=== PATIENT | female | born 1955 | race Caucasian/White ===

== ENCOUNTER 2021-03-14 17:56 | Inpatient (IN) ==
[2021-03-14] MEDS ORDERED: DUONEB 0.5 MG/3 MG (3 mL) NEB ONE ×2 (18:07→18:34)
[2021-03-14] MEDS ORDERED: SOLU-Medrol 125 MG VIAL IVP ONE (18:07)
--- NOTE | 2021-03-14 18:10 | DR.SOBA ---
HPI Time Seen Time Seen by Provider: 03/14/21 18:06 Complaints Chief Complaint:: PT. BROUGHT BACK TO THE ER VIA W/C. PT. HAS AMS AND NOTED TO BE CYANOTIC. PT. IS SLUMPED OVER IN WHEELCHAIR. O2 SAT 29% ON ROOM AIR. ONCE A NON RE-BREATHER WAS APPLIED TO PT, O2 SAT INCREASED TO 100%. PT. STATES SHE HAS BEEN SICK FOR 2 DAYS. SWELLING NOTED TO BLE. PT. IS LETHARGIC. UNKNOWN ANY FURTHER DETAILS AT THIS TIME REGARDING PT'S SICKNESS OR MEDICAL HISTORY. COVID-19 Coronavirus risk:travel/contact w/high risk person: No Has patient experienced Coronavirus symptoms: Yes Coronavirus symptoms experienced: Shortness of Breath Source History Provided: Patient Mode of Arrival Mode of Arrival: Wheelchair Timing Onset of Chief Complaint: 03/12/21 PMH PMH Past Medical History: Yes Past Medical History Comment: BRONCHITIS Past Surgical History: Yes Surgical History: Unknown Family History History of Family Medical Conditions: No (UNKNOWN) Social History Lives With: Family Lives Where: Home Travel Risk Coronavirus risk:travel/contact w/high risk person: No Has patient experienced Coronavirus symptoms: Yes Coronavirus symptoms experienced: Shortness of Breath Infectious screening In the last 2 months have you had wt loss of >10#?: NO Have you had fever, night sweats or hemotysis?: No Have you traveled outside the country in the last 6 months?: No Isolation: Droplet PE Vital Signs Vitals: Temperature 97.9 F Pulse Rate [Apical] 81 Pulse Rate 141 Respiratory Rate 29 Blood Pressure [Left Arm] 148/82 Blood Pressure 188/94 O2 Sat by Pulse Oximetry 96 ROR Labs Reviewed Result Diagrams: 03/14/21 18:00 03/14/21 18:00 Laboratory: WBC 10.3 X10^3/uL (3.6-10.0) H 03/14/21 18:00 RBC 5.45 X10^6/uL (3.5-5.4) H 03/14/21 18:00 Hgb 15.3 g/dL (12.0-16.0) 03/14/21 18:00 Hct 48.9 % (36.0-47.0) H 03/14/21 18:00 MCV 89.8 fL (80.0-100.0) 03/14/21 18:00 MCH 28.1 pg (27.0-34.0) 03/14/21 18:00 MCHC 31.3 g/dL (33.0-35.0) L 03/14/21 18:00 RDW 18.0 % (11.6-16.5) H 03/14/21 18:00 Plt Count 303 X10^3/uL (150.0-450.0) 03/14/21 18:00 MPV 8.4 fL (7.4-11.0) 03/14/21 18:00 Neut % (Auto) 83.8 % (42.0-75.0) H 03/14/21 18:00 Lymph % (Auto) 11.3 % (21.0-51.0) L 03/14/21 18:00 [place] % (Auto) 4.3 % (0.0-13.0) 03/14/21 18:00 Eos % (Auto) 0.3 % (0.9-2.9) L 03/14/21 18:00 Baso % (Auto) 0.3 % (0.2-1.0) 03/14/21 18:00 Neut # (Auto) 8.7 x10^3/uL (2.2-4.8) H 03/14/21 18:00 Lymph # (Auto) 1.2 X10^3/uL (1.3-2.9) L 03/14/21 18:00 [place] # (Auto) 0.4 x10^3/uL (0.3-0.8) 03/14/21 18:00 Eos # (Auto) 0.0 x10^3/uL (0.0-0.2) 03/14/21 18:00 Baso # (Auto) 0.0 X10^3/uL (0.0-0.1) 03/14/21 18:00 Absolute Nucleated RBC 0.4 /100WBC 03/14/21 18:00 D-Dimer 0.60 ug/ml (0.0-0.57) H* 03/14/21 18:00 Sample Site Rrad 03/14/21 21:09 ABG pH 7.290 (7.35-7.45) L 03/14/21 21:09 ABG pCO2 77.0 mmHg (35.0-45.0) H* 03/14/21 21:09 ABG pO2 84.0 mmHg (80.0-100.0) 03/14/21 21:09 ABG HCO3 37.0 mmol/L (22-26) H* 03/14/21 21:09 ABG O2 Saturation 95.0 % (90-100) 03/14/21 21:09 ABG Base Excess 7.8 mmol/L (-2.0-2.0) H 03/14/21 21:09 Varun Test Pos 03/14/21 21:09 A-a Gradient 248.0 mmHg 03/14/21 21:09 FiO2 60.0 03/14/21 21:09 Blood Gas Comments Maicol abg well-mtf 03/14/21 21:09 Sodium 140 mmol/L (136-145) 03/14/21 18:00 Corrected Sodium 145 mmol/L (136-145) 03/14/21 18:00 Potassium 4.9 mmol/L (3.5-5.1) 03/14/21 18:00 Chloride 102 mmol/L (98-107) 03/14/21 18:00 Carbon Dioxide 36.3 mmol/L (21-32) H 03/14/21 18:00 BUN 20 mg/dL (7-18) H 03/14/21 18:00 Creatinine 1.40 mg/dL (0.55-1.02) H 03/14/21 18:00 Est GFR (MDRD) Af Amer 49 (>60) L 03/14/21 18:00 Est GFR (MDRD) Non-Af 40 (>60) L 03/14/21 18:00 Glucose 309 mg/dL (65-99) H 03/14/21 18:00 Hemoglobin A1c 7.4 % 03/14/21 18:00 Calcium 8.2 mg/dL (8.5-10.1) L 03/14/21 18:00 Corrected Calcium 8.8 mg/dL (8.5-10.1) 03/14/21 18:00 Total Bilirubin 0.30 mg/dL (0.2-1.0) 03/14/21 18:00 AST 55 Units/L (15-37) H 03/14/21 18:00 ALT 42 Units/L (12-78) 03/14/21 18:00 Alkaline Phosphatase 115 Units/L (46-116) 03/14/21 18:00 Creatine Kinase 138 Units/L (26-192) 03/14/21 18:00 CK-MB (CK-2) 3.5 ng/mL (0-4.0) 03/14/21 18:00 CK/CKMB % Calc 2.5 % (<4) 03/14/21 18:00 Troponin I < 0.02 ng/mL (0-1.5) 03/14/21 18:00 B-Natriuretic Peptide 112 pg/mL (0-79) H 03/14/21 18:00 Total Protein 8.3 g/dL (6.4-8.2) H 03/14/21 18:00 Albumin 3.2 g/dL (3.4-5.0) L 03/14/21 18:00 Globulin 5.1 g/dL (2.5-4.5) H 03/14/21 18:00 Albumin/Globulin Ratio 0.6 Ratio (1.1-2.1) L 03/14/21 18:00 Specimen Type Catherized urine 03/15/21 01:50 Urine Color Yellow (YELLOW) 03/15/21 01:50 Urine Appearance Clear (CLEAR) 03/15/21 01:50 Urine pH 5.0 (5.0 - 8.0) 03/15/21 01:50 Ur Specific [place] 1.025 (1.000-1.030) 03/15/21 01:50 Urine Protein 3+ (NEGATIVE) 03/15/21 01:50 Urine Glucose (UA) Negative (NEGATIVE) 03/15/21 01:50 Urine Ketones Negative (NEGATIVE) 03/15/21 01:50 Urine Occult Blood 1+ (NEGATIVE) 03/15/21 01:50 Urine Nitrite Negative (NEGATIVE) 03/15/21 01:50 Urine Bilirubin Negative (NEGATIVE) 03/15/21 01:50 Urine Urobilinogen Normal (NORMAL) 03/15/21 01:50 Ur Leukocyte Esterase Negative (NEGATIVE) 03/15/21 01:50 Urine RBC 0-2 /HPF (0-3) 03/15/21 01:50 Urine WBC 0-2 /HPF (0-5) 03/15/21 01:50 Ur Squamous Epith Cells Rare /HPF (NEGATIVE) 03/15/21 01:50 Urine Bacteria Negative /HPF (NEGATIVE) 03/15/21 01:50 Urine Mucus Few /HPF (NEGATIVE) 03/15/21 01:50 Ur Culture Indicated? No/not indicated 03/15/21 01:50 Urine Opiates Screen Positive (NEG=<300) A 03/15/21 01:50 Urine Methadone Screen Negative (NEG=<300) 03/15/21 01:50 Ur Barbiturates Screen Negative (NEG=<200) 03/15/21 01:50 Ur Phencyclidine Scrn Negative (NEG=<25) 03/15/21 01:50 Ur Amphetamines Screen Positive (NEG=<1000) A 03/15/21 01:50 U Benzodiazepines Scrn Negative (NEG=<200) 03/15/21 01:50 Urine Cocaine Screen Negative (NEG=<300) 03/15/21 01:50 U Marijuana (THC) Screen Negative (NEG=<50) 03/15/21 01:50 Acetone, Semi-Quant Negative (NEGATIVE) 03/14/21 18:00 SARS-CoV-2 (PCR) Negative (NEGATIVE) 03/14/21 22:28 Influenza Type A (PCR) Negative (NEGATIVE) 03/14/21 22:28 Influenza Type B (PCR) Negative (NEGATIVE) 03/14/21 22:28 RSV (PCR) Positive (NEGATIVE) A 03/14/21 22:28 SARS CoV-2 RNA Rapid WILLIAN Negative (NEGATIVE) 03/14/21 18:00 Opioid Opioid Risk Tool Age (Yuval box if 16-45): No History of Preadolescent Sexual Abuse: No Total: 0 Total Score Risk Category: Low Risk Copyright: Jovanni HAYES predicting aberrant behaviors Instructions Forms: Precautions for COVID19 Patient Portal Social Distancing
[2021-03-14 18:17] LABS: ABG BASE EXCESS 4.5 mmol/L (-2.0-2.0)
[2021-03-14 18:19] LABS: ABG ALLEN TEST POS; ABG HCO3 35.8 mmol/L (22-26)
[2021-03-14 18:28] LABS: BASOPHILS % (AUTO) 0.3 % (0.2-1.0); EOSINOPHILS % (AUTO) 0.3 % (0.9-2.9); HEMATOCRIT 48.9 % (36.0-47.0); HEMOGLOBIN 15.3 g/dL (12.0-16.0); LYMPHOCYTES # (AUTO) 1.2 X10^3/uL (1.3-2.9); LYMPHOCYTES % (AUTO) 11.3 % (21.0-51.0); MEAN CORPUSCULAR HEMOGLOBIN 28.1 pg (27.0-34.0); MEAN CORPUSCULAR HGB CONC 31.3 g/dL (33.0-35.0); MEAN CORPUSCULAR VOLUME 89.8 fL (80.0-100.0); MEAN PLATELET VOLUME 8.4 fL (7.4-11.0); MONOCYTES # (AUTO) 0.4 x10^3/uL (0.3-0.8); MONOCYTES % (AUTO) 4.3 % (0.0-13.0); NEUTROPHILS # (AUTO) 8.7 x10^3/uL (2.2-4.8); NEUTROPHILS % (AUTO) 83.8 % (42.0-75.0); PLATELET COUNT 303 X10^3/uL (150.0-450.0); RED BLOOD COUNT 5.45 X10^6/uL (3.5-5.4); WHITE BLOOD COUNT 10.3 X10^3/uL (3.6-10.0)
[2021-03-14] MEDS ORDERED: SOLU-Medrol 125 MG VIAL ONE (18:54)
[2021-03-14 19:05] LABS: ALANINE AMINOTRANSFERASE 42 Units/L (12-78); ALBUMIN 3.2 g/dL (3.4-5.0); ALKALINE PHOSPHATASE 115 Units/L (46-116); ASPARTATE AMINO TRANSFERASE 55 Units/L (15-37); BLOOD UREA NITROGEN 20 mg/dL (7-18); CALCIUM 8.2 mg/dL (8.5-10.1); CARBON DIOXIDE 36.3 mmol/L (21-32); CHLORIDE 102 mmol/L (98-107); CKMB % 2.5 % (<4); COR CA(FOR HYPOALB) 8.8 mg/dL (8.5-10.1); COR NA(FOR HYPERGLY) 145 mmol/L (136-145); CREATINE KINASE 138 Units/L (26-192); CREATINE KINASE MB 3.5 ng/mL (0-4.0); SODIUM 140 mmol/L (136-145); TOTAL PROTEIN 8.3 g/dL (6.4-8.2); TROPONIN I < 0.02 ng/mL (0-1.5); eGFR NON BLACK RACES 40 (>60)
[2021-03-14 20:19] LABS: SERUM ACETONE NEGATIVE (NEGATIVE)
[2021-03-14 20:27] LABS: HEMOGLOBIN A1C 7.4 %
[2021-03-14 21:12] LABS: ABG BASE EXCESS 7.8 mmol/L (-2.0-2.0)
[2021-03-14 21:13] LABS: ABG ALLEN TEST POS
--- NOTE | 2021-03-15 00:02 | RAD ---
PROCEDURE: Chest X-ray 1 View .HISTORY: Hypoxia, lethargy, and lower extremity swelling.TECHNIQUE: AP view .COMPARISON: None .TECHNICAL QUALITY: Satisfactory .FINDINGS:Heart size upper limits of normal.Mediastinum and hilar regions show no masses or lymphadenopathy .Normal central vascularity .No pulmonary consolidation, masses, pleural fluid, or pneumothorax .No acute bony abnormality .IMPRESSION:1. Heart size upper limits of normal.2. No other evidence of active disease.Electronically signed by: Mango Cancino (Mar 15, 2021 00:00:52)
[2021-03-15] MEDS ORDERED: ZOSYN VIAL 3.375 GRAMS 3.375 G in NS 100 ML IV + SPIKE MINIBAG* 100 ML IV ONE (00:42)
[2021-03-15] MEDS ORDERED: LOVENOX INJ 120 MG SYR SC ONE ×2 (02:00→07:59)
[2021-03-15] MEDS ORDERED: ZOSYN VIAL 3.375 GRAMS IV ONE ×2 (02:00→08:01)
[2021-03-15] MEDS ORDERED: NS 100 ML IV + SPIKE MINIBAG* 100 ML IV ONE (02:01)
[2021-03-15 02:59] LABS: BILIRUBIN,URINE NEGATIVE (NEGATIVE); BLOOD/HEMOGLOBIN,URINE 1+ (NEGATIVE); GLUCOSE, URINE NEGATIVE (NEGATIVE); KETONES,URINE NEGATIVE (NEGATIVE); LEUKOCYTE ESTERASE ,URINE NEGATIVE (NEGATIVE); NITRITES,URINE NEGATIVE (NEGATIVE); PROTEIN,URINE 3+ (NEGATIVE); UROBILINOGEN,URINE NORMAL (NORMAL)
[2021-03-15 03:09] LABS: APPEARANCE,URINE CLEAR (CLEAR); COLOR,URINE YELLOW (YELLOW)
[2021-03-15 03:10] LABS: BACTERIA,URINE NEGATIVE /HPF (NEGATIVE); MUCUS,URINE FEW /HPF (NEGATIVE); RBC,URINE 0-2 /HPF (0-3); SQUAMOUS EPITHELIAL CELL,UR RARE /HPF (NEGATIVE)
[2021-03-15] MEDS ORDERED: PEPCID TAB 20 MG ONE (07:59)
[2021-03-15] MEDS ORDERED: SOLU-Medrol 125 MG VIAL ONE (07:59)
[2021-03-15] MEDS ORDERED: TRICOR TAB 160 MG ONE (08:00)
[2021-03-15] MEDS ORDERED: ZINC SULFATE ONE (08:00)
[2021-03-15] MEDS ORDERED: VITAMIN D3 125 mcg (5,000 UNITS) ONE (08:00)
[2021-03-15] MEDS ORDERED: NS 100 ML IV 100 ML ONE ×2 (08:01→08:02)
[2021-03-15] MEDS: SOLU-Medrol 125 MG VIAL IVP SCH ×3 (08:16→21:18)
[2021-03-15] MEDS: ZOSYN VIAL 3.375 GRAMS 3.375 G in NS 100 ML IV + SPIKE MINIBAG* 100 ML IV SCH ×3 (08:17→21:18)
[2021-03-15] MEDS: PEPCID TAB 20 MG PO SCH (08:19)
[2021-03-15 08:33] LABS: CKMB % 3.9 % (<4); CREATINE KINASE MB 2.7 ng/mL (0-4.0); TROPONIN I 0.05 ng/mL (0-1.5)
[2021-03-15 08:44] LABS: BASOPHILS % (AUTO) 0.5 % (0.2-1.0); HEMATOCRIT 46.1 % (36.0-47.0); HEMOGLOBIN 14.7 g/dL (12.0-16.0); LYMPHOCYTES # (AUTO) 0.9 X10^3/uL (1.3-2.9); LYMPHOCYTES % (AUTO) 8.5 % (21.0-51.0); MEAN CORPUSCULAR HEMOGLOBIN 27.7 pg (27.0-34.0); MEAN CORPUSCULAR HGB CONC 31.9 g/dL (33.0-35.0); MEAN CORPUSCULAR VOLUME 86.6 fL (80.0-100.0); MEAN PLATELET VOLUME 8.5 fL (7.4-11.0); MONOCYTES # (AUTO) 0.2 x10^3/uL (0.3-0.8); MONOCYTES % (AUTO) 1.9 % (0.0-13.0); NEUTROPHILS # (AUTO) 9.7 x10^3/uL (2.2-4.8); NEUTROPHILS % (AUTO) 89.1 % (42.0-75.0); PLATELET COUNT 264 X10^3/uL (150.0-450.0); RED BLOOD COUNT 5.32 X10^6/uL (3.5-5.4); RED CELL DISTRIBUTION WIDTH 17.5 % (11.6-16.5); WHITE BLOOD COUNT 10.9 X10^3/uL (3.6-10.0)
[2021-03-15 08:55] LABS: ALANINE AMINOTRANSFERASE 41 Units/L (12-78); ALBUMIN 2.8 g/dL (3.4-5.0); ALKALINE PHOSPHATASE 94 Units/L (46-116); ASPARTATE AMINO TRANSFERASE 39 Units/L (15-37); BLOOD UREA NITROGEN 16 mg/dL (7-18); CARBON DIOXIDE 36.5 mmol/L (21-32); CHLORIDE 103 mmol/L (98-107); COR NA(FOR HYPERGLY) 146 mmol/L (136-145); CREATININE 0.96 mg/dL (0.55-1.02); SODIUM 144 mmol/L (136-145); TOTAL PROTEIN 7.6 g/dL (6.4-8.2); eGFR NON BLACK RACES > 60 (>60)
[2021-03-15] MEDS ORDERED: ZINC SULFATE PO SCH (09:00)
[2021-03-15] MEDS ORDERED: LOVENOX INJ 120 MG SYR SC SCH ×2 (09:00→21:00)
[2021-03-15] MEDS ORDERED: ASCORBIC ACID INJ MULTI-DOSE VIAL 1,500 MG in NS 100 ML IV 100 ML IV SCH (09:00)
[2021-03-15] MEDS: PULMICORT NEB TX 0.5 MG NEB SCH ×2 (09:00→21:05)
[2021-03-15] MEDS ORDERED: VITAMIN A PO SCH (09:00)
[2021-03-15] MEDS ORDERED: TRICOR TAB 160 MG PO SCH (09:00)
[2021-03-15] MEDS ORDERED: LOVENOX INJ 100 MG SYR SC SCH (09:00)
[2021-03-15] MEDS ORDERED: VITAMIN D (1.25MG) PO SCH (09:00)
[2021-03-15 09:12] LABS: ABG BASE EXCESS 10.4 mmol/L (-2.0-2.0)
[2021-03-15 09:13] LABS: ABG ALLEN TEST POS; ABG HCO3 40.4 mmol/L (22-26)
[2021-03-15] MEDS ORDERED: ZITHROMAX INJ 500 MG VIAL IV ONE (11:02)
[2021-03-15] MEDS ORDERED: NS 250 ML IV 250 ML IV ONE (11:03)
[2021-03-15] MEDS ORDERED: NS 500 ML IV 500 ML IV ONE (11:03)
--- NOTE | 2021-03-15 11:03 | CT ---
HISTORYsob, elevated d dimerSTUDYCTA CHESTCOMPARISONNone availableTECHNIQUEPulmonary angiogram protocol was performed after the administration of contrast. 3D MIPS images were performed. CT scan was performed following ALARA (As low as Reasonably Achievable).Coronal and Sagittal reformatted images were performed.FINDINGSThe thyroid gland is unremarkable. There is no significant axillary adenopathy. No sub carinal or mediastinal adenopathy. The ascending aorta measures 2.9 centimeters, there is no pleural or pericardial effusions. There is no adrenal masses. There is diffuse fatty liver. The spleen is no enlarge with calcified granulomas. The stomach is no distended. There is a small aortic pulmonary window lymph node measuring in short axis 0.6 centimeters.There is no evidence of pulmonary embolism.There are bilateral enhancing infiltrates in the bases likely atelectasis. There is fat along the pleural region in the inferior left upper lobe, it could represent a lipoma measuring 3.9 by 1.1 centimeter. No suspicious for pneumonia. No dominant lung nodules or masses.Bone windows no evidence of aggressive bone lesions, no acute fracturesIMPRESSIONNo radiographic evidence of pulmonary embolismBibasal infiltrates with enhancement likely atelectasis.Small lateral left subpleural lipomaElectronically signed by: Barb Reich (Mar 15, 2021 11:00:51)
[2021-03-15] MEDS: ZITHROMAX INJ 500 MG VIAL 500 MG in NS 250 ML IV 250 ML IV SCH (11:10)
[2021-03-15] MEDS ORDERED: HumuLIN R ONE (12:11)
[2021-03-15] MEDS: HumuLIN R SC PRN (12:16)
[2021-03-15 14:30] LABS: CKMB % 3.9 % (<4); CREATINE KINASE MB 2.5 ng/mL (0-4.0); TROPONIN I 0.03 ng/mL (0-1.5)
--- NOTE | 2021-03-15 14:46 | DR.H&P ---
H&P History & Physical for Day of: H&P Date: 03/15/21 Chief Complaint Chief Complaint: SOB, lethargy Allergies Allergies Allergy/AdvReac Type Severity Reaction Status Date / Time No Known Drug Allergies Allergy Verified 03/14/21 18:03 History of Present Illness History of Present Illness: Ms Leonard is a 65y/o female who presented yesterday with lethargy and worsening dyspnea. Patient's O2 sats were noted to be 29% on RA. She was placed on non-rebreather and then BiPAP. She is a poor historian and not able to provide details about her medical hx. She denies taking any medications. Denies hx of CAD or DM. She is a smoker. Denies use of inhalers or nebs. ER work-up Labs: WBC 10.3 Hgb 15.3 BUN/Cr: 20/1.4 Glucose 309 A1C 7.4 D-dimer: 0.60 Trop x1 (-) AB.18/96/84/35 on FiO2 100%, repeat: 7.29/77/84/37 on BiPAP FiO2 60% UA (-) CXR (-) COVID-19 (-) RSV + UDS: + opiates + amphetamine Patient was started on IV Zosyn, solumedrol and nebs. Patient was started on FD lovenox for PE treatment. Plan: follow up labs. If renal function stable, then consider CTA to rule out PE. Repeat ABG this morning. Wean off BiPAP as tolerated. Continue Zosyn, add azithromycin. Continue solumedrol, nebs and pulmicort. Add insulin. Monitor mental status. Monitor AM labs/imaging. Time spent for clinical assessment, reviewing labs/imaging, physical exam, clinical assessment and decision making greater than 75 mins. Past Medical History Past Medical History: COPD Past Surgical History Surgical History: Unknown Family History Family Medical History: Diabetes Mellitus and Cancer Social History Does patient currently use any type of tobacco product: Yes Have you used tobacco products in the last 12 months: Yes Type of Tobacco Use: Cigarettes Alcohol Use: None Prescription drug monitoring program results: PDMP reviewed and no concerns identified Medications Home Medications: No Known Drug Allergies Allergy (Verified 03/14/21 18:03) Labs Result Diagrams: 03/15/21 07:35 03/15/21 07:35 Labs: Laboratory WBC 10.9 X10^3/uL (3.6-10.0) H 03/15/21 07:35 RBC 5.32 X10^6/uL (3.5-5.4) 03/15/21 07:35 Hgb 14.7 g/dL (12.0-16.0) 03/15/21 07:35 Hct 46.1 % (36.0-47.0) 03/15/21 07:35 MCV 86.6 fL (80.0-100.0) 03/15/21 07:35 MCH 27.7 pg (27.0-34.0) 03/15/21 07:35 MCHC 31.9 g/dL (33.0-35.0) L 03/15/21 07:35 RDW 17.5 % (11.6-16.5) H 03/15/21 07:35 Plt Count 264 X10^3/uL (150.0-450.0) 03/15/21 07:35 MPV 8.5 fL (7.4-11.0) 03/15/21 07:35 Neut % (Auto) 89.1 % (42.0-75.0) H 03/15/21 07:35 Lymph % (Auto) 8.5 % (21.0-51.0) L 03/15/21 07:35 [place] % (Auto) 1.9 % (0.0-13.0) 03/15/21 07:35 Eos % (Auto) 0.0 % (0.9-2.9) L 03/15/21 07:35 Baso % (Auto) 0.5 % (0.2-1.0) 03/15/21 07:35 Neut # (Auto) 9.7 x10^3/uL (2.2-4.8) H 03/15/21 07:35 Lymph # (Auto) 0.9 X10^3/uL (1.3-2.9) L 03/15/21 07:35 [place] # (Auto) 0.2 x10^3/uL (0.3-0.8) L 03/15/21 07:35 Eos # (Auto) 0.0 x10^3/uL (0.0-0.2) 03/15/21 07:35 Baso # (Auto) 0.0 X10^3/uL (0.0-0.1) 03/15/21 07:35 Absolute Nucleated RBC 0.6 /100WBC 03/15/21 07:35 D-Dimer 0.60 ug/ml (0.0-0.57) H* 03/14/21 18:00 Sample Site Rra 03/15/21 09:04 ABG pH 7.280 (7.35-7.45) L 03/15/21 09:04 ABG pCO2 86.0 mmHg (35.0-45.0) H* 03/15/21 09:04 ABG pO2 79.0 mmHg (80.0-100.0) L 03/15/21 09:04 ABG HCO3 40.4 mmol/L (22-26) H* 03/15/21 09:04 ABG O2 Saturation 94.0 % (90-100) 03/15/21 09:04 ABG Base Excess 10.4 mmol/L (-2.0-2.0) H 03/15/21 09:04 Varun Test Pos 03/15/21 09:04 A-a Gradient 206.0 mmHg 03/15/21 09:04 FiO2 55.0 03/15/21 09:04 Blood Gas Comments Pt jose well eb 03/15/21 09:04 Sodium 144 mmol/L (136-145) 03/15/21 07:35 Corrected Sodium 146 mmol/L (136-145) H 03/15/21 07:35 Potassium 5.1 mmol/L (3.5-5.1) 03/15/21 07:35 Chloride 103 mmol/L (98-107) 03/15/21 07:35 Carbon Dioxide 36.5 mmol/L (21-32) H 03/15/21 07:35 BUN 16 mg/dL (7-18) 03/15/21 07:35 Creatinine 0.96 mg/dL (0.55-1.02) 03/15/21 07:35 Est GFR (MDRD) Af Amer > 60 (>60) 03/15/21 07:35 Est GFR (MDRD) Non-Af > 60 (>60) 03/15/21 07:35 Glucose 189 mg/dL (65-99) H 03/15/21 07:35 POC Glucose (mg/dL) 213 mg/dL (65-99) H 03/15/21 12:05 Hemoglobin A1c 7.4 % 03/14/21 18:00 Calcium 8.0 mg/dL (8.5-10.1) L 03/15/21 07:35 Corrected Calcium 9.0 mg/dL (8.5-10.1) 03/15/21 07:35 Total Bilirubin 0.30 mg/dL (0.2-1.0) 03/15/21 07:35 AST 39 Units/L (15-37) H 03/15/21 07:35 ALT 41 Units/L (12-78) 03/15/21 07:35 Alkaline Phosphatase 94 Units/L (46-116) 03/15/21 07:35 Creatine Kinase 64 Units/L (26-192) 03/15/21 13:49 CK-MB (CK-2) 2.5 ng/mL (0-4.0) 03/15/21 13:49 CK/CKMB % Calc 3.9 % (<4) 03/15/21 13:49 Troponin I 0.03 ng/mL (0-1.5) 03/15/21 13:49 B-Natriuretic Peptide 112 pg/mL (0-79) H 03/14/21 18:00 Total Protein 7.6 g/dL (6.4-8.2) 03/15/21 07:35 Albumin 2.8 g/dL (3.4-5.0) L 03/15/21 07:35 Globulin 4.8 g/dL (2.5-4.5) H 03/15/21 07:35 Albumin/Globulin Ratio 0.6 Ratio (1.1-2.1) L 03/15/21 07:35 Specimen Type Catherized urine 03/15/21 01:50 Urine Color Yellow (YELLOW) 03/15/21 01:50 Urine Appearance Clear (CLEAR) 03/15/21 01:50 Urine pH 5.0 (5.0 - 8.0) 03/15/21 01:50 Ur Specific [place] 1.025 (1.000-1.030) 03/15/21 01:50 Urine Protein 3+ (NEGATIVE) 03/15/21 01:50 Urine Glucose (UA) Negative (NEGATIVE) 03/15/21 01:50 Urine Ketones Negative (NEGATIVE) 03/15/21 01:50 Urine Occult Blood 1+ (NEGATIVE) 03/15/21 01:50 Urine Nitrite Negative (NEGATIVE) 03/15/21 01:50 Urine Bilirubin Negative (NEGATIVE) 03/15/21 01:50 Urine Urobilinogen Normal (NORMAL) 03/15/21 01:50 Ur Leukocyte Esterase Negative (NEGATIVE) 03/15/21 01:50 Urine RBC 0-2 /HPF (0-3) 03/15/21 01:50 Urine WBC 0-2 /HPF (0-5) 03/15/21 01:50 Ur Squamous Epith Cells Rare /HPF (NEGATIVE) 03/15/21 01:50 Urine Bacteria Negative /HPF (NEGATIVE) 03/15/21 01:50 Urine Mucus Few /HPF (NEGATIVE) 03/15/21 01:50 Ur Culture Indicated? No/not indicated 03/15/21 01:50 Urine Opiates Screen Positive (NEG=<300) A 03/15/21 01:50 Urine Methadone Screen Negative (NEG=<300) 03/15/21 01:50 Ur Barbiturates Screen Negative (NEG=<200) 03/15/21 01:50 Ur Phencyclidine Scrn Negative (NEG=<25) 03/15/21 01:50 Ur Amphetamines Screen Positive (NEG=<1000) A 03/15/21 01:50 U Benzodiazepines Scrn Negative (NEG=<200) 03/15/21 01:50 Urine Cocaine Screen Negative (NEG=<300) 03/15/21 01:50 U Marijuana (THC) Screen Negative (NEG=<50) 03/15/21 01:50 Acetone, Semi-Quant Negative (NEGATIVE) 03/14/21 18:00 SARS-CoV-2 (PCR) Negative (NEGATIVE) 03/14/21 22:28 Influenza Type A (PCR) Negative (NEGATIVE) 03/14/21 22:28 Influenza Type B (PCR) Negative (NEGATIVE) 03/14/21 22:28 RSV (PCR) Positive (NEGATIVE) A 03/14/21 22:28 SARS CoV-2 RNA Rapid WILLIAN Negative (NEGATIVE) 03/14/21 18:00 Review of Systems Constitutional: Weakness and Malaise Eyes: No Symptoms Reported ENT: No Symptoms Reported Respiratory: Cough, Shortness of Breath and SOB with Excertion Cardiovascular: No Symptoms Reported Gastrointestinal: No Symptoms Reported Genitourinary: No Symptoms Reported Musculoskeletal: No Symptoms Reported Skin: No Symptoms Reported Neurological: Confusion Physical Exam Vital Signs: Temperature 98.0 F Pulse Rate [Apical] 82 Pulse Rate 83 Respiratory Rate 37 Blood Pressure [Left Arm] 170/79 Blood Pressure 141/76 O2 Sat by Pulse Oximetry 95 Oriented: Unable to test Eyes: Normal Ear: Normal Nose: Normal Respiratory: Diminished Throughout Cardiovascular: Normal Auscultation: Bowel Sounds: Normal Palpation: Normal Tenderness: Normal Musculoskeletal: Normal Psychiatric: Anxiety and Agitation Mood Description: Anxious Affect: Anxious Speech Pattern: Appropriate, Delayed and Artificially Ventilated (on Bipap ) Assessment/Plan (1) Acute respiratory failure with hypoxia and hypercapnia: Status: Acute (2) RSV bronchitis: Status: Acute (3) Dehydration: Status: Acute (4) Generalized weakness: Status: Acute (5) Drug abuse: Status: Acute (6) Lethargy: Status: Acute (7) Type 2 diabetes mellitus: Qualifiers: Diabetes mellitus nursing home insulin use: unspecified 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
[2021-03-15] MEDS: DUONEB 0.5 MG/3 MG (3 mL) NEB SCH ×3 (16:30→21:05)
[2021-03-15 16:42] LABS: ABG BASE EXCESS 12.3 mmol/L (-2.0-2.0)
[2021-03-15 16:44] LABS: ABG ALLEN TEST POS; ABG HCO3 41.7 mmol/L (22-26)
[2021-03-16] MEDS: ZOSYN VIAL 3.375 GRAMS 3.375 G in NS 100 ML IV + SPIKE MINIBAG* 100 ML IV SCH ×3 (05:45→21:45)
[2021-03-16] MEDS: SOLU-Medrol 125 MG VIAL IVP SCH ×3 (05:45→21:45)
[2021-03-16 06:41] LABS: ALANINE AMINOTRANSFERASE 36 Units/L (12-78); ALBUMIN 2.7 g/dL (3.4-5.0); ALKALINE PHOSPHATASE 100 Units/L (46-116); ASPARTATE AMINO TRANSFERASE 25 Units/L (15-37); BLOOD UREA NITROGEN 21 mg/dL (7-18); CALCIUM 8.3 mg/dL (8.5-10.1); CARBON DIOXIDE 38.9 mmol/L (21-32); CHLORIDE 105 mmol/L (98-107); COR CA(FOR HYPOALB) 9.3 mg/dL (8.5-10.1); COR NA(FOR HYPERGLY) 147 mmol/L (136-145); MAGNESIUM 2.4 mg/dL (1.7-2.9); SODIUM 145 mmol/L (136-145); TOTAL PROTEIN 7.3 g/dL (6.4-8.2); eGFR NON BLACK RACES > 60 (>60)
[2021-03-16 06:56] LABS: BASOPHILS % (AUTO) 0.2 % (0.2-1.0); HEMOGLOBIN 14.2 g/dL (12.0-16.0); LYMPHOCYTES # (AUTO) 0.7 X10^3/uL (1.3-2.9); LYMPHOCYTES % (AUTO) 6.6 % (21.0-51.0); MEAN CORPUSCULAR HEMOGLOBIN 27.6 pg (27.0-34.0); MEAN CORPUSCULAR HGB CONC 31.6 g/dL (33.0-35.0); MEAN CORPUSCULAR VOLUME 87.2 fL (80.0-100.0); MEAN PLATELET VOLUME 8.7 fL (7.4-11.0); MONOCYTES # (AUTO) 0.6 x10^3/uL (0.3-0.8); MONOCYTES % (AUTO) 5.7 % (0.0-13.0); NEUTROPHILS # (AUTO) 9.7 x10^3/uL (2.2-4.8); NEUTROPHILS % (AUTO) 87.5 % (42.0-75.0); PLATELET COUNT 264 X10^3/uL (150.0-450.0); RED BLOOD COUNT 5.16 X10^6/uL (3.5-5.4); RED CELL DISTRIBUTION WIDTH 17.4 % (11.6-16.5); WHITE BLOOD COUNT 11.1 X10^3/uL (3.6-10.0)
[2021-03-16] MEDS: LOVENOX INJ 40 MG SYR SC SCH (08:46)
[2021-03-16] MEDS: PEPCID TAB 20 MG PO SCH (08:47)
[2021-03-16] MEDS: ZITHROMAX INJ 500 MG VIAL 500 MG in NS 250 ML IV 250 ML IV SCH (08:47)
[2021-03-16] MEDS: DUONEB 0.5 MG/3 MG (3 mL) NEB SCH ×4 (08:48→20:50)
[2021-03-16] MEDS: PULMICORT NEB TX 0.5 MG NEB SCH ×2 (08:48→20:50)
[2021-03-16] MEDS ORDERED: LOVENOX INJ 120 MG SYR SC SCH (09:00)
[2021-03-16] MEDS: NORVASC TAB 10 MG PO SCH (09:24)
[2021-03-16 10:58] LABS: ABG BASE EXCESS 16.3 mmol/L (-2.0-2.0)
[2021-03-16 11:00] LABS: ABG ALLEN TEST POS
[2021-03-16] MEDS: HumuLIN R SC PRN ×2 (11:36→22:08)
[2021-03-16] MEDS ORDERED: NS 100 ML IV + SPIKE MINIBAG* 100 ML IV ONE (13:21)
[2021-03-16] MEDS ORDERED: ZOSYN VIAL 3.375 GRAMS IV ONE (13:21)
--- NOTE | 2021-03-16 13:49 | PCM.PROG ---
Progress Note Progress Note for Day of Date of Exam: 03/16/21 Subjective Subjective: Patient seen at bedside, no events overnight. She is currently on BiPAP. She is not able to talk much due to the mask. She is able to answer some direct questions. She reports some cough. She did not eat much yesterday due to being on the BiPAP. Labs: Hgb 14.2 WBC: 11.1 BUN/Cr: 21/0.90 CO2: 38 CTA: (-) for PE, b/l atelectasis COVID PCR (-) Plan: Wean BiPAP as tolerated, switch to HHFNC to keep sats > 92%. Repeat ABG. Will order echo to assess LV function. Continue current treatment with Solumedrol, nebs and pulmicort. Continue Zosyn and Azithromycin. Continue insulin. Will add norvasc for HTN. Repeat ABG. Monitor mental status. Patient has not seen a doctor in years, unclear about her medical hx. Time spent for clinical assessment, reviewing labs/imaging, physical exam, decision making and documentation greater than 75 mins. Past Medical Family Social History Past Med/Fam/Surg Hx: No changes since H&P Allergies: Allergies No Known Drug Allergies Allergy (Verified 03/15/21 17:58) Review of Systems ROS: No change since H&P Vital Signs and I&O's Vital Signs: Temperature 97.5 F Pulse Rate [Apical] 82 Pulse Rate 90 Respiratory Rate 22 Blood Pressure [Left Arm] 170/79 Blood Pressure 154/69 O2 Sat by Pulse Oximetry 90 Intake and Output: Intake & Output 03/13/21 03/14/21 03/15/21 03/16/21 23:59 23:59 23:59 23:59 Intake Total 445 / 445 79 / 79 Output Total 1400 / 1400 475 / 475 Balance -955 / -955 -396 / -396 Physical Exam Oriented: Normal Eyes: Normal Ear: Normal Nose: Normal Respiratory: Generalized and Diminished Cardiovascular: Normal Auscultation: Bowel Sounds: Normal Tenderness: Normal Skin: Normal Musculoskeletal: Normal Psychiatric: Normal Mood Description: Calm Affect: Normal Speech Pattern: Clear Laboratory and Diagnostics Result Diagrams: 03/16/21 05:49 03/16/21 05:49 Labs: Laboratory WBC 11.1 X10^3/uL (3.6-10.0) H 03/16/21 05:49 RBC 5.16 X10^6/uL (3.5-5.4) 03/16/21 05:49 Hgb 14.2 g/dL (12.0-16.0) 03/16/21 05:49 Hct 45.0 % (36.0-47.0) 03/16/21 05:49 MCV 87.2 fL (80.0-100.0) 03/16/21 05:49 MCH 27.6 pg (27.0-34.0) 03/16/21 05:49 MCHC 31.6 g/dL (33.0-35.0) L 03/16/21 05:49 RDW 17.4 % (11.6-16.5) H 03/16/21 05:49 Plt Count 264 X10^3/uL (150.0-450.0) 03/16/21 05:49 MPV 8.7 fL (7.4-11.0) 03/16/21 05:49 Neut % (Auto) 87.5 % (42.0-75.0) H 03/16/21 05:49 Lymph % (Auto) 6.6 % (21.0-51.0) L 03/16/21 05:49 [place] % (Auto) 5.7 % (0.0-13.0) 03/16/21 05:49 Eos % (Auto) 0.0 % (0.9-2.9) L 03/16/21 05:49 Baso % (Auto) 0.2 % (0.2-1.0) 03/16/21 05:49 Neut # (Auto) 9.7 x10^3/uL (2.2-4.8) H 03/16/21 05:49 Lymph # (Auto) 0.7 X10^3/uL (1.3-2.9) L 03/16/21 05:49 [place] # (Auto) 0.6 x10^3/uL (0.3-0.8) 03/16/21 05:49 Eos # (Auto) 0.0 x10^3/uL (0.0-0.2) 03/16/21 05:49 Baso # (Auto) 0.0 X10^3/uL (0.0-0.1) 03/16/21 05:49 Absolute Nucleated RBC 0.2 /100WBC 03/16/21 05:49 D-Dimer 0.60 ug/ml (0.0-0.57) H* 03/14/21 18:00 Sample Site Lra 03/16/21 10:53 ABG pH 7.380 (7.35-7.45) 03/16/21 10:53 ABG pCO2 76.0 mmHg (35.0-45.0) H* 03/16/21 10:53 ABG pO2 63.0 mmHg (80.0-100.0) L 03/16/21 10:53 ABG HCO3 45.0 mmol/L (22-26) H* 03/16/21 10:53 ABG O2 Saturation 91.0 % (90-100) 03/16/21 10:53 ABG Base Excess 16.3 mmol/L (-2.0-2.0) H 03/16/21 10:53 Varun Test Pos 03/16/21 10:53 A-a Gradient 412.0 mmHg 03/16/21 10:53 FiO2 80.0 03/16/21 10:53 Blood Gas Comments Pt jose well eb 03/16/21 10:53 Sodium 145 mmol/L (136-145) 03/16/21 05:49 Corrected Sodium 147 mmol/L (136-145) H 03/16/21 05:49 Potassium 4.8 mmol/L (3.5-5.1) 03/16/21 05:49 Chloride 105 mmol/L (98-107) 03/16/21 05:49 Carbon Dioxide 38.9 mmol/L (21-32) H 03/16/21 05:49 BUN 21 mg/dL (7-18) H 03/16/21 05:49 Creatinine 0.90 mg/dL (0.55-1.02) 03/16/21 05:49 Est GFR (MDRD) Af Amer > 60 (>60) 03/16/21 05:49 Est GFR (MDRD) Non-Af > 60 (>60) 03/16/21 05:49 Glucose 189 mg/dL (65-99) H 03/16/21 05:49 POC Glucose (mg/dL) 248 mg/dL (65-99) H 03/16/21 11:19 Hemoglobin A1c 7.4 % 03/14/21 18:00 Calcium 8.3 mg/dL (8.5-10.1) L 03/16/21 05:49 Corrected Calcium 9.3 mg/dL (8.5-10.1) 03/16/21 05:49 Magnesium 2.4 mg/dL (1.7-2.9) 03/16/21 05:49 Total Bilirubin 0.20 mg/dL (0.2-1.0) 03/16/21 05:49 AST 25 Units/L (15-37) 03/16/21 05:49 ALT 36 Units/L (12-78) 03/16/21 05:49 Alkaline Phosphatase 100 Units/L (46-116) 03/16/21 05:49 Creatine Kinase 64 Units/L (26-192) 03/15/21 13:49 CK-MB (CK-2) 2.5 ng/mL (0-4.0) 03/15/21 13:49 CK/CKMB % Calc 3.9 % (<4) 03/15/21 13:49 Troponin I 0.03 ng/mL (0-1.5) 03/15/21 13:49 B-Natriuretic Peptide 112 pg/mL (0-79) H 03/14/21 18:00 Total Protein 7.3 g/dL (6.4-8.2) 03/16/21 05:49 Albumin 2.7 g/dL (3.4-5.0) L 03/16/21 05:49 Globulin 4.6 g/dL (2.5-4.5) H 03/16/21 05:49 Albumin/Globulin Ratio 0.6 Ratio (1.1-2.1) L 03/16/21 05:49 Specimen Type Catherized urine 03/15/21 01:50 Urine Color Yellow (YELLOW) 03/15/21 01:50 Urine Appearance Clear (CLEAR) 03/15/21 01:50 Urine pH 5.0 (5.0 - 8.0) 03/15/21 01:50 Ur Specific [place] 1.025 (1.000-1.030) 03/15/21 01:50 Urine Protein 3+ (NEGATIVE) 03/15/21 01:50 Urine Glucose (UA) Negative (NEGATIVE) 03/15/21 01:50 Urine Ketones Negative (NEGATIVE) 03/15/21 01:50 Urine Occult Blood 1+ (NEGATIVE) 03/15/21 01:50 Urine Nitrite Negative (NEGATIVE) 03/15/21 01:50 Urine Bilirubin Negative (NEGATIVE) 03/15/21 01:50 Urine Urobilinogen Normal (NORMAL) 03/15/21 01:50 Ur Leukocyte Esterase Negative (NEGATIVE) 03/15/21 01:50 Urine RBC 0-2 /HPF (0-3) 03/15/21 01:50 Urine WBC 0-2 /HPF (0-5) 03/15/21 01:50 Ur Squamous Epith Cells Rare /HPF (NEGATIVE) 03/15/21 01:50 Urine Bacteria Negative /HPF (NEGATIVE) 03/15/21 01:50 Urine Mucus Few /HPF (NEGATIVE) 03/15/21 01:50 Ur Culture Indicated? No/not indicated 03/15/21 01:50 Urine Opiates Screen Positive (NEG=<300) A 03/15/21 01:50 Urine Methadone Screen Negative (NEG=<300) 03/15/21 01:50 Ur Barbiturates Screen Negative (NEG=<200) 03/15/21 01:50 Ur Phencyclidine Scrn Negative (NEG=<25) 03/15/21 01:50 Ur Amphetamines Screen Positive (NEG=<1000) A 03/15/21 01:50 U Benzodiazepines Scrn Negative (NEG=<200) 03/15/21 01:50 Urine Cocaine Screen Negative (NEG=<300) 03/15/21 01:50 U Marijuana (THC) Screen Negative (NEG=<50) 03/15/21 01:50 Acetone, Semi-Quant Negative (NEGATIVE) 03/14/21 18:00 SARS-CoV-2 (PCR) Negative (NEGATIVE) 03/14/21 22:28 Influenza Type A (PCR) Negative (NEGATIVE) 03/14/21 22:28 Influenza Type B (PCR) Negative (NEGATIVE) 03/14/21 22:28 RSV (PCR) Positive (NEGATIVE) A 03/14/21 22:28 SARS CoV-2 RNA Rapid WILLIAN Negative (NEGATIVE) 03/14/21 18:00 Plan (1) Acute respiratory failure with hypoxia and hypercapnia: Status: Acute (2) COPD exacerbation: Status: Acute (3) RSV bronchitis: Status: Acute (4) Dehydration: Status: Acute (5) Generalized weakness: Status: Acute (6) Drug abuse: Status: Acute (7) Lethargy: Status: Acute (8) Type 2 diabetes mellitus: Status: Acute Qualifiers: Diabetes mellitus complication status: with other specified complication Diabetes mellitus center 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
[2021-03-17] MEDS: ZOSYN VIAL 3.375 GRAMS 3.375 G in NS 100 ML IV + SPIKE MINIBAG* 100 ML IV SCH ×3 (05:43→22:24)
[2021-03-17] MEDS: SOLU-Medrol 125 MG VIAL IVP SCH ×3 (05:43→22:24)
[2021-03-17] MEDS: HumuLIN R SC PRN ×4 (05:44→23:45)
[2021-03-17 06:34] LABS: BASOPHILS % (AUTO) 0.1 % (0.2-1.0); HEMATOCRIT 43.6 % (36.0-47.0); HEMOGLOBIN 13.9 g/dL (12.0-16.0); LYMPHOCYTES # (AUTO) 0.6 X10^3/uL (1.3-2.9); LYMPHOCYTES % (AUTO) 5.8 % (21.0-51.0); MEAN CORPUSCULAR HEMOGLOBIN 27.8 pg (27.0-34.0); MEAN CORPUSCULAR HGB CONC 31.9 g/dL (33.0-35.0); MEAN CORPUSCULAR VOLUME 87.2 fL (80.0-100.0); MEAN PLATELET VOLUME 8.4 fL (7.4-11.0); MONOCYTES # (AUTO) 0.4 x10^3/uL (0.3-0.8); MONOCYTES % (AUTO) 3.8 % (0.0-13.0); NEUTROPHILS # (AUTO) 9.9 x10^3/uL (2.2-4.8); NEUTROPHILS % (AUTO) 90.3 % (42.0-75.0); PLATELET COUNT 257 X10^3/uL (150.0-450.0); RED CELL DISTRIBUTION WIDTH 17.1 % (11.6-16.5)
[2021-03-17 07:33] LABS: BLOOD UREA NITROGEN 24 mg/dL (7-18); CALCIUM 8.3 mg/dL (8.5-10.1); CARBON DIOXIDE 39.8 mmol/L (21-32); CHLORIDE 103 mmol/L (98-107); COR NA(FOR HYPERGLY) 146 mmol/L (136-145); CREATININE 0.92 mg/dL (0.55-1.02); SODIUM 144 mmol/L (136-145); eGFR NON BLACK RACES > 60 (>60)
[2021-03-17] MEDS ORDERED: VITAMIN A PO SCH (09:00)
[2021-03-17] MEDS ORDERED: VITAMIN D3 125 mcg (5,000 UNITS) PO SCH (09:00)
[2021-03-17] MEDS: PULMICORT NEB TX 0.5 MG NEB SCH ×2 (09:21→20:36)
[2021-03-17] MEDS: DUONEB 0.5 MG/3 MG (3 mL) NEB SCH ×4 (09:21→20:36)
[2021-03-17 09:33] LABS: PLATELET MORPHOLOGY COMMENT NORMAL (NORMAL); POLYCHROMASIA SLIGHT
[2021-03-17] MEDS: PEPCID TAB 20 MG PO SCH (09:45)
[2021-03-17] MEDS: NORVASC TAB 10 MG PO SCH (09:45)
[2021-03-17] MEDS: ZITHROMAX INJ 500 MG VIAL 500 MG in NS 250 ML IV 250 ML IV SCH (09:45)
[2021-03-17] MEDS: LOVENOX INJ 40 MG SYR SC SCH (09:45)
[2021-03-17] MEDS ORDERED: ZOFRAN INJ 4 MG VIAL ONE (11:03)
[2021-03-17] MEDS: ATIVAN TAB 0.5 MG PO SCH (22:22)
[2021-03-18] MEDS: MORPHINE SULFATE INJ 2 MG INJ IVP PRN ×2 (00:31→22:06)
[2021-03-18] MEDS: SOLU-Medrol 125 MG VIAL IVP SCH ×3 (05:47→22:02)
[2021-03-18] MEDS: HumuLIN R SC PRN ×2 (05:48→21:30)
[2021-03-18 07:00] LABS: BASOPHILS % (AUTO) 0.2 % (0.2-1.0); HEMATOCRIT 44.3 % (36.0-47.0); LYMPHOCYTES # (AUTO) 0.5 X10^3/uL (1.3-2.9); LYMPHOCYTES % (AUTO) 6.9 % (21.0-51.0); MEAN CORPUSCULAR HEMOGLOBIN 27.3 pg (27.0-34.0); MEAN CORPUSCULAR HGB CONC 31.7 g/dL (33.0-35.0); MEAN CORPUSCULAR VOLUME 86.3 fL (80.0-100.0); MEAN PLATELET VOLUME 8.6 fL (7.4-11.0); MONOCYTES # (AUTO) 0.5 x10^3/uL (0.3-0.8); MONOCYTES % (AUTO) 6.5 % (0.0-13.0); NEUTROPHILS # (AUTO) 6.8 x10^3/uL (2.2-4.8); NEUTROPHILS % (AUTO) 86.4 % (42.0-75.0); PLATELET COUNT 224 X10^3/uL (150.0-450.0); RED BLOOD COUNT 5.13 X10^6/uL (3.5-5.4); WHITE BLOOD COUNT 7.8 X10^3/uL (3.6-10.0)
[2021-03-18 07:07] LABS: BLOOD UREA NITROGEN 23 mg/dL (7-18); CALCIUM 8.3 mg/dL (8.5-10.1); CHLORIDE 103 mmol/L (98-107); COR NA(FOR HYPERGLY) 147 mmol/L (136-145); CREATININE 0.83 mg/dL (0.55-1.02); SODIUM 145 mmol/L (136-145); eGFR NON BLACK RACES > 60 (>60)
[2021-03-18] MEDS: ZOSYN VIAL 3.375 GRAMS 3.375 G in NS 100 ML IV + SPIKE MINIBAG* 100 ML IV SCH ×3 (07:33→22:02)
[2021-03-18] MEDS: ATIVAN TAB 0.5 MG PO SCH (08:15)
[2021-03-18] MEDS: PULMICORT NEB TX 0.5 MG NEB SCH ×2 (09:25→20:55)
[2021-03-18] MEDS: DUONEB 0.5 MG/3 MG (3 mL) NEB SCH ×4 (09:25→20:55)
[2021-03-18] MEDS: PEPCID TAB 20 MG PO SCH (09:30)
[2021-03-18] MEDS: LOVENOX INJ 40 MG SYR SC SCH (09:30)
[2021-03-18] MEDS: ZITHROMAX INJ 500 MG VIAL 500 MG in NS 250 ML IV 250 ML IV SCH (09:30)
[2021-03-18] MEDS: NORVASC TAB 10 MG PO SCH (09:30)
[2021-03-18 10:21] VITALS: BMI 46.5
[2021-03-18 11:18] LABS: ABG HCO3 47.4 mmol/L (22-26)
[2021-03-18 11:19] LABS: ABG ALLEN TEST POS
[2021-03-18] MEDS ORDERED: APRESOLINE INJ 20 MG VIAL IVP PRN (14:05)
--- NOTE | 2021-03-18 14:09 | PCM.PROG ---
Progress Note Progress Note for Day of Date of Exam: 03/18/21 Subjective Subjective: Patient seen at bedside, yesterday patient was agitated and restless. She was given ativan and also received morphine last night. She is currently resting on BiPAP with FiO2 70%. She is not able to talk much due to the mask. She has not been able to eat much or take PO medicines due to being on BIPAP. She is able to follow commands. Labs: Hgb 14.2 WBC: 7.8 BUN/Cr: 23/0.83 CO2: 44 AB.37/82/80/47 on BiPAP at FiO2 70% ECHOL EF 45%, RVSP 24mm Hg CTA: (-) for PE, b/l atelectasis COVID PCR (-) Plan: Wean BiPAP as tolerated, switch to HHFNC to keep sats > 92%. Repeat CXR. Will put PO meds on hold, switch to IV for now. Continue current treatment with Solumedrol, nebs and pulmicort. Continue Zosyn and Azithromycin. Continue insulin. Will give one dose of lasix. Repeat ABG. Monitor mental status. Discussed with patient that if is not able to tolerate BiPAP, next option is ventilator. Patient nodded yes if that's the only option. Patient has not seen a doctor in years, unclear about her medical hx. Patient remains in a critical condition. Time spent for clinical assessment, reviewing labs/imaging, physical exam, decision making and documentation greater than 75 mins. Past Medical Family Social History Past Med/Fam/Surg Hx: No changes since H&P Allergies: Allergies No Known Drug Allergies Allergy (Verified 03/15/21 17:58) Review of Systems ROS: No change since H&P Vital Signs and I&O's Vital Signs: Temperature 97.5 F Pulse Rate [Apical] 82 Pulse Rate 66 Respiratory Rate 18 Blood Pressure [Left Arm] 170/79 Blood Pressure 171/83 O2 Sat by Pulse Oximetry 100 Intake and Output: Intake & Output 03/15/21 03/16/21 03/17/21 03/18/21 23:59 23:59 23:59 23:59 Intake Total 445 / 445 1507 / 1507 660 / 660 1500 / 1500 Output Total 1400 / 1400 1974 / 1974 1700 / 1700 Balance -955 / -955 -468 / -468 -1040 / -1040 1500 / 1500 Physical Exam Oriented: Unable to test Eyes: Normal Ear: Normal Nose: Normal Respiratory: Generalized, Diminished and Rales Cardiovascular: Normal and Edema (trace LE edema ) Auscultation: Bowel Sounds: Normal Tenderness: Normal Skin: Normal Musculoskeletal: Normal Psychiatric: Normal Mood Description: Calm Affect: Normal Speech Pattern: Artificially Ventilated (on BiPAP ) Laboratory and Diagnostics Result Diagrams: 03/18/21 06:13 03/18/21 06:13 Labs: Laboratory WBC 7.8 X10^3/uL (3.6-10.0) 03/18/21 06:13 RBC 5.13 X10^6/uL (3.5-5.4) 03/18/21 06:13 Hgb 14.0 g/dL (12.0-16.0) 03/18/21 06:13 Hct 44.3 % (36.0-47.0) 03/18/21 06:13 MCV 86.3 fL (80.0-100.0) 03/18/21 06:13 MCH 27.3 pg (27.0-34.0) 03/18/21 06:13 MCHC 31.7 g/dL (33.0-35.0) L 03/18/21 06:13 RDW 17.0 % (11.6-16.5) H 03/18/21 06:13 Plt Count 224 X10^3/uL (150.0-450.0) 03/18/21 06:13 Plt Count Comment Adequate (ADEQUATE) 03/17/21 05:55 MPV 8.6 fL (7.4-11.0) 03/18/21 06:13 Neut % (Auto) 86.4 % (42.0-75.0) H 03/18/21 06:13 Lymph % (Auto) 6.9 % (21.0-51.0) L 03/18/21 06:13 [place] % (Auto) 6.5 % (0.0-13.0) 03/18/21 06:13 Eos % (Auto) 0.0 % (0.9-2.9) L 03/18/21 06:13 Baso % (Auto) 0.2 % (0.2-1.0) 03/18/21 06:13 Neut # (Auto) 6.8 x10^3/uL (2.2-4.8) H 03/18/21 06:13 Lymph # (Auto) 0.5 X10^3/uL (1.3-2.9) L 03/18/21 06:13 [place] # (Auto) 0.5 x10^3/uL (0.3-0.8) 03/18/21 06:13 Eos # (Auto) 0.0 x10^3/uL (0.0-0.2) 03/18/21 06:13 Baso # (Auto) 0.0 X10^3/uL (0.0-0.1) 03/18/21 06:13 Absolute Nucleated RBC 0.0 /100WBC 03/18/21 06:13 Total Counted 100 03/17/21 05:55 Neutrophils % (Manual) 90 % (39-76) H 03/17/21 05:55 Lymphocytes % (Manual) 3 % (13-43) L 03/17/21 05:55 Monocytes % (Manual) 7 % (4-9) 03/17/21 05:55 Plt Morphology Comment Normal (NORMAL) 03/17/21 05:55 RBC Morphology Abnormal (NORMAL) A 03/17/21 05:55 Polychromasia Slight 03/17/21 05:55 D-Dimer 0.60 ug/ml (0.0-0.57) H* 03/14/21 18:00 Sample Site Rra 03/18/21 11:14 ABG pH 7.370 (7.35-7.45) 03/18/21 11:14 ABG pCO2 82.0 mmHg (35.0-45.0) H* 03/18/21 11:14 ABG pO2 80.0 mmHg (80.0-100.0) 03/18/21 11:14 ABG HCO3 47.4 mmol/L (22-26) H* 03/18/21 11:14 ABG O2 Saturation 95.0 % (90-100) 03/18/21 11:14 ABG Base Excess 18.0 mmol/L (-2.0-2.0) H 03/18/21 11:14 Varun Test Pos 03/18/21 11:14 A-a Gradient 317.0 mmHg 03/18/21 11:14 FiO2 70.0 03/18/21 11:14 Blood Gas Comments Pt jose well eb 03/18/21 11:14 Sodium 145 mmol/L (136-145) 03/18/21 06:13 Corrected Sodium 147 mmol/L (136-145) H 03/18/21 06:13 Potassium 5.0 mmol/L (3.5-5.1) 03/18/21 06:13 Chloride 103 mmol/L (98-107) 03/18/21 06:13 Carbon Dioxide 44.0 mmol/L (21-32) H* 03/18/21 06:13 BUN 23 mg/dL (7-18) H 03/18/21 06:13 Creatinine 0.83 mg/dL (0.55-1.02) 03/18/21 06:13 Est GFR (MDRD) Af Amer > 60 (>60) 03/18/21 06:13 Est GFR (MDRD) Non-Af > 60 (>60) 03/18/21 06:13 Glucose 181 mg/dL (65-99) H 03/18/21 06:13 POC Glucose (mg/dL) 164 mg/dL (65-99) H 03/18/21 12:07 Hemoglobin A1c 7.4 % 03/14/21 18:00 Calcium 8.3 mg/dL (8.5-10.1) L 03/18/21 06:13 Corrected Calcium 9.3 mg/dL (8.5-10.1) 03/16/21 05:49 Magnesium 2.4 mg/dL (1.7-2.9) 03/16/21 05:49 Total Bilirubin 0.20 mg/dL (0.2-1.0) 03/16/21 05:49 AST 25 Units/L (15-37) 03/16/21 05:49 ALT 36 Units/L (12-78) 03/16/21 05:49 Alkaline Phosphatase 100 Units/L (46-116) 03/16/21 05:49 Creatine Kinase 64 Units/L (26-192) 03/15/21 13:49 CK-MB (CK-2) 2.5 ng/mL (0-4.0) 03/15/21 13:49 CK/CKMB % Calc 3.9 % (<4) 03/15/21 13:49 Troponin I 0.03 ng/mL (0-1.5) 03/15/21 13:49 B-Natriuretic Peptide 112 pg/mL (0-79) H 03/14/21 18:00 Total Protein 7.3 g/dL (6.4-8.2) 03/16/21 05:49 Albumin 2.7 g/dL (3.4-5.0) L 03/16/21 05:49 Globulin 4.6 g/dL (2.5-4.5) H 03/16/21 05:49 Albumin/Globulin Ratio 0.6 Ratio (1.1-2.1) L 03/16/21 05:49 Specimen Type Catherized urine 03/15/21 01:50 Urine Color Yellow (YELLOW) 03/15/21 01:50 Urine Appearance Clear (CLEAR) 03/15/21 01:50 Urine pH 5.0 (5.0 - 8.0) 03/15/21 01:50 Ur Specific [place] 1.025 (1.000-1.030) 03/15/21 01:50 Urine Protein 3+ (NEGATIVE) 03/15/21 01:50 Urine Glucose (UA) Negative (NEGATIVE) 03/15/21 01:50 Urine Ketones Negative (NEGATIVE) 03/15/21 01:50 Urine Occult Blood 1+ (NEGATIVE) 03/15/21 01:50 Urine Nitrite Negative (NEGATIVE) 03/15/21 01:50 Urine Bilirubin Negative (NEGATIVE) 03/15/21 01:50 Urine Urobilinogen Normal (NORMAL) 03/15/21 01:50 Ur Leukocyte Esterase Negative (NEGATIVE) 03/15/21 01:50 Urine RBC 0-2 /HPF (0-3) 03/15/21 01:50 Urine WBC 0-2 /HPF (0-5) 03/15/21 01:50 Ur Squamous Epith Cells Rare /HPF (NEGATIVE) 03/15/21 01:50 Urine Bacteria Negative /HPF (NEGATIVE) 03/15/21 01:50 Urine Mucus Few /HPF (NEGATIVE) 03/15/21 01:50 Ur Culture Indicated? No/not indicated 03/15/21 01:50 Urine Opiates Screen Positive (NEG=<300) A 03/15/21 01:50 Urine Methadone Screen Negative (NEG=<300) 03/15/21 01:50 Ur Barbiturates Screen Negative (NEG=<200) 03/15/21 01:50 Ur Phencyclidine Scrn Negative (NEG=<25) 03/15/21 01:50 Ur Amphetamines Screen Positive (NEG=<1000) A 03/15/21 01:50 U Benzodiazepines Scrn Negative (NEG=<200) 03/15/21 01:50 Urine Cocaine Screen Negative (NEG=<300) 03/15/21 01:50 U Marijuana (THC) Screen Negative (NEG=<50) 03/15/21 01:50 Acetone, Semi-Quant Negative (NEGATIVE) 03/14/21 18:00 SARS-CoV-2 (PCR) Negative (NEGATIVE) 03/14/21 22:28 Influenza Type A (PCR) Negative (NEGATIVE) 03/14/21 22:28 Influenza Type B (PCR) Negative (NEGATIVE) 03/14/21 22:28 RSV (PCR) Positive (NEGATIVE) A 03/14/21 22:28 SARS CoV-2 RNA Rapid WILLIAN Negative (NEGATIVE) 03/14/21 18:00 Plan (1) Acute respiratory failure with hypoxia and hypercapnia: Status: Acute (2) COPD exacerbation: Status: Acute (3) RSV bronchitis: Status: Acute (4) Dehydration: Status: Acute (5) Generalized weakness: Status: Acute (6) Drug abuse: Status: Acute (7) Lethargy: Status: Acute (8) Type 2 diabetes mellitus: Status: Acute Qualifiers: Diabetes mellitus complication status: with other specified complication 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
[2021-03-18] MEDS ORDERED: LASIX IVP ONE (14:19)
--- NOTE | 2021-03-18 14:37 | RAD ---
CHEST, 1 VIEWHISTORY:HYPOXIA, RSVStudy: Single view of the chest.Comparison:NoneFindings:Cardiomegaly and pulmonary vascular congestion. No focal consolidations, pleural effusions or pneumothorax. Osseous structures demonstrate no acute abnormality.IMPRESSION:1. Cardiomegaly and pulmonary vascular congestion.Electronically signed by: MEHUL MANCERA (Mar 18, 2021 14:35:33)
[2021-03-18] MEDS ORDERED: ATIVAN INJ 2 MG VIAL ONE (15:50)
[2021-03-18] MEDS: ATIVAN INJ 2 MG VIAL IVP PRN (16:00)
[2021-03-19] MEDS ORDERED: ATIVAN INJ 2 MG VIAL ONE ×2 (03:41→22:52)
[2021-03-19] MEDS: ATIVAN INJ 2 MG VIAL IVP PRN ×2 (03:48→22:55)
[2021-03-19] MEDS: ZOSYN VIAL 3.375 GRAMS 3.375 G in NS 100 ML IV + SPIKE MINIBAG* 100 ML IV SCH ×3 (05:18→21:01)
[2021-03-19] MEDS: SOLU-Medrol 125 MG VIAL IVP SCH ×3 (05:18→21:01)
[2021-03-19 06:05] LABS: BASOPHILS % (AUTO) 0.2 % (0.2-1.0); HEMATOCRIT 44.5 % (36.0-47.0); HEMOGLOBIN 14.2 g/dL (12.0-16.0); LYMPHOCYTES # (AUTO) 0.6 X10^3/uL (1.3-2.9); LYMPHOCYTES % (AUTO) 7.7 % (21.0-51.0); MEAN CORPUSCULAR HEMOGLOBIN 27.2 pg (27.0-34.0); MEAN CORPUSCULAR VOLUME 85.1 fL (80.0-100.0); MEAN PLATELET VOLUME 8.6 fL (7.4-11.0); MONOCYTES # (AUTO) 0.5 x10^3/uL (0.3-0.8); NEUTROPHILS # (AUTO) 6.2 x10^3/uL (2.2-4.8); NEUTROPHILS % (AUTO) 85.1 % (42.0-75.0); PLATELET COUNT 220 X10^3/uL (150.0-450.0); RED BLOOD COUNT 5.23 X10^6/uL (3.5-5.4); RED CELL DISTRIBUTION WIDTH 17.1 % (11.6-16.5); WHITE BLOOD COUNT 7.3 X10^3/uL (3.6-10.0)
[2021-03-19 06:19] LABS: BLOOD UREA NITROGEN 29 mg/dL (7-18); CALCIUM 8.7 mg/dL (8.5-10.1); CHLORIDE 102 mmol/L (98-107); COR NA(FOR HYPERGLY) 146 mmol/L (136-145); SODIUM 144 mmol/L (136-145); eGFR NON BLACK RACES > 60 (>60)
[2021-03-19 06:42] LABS: CARBON DIOXIDE 44.3 mmol/L (21-32)
[2021-03-19] MEDS: LASIX IVP SCH (08:53)
[2021-03-19] MEDS: PEPCID 20 MG IV PREMIX* 20 MG/50 ML BAG IV SCH (08:54)
[2021-03-19] MEDS: ZITHROMAX INJ 500 MG VIAL 500 MG in NS 250 ML IV 250 ML IV SCH (08:54)
[2021-03-19] MEDS: DUONEB 0.5 MG/3 MG (3 mL) NEB SCH ×4 (08:55→21:10)
[2021-03-19] MEDS: PULMICORT NEB TX 0.5 MG NEB SCH ×2 (08:55→21:10)
[2021-03-19] MEDS: NS 500 ML IV 500 ML IV SCH (09:29)
[2021-03-19] MEDS: LOVENOX INJ 40 MG SYR SC SCH (09:55)
[2021-03-19 11:26] LABS: ABG BASE EXCESS 24.3 mmol/L (-2.0-2.0)
[2021-03-19 11:27] LABS: ABG HCO3 52.4 mmol/L (22-26)
[2021-03-19] MEDS: MORPHINE SULFATE INJ 2 MG INJ IVP PRN (12:06)
[2021-03-19] MEDS: HumuLIN R SC PRN ×3 (12:30→21:27)
--- NOTE | 2021-03-19 16:14 | PCM.PROG ---
Progress Note Progress Note for Day of Date of Exam: 03/19/21 Subjective Subjective: Patient seen at bedside, no acute events overnight. Patient remains on BiPAP, not able to be transitioned to HHFNC. She is currently on FiO2 70%. She is able to follow simple commands. Patient has been sleeping most of the time. Labs: Hgb 14.2 WBC: 7.3 BUN/Cr: 29/0.90 CO2: 44 ECHOL EF 45%, RVSP 24mm Hg CTA: (-) for PE, b/l atelectasis COVID PCR (-) CXR: cardiomegaly with pulmonary vascular congestion Plan: Wean BiPAP as tolerated, switch to HHFNC to keep sats > 92%. Repeat ABG. Continue current treatment with Solumedrol, nebs and pulmicort. Continue daily lasix. Continue Zosyn, will DC Azithromycin. Continue insulin. Monitor mental status. Discussed with patient that if is not able to tolerate BiPAP, next option is ventilator. Patient nodded yes if that's the only option. Patient has not seen a doctor in years, unclear about her medical hx. Patient remains in a critical condition. Time spent for clinical assessment, reviewing labs/imaging, physical exam, dec ision making and documentation greater than 75 mins. Past Medical Family Social History Past Med/Fam/Surg Hx: No changes since H&P Allergies: Allergies No Known Drug Allergies Allergy (Verified 03/15/21 17:58) Review of Systems ROS: No change since H&P Vital Signs and I&O's Vital Signs: Temperature 98.7 F Pulse Rate [Apical] 82 Pulse Rate 58 Respiratory Rate 19 Blood Pressure [Left Arm] 170/79 Blood Pressure 139/80 O2 Sat by Pulse Oximetry 99 Intake and Output: Intake & Output 03/16/21 03/17/21 03/18/21 03/19/21 23:59 23:59 23:59 23:59 Intake Total 1507 / 1507 660 / 660 3108 / 3108 942 / 942 Output Total 1974 1700 / 1700 3100 / 3100 4000 / 4000 Balance -468 / -468 -1040 / -1040 8 / 8 -3058 / -3058 Physical Exam Oriented: Unable to test Eyes: Normal Ear: Normal Nose: Normal Respiratory: Generalized, Diminished and Rales Cardiovascular: Normal and Edema (trace LE edema ) Auscultation: Bowel Sounds: Normal Tenderness: Normal Skin: Normal Musculoskeletal: Normal Psychiatric: Normal Mood Description: Calm Affect: Normal Speech Pattern: Appropriate, Delayed and Artificially Ventilated (on Bipap) Laboratory and Diagnostics Result Diagrams: 03/19/21 05:38 03/19/21 05:38 Labs: Laboratory WBC 7.3 X10^3/uL (3.6-10.0) 03/19/21 05:38 RBC 5.23 X10^6/uL (3.5-5.4) 03/19/21 05:38 Hgb 14.2 g/dL (12.0-16.0) 03/19/21 05:38 Hct 44.5 % (36.0-47.0) 03/19/21 05:38 MCV 85.1 fL (80.0-100.0) 03/19/21 05:38 MCH 27.2 pg (27.0-34.0) 03/19/21 05:38 MCHC 32.0 g/dL (33.0-35.0) L 03/19/21 05:38 RDW 17.1 % (11.6-16.5) H 03/19/21 05:38 Plt Count 220 X10^3/uL (150.0-450.0) 03/19/21 05:38 Plt Count Comment Adequate (ADEQUATE) 03/17/21 05:55 MPV 8.6 fL (7.4-11.0) 03/19/21 05:38 Neut % (Auto) 85.1 % (42.0-75.0) H 03/19/21 05:38 Lymph % (Auto) 7.7 % (21.0-51.0) L 03/19/21 05:38 [place] % (Auto) 7.0 % (0.0-13.0) 03/19/21 05:38 Eos % (Auto) 0.0 % (0.9-2.9) L 03/19/21 05:38 Baso % (Auto) 0.2 % (0.2-1.0) 03/19/21 05:38 Neut # (Auto) 6.2 x10^3/uL (2.2-4.8) H 03/19/21 05:38 Lymph # (Auto) 0.6 X10^3/uL (1.3-2.9) L 03/19/21 05:38 [place] # (Auto) 0.5 x10^3/uL (0.3-0.8) 03/19/21 05:38 Eos # (Auto) 0.0 x10^3/uL (0.0-0.2) 03/19/21 05:38 Baso # (Auto) 0.0 X10^3/uL (0.0-0.1) 03/19/21 05:38 Absolute Nucleated RBC 0.1 /100WBC 03/19/21 05:38 Total Counted 100 03/17/21 05:55 Neutrophils % (Manual) 90 % (39-76) H 03/17/21 05:55 Lymphocytes % (Manual) 3 % (13-43) L 03/17/21 05:55 Monocytes % (Manual) 7 % (4-9) 03/17/21 05:55 Plt Morphology Comment Normal (NORMAL) 03/17/21 05:55 RBC Morphology Abnormal (NORMAL) A 03/17/21 05:55 Polychromasia Slight 03/17/21 05:55 D-Dimer 0.60 ug/ml (0.0-0.57) H* 03/14/21 18:00 Sample Site Rbra 03/19/21 11:22 ABG pH 7.470 (7.35-7.45) H 03/19/21 11:22 ABG pCO2 72.0 mmHg (35.0-45.0) H* 03/19/21 11:22 ABG pO2 81.0 mmHg (80.0-100.0) 03/19/21 11:22 ABG HCO3 52.4 mmol/L (22-26) H* 03/19/21 11:22 ABG O2 Saturation 97.0 % (90-100) 03/19/21 11:22 ABG Base Excess 24.3 mmol/L (-2.0-2.0) H 03/19/21 11:22 Varun Test N/a 03/19/21 11:22 A-a Gradient 257.0 mmHg 03/19/21 11:22 FiO2 60.0 03/19/21 11:22 Blood Gas Comments Pt jose well eb 03/19/21 11:22 Sodium 144 mmol/L (136-145) 03/19/21 05:38 Corrected Sodium 146 mmol/L (136-145) H 03/19/21 05:38 Potassium 4.7 mmol/L (3.5-5.1) 03/19/21 05:38 Chloride 102 mmol/L (98-107) 03/19/21 05:38 Carbon Dioxide 44.3 mmol/L (21-32) H* 03/19/21 05:38 BUN 29 mg/dL (7-18) H 03/19/21 05:38 Creatinine 0.90 mg/dL (0.55-1.02) 03/19/21 05:38 Est GFR (MDRD) Af Amer > 60 (>60) 03/19/21 05:38 Est GFR (MDRD) Non-Af > 60 (>60) 03/19/21 05:38 Glucose 197 mg/dL (65-99) H 03/19/21 05:38 POC Glucose (mg/dL) 194 mg/dL (65-99) H 03/19/21 15:44 Hemoglobin A1c 7.4 % 03/14/21 18:00 Calcium 8.7 mg/dL (8.5-10.1) 03/19/21 05:38 Corrected Calcium 9.3 mg/dL (8.5-10.1) 03/16/21 05:49 Magnesium 2.4 mg/dL (1.7-2.9) 03/16/21 05:49 Total Bilirubin 0.20 mg/dL (0.2-1.0) 03/16/21 05:49 AST 25 Units/L (15-37) 03/16/21 05:49 ALT 36 Units/L (12-78) 03/16/21 05:49 Alkaline Phosphatase 100 Units/L (46-116) 03/16/21 05:49 Creatine Kinase 64 Units/L (26-192) 03/15/21 13:49 CK-MB (CK-2) 2.5 ng/mL (0-4.0) 03/15/21 13:49 CK/CKMB % Calc 3.9 % (<4) 03/15/21 13:49 Troponin I 0.03 ng/mL (0-1.5) 03/15/21 13:49 B-Natriuretic Peptide 112 pg/mL (0-79) H 03/14/21 18:00 Total Protein 7.3 g/dL (6.4-8.2) 03/16/21 05:49 Albumin 2.7 g/dL (3.4-5.0) L 03/16/21 05:49 Globulin 4.6 g/dL (2.5-4.5) H 03/16/21 05:49 Albumin/Globulin Ratio 0.6 Ratio (1.1-2.1) L 03/16/21 05:49 Specimen Type Catherized urine 03/15/21 01:50 Urine Color Yellow (YELLOW) 03/15/21 01:50 Urine Appearance Clear (CLEAR) 03/15/21 01:50 Urine pH 5.0 (5.0 - 8.0) 03/15/21 01:50 Ur Specific [place] 1.025 (1.000-1.030) 03/15/21 01:50 Urine Protein 3+ (NEGATIVE) 03/15/21 01:50 Urine Glucose (UA) Negative (NEGATIVE) 03/15/21 01:50 Urine Ketones Negative (NEGATIVE) 03/15/21 01:50 Urine Occult Blood 1+ (NEGATIVE) 03/15/21 01:50 Urine Nitrite Negative (NEGATIVE) 03/15/21 01:50 Urine Bilirubin Negative (NEGATIVE) 03/15/21 01:50 Urine Urobilinogen Normal (NORMAL) 03/15/21 01:50 Ur Leukocyte Esterase Negative (NEGATIVE) 03/15/21 01:50 Urine RBC 0-2 /HPF (0-3) 03/15/21 01:50 Urine WBC 0-2 /HPF (0-5) 03/15/21 01:50 Ur Squamous Epith Cells Rare /HPF (NEGATIVE) 03/15/21 01:50 Urine Bacteria Negative /HPF (NEGATIVE) 03/15/21 01:50 Urine Mucus Few /HPF (NEGATIVE) 03/15/21 01:50 Ur Culture Indicated? No/not indicated 03/15/21 01:50 Urine Opiates Screen Positive (NEG=<300) A 03/15/21 01:50 Urine Methadone Screen Negative (NEG=<300) 03/15/21 01:50 Ur Barbiturates Screen Negative (NEG=<200) 03/15/21 01:50 Ur Phencyclidine Scrn Negative (NEG=<25) 03/15/21 01:50 Ur Amphetamines Screen Positive (NEG=<1000) A 03/15/21 01:50 U Benzodiazepines Scrn Negative (NEG=<200) 03/15/21 01:50 Urine Cocaine Screen Negative (NEG=<300) 03/15/21 01:50 U Marijuana (THC) Screen Negative (NEG=<50) 03/15/21 01:50 Acetone, Semi-Quant Negative (NEGATIVE) 03/14/21 18:00 SARS-CoV-2 (PCR) Negative (NEGATIVE) 03/14/21 22:28 Influenza Type A (PCR) Negative (NEGATIVE) 03/14/21 22:28 Influenza Type B (PCR) Negative (NEGATIVE) 03/14/21 22:28 RSV (PCR) Positive (NEGATIVE) A 03/14/21 22:28 SARS CoV-2 RNA Rapid WILLIAN Negative (NEGATIVE) 03/14/21 18:00 Plan (1) Acute respiratory failure with hypoxia and hypercapnia: Status: Acute (2) COPD exacerbation: Status: Acute (3) RSV bronchitis: Status: Acute (4) Dehydration: Status: Acute (5) Generalized weakness: Status: Acute (6) Drug abuse: Status: Acute (7) Lethargy: Status: Acute (8) Type 2 diabetes mellitus: Status: Acute Qualifiers: Diabetes mellitus complication status: with other specified complication Diabetes mellitus mcc insulin use: unspecified mcc insulin use status Qualified Code(s): E11.69 - Type 2 diabetes mellitus with other specified complication (9) Metabolic alkalosis with respiratory acidosis: Status: Acute
[2021-03-20 05:02] LABS: ABG BASE EXCESS 18.5 mmol/L (-2.0-2.0)
[2021-03-20 05:04] LABS: ABG ALLEN TEST POS; ABG HCO3 45.9 mmol/L (22-26)
[2021-03-20] MEDS: SOLU-Medrol 125 MG VIAL IVP SCH ×2 (05:41→17:07)
[2021-03-20] MEDS: HumuLIN R SC PRN ×3 (05:41→23:02)
[2021-03-20] MEDS: ZOSYN VIAL 3.375 GRAMS 3.375 G in NS 100 ML IV + SPIKE MINIBAG* 100 ML IV SCH ×3 (05:41→22:59)
[2021-03-20 06:49] LABS: BASOPHILS % (AUTO) 0.3 % (0.2-1.0); HEMATOCRIT 48.5 % (36.0-47.0); HEMOGLOBIN 15.5 g/dL (12.0-16.0); LYMPHOCYTES # (AUTO) 0.7 X10^3/uL (1.3-2.9); LYMPHOCYTES % (AUTO) 7.4 % (21.0-51.0); MEAN CORPUSCULAR HEMOGLOBIN 27.1 pg (27.0-34.0); MEAN CORPUSCULAR HGB CONC 31.9 g/dL (33.0-35.0); MEAN PLATELET VOLUME 8.5 fL (7.4-11.0); MONOCYTES # (AUTO) 0.6 x10^3/uL (0.3-0.8); MONOCYTES % (AUTO) 6.8 % (0.0-13.0); NEUTROPHILS % (AUTO) 85.5 % (42.0-75.0); PLATELET COUNT 238 X10^3/uL (150.0-450.0); RED BLOOD COUNT 5.71 X10^6/uL (3.5-5.4); RED CELL DISTRIBUTION WIDTH 16.8 % (11.6-16.5); WHITE BLOOD COUNT 9.3 X10^3/uL (3.6-10.0)
[2021-03-20 07:19] LABS: BLOOD UREA NITROGEN 29 mg/dL (7-18); CALCIUM 9.1 mg/dL (8.5-10.1); CHLORIDE 102 mmol/L (98-107); COR NA(FOR HYPERGLY) 146 mmol/L (136-145); CREATININE 0.96 mg/dL (0.55-1.02); SODIUM 144 mmol/L (136-145); eGFR NON BLACK RACES > 60 (>60)
[2021-03-20 07:21] LABS: CARBON DIOXIDE 41.9 mmol/L (21-32)
[2021-03-20] MEDS: PULMICORT NEB TX 0.5 MG NEB SCH ×2 (09:16→21:35)
[2021-03-20] MEDS: DUONEB 0.5 MG/3 MG (3 mL) NEB SCH ×4 (09:16→21:35)
[2021-03-20] MEDS: NS 500 ML IV 500 ML IV SCH (09:48)
[2021-03-20] MEDS: LASIX IVP SCH (09:49)
[2021-03-20] MEDS: LOVENOX INJ 40 MG SYR SC SCH (09:49)
[2021-03-20] MEDS: PEPCID 20 MG IV PREMIX* 20 MG/50 ML BAG IV SCH (09:49)
--- NOTE | 2021-03-20 11:25 | RAD ---
HISTORYBronchitis hypoxiaSTUDYPortable AP [id number] cardiomegaly with essentially clear right lung. There is indistinct retrocardiac opacity with suggestion of pleural fluid collection. No definite airspace disease is identified. There is no evidence for pneumothorax.IMPRESSIONStable cardiomegaly. Suggestion of left pleural effusion. This could be further evaluated/confirmed with decubitus views if clinically appropriate.Electronically signed by: RELL RIVER (Mar 20, 2021 11:23:58)
--- NOTE | 2021-03-20 15:01 | PCM.PROG ---
Progress Note Progress Note for Day of Date of Exam: 03/20/21 Subjective Subjective: Patient seen at bedside, no acute events overnight. Patient is currently on HHFNC at FiO2 70%. She has been tolerating that well. Patient did want to sign out AMA yesterday evening but then was explained the risks associated with leaving AMA so patient decided to stay as she does not have any O2 at home. She is doing much better today. Labs: Hgb 15.5 WBC: 9.3 BUN/Cr: 29/0.96 CO2: 41 AB.45/66/69/94 ECHOL EF 45%, RVSP 24mm Hg CTA: (-) for PE, b/l atelectasis COVID PCR (-) CXR: cardiomegaly with pulmonary vascular congestion Plan: Wean HHFNC to keep sats > 92%. Continue current treatment with Solumedrol, nebs and pulmicort. Taper solumedrol to 60 mg q12. Continue daily lasix. Continue Zosyn. Continue insulin. Discussed with patient that she needs to be on nasal canula to be discharged home. Patient verbalized understanding. PT/OT as tolerated. Monitor AM labs/imaging. Time spent for clinical assessment, reviewing labs/imaging, physical exam, decision making and documentation greater than 75 mins. Past Medical Family Social History Past Med/Fam/Surg Hx: No changes since H&P Allergies: Allergies No Known Drug Allergies Allergy (Verified 03/15/21 17:58) Review of Systems ROS: No change since H&P Vital Signs and I&O's Vital Signs: Temperature 98.4 F Pulse Rate [Apical] 82 Pulse Rate 69 Respiratory Rate 21 Blood Pressure [Left Arm] 170/79 Blood Pressure 148/80 O2 Sat by Pulse Oximetry 95 Intake and Output: Intake & Output 03/17/21 03/18/21 03/19/21 03/20/21 23:59 23:59 23:59 23:59 Intake Total 660 / 660 3108 / 3108 1137 / 1137 1076 / 1076 Output Total 1700 / 1700 3100 / 3100 5200 / 5200 2900 / 2900 Balance -1040 / -1040 8 / 8 -4063 / -4063 -1824 / -1824 Physical Exam Oriented: Normal Eyes: Normal Ear: Normal Nose: Normal Respiratory: Generalized and Diminished Cardiovascular: Normal and Edema (trace LE edema ) Auscultation: Bowel Sounds: Normal Tenderness: Normal Skin: Normal Musculoskeletal: Normal Psychiatric: Normal Mood Description: Calm Affect: Normal Speech Pattern: Clear Laboratory and Diagnostics Result Diagrams: 03/20/21 06:13 03/20/21 06:13 Labs: Laboratory WBC 9.3 X10^3/uL (3.6-10.0) 03/20/21 06:13 RBC 5.71 X10^6/uL (3.5-5.4) H 03/20/21 06:13 Hgb 15.5 g/dL (12.0-16.0) 03/20/21 06:13 Hct 48.5 % (36.0-47.0) H 03/20/21 06:13 MCV 85.0 fL (80.0-100.0) 03/20/21 06:13 MCH 27.1 pg (27.0-34.0) 03/20/21 06:13 MCHC 31.9 g/dL (33.0-35.0) L 03/20/21 06:13 RDW 16.8 % (11.6-16.5) H 03/20/21 06:13 Plt Count 238 X10^3/uL (150.0-450.0) 03/20/21 06:13 Plt Count Comment Adequate (ADEQUATE) 03/17/21 05:55 MPV 8.5 fL (7.4-11.0) 03/20/21 06:13 Neut % (Auto) 85.5 % (42.0-75.0) H 03/20/21 06:13 Lymph % (Auto) 7.4 % (21.0-51.0) L 03/20/21 06:13 [place] % (Auto) 6.8 % (0.0-13.0) 03/20/21 06:13 Eos % (Auto) 0.0 % (0.9-2.9) L 03/20/21 06:13 Baso % (Auto) 0.3 % (0.2-1.0) 03/20/21 06:13 Neut # (Auto) 8.0 x10^3/uL (2.2-4.8) H 03/20/21 06:13 Lymph # (Auto) 0.7 X10^3/uL (1.3-2.9) L 03/20/21 06:13 [place] # (Auto) 0.6 x10^3/uL (0.3-0.8) 03/20/21 06:13 Eos # (Auto) 0.0 x10^3/uL (0.0-0.2) 03/20/21 06:13 Baso # (Auto) 0.0 X10^3/uL (0.0-0.1) 03/20/21 06:13 Absolute Nucleated RBC 0.1 /100WBC 03/20/21 06:13 Total Counted 100 03/17/21 05:55 Neutrophils % (Manual) 90 % (39-76) H 03/17/21 05:55 Lymphocytes % (Manual) 3 % (13-43) L 03/17/21 05:55 Monocytes % (Manual) 7 % (4-9) 03/17/21 05:55 Plt Morphology Comment Normal (NORMAL) 03/17/21 05:55 RBC Morphology Abnormal (NORMAL) A 03/17/21 05:55 Polychromasia Slight 03/17/21 05:55 D-Dimer 0.60 ug/ml (0.0-0.57) H* 03/14/21 18:00 Sample Site Lr 03/20/21 04:57 ABG pH 7.450 (7.35-7.45) 03/20/21 04:57 ABG pCO2 66.0 mmHg (35.0-45.0) H* 03/20/21 04:57 ABG pO2 69.0 mmHg (80.0-100.0) L 03/20/21 04:57 ABG HCO3 45.9 mmol/L (22-26) H* 03/20/21 04:57 ABG O2 Saturation 94.0 % (90-100) 03/20/21 04:57 ABG Base Excess 18.5 mmol/L (-2.0-2.0) H 03/20/21 04:57 Varun Test Pos 03/20/21 04:57 A-a Gradient 134.0 mmHg 03/20/21 04:57 FiO2 40.0 03/20/21 04:57 Blood Gas Comments Maicol well ae 03/20/21 04:57 Sodium 144 mmol/L (136-145) 03/20/21 06:13 Corrected Sodium 146 mmol/L (136-145) H 03/20/21 06:13 Potassium 4.7 mmol/L (3.5-5.1) 03/20/21 06:13 Chloride 102 mmol/L (98-107) 03/20/21 06:13 Carbon Dioxide 41.9 mmol/L (21-32) H* 03/20/21 06:13 BUN 29 mg/dL (7-18) H 03/20/21 06:13 Creatinine 0.96 mg/dL (0.55-1.02) 03/20/21 06:13 Est GFR (MDRD) Af Amer > 60 (>60) 03/20/21 06:13 Est GFR (MDRD) Non-Af > 60 (>60) 03/20/21 06:13 Glucose 196 mg/dL (65-99) H 03/20/21 06:13 POC Glucose (mg/dL) 254 mg/dL (65-99) H 03/20/21 11:29 Hemoglobin A1c 7.4 % 03/14/21 18:00 Calcium 9.1 mg/dL (8.5-10.1) 03/20/21 06:13 Corrected Calcium 9.3 mg/dL (8.5-10.1) 03/16/21 05:49 Magnesium 2.4 mg/dL (1.7-2.9) 03/16/21 05:49 Total Bilirubin 0.20 mg/dL (0.2-1.0) 03/16/21 05:49 AST 25 Units/L (15-37) 03/16/21 05:49 ALT 36 Units/L (12-78) 03/16/21 05:49 Alkaline Phosphatase 100 Units/L (46-116) 03/16/21 05:49 Creatine Kinase 64 Units/L (26-192) 03/15/21 13:49 CK-MB (CK-2) 2.5 ng/mL (0-4.0) 03/15/21 13:49 CK/CKMB % Calc 3.9 % (<4) 03/15/21 13:49 Troponin I 0.03 ng/mL (0-1.5) 03/15/21 13:49 B-Natriuretic Peptide 112 pg/mL (0-79) H 03/14/21 18:00 Total Protein 7.3 g/dL (6.4-8.2) 03/16/21 05:49 Albumin 2.7 g/dL (3.4-5.0) L 03/16/21 05:49 Globulin 4.6 g/dL (2.5-4.5) H 03/16/21 05:49 Albumin/Globulin Ratio 0.6 Ratio (1.1-2.1) L 03/16/21 05:49 Specimen Type Catherized urine 03/15/21 01:50 Urine Color Yellow (YELLOW) 03/15/21 01:50 Urine Appearance Clear (CLEAR) 03/15/21 01:50 Urine pH 5.0 (5.0 - 8.0) 03/15/21 01:50 Ur Specific [place] 1.025 (1.000-1.030) 03/15/21 01:50 Urine Protein 3+ (NEGATIVE) 03/15/21 01:50 Urine Glucose (UA) Negative (NEGATIVE) 03/15/21 01:50 Urine Ketones Negative (NEGATIVE) 03/15/21 01:50 Urine Occult Blood 1+ (NEGATIVE) 03/15/21 01:50 Urine Nitrite Negative (NEGATIVE) 03/15/21 01:50 Urine Bilirubin Negative (NEGATIVE) 03/15/21 01:50 Urine Urobilinogen Normal (NORMAL) 03/15/21 01:50 Ur Leukocyte Esterase Negative (NEGATIVE) 03/15/21 01:50 Urine RBC 0-2 /HPF (0-3) 03/15/21 01:50 Urine WBC 0-2 /HPF (0-5) 03/15/21 01:50 Ur Squamous Epith Cells Rare /HPF (NEGATIVE) 03/15/21 01:50 Urine Bacteria Negative /HPF (NEGATIVE) 03/15/21 01:50 Urine Mucus Few /HPF (NEGATIVE) 03/15/21 01:50 Ur Culture Indicated? No/not indicated 03/15/21 01:50 Urine Opiates Screen Positive (NEG=<300) A 03/15/21 01:50 Urine Methadone Screen Negative (NEG=<300) 03/15/21 01:50 Ur Barbiturates Screen Negative (NEG=<200) 03/15/21 01:50 Ur Phencyclidine Scrn Negative (NEG=<25) 03/15/21 01:50 Ur Amphetamines Screen Positive (NEG=<1000) A 03/15/21 01:50 U Benzodiazepines Scrn Negative (NEG=<200) 03/15/21 01:50 Urine Cocaine Screen Negative (NEG=<300) 03/15/21 01:50 U Marijuana (THC) Screen Negative (NEG=<50) 03/15/21 01:50 Acetone, Semi-Quant Negative (NEGATIVE) 03/14/21 18:00 SARS-CoV-2 (PCR) Negative (NEGATIVE) 03/14/21 22:28 Influenza Type A (PCR) Negative (NEGATIVE) 03/14/21 22:28 Influenza Type B (PCR) Negative (NEGATIVE) 03/14/21 22:28 RSV (PCR) Positive (NEGATIVE) A 03/14/21 22:28 SARS CoV-2 RNA Rapid WILLIAN Negative (NEGATIVE) 03/14/21 18:00 Plan (1) Acute respiratory failure with hypoxia and hypercapnia: Status: Acute (2) COPD exacerbation: Status: Acute (3) RSV bronchitis: Status: Acute (4) Dehydration: Status: Acute (5) Generalized weakness: Status: Acute (6) Drug abuse: Status: Acute (7) Lethargy: Status: Acute (8) Type 2 diabetes mellitus: Status: Acute Qualifiers: Diabetes mellitus complication status: with other specified complication Diabetes mellitus [employer] insulin use: unspecified snf insulin use status Qualified Code(s): E11.69 - Type 2 diabetes mellitus with other specified complication (9) Metabolic alkalosis with respiratory acidosis: Status: Acute
[2021-03-20] MEDS: MORPHINE SULFATE INJ 2 MG INJ IVP PRN (23:00)
[2021-03-20] MEDS ORDERED: ATIVAN INJ 2 MG VIAL ONE (23:46)
[2021-03-20] MEDS: ATIVAN INJ 2 MG VIAL IVP PRN (23:50)
[2021-03-21] MEDS: SOLU-Medrol 125 MG VIAL IVP SCH ×2 (05:54→17:09)
[2021-03-21] MEDS: ZOSYN VIAL 3.375 GRAMS 3.375 G in NS 100 ML IV + SPIKE MINIBAG* 100 ML IV SCH (05:54)
[2021-03-21] MEDS: HumuLIN R SC PRN ×4 (05:57→20:16)
[2021-03-21 06:21] LABS: BASOPHILS % (AUTO) 0.4 % (0.2-1.0); EOSINOPHILS % (AUTO) 0.1 % (0.9-2.9); HEMATOCRIT 47.6 % (36.0-47.0); HEMOGLOBIN 15.4 g/dL (12.0-16.0); LYMPHOCYTES # (AUTO) 1.3 X10^3/uL (1.3-2.9); LYMPHOCYTES % (AUTO) 11.7 % (21.0-51.0); MEAN CORPUSCULAR HGB CONC 32.3 g/dL (33.0-35.0); MEAN CORPUSCULAR VOLUME 83.5 fL (80.0-100.0); MEAN PLATELET VOLUME 8.9 fL (7.4-11.0); MONOCYTES % (AUTO) 9.5 % (0.0-13.0); NEUTROPHILS # (AUTO) 8.4 x10^3/uL (2.2-4.8); NEUTROPHILS % (AUTO) 78.3 % (42.0-75.0); PLATELET COUNT 277 X10^3/uL (150.0-450.0); RED CELL DISTRIBUTION WIDTH 16.9 % (11.6-16.5); WHITE BLOOD COUNT 10.8 X10^3/uL (3.6-10.0)
[2021-03-21 06:34] LABS: BLOOD UREA NITROGEN 30 mg/dL (7-18); CALCIUM 8.4 mg/dL (8.5-10.1); CARBON DIOXIDE 38.2 mmol/L (21-32); CHLORIDE 101 mmol/L (98-107); COR NA(FOR HYPERGLY) 143 mmol/L (136-145); CREATININE 0.89 mg/dL (0.55-1.02); SODIUM 141 mmol/L (136-145); eGFR NON BLACK RACES > 60 (>60)
[2021-03-21] MEDS: LASIX IVP SCH (08:26)
[2021-03-21] MEDS: NORVASC TAB 10 MG PO SCH (08:26)
[2021-03-21] MEDS: PEPCID 20 MG IV PREMIX* 20 MG/50 ML BAG IV SCH (08:26)
[2021-03-21] MEDS ORDERED: LOVENOX INJ 40 MG SYR SC ONE (08:28)
[2021-03-21] MEDS: LOVENOX INJ 40 MG SYR SC SCH (08:29)
[2021-03-21] MEDS: PULMICORT NEB TX 0.5 MG NEB SCH ×2 (08:34→20:48)
[2021-03-21] MEDS: DUONEB 0.5 MG/3 MG (3 mL) NEB SCH ×4 (08:34→20:48)
--- NOTE | 2021-03-21 16:30 | PCM.PROG ---
Progress Note Progress Note for Day of Date of Exam: 03/17/21 Subjective Subjective: Patient seen at bedside, no acute events overnight. She remains on BiPAP at FiO2 70%. She is able to answer simple questions, follow commands. Labs: Hgb 13.9 WBC: 9.3 BUN/Cr: 24/0.92 CO2: 39 ECHO: EF 45%, RVSP 24mm Hg CTA: (-) for PE, b/l atelectasis COVID PCR (-) CXR: cardiomegaly with pulmonary vascular congestion Plan: Wean BiPAP as tolerated keep sats > 92%. Switch to HHFNC when eating. Continue current treatment with Solumedrol, nebs and pulmicort. Continue Zosyn and azithromycin. Continue insulin. Discussed with patient that she needs to be on nasal canula to be discharged home. Patient verbalized understanding. PT/OT as tolerated. Monitor AM labs/imaging. Time spent for clinical assessment, reviewing labs/imaging, physical exam, decision making and documentation greater than 75 mins. Past Medical Family Social History Past Med/Fam/Surg Hx: No changes since H&P Allergies: Allergies No Known Drug Allergies Allergy (Verified 03/15/21 17:58) Review of Systems ROS: No change since H&P Vital Signs and I&O's Vital Signs: Temperature 98.6 F Pulse Rate [Apical] 82 Pulse Rate 72 Respiratory Rate 24 Blood Pressure [Left Arm] 170/79 Blood Pressure 114/56 O2 Sat by Pulse Oximetry 93 Intake and Output: Intake & Output 03/18/21 03/19/21 03/20/21 03/21/21 23:59 23:59 23:59 23:59 Intake Total 3108 / 3108 1137 / 1137 1796 / 1796 1530 / 1530 Output Total 3100 / 3100 5200 / 5200 3400 / 3400 4300 / 4300 Balance 8 / 8 -4063 / -4063 -1604 / -1604 -2770 / -2770 Physical Exam Oriented: Normal Eyes: Normal Ear: Normal Nose: Normal Respiratory: Generalized and Diminished Cardiovascular: Normal and Edema (trace LE edema ) Auscultation: Bowel Sounds: Normal Tenderness: Normal Skin: Normal Musculoskeletal: Normal Psychiatric: Normal Mood Description: Calm Affect: Anxious Speech Pattern: Clear and Appropriate Laboratory and Diagnostics Result Diagrams: 03/21/21 05:57 03/21/21 05:57 Labs: Laboratory WBC 10.8 X10^3/uL (3.6-10.0) H 03/21/21 05:57 RBC 5.70 X10^6/uL (3.5-5.4) H 03/21/21 05:57 Hgb 15.4 g/dL (12.0-16.0) 03/21/21 05:57 Hct 47.6 % (36.0-47.0) H 03/21/21 05:57 MCV 83.5 fL (80.0-100.0) 03/21/21 05:57 MCH 27.0 pg (27.0-34.0) 03/21/21 05:57 MCHC 32.3 g/dL (33.0-35.0) L 03/21/21 05:57 RDW 16.9 % (11.6-16.5) H 03/21/21 05:57 Plt Count 277 X10^3/uL (150.0-450.0) 03/21/21 05:57 Plt Count Comment Adequate (ADEQUATE) 03/17/21 05:55 MPV 8.9 fL (7.4-11.0) 03/21/21 05:57 Neut % (Auto) 78.3 % (42.0-75.0) H 03/21/21 05:57 Lymph % (Auto) 11.7 % (21.0-51.0) L 03/21/21 05:57 [place] % (Auto) 9.5 % (0.0-13.0) 03/21/21 05:57 Eos % (Auto) 0.1 % (0.9-2.9) L 03/21/21 05:57 Baso % (Auto) 0.4 % (0.2-1.0) 03/21/21 05:57 Neut # (Auto) 8.4 x10^3/uL (2.2-4.8) H 03/21/21 05:57 Lymph # (Auto) 1.3 X10^3/uL (1.3-2.9) 03/21/21 05:57 [place] # (Auto) 1.0 x10^3/uL (0.3-0.8) H 03/21/21 05:57 Eos # (Auto) 0.0 x10^3/uL (0.0-0.2) 03/21/21 05:57 Baso # (Auto) 0.0 X10^3/uL (0.0-0.1) 03/21/21 05:57 Absolute Nucleated RBC 0.0 /100WBC 03/21/21 05:57 Total Counted 100 03/17/21 05:55 Neutrophils % (Manual) 90 % (39-76) H 03/17/21 05:55 Lymphocytes % (Manual) 3 % (13-43) L 03/17/21 05:55 Monocytes % (Manual) 7 % (4-9) 03/17/21 05:55 Plt Morphology Comment Normal (NORMAL) 03/17/21 05:55 RBC Morphology Abnormal (NORMAL) A 03/17/21 05:55 Polychromasia Slight 03/17/21 05:55 D-Dimer 0.60 ug/ml (0.0-0.57) H* 03/14/21 18:00 Sample Site Lr 03/20/21 04:57 ABG pH 7.450 (7.35-7.45) 03/20/21 04:57 ABG pCO2 66.0 mmHg (35.0-45.0) H* 03/20/21 04:57 ABG pO2 69.0 mmHg (80.0-100.0) L 03/20/21 04:57 ABG HCO3 45.9 mmol/L (22-26) H* 03/20/21 04:57 ABG O2 Saturation 94.0 % (90-100) 03/20/21 04:57 ABG Base Excess 18.5 mmol/L (-2.0-2.0) H 03/20/21 04:57 Varun Test Pos 03/20/21 04:57 A-a Gradient 134.0 mmHg 03/20/21 04:57 FiO2 40.0 03/20/21 04:57 Blood Gas Comments Maicol well ae 03/20/21 04:57 Sodium 141 mmol/L (136-145) 03/21/21 05:57 Corrected Sodium 143 mmol/L (136-145) 03/21/21 05:57 Potassium 4.1 mmol/L (3.5-5.1) 03/21/21 05:57 Chloride 101 mmol/L (98-107) 03/21/21 05:57 Carbon Dioxide 38.2 mmol/L (21-32) H 03/21/21 05:57 BUN 30 mg/dL (7-18) H 03/21/21 05:57 Creatinine 0.89 mg/dL (0.55-1.02) 03/21/21 05:57 Est GFR (MDRD) Af Amer > 60 (>60) 03/21/21 05:57 Est GFR (MDRD) Non-Af > 60 (>60) 03/21/21 05:57 Glucose 171 mg/dL (65-99) H 03/21/21 05:57 POC Glucose (mg/dL) 247 mg/dL (65-99) H 03/21/21 16:27 Hemoglobin A1c 7.4 % 03/14/21 18:00 Calcium 8.4 mg/dL (8.5-10.1) L 03/21/21 05:57 Corrected Calcium 9.3 mg/dL (8.5-10.1) 03/16/21 05:49 Magnesium 2.4 mg/dL (1.7-2.9) 03/16/21 05:49 Total Bilirubin 0.20 mg/dL (0.2-1.0) 03/16/21 05:49 AST 25 Units/L (15-37) 03/16/21 05:49 ALT 36 Units/L (12-78) 03/16/21 05:49 Alkaline Phosphatase 100 Units/L (46-116) 03/16/21 05:49 Creatine Kinase 64 Units/L (26-192) 03/15/21 13:49 CK-MB (CK-2) 2.5 ng/mL (0-4.0) 03/15/21 13:49 CK/CKMB % Calc 3.9 % (<4) 03/15/21 13:49 Troponin I 0.03 ng/mL (0-1.5) 03/15/21 13:49 B-Natriuretic Peptide 112 pg/mL (0-79) H 03/14/21 18:00 Total Protein 7.3 g/dL (6.4-8.2) 03/16/21 05:49 Albumin 2.7 g/dL (3.4-5.0) L 03/16/21 05:49 Globulin 4.6 g/dL (2.5-4.5) H 03/16/21 05:49 Albumin/Globulin Ratio 0.6 Ratio (1.1-2.1) L 03/16/21 05:49 Specimen Type Catherized urine 03/15/21 01:50 Urine Color Yellow (YELLOW) 03/15/21 01:50 Urine Appearance Clear (CLEAR) 03/15/21 01:50 Urine pH 5.0 (5.0 - 8.0) 03/15/21 01:50 Ur Specific [place] 1.025 (1.000-1.030) 03/15/21 01:50 Urine Protein 3+ (NEGATIVE) 03/15/21 01:50 Urine Glucose (UA) Negative (NEGATIVE) 03/15/21 01:50 Urine Ketones Negative (NEGATIVE) 03/15/21 01:50 Urine Occult Blood 1+ (NEGATIVE) 03/15/21 01:50 Urine Nitrite Negative (NEGATIVE) 03/15/21 01:50 Urine Bilirubin Negative (NEGATIVE) 03/15/21 01:50 Urine Urobilinogen Normal (NORMAL) 03/15/21 01:50 Ur Leukocyte Esterase Negative (NEGATIVE) 03/15/21 01:50 Urine RBC 0-2 /HPF (0-3) 03/15/21 01:50 Urine WBC 0-2 /HPF (0-5) 03/15/21 01:50 Ur Squamous Epith Cells Rare /HPF (NEGATIVE) 03/15/21 01:50 Urine Bacteria Negative /HPF (NEGATIVE) 03/15/21 01:50 Urine Mucus Few /HPF (NEGATIVE) 03/15/21 01:50 Ur Culture Indicated? No/not indicated 03/15/21 01:50 Urine Opiates Screen Positive (NEG=<300) A 03/15/21 01:50 Urine Methadone Screen Negative (NEG=<300) 03/15/21 01:50 Ur Barbiturates Screen Negative (NEG=<200) 03/15/21 01:50 Ur Phencyclidine Scrn Negative (NEG=<25) 03/15/21 01:50 Ur Amphetamines Screen Positive (NEG=<1000) A 03/15/21 01:50 U Benzodiazepines Scrn Negative (NEG=<200) 03/15/21 01:50 Urine Cocaine Screen Negative (NEG=<300) 03/15/21 01:50 U Marijuana (THC) Screen Negative (NEG=<50) 03/15/21 01:50 Acetone, Semi-Quant Negative (NEGATIVE) 03/14/21 18:00 SARS-CoV-2 (PCR) Negative (NEGATIVE) 03/14/21 22:28 Influenza Type A (PCR) Negative (NEGATIVE) 03/14/21 22:28 Influenza Type B (PCR) Negative (NEGATIVE) 03/14/21 22:28 RSV (PCR) Positive (NEGATIVE) A 03/14/21 22:28 SARS CoV-2 RNA Rapid WILLIAN Negative (NEGATIVE) 03/14/21 18:00 Plan (1) Acute respiratory failure with hypoxia and hypercapnia: Status: Acute (2) COPD exacerbation: Status: Acute (3) RSV bronchitis: Status: Acute (4) Dehydration: Status: Acute (5) Generalized weakness: Status: Acute (6) Drug abuse: Status: Acute (7) Lethargy: Status: Acute (8) Type 2 diabetes mellitus: Status: Acute Qualifiers: Diabetes mellitus complication status: with other specified complication Diabetes mellitus residential insulin use: unspecified residential insulin use status Qualified Code(s): E11.69 - Type 2 diabetes mellitus with other specified complication (9) Metabolic alkalosis with respiratory acidosis: Status: Acute
--- NOTE | 2021-03-21 16:43 | PCM.PROG ---
Progress Note Progress Note for Day of Date of Exam: 03/21/21 Subjective Subjective: Patient seen at bedside, no acute events overnight. She is currently on HHFNC and doing well. Patient states she feels a lot better. She reports good appetite. She still has the Nu[place] in place and agreed to have that removed. Labs: Hgb 15.4 WBC: 10.8 BUN/Cr: 30/0.89 CO2: 38 ECHO: EF 45%, RVSP 24mm Hg CTA: (-) for PE, b/l atelectasis COVID PCR (-) CXR: left pleural effusion Plan: Wean HHFNC as tolerated to keep sats > 92%. Continue nebs, pulmicort and IS. Will DC zosyn. Continue tapered solumedrol. Continue lasix. PT/OT as tolerated. DC nuñez. Monitor AM labs and imaging. Time spent for clinical assessment, reviewing labs/imaging, physical exam, decision making and documentation greater than 45 mins. Past Medical Family Social History Past Med/Fam/Surg Hx: No changes since H&P Allergies: Allergies No Known Drug Allergies Allergy (Verified 03/15/21 17:58) Review of Systems ROS: No change since H&P Vital Signs and I&O's Vital Signs: Temperature 98.6 F Pulse Rate [Apical] 82 Pulse Rate 72 Respiratory Rate 24 Blood Pressure [Left Arm] 170/79 Blood Pressure 114/56 O2 Sat by Pulse Oximetry 93 Intake and Output: Intake & Output 03/18/21 03/19/21 03/20/21 03/21/21 23:59 23:59 23:59 23:59 Intake Total 3108 / 3108 1137 / 1137 1796 / 1796 1530 / 1530 Output Total 3100 / 3100 5200 / 5200 3400 / 3400 4300 / 4300 Balance -4063 / -4063 -1604 / -1604 -2770 / -2770 Physical Exam Oriented: Normal Eyes: Normal Ear: Normal Nose: Normal Respiratory: Generalized and Diminished Cardiovascular: Normal Auscultation: Bowel Sounds: Normal Tenderness: Normal Skin: Normal Musculoskeletal: Normal Psychiatric: Normal Mood Description: Calm Affect: Normal Speech Pattern: Clear and Appropriate Laboratory and Diagnostics Result Diagrams: 03/21/21 05:57 03/21/21 05:57 Labs: Laboratory WBC 10.8 X10^3/uL (3.6-10.0) H 03/21/21 05:57 RBC 5.70 X10^6/uL (3.5-5.4) H 03/21/21 05:57 Hgb 15.4 g/dL (12.0-16.0) 03/21/21 05:57 Hct 47.6 % (36.0-47.0) H 03/21/21 05:57 MCV 83.5 fL (80.0-100.0) 03/21/21 05:57 MCH 27.0 pg (27.0-34.0) 03/21/21 05:57 MCHC 32.3 g/dL (33.0-35.0) L 03/21/21 05:57 RDW 16.9 % (11.6-16.5) H 03/21/21 05:57 Plt Count 277 X10^3/uL (150.0-450.0) 03/21/21 05:57 Plt Count Comment Adequate (ADEQUATE) 03/17/21 05:55 MPV 8.9 fL (7.4-11.0) 03/21/21 05:57 Neut % (Auto) 78.3 % (42.0-75.0) H 03/21/21 05:57 Lymph % (Auto) 11.7 % (21.0-51.0) L 03/21/21 05:57 [place] % (Auto) 9.5 % (0.0-13.0) 03/21/21 05:57 Eos % (Auto) 0.1 % (0.9-2.9) L 03/21/21 05:57 Baso % (Auto) 0.4 % (0.2-1.0) 03/21/21 05:57 Neut # (Auto) 8.4 x10^3/uL (2.2-4.8) H 03/21/21 05:57 Lymph # (Auto) 1.3 X10^3/uL (1.3-2.9) 03/21/21 05:57 [place] # (Auto) 1.0 x10^3/uL (0.3-0.8) H 03/21/21 05:57 Eos # (Auto) 0.0 x10^3/uL (0.0-0.2) 03/21/21 05:57 Baso # (Auto) 0.0 X10^3/uL (0.0-0.1) 03/21/21 05:57 Absolute Nucleated RBC 0.0 /100WBC 03/21/21 05:57 Total Counted 100 03/17/21 05:55 Neutrophils % (Manual) 90 % (39-76) H 03/17/21 05:55 Lymphocytes % (Manual) 3 % (13-43) L 03/17/21 05:55 Monocytes % (Manual) 7 % (4-9) 03/17/21 05:55 Plt Morphology Comment Normal (NORMAL) 03/17/21 05:55 RBC Morphology Abnormal (NORMAL) A 03/17/21 05:55 Polychromasia Slight 03/17/21 05:55 D-Dimer 0.60 ug/ml (0.0-0.57) H* 03/14/21 18:00 Sample Site Lr 03/20/21 04:57 ABG pH 7.450 (7.35-7.45) 03/20/21 04:57 ABG pCO2 66.0 mmHg (35.0-45.0) H* 03/20/21 04:57 ABG pO2 69.0 mmHg (80.0-100.0) L 03/20/21 04:57 ABG HCO3 45.9 mmol/L (22-26) H* 03/20/21 04:57 ABG O2 Saturation 94.0 % (90-100) 03/20/21 04:57 ABG Base Excess 18.5 mmol/L (-2.0-2.0) H 03/20/21 04:57 Varun Test Pos 03/20/21 04:57 A-a Gradient 134.0 mmHg 03/20/21 04:57 FiO2 40.0 03/20/21 04:57 Blood Gas Comments Maicol well ae 03/20/21 04:57 Sodium 141 mmol/L (136-145) 03/21/21 05:57 Corrected Sodium 143 mmol/L (136-145) 03/21/21 05:57 Potassium 4.1 mmol/L (3.5-5.1) 03/21/21 05:57 Chloride 101 mmol/L (98-107) 03/21/21 05:57 Carbon Dioxide 38.2 mmol/L (21-32) H 03/21/21 05:57 BUN 30 mg/dL (7-18) H 03/21/21 05:57 Creatinine 0.89 mg/dL (0.55-1.02) 03/21/21 05:57 Est GFR (MDRD) Af Amer > 60 (>60) 03/21/21 05:57 Est GFR (MDRD) Non-Af > 60 (>60) 03/21/21 05:57 Glucose 171 mg/dL (65-99) H 03/21/21 05:57 POC Glucose (mg/dL) 247 mg/dL (65-99) H 03/21/21 16:27 Hemoglobin A1c 7.4 % 03/14/21 18:00 Calcium 8.4 mg/dL (8.5-10.1) L 03/21/21 05:57 Corrected Calcium 9.3 mg/dL (8.5-10.1) 03/16/21 05:49 Magnesium 2.4 mg/dL (1.7-2.9) 03/16/21 05:49 Total Bilirubin 0.20 mg/dL (0.2-1.0) 03/16/21 05:49 AST 25 Units/L (15-37) 03/16/21 05:49 ALT 36 Units/L (12-78) 03/16/21 05:49 Alkaline Phosphatase 100 Units/L (46-116) 03/16/21 05:49 Creatine Kinase 64 Units/L (26-192) 03/15/21 13:49 CK-MB (CK-2) 2.5 ng/mL (0-4.0) 03/15/21 13:49 CK/CKMB % Calc 3.9 % (<4) 03/15/21 13:49 Troponin I 0.03 ng/mL (0-1.5) 03/15/21 13:49 B-Natriuretic Peptide 112 pg/mL (0-79) H 03/14/21 18:00 Total Protein 7.3 g/dL (6.4-8.2) 03/16/21 05:49 Albumin 2.7 g/dL (3.4-5.0) L 03/16/21 05:49 Globulin 4.6 g/dL (2.5-4.5) H 03/16/21 05:49 Albumin/Globulin Ratio 0.6 Ratio (1.1-2.1) L 03/16/21 05:49 Specimen Type Catherized urine 03/15/21 01:50 Urine Color Yellow (YELLOW) 03/15/21 01:50 Urine Appearance Clear (CLEAR) 03/15/21 01:50 Urine pH 5.0 (5.0 - 8.0) 03/15/21 01:50 Ur Specific Christine 1.025 (1.000-1.030) 03/15/21 01:50 Urine Protein 3+ (NEGATIVE) 03/15/21 01:50 Urine Glucose (UA) Negative (NEGATIVE) 03/15/21 01:50 Urine Ketones Negative (NEGATIVE) 03/15/21 01:50 Urine Occult Blood 1+ (NEGATIVE) 03/15/21 01:50 Urine Nitrite Negative (NEGATIVE) 03/15/21 01:50 Urine Bilirubin Negative (NEGATIVE) 03/15/21 01:50 Urine Urobilinogen Normal (NORMAL) 03/15/21 01:50 Ur Leukocyte Esterase Negative (NEGATIVE) 03/15/21 01:50 Urine RBC 0-2 /HPF (0-3) 03/15/21 01:50 Urine WBC 0-2 /HPF (0-5) 03/15/21 01:50 Ur Squamous Epith Cells Rare /HPF (NEGATIVE) 03/15/21 01:50 Urine Bacteria Negative /HPF (NEGATIVE) 03/15/21 01:50 Urine Mucus Few /HPF (NEGATIVE) 03/15/21 01:50 Ur Culture Indicated? No/not indicated 03/15/21 01:50 Urine Opiates Screen Positive (NEG=<300) A 03/15/21 01:50 Urine Methadone Screen Negative (NEG=<300) 03/15/21 01:50 Ur Barbiturates Screen Negative (NEG=<200) 03/15/21 01:50 Ur Phencyclidine Scrn Negative (NEG=<25) 03/15/21 01:50 Ur Amphetamines Screen Positive (NEG=<1000) A 03/15/21 01:50 U Benzodiazepines Scrn Negative (NEG=<200) 03/15/21 01:50 Urine Cocaine Screen Negative (NEG=<300) 03/15/21 01:50 U Marijuana (THC) Screen Negative (NEG=<50) 03/15/21 01:50 Acetone, Semi-Quant Negative (NEGATIVE) 03/14/21 18:00 SARS-CoV-2 (PCR) Negative (NEGATIVE) 03/14/21 22:28 Influenza Type A (PCR) Negative (NEGATIVE) 03/14/21 22:28 Influenza Type B (PCR) Negative (NEGATIVE) 03/14/21 22:28 RSV (PCR) Positive (NEGATIVE) A 03/14/21 22:28 SARS CoV-2 RNA Rapid WILLIAN Negative (NEGATIVE) 03/14/21 18:00 Plan (1) Acute respiratory failure with hypoxia and hypercapnia: Status: Acute (2) COPD exacerbation: Status: Acute (3) RSV bronchitis: Status: Acute (4) Dehydration: Status: Acute (5) Generalized weakness: Status: Acute (6) Drug abuse: Status: Acute (7) Lethargy: Status: Acute (8) Type 2 diabetes mellitus: Status: Acute Qualifiers: Diabetes mellitus complication status: with other specified complication Diabetes mellitus covered buckle assembler insulin use: unspecified covered buckle assembler insulin use status Qualified Code(s): E11.69 - Type 2 diabetes mellitus with other specified complication (9) Metabolic alkalosis with respiratory acidosis: Status: Acute
[2021-03-21] MEDS ORDERED: ATIVAN TAB 0.5 MG PO PRN (16:44)
[2021-03-22] MEDS: SOLU-Medrol 125 MG VIAL IVP SCH ×2 (05:44→17:51)
[2021-03-22 06:13] LABS: BLOOD UREA NITROGEN 24 mg/dL (7-18); CALCIUM 8.3 mg/dL (8.5-10.1); CARBON DIOXIDE 37.7 mmol/L (21-32); CHLORIDE 101 mmol/L (98-107); COR NA(FOR HYPERGLY) 142 mmol/L (136-145); CREATININE 0.87 mg/dL (0.55-1.02); SODIUM 140 mmol/L (136-145); eGFR NON BLACK RACES > 60 (>60)
[2021-03-22 06:15] LABS: BASOPHILS % (AUTO) 0.3 % (0.2-1.0); EOSINOPHILS % (AUTO) 0.2 % (0.9-2.9); HEMATOCRIT 49.8 % (36.0-47.0); HEMOGLOBIN 15.8 g/dL (12.0-16.0); LYMPHOCYTES # (AUTO) 1.5 X10^3/uL (1.3-2.9); LYMPHOCYTES % (AUTO) 12.7 % (21.0-51.0); MEAN CORPUSCULAR HGB CONC 31.7 g/dL (33.0-35.0); MEAN CORPUSCULAR VOLUME 85.2 fL (80.0-100.0); MONOCYTES % (AUTO) 8.8 % (0.0-13.0); PLATELET COUNT 235 X10^3/uL (150.0-450.0); RED BLOOD COUNT 5.84 X10^6/uL (3.5-5.4); RED CELL DISTRIBUTION WIDTH 16.9 % (11.6-16.5); WHITE BLOOD COUNT 11.5 X10^3/uL (3.6-10.0)
[2021-03-22] MEDS: PEPCID 20 MG IV PREMIX* 20 MG/50 ML BAG IV SCH (09:05)
[2021-03-22] MEDS: NORVASC TAB 10 MG PO SCH (09:05)
[2021-03-22] MEDS: LASIX IVP SCH (09:05)
[2021-03-22] MEDS: LOVENOX INJ 40 MG SYR SC SCH (09:05)
[2021-03-22] MEDS: DUONEB 0.5 MG/3 MG (3 mL) NEB SCH ×4 (09:20→21:49)
[2021-03-22] MEDS: PULMICORT NEB TX 0.5 MG NEB SCH ×2 (09:20→21:49)
[2021-03-22] MEDS: HumuLIN R SC PRN ×3 (11:39→22:08)
--- NOTE | 2021-03-22 12:46 | PCM.PROG ---
Progress Note Progress Note for Day of Date of Exam: 03/22/21 Subjective Subjective: Patient seen at bedside, no acute events overnight. She is currently on HHFNC and doing well. She is on FiO2 59%. Patient states she feels a lot better. She reports good appetite. Sánchez was removed yesterday. Patient has been working with PT/OT, they recommended inpatient rehab but patient refused. Labs: Hgb 15.8 WBC: 11.5 BUN/Cr: 24/0.87 CO2: 37 ECHO: EF 45%, RVSP 24mm Hg CTA: (-) for PE, b/l atelectasis COVID PCR (-) CXR: left pleural effusion Plan: Wean HHFNC as tolerated to keep sats > 92%. Continue nebs, pulmicort and IS. Continue tapered solumedrol. Continue lasix. PT/OT as tolerated. Ambulate as tolerated. Monitor AM labs and imaging. Time spent for clinical assessment, reviewing labs/imaging, physical exam, decision making and documentation greater than 45 mins. Past Medical Family Social History Past Med/Fam/Surg Hx: No changes since H&P Allergies: Allergies No Known Drug Allergies Allergy (Verified 03/15/21 17:58) Review of Systems ROS: No change since H&P Vital Signs and I&O's Vital Signs: Temperature 98.8 F Pulse Rate [Apical] 82 Pulse Rate 69 Respiratory Rate 20 Blood Pressure [Left Arm] 170/79 Blood Pressure 119/69 O2 Sat by Pulse Oximetry 92 Intake and Output: Intake & Output 03/19/21 03/20/21 03/21/21 03/22/21 23:59 23:59 23:59 23:59 Intake Total 1137 / 1137 1796 / 1796 2644 / 2644 287 / 287 Output Total 5200 / 5200 3400 / 3400 4945 / 4945 500 / 500 Balance -4063 / -4063 -1604 / -1604 -2301 / -2301 -213 / -213 Physical Exam Oriented: Normal Eyes: Normal Ear: Normal Nose: Normal Respiratory: Generalized and Diminished Cardiovascular: Normal Auscultation: Bowel Sounds: Normal Tenderness: Normal Skin: Normal Musculoskeletal: Normal Psychiatric: Normal Mood Description: Calm Affect: Normal Speech Pattern: Clear and Appropriate Laboratory and Diagnostics Result Diagrams: 03/22/21 05:40 03/22/21 05:40 Labs: Laboratory WBC 11.5 X10^3/uL (3.6-10.0) H 03/22/21 05:40 RBC 5.84 X10^6/uL (3.5-5.4) H 03/22/21 05:40 Hgb 15.8 g/dL (12.0-16.0) 03/22/21 05:40 Hct 49.8 % (36.0-47.0) H 03/22/21 05:40 MCV 85.2 fL (80.0-100.0) 03/22/21 05:40 MCH 27.0 pg (27.0-34.0) 03/22/21 05:40 MCHC 31.7 g/dL (33.0-35.0) L 03/22/21 05:40 RDW 16.9 % (11.6-16.5) H 03/22/21 05:40 Plt Count 235 X10^3/uL (150.0-450.0) 03/22/21 05:40 Plt Count Comment Adequate (ADEQUATE) 03/17/21 05:55 MPV 9.0 fL (7.4-11.0) 03/22/21 05:40 Neut % (Auto) 78.0 % (42.0-75.0) H 03/22/21 05:40 Lymph % (Auto) 12.7 % (21.0-51.0) L 03/22/21 05:40 [place] % (Auto) 8.8 % (0.0-13.0) 03/22/21 05:40 Eos % (Auto) 0.2 % (0.9-2.9) L 03/22/21 05:40 Baso % (Auto) 0.3 % (0.2-1.0) 03/22/21 05:40 Neut # (Auto) 9.0 x10^3/uL (2.2-4.8) H 03/22/21 05:40 Lymph # (Auto) 1.5 X10^3/uL (1.3-2.9) 03/22/21 05:40 [place] # (Auto) 1.0 x10^3/uL (0.3-0.8) H 03/22/21 05:40 Eos # (Auto) 0.0 x10^3/uL (0.0-0.2) 03/22/21 05:40 Baso # (Auto) 0.0 X10^3/uL (0.0-0.1) 03/22/21 05:40 Absolute Nucleated RBC 0.0 /100WBC 03/22/21 05:40 Total Counted 100 03/17/21 05:55 Neutrophils % (Manual) 90 % (39-76) H 03/17/21 05:55 Lymphocytes % (Manual) 3 % (13-43) L 03/17/21 05:55 Monocytes % (Manual) 7 % (4-9) 03/17/21 05:55 Plt Morphology Comment Normal (NORMAL) 03/17/21 05:55 RBC Morphology Abnormal (NORMAL) A 03/17/21 05:55 Polychromasia Slight 03/17/21 05:55 D-Dimer 0.60 ug/ml (0.0-0.57) H* 03/14/21 18:00 Sample Site Lr 03/20/21 04:57 ABG pH 7.450 (7.35-7.45) 03/20/21 04:57 ABG pCO2 66.0 mmHg (35.0-45.0) H* 03/20/21 04:57 ABG pO2 69.0 mmHg (80.0-100.0) L 03/20/21 04:57 ABG HCO3 45.9 mmol/L (22-26) H* 03/20/21 04:57 ABG O2 Saturation 94.0 % (90-100) 03/20/21 04:57 ABG Base Excess 18.5 mmol/L (-2.0-2.0) H 03/20/21 04:57 Varun Test Pos 03/20/21 04:57 A-a Gradient 134.0 mmHg 03/20/21 04:57 FiO2 40.0 03/20/21 04:57 Blood Gas Comments Maicol well ae 03/20/21 04:57 Sodium 140 mmol/L (136-145) 03/22/21 05:40 Corrected Sodium 142 mmol/L (136-145) 03/22/21 05:40 Potassium 4.1 mmol/L (3.5-5.1) 03/22/21 05:40 Chloride 101 mmol/L (98-107) 03/22/21 05:40 Carbon Dioxide 37.7 mmol/L (21-32) H 03/22/21 05:40 BUN 24 mg/dL (7-18) H 03/22/21 05:40 Creatinine 0.87 mg/dL (0.55-1.02) 03/22/21 05:40 Est GFR (MDRD) Af Amer > 60 (>60) 03/22/21 05:40 Est GFR (MDRD) Non-Af > 60 (>60) 03/22/21 05:40 Glucose 164 mg/dL (65-99) H 03/22/21 05:40 POC Glucose (mg/dL) 233 mg/dL (65-99) H 03/22/21 11:38 Hemoglobin A1c 7.4 % 03/14/21 18:00 Calcium 8.3 mg/dL (8.5-10.1) L 03/22/21 05:40 Corrected Calcium 9.3 mg/dL (8.5-10.1) 03/16/21 05:49 Magnesium 2.4 mg/dL (1.7-2.9) 03/16/21 05:49 Total Bilirubin 0.20 mg/dL (0.2-1.0) 03/16/21 05:49 AST 25 Units/L (15-37) 03/16/21 05:49 ALT 36 Units/L (12-78) 03/16/21 05:49 Alkaline Phosphatase 100 Units/L (46-116) 03/16/21 05:49 Creatine Kinase 64 Units/L (26-192) 03/15/21 13:49 CK-MB (CK-2) 2.5 ng/mL (0-4.0) 03/15/21 13:49 CK/CKMB % Calc 3.9 % (<4) 03/15/21 13:49 Troponin I 0.03 ng/mL (0-1.5) 03/15/21 13:49 B-Natriuretic Peptide 112 pg/mL (0-79) H 03/14/21 18:00 Total Protein 7.3 g/dL (6.4-8.2) 03/16/21 05:49 Albumin 2.7 g/dL (3.4-5.0) L 03/16/21 05:49 Globulin 4.6 g/dL (2.5-4.5) H 03/16/21 05:49 Albumin/Globulin Ratio 0.6 Ratio (1.1-2.1) L 03/16/21 05:49 Specimen Type Catherized urine 03/15/21 01:50 Urine Color Yellow (YELLOW) 03/15/21 01:50 Urine Appearance Clear (CLEAR) 03/15/21 01:50 Urine pH 5.0 (5.0 - 8.0) 03/15/21 01:50 Ur Specific [place] 1.025 (1.000-1.030) 03/15/21 01:50 Urine Protein 3+ (NEGATIVE) 03/15/21 01:50 Urine Glucose (UA) Negative (NEGATIVE) 03/15/21 01:50 Urine Ketones Negative (NEGATIVE) 03/15/21 01:50 Urine Occult Blood 1+ (NEGATIVE) 03/15/21 01:50 Urine Nitrite Negative (NEGATIVE) 03/15/21 01:50 Urine Bilirubin Negative (NEGATIVE) 03/15/21 01:50 Urine Urobilinogen Normal (NORMAL) 03/15/21 01:50 Ur Leukocyte Esterase Negative (NEGATIVE) 03/15/21 01:50 Urine RBC 0-2 /HPF (0-3) 03/15/21 01:50 Urine WBC 0-2 /HPF (0-5) 03/15/21 01:50 Ur Squamous Epith Cells Rare /HPF (NEGATIVE) 03/15/21 01:50 Urine Bacteria Negative /HPF (NEGATIVE) 03/15/21 01:50 Urine Mucus Few /HPF (NEGATIVE) 03/15/21 01:50 Ur Culture Indicated? No/not indicated 03/15/21 01:50 Urine Opiates Screen Positive (NEG=<300) A 03/15/21 01:50 Urine Methadone Screen Negative (NEG=<300) 03/15/21 01:50 Ur Barbiturates Screen Negative (NEG=<200) 03/15/21 01:50 Ur Phencyclidine Scrn Negative (NEG=<25) 03/15/21 01:50 Ur Amphetamines Screen Positive (NEG=<1000) A 03/15/21 01:50 U Benzodiazepines Scrn Negative (NEG=<200) 03/15/21 01:50 Urine Cocaine Screen Negative (NEG=<300) 03/15/21 01:50 U Marijuana (THC) Screen Negative (NEG=<50) 03/15/21 01:50 Acetone, Semi-Quant Negative (NEGATIVE) 03/14/21 18:00 SARS-CoV-2 (PCR) Negative (NEGATIVE) 03/14/21 22:28 Influenza Type A (PCR) Negative (NEGATIVE) 03/14/21 22:28 Influenza Type B (PCR) Negative (NEGATIVE) 03/14/21 22:28 RSV (PCR) Positive (NEGATIVE) A 03/14/21 22:28 SARS CoV-2 RNA Rapid WILLIAN Negative (NEGATIVE) 03/14/21 18:00 Plan (1) Acute respiratory failure with hypoxia and hypercapnia: Status: Acute (2) COPD exacerbation: Status: Acute (3) RSV bronchitis: Status: Acute (4) Dehydration: Status: Acute (5) Generalized weakness: Status: Acute (6) Drug abuse: Status: Acute (7) Lethargy: Status: Acute (8) Type 2 diabetes mellitus: Status: Acute Qualifiers: Diabetes mellitus complication status: with other specified complication Diabetes mellitus custodial insulin use: unspecified custodial insulin use status Qualified Code(s): E11.69 - Type 2 diabetes mellitus with other specified complication (9) Metabolic alkalosis with respiratory acidosis: Status: Acute
[2021-03-23] MEDS: SOLU-Medrol 125 MG VIAL IVP SCH (05:25)
[2021-03-23] MEDS: HumuLIN R SC PRN ×3 (05:40→16:45)
[2021-03-23 06:01] LABS: BASOPHILS # (AUTO) 0.1 X10^3/uL (0.0-0.1); BASOPHILS % (AUTO) 0.4 % (0.2-1.0); EOSINOPHILS % (AUTO) 0.1 % (0.9-2.9); HEMATOCRIT 49.1 % (36.0-47.0); HEMOGLOBIN 15.6 g/dL (12.0-16.0); LYMPHOCYTES # (AUTO) 1.2 X10^3/uL (1.3-2.9); LYMPHOCYTES % (AUTO) 8.4 % (21.0-51.0); MEAN CORPUSCULAR HEMOGLOBIN 26.9 pg (27.0-34.0); MEAN CORPUSCULAR HGB CONC 31.7 g/dL (33.0-35.0); MEAN CORPUSCULAR VOLUME 84.8 fL (80.0-100.0); MEAN PLATELET VOLUME 9.1 fL (7.4-11.0); MONOCYTES # (AUTO) 0.9 x10^3/uL (0.3-0.8); MONOCYTES % (AUTO) 6.2 % (0.0-13.0); NEUTROPHILS # (AUTO) 12.3 x10^3/uL (2.2-4.8); NEUTROPHILS % (AUTO) 84.9 % (42.0-75.0); PLATELET COUNT 232 X10^3/uL (150.0-450.0); RED BLOOD COUNT 5.79 X10^6/uL (3.5-5.4); WHITE BLOOD COUNT 14.5 X10^3/uL (3.6-10.0)
[2021-03-23 06:05] LABS: BLOOD UREA NITROGEN 25 mg/dL (7-18); CALCIUM 8.5 mg/dL (8.5-10.1); CARBON DIOXIDE 35.4 mmol/L (21-32); CHLORIDE 102 mmol/L (98-107); COR NA(FOR HYPERGLY) 142 mmol/L (136-145); CREATININE 0.83 mg/dL (0.55-1.02); SODIUM 139 mmol/L (136-145); eGFR NON BLACK RACES > 60 (>60)
[2021-03-23 07:15] LABS: PLATELET MORPHOLOGY COMMENT NORMAL (NORMAL)
[2021-03-23] MEDS: NORCO 5/325 MG TAB PO PRN ×2 (07:39→21:00)
[2021-03-23] MEDS: DUONEB 0.5 MG/3 MG (3 mL) NEB SCH ×4 (09:00→20:55)
[2021-03-23] MEDS: PULMICORT NEB TX 0.5 MG NEB SCH ×2 (09:00→20:55)
[2021-03-23] MEDS: LASIX PO SCH (09:48)
[2021-03-23] MEDS: NORVASC TAB 10 MG PO SCH (09:49)
[2021-03-23] MEDS: LOVENOX INJ 40 MG SYR SC SCH (09:49)
[2021-03-23] MEDS: SOLU-Medrol 40 MG VIAL IVP SCH ×2 (09:50→22:02)
[2021-03-23] MEDS: PEPCID 20 MG IV PREMIX* 20 MG/50 ML BAG IV SCH (09:51)
[2021-03-23] MEDS ORDERED: NS 500 ML IV 500 ML IV ONE (09:58)
--- NOTE | 2021-03-23 14:25 | PCM.PROG ---
Progress Note Progress Note for Day of Date of Exam: 03/23/21 Subjective Subjective: Patient seen at bedside, no acute events overnight. She is currently on HHFNC and doing well. She is on FiO2 40%. Patient states she feels a lot better. She reports good appetite. She wants to go home. She did work with PT/OT yesterday. Labs: Hgb 15.6 WBC: 14.5 BUN/Cr: 25/0.83 CO2: 35 ECHO: EF 45%, RVSP 24mm Hg CTA: (-) for PE, b/l atelectasis COVID PCR (-) Plan: Switch to NC O2 if possible, wean as tolerated. Switch to PO lasix. Taper solumedrol. Will start glipizide 5 mg daily. Continue SSI. Contiue nebs, pulmicort and IS. Monitor AM labs and imaging. Continue PT/OT as tolerated. Patient refused rehab placement. Time spent for clinical assessment, reviewing labs/imaging, physical exam, decision making and documentation greater than 45 mins. Past Medical Family Social History Past Med/Fam/Surg Hx: No changes since H&P Allergies: Allergies No Known Drug Allergies Allergy (Verified 03/15/21 17:58) Review of Systems ROS: No change since H&P Vital Signs and I&O's Vital Signs: Temperature 98.7 F Pulse Rate [Apical] 82 Pulse Rate 72 Respiratory Rate 19 Blood Pressure [Left Arm] 170/79 Blood Pressure 108/59 O2 Sat by Pulse Oximetry 94 Intake and Output: Intake & Output 03/20/21 03/21/21 03/22/21 03/23/21 23:59 23:59 23:59 23:59 Intake Total 1796 / 1796 2644 / 2644 1292 / 1292 290 / 290 Output Total 3400 / 3400 4945 / 4945 500 / 500 Balance -1604 / -1604 -2301 / -2301 792 / 792 290 / 290 Physical Exam Oriented: Normal Eyes: Normal Ear: Normal Nose: Normal Respiratory: Generalized and Diminished Cardiovascular: Normal Auscultation: Bowel Sounds: Normal Tenderness: Normal Skin: Normal Musculoskeletal: Normal Psychiatric: Normal Mood Description: Calm Affect: Normal Speech Pattern: Clear and Appropriate Laboratory and Diagnostics Result Diagrams: 03/23/21 05:37 03/23/21 05:37 Labs: Laboratory WBC 14.5 X10^3/uL (3.6-10.0) H 03/23/21 05:37 RBC 5.79 X10^6/uL (3.5-5.4) H 03/23/21 05:37 Hgb 15.6 g/dL (12.0-16.0) 03/23/21 05:37 Hct 49.1 % (36.0-47.0) H 03/23/21 05:37 MCV 84.8 fL (80.0-100.0) 03/23/21 05:37 MCH 26.9 pg (27.0-34.0) L 03/23/21 05:37 MCHC 31.7 g/dL (33.0-35.0) L 03/23/21 05:37 RDW 17.0 % (11.6-16.5) H 03/23/21 05:37 Plt Count 232 X10^3/uL (150.0-450.0) 03/23/21 05:37 Plt Count Comment Adequate (ADEQUATE) 03/23/21 05:37 MPV 9.1 fL (7.4-11.0) 03/23/21 05:37 Neut % (Auto) 84.9 % (42.0-75.0) H 03/23/21 05:37 Lymph % (Auto) 8.4 % (21.0-51.0) L 03/23/21 05:37 [place] % (Auto) 6.2 % (0.0-13.0) 03/23/21 05:37 Eos % (Auto) 0.1 % (0.9-2.9) L 03/23/21 05:37 Baso % (Auto) 0.4 % (0.2-1.0) 03/23/21 05:37 Neut # (Auto) 12.3 x10^3/uL (2.2-4.8) H 03/23/21 05:37 Lymph # (Auto) 1.2 X10^3/uL (1.3-2.9) L 03/23/21 05:37 [place] # (Auto) 0.9 x10^3/uL (0.3-0.8) H 03/23/21 05:37 Eos # (Auto) 0.0 x10^3/uL (0.0-0.2) 03/23/21 05:37 Baso # (Auto) 0.1 X10^3/uL (0.0-0.1) 03/23/21 05:37 Absolute Nucleated RBC 0.2 /100WBC 03/23/21 05:37 Total Counted 100 03/23/21 05:37 Neutrophils % (Manual) 80 % (39-76) H 03/23/21 05:37 Lymphocytes % (Manual) 18 % (13-43) 03/23/21 05:37 Monocytes % (Manual) 2 % (4-9) L 03/23/21 05:37 Plt Morphology Comment Normal (NORMAL) 03/23/21 05:37 RBC Morphology Normal (NORMAL) 03/23/21 05:37 Polychromasia Slight 03/17/21 05:55 D-Dimer 0.60 ug/ml (0.0-0.57) H* 03/14/21 18:00 Sample Site Lr 03/20/21 04:57 ABG pH 7.450 (7.35-7.45) 03/20/21 04:57 ABG pCO2 66.0 mmHg (35.0-45.0) H* 03/20/21 04:57 ABG pO2 69.0 mmHg (80.0-100.0) L 03/20/21 04:57 ABG HCO3 45.9 mmol/L (22-26) H* 03/20/21 04:57 ABG O2 Saturation 94.0 % (90-100) 03/20/21 04:57 ABG Base Excess 18.5 mmol/L (-2.0-2.0) H 03/20/21 04:57 Varun Test Pos 03/20/21 04:57 A-a Gradient 134.0 mmHg 03/20/21 04:57 FiO2 40.0 03/20/21 04:57 Blood Gas Comments Maicol well ae 03/20/21 04:57 Sodium 139 mmol/L (136-145) 03/23/21 05:37 Corrected Sodium 142 mmol/L (136-145) 03/23/21 05:37 Potassium 4.0 mmol/L (3.5-5.1) 03/23/21 05:37 Chloride 102 mmol/L (98-107) 03/23/21 05:37 Carbon Dioxide 35.4 mmol/L (21-32) H 03/23/21 05:37 BUN 25 mg/dL (7-18) H 03/23/21 05:37 Creatinine 0.83 mg/dL (0.55-1.02) 03/23/21 05:37 Est GFR (MDRD) Af Amer > 60 (>60) 03/23/21 05:37 Est GFR (MDRD) Non-Af > 60 (>60) 03/23/21 05:37 Glucose 237 mg/dL (65-99) H 03/23/21 05:37 POC Glucose (mg/dL) 325 mg/dL (65-99) H 03/23/21 11:17 Hemoglobin A1c 7.4 % 03/14/21 18:00 Calcium 8.5 mg/dL (8.5-10.1) 03/23/21 05:37 Corrected Calcium 9.3 mg/dL (8.5-10.1) 03/16/21 05:49 Magnesium 2.4 mg/dL (1.7-2.9) 03/16/21 05:49 Total Bilirubin 0.20 mg/dL (0.2-1.0) 03/16/21 05:49 AST 25 Units/L (15-37) 03/16/21 05:49 ALT 36 Units/L (12-78) 03/16/21 05:49 Alkaline Phosphatase 100 Units/L (46-116) 03/16/21 05:49 Creatine Kinase 64 Units/L (26-192) 03/15/21 13:49 CK-MB (CK-2) 2.5 ng/mL (0-4.0) 03/15/21 13:49 CK/CKMB % Calc 3.9 % (<4) 03/15/21 13:49 Troponin I 0.03 ng/mL (0-1.5) 03/15/21 13:49 B-Natriuretic Peptide 112 pg/mL (0-79) H 03/14/21 18:00 Total Protein 7.3 g/dL (6.4-8.2) 03/16/21 05:49 Albumin 2.7 g/dL (3.4-5.0) L 03/16/21 05:49 Globulin 4.6 g/dL (2.5-4.5) H 03/16/21 05:49 Albumin/Globulin Ratio 0.6 Ratio (1.1-2.1) L 03/16/21 05:49 Specimen Type Catherized urine 03/15/21 01:50 Urine Color Yellow (YELLOW) 03/15/21 01:50 Urine Appearance Clear (CLEAR) 03/15/21 01:50 Urine pH 5.0 (5.0 - 8.0) 03/15/21 01:50 Ur Specific [place] 1.025 (1.000-1.030) 03/15/21 01:50 Urine Protein 3+ (NEGATIVE) 03/15/21 01:50 Urine Glucose (UA) Negative (NEGATIVE) 03/15/21 01:50 Urine Ketones Negative (NEGATIVE) 03/15/21 01:50 Urine Occult Blood 1+ (NEGATIVE) 03/15/21 01:50 Urine Nitrite Negative (NEGATIVE) 03/15/21 01:50 Urine Bilirubin Negative (NEGATIVE) 03/15/21 01:50 Urine Urobilinogen Normal (NORMAL) 03/15/21 01:50 Ur Leukocyte Esterase Negative (NEGATIVE) 03/15/21 01:50 Urine RBC 0-2 /HPF (0-3) 03/15/21 01:50 Urine WBC 0-2 /HPF (0-5) 03/15/21 01:50 Ur Squamous Epith Cells Rare /HPF (NEGATIVE) 03/15/21 01:50 Urine Bacteria Negative /HPF (NEGATIVE) 03/15/21 01:50 Urine Mucus Few /HPF (NEGATIVE) 03/15/21 01:50 Ur Culture Indicated? No/not indicated 03/15/21 01:50 Urine Opiates Screen Positive (NEG=<300) A 03/15/21 01:50 Urine Methadone Screen Negative (NEG=<300) 03/15/21 01:50 Ur Barbiturates Screen Negative (NEG=<200) 03/15/21 01:50 Ur Phencyclidine Scrn Negative (NEG=<25) 03/15/21 01:50 Ur Amphetamines Screen Positive (NEG=<1000) A 03/15/21 01:50 U Benzodiazepines Scrn Negative (NEG=<200) 03/15/21 01:50 Urine Cocaine Screen Negative (NEG=<300) 03/15/21 01:50 U Marijuana (THC) Screen Negative (NEG=<50) 03/15/21 01:50 Acetone, Semi-Quant Negative (NEGATIVE) 03/14/21 18:00 SARS-CoV-2 (PCR) Negative (NEGATIVE) 03/14/21 22:28 Influenza Type A (PCR) Negative (NEGATIVE) 03/14/21 22:28 Influenza Type B (PCR) Negative (NEGATIVE) 03/14/21 22:28 RSV (PCR) Positive (NEGATIVE) A 03/14/21 22:28 SARS CoV-2 RNA Rapid WILLIAN Negative (NEGATIVE) 03/14/21 18:00 Plan (1) Acute respiratory failure with hypoxia and hypercapnia: Status: Acute (2) COPD exacerbation: Status: Acute (3) RSV bronchitis: Status: Acute (4) Dehydration: Status: Acute (5) Generalized weakness: Status: Acute (6) Drug abuse: Status: Acute (7) Lethargy: Status: Acute (8) Type 2 diabetes mellitus: Status: Acute Qualifiers: Diabetes mellitus complication status: with other specified complication Diabetes mellitus snf insulin use: unspecified snf insulin use status Qualified Code(s): E11.69 - Type 2 diabetes mellitus with other specified complication (9) Metabolic alkalosis with respiratory acidosis: Status: Acute
[2021-03-23] MEDS ORDERED: SNACK - Diabetic Appropriate PO SCH (20:00)
[2021-03-24] MEDS: HumuLIN R SC PRN ×3 (06:30→17:00)
[2021-03-24 06:31] LABS: BASOPHILS % (AUTO) 0.3 % (0.2-1.0); HEMATOCRIT 48.4 % (36.0-47.0); HEMOGLOBIN 15.3 g/dL (12.0-16.0); LYMPHOCYTES # (AUTO) 0.9 X10^3/uL (1.3-2.9); LYMPHOCYTES % (AUTO) 6.7 % (21.0-51.0); MEAN CORPUSCULAR HGB CONC 31.7 g/dL (33.0-35.0); MEAN CORPUSCULAR VOLUME 85.1 fL (80.0-100.0); MEAN PLATELET VOLUME 9.4 fL (7.4-11.0); MONOCYTES # (AUTO) 0.8 x10^3/uL (0.3-0.8); MONOCYTES % (AUTO) 6.4 % (0.0-13.0); NEUTROPHILS # (AUTO) 11.1 x10^3/uL (2.2-4.8); NEUTROPHILS % (AUTO) 86.6 % (42.0-75.0); PLATELET COUNT 215 X10^3/uL (150.0-450.0); RED BLOOD COUNT 5.69 X10^6/uL (3.5-5.4); RED CELL DISTRIBUTION WIDTH 16.8 % (11.6-16.5); WHITE BLOOD COUNT 12.9 X10^3/uL (3.6-10.0)
[2021-03-24 06:39] LABS: ALANINE AMINOTRANSFERASE 31 Units/L (12-78); ALBUMIN 2.8 g/dL (3.4-5.0); ALKALINE PHOSPHATASE 79 Units/L (46-116); ASPARTATE AMINO TRANSFERASE 11 Units/L (15-37); BLOOD UREA NITROGEN 22 mg/dL (7-18); CALCIUM 8.4 mg/dL (8.5-10.1); CARBON DIOXIDE 34.1 mmol/L (21-32); CHLORIDE 103 mmol/L (98-107); COR CA(FOR HYPOALB) 9.4 mg/dL (8.5-10.1); COR NA(FOR HYPERGLY) 145 mmol/L (136-145); CREATININE 0.85 mg/dL (0.55-1.02); SODIUM 140 mmol/L (136-145); TOTAL PROTEIN 6.2 g/dL (6.4-8.2); eGFR NON BLACK RACES > 60 (>60)
[2021-03-24] MEDS ORDERED: GLUCOTROL PO SCH (07:00)
--- NOTE | 2021-03-24 08:03 | RAD ---
HISTORYBRONCHITIS, RSVSTUDYCHEST, 1 [id number] lungs are clear. No pneumothorax or significant effusion.The heart size is magnified. Vascular calcifications are present compatible with atherosclerosis.Bones are unremarkable.EKG leads are noted.IMPRESSION1. No significant abnormalityElectronically signed by: Johan Acosta (Mar 24, 2021 08:01:07)
[2021-03-24] MEDS ORDERED: GLUCOPHAGE XR 24-HR PO SCH (09:00)
[2021-03-24] MEDS: LASIX PO SCH (09:05)
[2021-03-24] MEDS: NORVASC TAB 10 MG PO SCH ×2 (09:06→09:08)
[2021-03-24] MEDS: LOVENOX INJ 40 MG SYR SC SCH (09:08)
[2021-03-24] MEDS: SOLU-Medrol 40 MG VIAL IVP SCH (09:10)
[2021-03-24] MEDS: PEPCID TAB 20 MG PO SCH (09:10)
[2021-03-24] MEDS: PULMICORT NEB TX 0.5 MG NEB SCH (09:15)
[2021-03-24] MEDS: DUONEB 0.5 MG/3 MG (3 mL) NEB SCH ×2 (09:15→14:10)
--- NOTE | 2021-03-24 13:25 | W.DIS.FURT ---
Summary of Discharge Discharge Summary of Date Date of Exam: 03/24/21 Admission Date Date of Admission: 03/15/21 Admission Diagnosis Hospital Course: Ms Leonard is a 65y/o female who has not seen a physician in years presented with worsening dyspnea and lethargy. Patient is currently not taking any medicines. Her O2 sats were noted to be 29% on room air on arrival. She was initially placed on non-rebreather but then had to be placed on BiPAP. Patient does have a smoking hx. She does not use O2 at home. In the ER, she was noted to have elevated glucose and slight elevated in creatinine. Cardiac enzymes were negative along with d-dimer. Her ABG showed significant respiratory acidosis with hypercapnea and hypoxia. COVID and Flu swab were negative. She did test positive for RSV. UDS also showed opiates and amphetamines. Patient remained on BiPAP in order to improve her CO2 and O2 levels. She was started on IV antibiotics, solumedrol and nebs. CTA did not show PE but showed bilateral infiltrates. ECHO was also done which showed EF 45% with mild-moderate pulmonary HTN. Patient's respiratory status was monitored closely and weaned BiPAP as tolerated. She was switched to [facility], RT, PT/OT continued to work with her. Her mental status improved and she was alert and oriented. Patient was eventually transitioned to nasal canula 3L and stable to be discharged home. She was started on new medictions for HTN, diabetes and COPD. PT/OT has recommended home health or inpatient rehab but patient declined. She will follow up with PCP as scheduled. Vital Signs: Vital Signs (72 hours) 03/21/21 16:00 03/21/21 20:00 03/21/21 20:48 Temperature 98.6 F 98.4 F Pulse Rate 72 74 79 Respiratory Rate 24 22 18 Blood Pressure 114/56 130/68 O2 Sat by Pulse Oximetry 93 L 93 L 92 L 03/21/21 23:18 03/22/21 03:29 03/22/21 08:00 Temperature 98.2 F 98.2 F 97.6 F Pulse Rate 70 62 62 Respiratory Rate 21 20 20 Blood Pressure 146/74 128/70 118/55 O2 Sat by Pulse Oximetry 96 96 92 L 03/22/21 09:20 03/22/21 12:00 03/22/21 16:00 Temperature 98.8 F 98.7 F Pulse Rate 65 69 76 Respiratory Rate 21 20 23 Blood Pressure 119/69 102/56 O2 Sat by Pulse Oximetry 93 L 92 L 93 L 03/22/21 20:00 03/22/21 21:49 03/22/21 23:44 Temperature 98.2 F 98.7 F Pulse Rate 69 69 Respiratory Rate 22 18 21 Blood Pressure 117/67 137/72 O2 Sat by Pulse Oximetry 93 L 92 L 95 03/23/21 04:00 03/23/21 07:39 03/23/21 08:00 Temperature 98.4 F 99.3 F Pulse Rate 69 61 Respiratory Rate 20 22 18 Blood Pressure 104/56 128/58 O2 Sat by Pulse Oximetry 97 100 03/23/21 08:39 03/23/21 09:00 03/23/21 11:45 Temperature Pulse Rate 76 80 Respiratory Rate 22 Blood Pressure O2 Sat by Pulse Oximetry 92 L 22 L 03/23/21 12:00 03/23/21 16:00 03/23/21 20:00 Temperature 98.7 F 97.9 F 98.3 F Pulse Rate 72 75 75 Respiratory Rate 19 21 20 Blood Pressure 108/59 106/63 118/56 O2 Sat by Pulse Oximetry 94 L 93 L 96 03/23/21 20:55 03/23/21 21:00 03/23/21 22:00 Temperature Pulse Rate 69 Respiratory Rate 22 22 Blood Pressure O2 Sat by Pulse Oximetry 94 L 03/24/21 00:00 03/24/21 04:00 03/24/21 08:00 Temperature 97.9 F 98.1 F 98.3 F Pulse Rate 77 71 73 Respiratory Rate 22 20 19 Blood Pressure 122/63 113/58 108/58 O2 Sat by Pulse Oximetry 93 L 93 L 95 03/24/21 09:30 Temperature Pulse Rate 67 Respiratory Rate Blood Pressure O2 Sat by Pulse Oximetry 94 L Labs: Laboratory Last Values WBC 12.9 X10^3/uL (3.6-10.0) H 03/24/21 05:33 RBC 5.69 X10^6/uL (3.5-5.4) H 03/24/21 05:33 Hgb 15.3 g/dL (12.0-16.0) 03/24/21 05:33 Hct 48.4 % (36.0-47.0) H 03/24/21 05:33 MCV 85.1 fL (80.0-100.0) 03/24/21 05:33 MCH 27.0 pg (27.0-34.0) 03/24/21 05:33 MCHC 31.7 g/dL (33.0-35.0) L 03/24/21 05:33 RDW 16.8 % (11.6-16.5) H 03/24/21 05:33 Plt Count 215 X10^3/uL (150.0-450.0) 03/24/21 05:33 Plt Count Comment Adequate (ADEQUATE) 03/23/21 05:37 MPV 9.4 fL (7.4-11.0) 03/24/21 05:33 Neut % (Auto) 86.6 % (42.0-75.0) H 03/24/21 05:33 Lymph % (Auto) 6.7 % (21.0-51.0) L 03/24/21 05:33 [place] % (Auto) 6.4 % (0.0-13.0) 03/24/21 05:33 Eos % (Auto) 0.0 % (0.9-2.9) L 03/24/21 05:33 Baso % (Auto) 0.3 % (0.2-1.0) 03/24/21 05:33 Neut # (Auto) 11.1 x10^3/uL (2.2-4.8) H 03/24/21 05:33 Lymph # (Auto) 0.9 X10^3/uL (1.3-2.9) L 03/24/21 05:33 [place] # (Auto) 0.8 x10^3/uL (0.3-0.8) 03/24/21 05:33 Eos # (Auto) 0.0 x10^3/uL (0.0-0.2) 03/24/21 05:33 Baso # (Auto) 0.0 X10^3/uL (0.0-0.1) 03/24/21 05:33 Absolute Nucleated RBC 0.0 /100WBC 03/24/21 05:33 Total Counted 100 03/23/21 05:37 Neutrophils % (Manual) 80 % (39-76) H 03/23/21 05:37 Lymphocytes % (Manual) 18 % (13-43) 03/23/21 05:37 Monocytes % (Manual) 2 % (4-9) L 03/23/21 05:37 Plt Morphology Comment Normal (NORMAL) 03/23/21 05:37 RBC Morphology Normal (NORMAL) 03/23/21 05:37 Polychromasia Slight 03/17/21 05:55 D-Dimer 0.60 ug/ml (0.0-0.57) H* 03/14/21 18:00 Sample Site Lr 03/20/21 04:57 ABG pH 7.450 (7.35-7.45) 03/20/21 04:57 ABG pCO2 66.0 mmHg (35.0-45.0) H* 03/20/21 04:57 ABG pO2 69.0 mmHg (80.0-100.0) L 03/20/21 04:57 ABG HCO3 45.9 mmol/L (22-26) H* 03/20/21 04:57 ABG O2 Saturation 94.0 % (90-100) 03/20/21 04:57 ABG Base Excess 18.5 mmol/L (-2.0-2.0) H 03/20/21 04:57 Varun Test Pos 03/20/21 04:57 A-a Gradient 134.0 mmHg 03/20/21 04:57 FiO2 40.0 03/20/21 04:57 Blood Gas Comments Maicol well ae 03/20/21 04:57 Sodium 140 mmol/L (136-145) 03/24/21 05:33 Corrected Sodium 145 mmol/L (136-145) 03/24/21 05:33 Potassium 4.0 mmol/L (3.5-5.1) 03/24/21 05:33 Chloride 103 mmol/L (98-107) 03/24/21 05:33 Carbon Dioxide 34.1 mmol/L (21-32) H 03/24/21 05:33 BUN 22 mg/dL (7-18) H 03/24/21 05:33 Creatinine 0.85 mg/dL (0.55-1.02) 03/24/21 05:33 Est GFR (MDRD) Af Amer > 60 (>60) 03/24/21 05:33 Est GFR (MDRD) Non-Af > 60 (>60) 03/24/21 05:33 Glucose 294 mg/dL (65-99) H 03/24/21 05:33 POC Glucose (mg/dL) 308 mg/dL (65-99) H 03/24/21 05:19 Hemoglobin A1c 7.4 % 03/14/21 18:00 Calcium 8.4 mg/dL (8.5-10.1) L 03/24/21 05:33 Corrected Calcium 9.4 mg/dL (8.5-10.1) 03/24/21 05:33 Magnesium 2.4 mg/dL (1.7-2.9) 03/16/21 05:49 Total Bilirubin 0.40 mg/dL (0.2-1.0) 03/24/21 05:33 AST 11 Units/L (15-37) L 03/24/21 05:33 ALT 31 Units/L (12-78) 03/24/21 05:33 Alkaline Phosphatase 79 Units/L (46-116) 03/24/21 05:33 Creatine Kinase 64 Units/L (26-192) 03/15/21 13:49 CK-MB (CK-2) 2.5 ng/mL (0-4.0) 03/15/21 13:49 CK/CKMB % Calc 3.9 % (<4) 03/15/21 13:49 Troponin I 0.03 ng/mL (0-1.5) 03/15/21 13:49 B-Natriuretic Peptide 112 pg/mL (0-79) H 03/14/21 18:00 Total Protein 6.2 g/dL (6.4-8.2) L 03/24/21 05:33 Albumin 2.8 g/dL (3.4-5.0) L 03/24/21 05:33 Globulin 3.4 g/dL (2.5-4.5) 03/24/21 05:33 Albumin/Globulin Ratio 0.8 Ratio (1.1-2.1) L 03/24/21 05:33 Specimen Type Catherized urine 03/15/21 01:50 Urine Color Yellow (YELLOW) 03/15/21 01:50 Urine Appearance Clear (CLEAR) 03/15/21 01:50 Urine pH 5.0 (5.0 - 8.0) 03/15/21 01:50 Ur Specific [place] 1.025 (1.000-1.030) 03/15/21 01:50 Urine Protein 3+ (NEGATIVE) 03/15/21 01:50 Urine Glucose (UA) Negative (NEGATIVE) 03/15/21 01:50 Urine Ketones Negative (NEGATIVE) 03/15/21 01:50 Urine Occult Blood 1+ (NEGATIVE) 03/15/21 01:50 Urine Nitrite Negative (NEGATIVE) 03/15/21 01:50 Urine Bilirubin Negative (NEGATIVE) 03/15/21 01:50 Urine Urobilinogen Normal (NORMAL) 03/15/21 01:50 Ur Leukocyte Esterase Negative (NEGATIVE) 03/15/21 01:50 Urine RBC 0-2 /HPF (0-3) 03/15/21 01:50 Urine WBC 0-2 /HPF (0-5) 03/15/21 01:50 Ur Squamous Epith Cells Rare /HPF (NEGATIVE) 03/15/21 01:50 Urine Bacteria Negative /HPF (NEGATIVE) 03/15/21 01:50 Urine Mucus Few /HPF (NEGATIVE) 03/15/21 01:50 Ur Culture Indicated? No/not indicated 03/15/21 01:50 Urine Opiates Screen Positive (NEG=<300) A 03/15/21 01:50 Urine Methadone Screen Negative (NEG=<300) 03/15/21 01:50 Ur Barbiturates Screen Negative (NEG=<200) 03/15/21 01:50 Ur Phencyclidine Scrn Negative (NEG=<25) 03/15/21 01:50 Ur Amphetamines Screen Positive (NEG=<1000) A 03/15/21 01:50 U Benzodiazepines Scrn Negative (NEG=<200) 03/15/21 01:50 Urine Cocaine Screen Negative (NEG=<300) 03/15/21 01:50 U Marijuana (THC) Screen Negative (NEG=<50) 03/15/21 01:50 Acetone, Semi-Quant Negative (NEGATIVE) 03/14/21 18:00 SARS-CoV-2 (PCR) Negative (NEGATIVE) 03/14/21 22:28 Influenza Type A (PCR) Negative (NEGATIVE) 03/14/21 22:28 Influenza Type B (PCR) Negative (NEGATIVE) 03/14/21 22:28 RSV (PCR) Positive (NEGATIVE) A 03/14/21 22:28 SARS CoV-2 RNA Rapid WILLIAN Negative (NEGATIVE) 03/14/21 18:00 Reason For Visit: SEVERE HYPOXIA, HYPERCAPNEA, BRONCHITIS, ELEVATED Discharge Date Discharge Date: 03/24/21 Discharge Diagnosis All Active Problems (Updated 03/18/21 @ 14:22 by Neema Ramsey) Metabolic alkalosis with respiratory acidosis (Acute) COPD exacerbation (Acute) Generalized weakness (Acute) Lethargy (Acute) Drug abuse (Acute) Type 2 diabetes mellitus (Acute) Dehydration (Acute) RSV bronchitis (Acute) Acute respiratory failure with hypoxia and hypercapnia (Acute) Plan of Treatment: Continue with present treatment and follow up plan. Pt is to keep follow up appointment as instructed and take medications as ordered. Discharge Medications Discharge Medications: No Known Drug Allergies Allergy (Verified 03/15/21 17:58) CONTINUE taking the following medications NK 03/16/21 [History] New Prescriptions albuterol sulfate 2 puff INHALATION Q4-6H PRN #6.7 g 03/24/21 [Rx] amlodipine 10 mg PO DAILY 30 Days #30 tab 03/24/21 [Rx] famotidine 20 mg PO DAILY 30 Days #30 tab 03/24/21 [Rx] furosemide 40 mg PO QAM 30 Days #30 tab 03/24/21 [Rx] glipizide 5 mg PO DAILYWB 30 Days #30 tab 03/24/21 [Rx] ipratropium-albuterol 3 ml NEB QID 10 Days #30 unit 03/24/21 [Rx] metformin 500 mg PO DAILY 30 Days #30 tab 03/24/21 [Rx] nebulizers #1 ea 03/24/21 [Rx] prednisone See Rx Instructions .ROUTE .COMPLEX #21 ea 03/24/21 [Rx] Follow up and Referral Follow Up: 1 Week (PCP) Discharge Disposition Discharge Disposition: Home Discharge Condition: Stable Discharge Plan Discharge Plan Hospital Course: Ms Leonard is a 65y/o female who has not seen a physician in years presented wi th worsening dyspnea and lethargy. Patient is currently not taking any medicines. Her O2 sats were noted to be 29% on room air on arrival. She was initially placed on non-rebreather but then had to be placed on BiPAP. Patient does have a smoking hx. She does not use O2 at home. In the ER, she was noted to have elevated glucose and slight elevated in creatinine. Cardiac enzymes were negative along with d-dimer. Her ABG showed significant respiratory acidosis with hypercapnea and hypoxia. COVID and Flu swab were negative. She did test positive for RSV. UDS also showed opiates and amphetamines. Patient remained on BiPAP in order to improve her CO2 and O2 levels. She was started on IV antibiotics, solumedrol and nebs. CTA did not show PE but showed bilateral infiltrates. ECHO was also done which showed EF 45% with mild-moderate pulmonary HTN. Patient's respiratory status was monitored closely and weaned BiPAP as tolerated. She was switched to [facility], RT, PT/OT continued to work with her. Her mental status improved and she was alert and oriented. Patient was eventually transitioned to nasal canula 3L and stable to be discharged home. She was started on new medictions for HTN, diabetes and COPD. PT/OT has recommended home health or inpatient rehab but patient declined. She will follow up with PCP as scheduled. Patient Disposition: 01 HOME, SELF-CARE Condition: Stable Health Concerns: Post Hospitalization: new medications and changes needed to prevent readmission or further decline. Pt educated and given instructions on all concerns. Care Plan Goals: Problem: Respiratory Complications Goal: Improved Uncomplicated Respiratory Status Instructions: Follow provided instructions. Follow up with primary physician as directed. Contact primary care physician or report to the closest Emergency Room if condition worsens. Plan of Treatment: Continue with present treatment and follow up plan. Pt is to keep follow up appointment as instructed and take medications as ordered. Prescription drug monitoring program results: PDMP reviewed and no concerns identified Prescriptions: New furosemide 40 mg Tablet 40 mg PO QAM 30 Days Qty: 30 RF: 0 ipratropium-albuterol 0.5 mg-3 mg(2.5 mg base)/3 mL Solution For Nebulization 3 ml NEB QID 10 Days Qty: 30 RF: 0 famotidine 20 mg Tablet 20 mg PO DAILY 30 Days Qty: 30 RF: 0 amlodipine 10 mg Tablet 10 mg PO DAILY 30 Days Qty: 30 RF: 0 metformin 500 mg Tablet Extended Release 24 Hr 500 mg PO DAILY 30 Days Qty: 30 RF: 0 glipizide 5 mg Tablet 5 mg PO DAILYWB 30 Days Qty: 30 RF: 0 albuterol sulfate 90 mcg/actuation HFA aerosol inhaler 2 puff inhalation Q4-6H PRN (Reason: shortness of breath or wheezing) Qty: 6.7 RF: 2 (DME) nebulizers Misc See Rx Instructions .ROUTE .MEDSUPPLY Qty: 1 RF: 0 prednisone 5 mg tablets,dose pack See Rx Instructions .ROUTE .COMPLEX Qty: 21 RF: 0 No Action NK RF: 0 Follow ups/Referrals Follow ups/Referrals: [facility] [Other] (Home Oxygen Supplies) Neema Ramsey [Primary Care Provider] - 03/31/21 9:20 am Instructions Instructions: Fall Prevention in the Home, Adult, [id number], Viral Resp iratory Infection, [id number], Home Oxygen Use, Adult, Steps to Quit Smoking, [id number], Form - Daily Diabetes Record, Type 2 Diabetes Mellitus, Self Care, Adult, [id number], Chronic Obstructive Pulmonary Disease Exacerbation, Vctj-[id number], Substance Use Disorder, How to Use a Nebulizer, Adult, Hypertension, [id number]-ec-Itrz, Form - Blood Pressure Record Sheet, Blood Glucose Monitoring, Adult, Respiratory Syncytial Virus, Adult Activity Restrictions/Additional Instructions: Check finger stick blood sugar twice a day and keep a log Check blood pressure daily Use nebulizer every 6 hrs as needed Stand Alone Forms: Precautions for [facility], [facility], Patient Portal, Social Distancing
[2021-03-24 16:37] VITALS: BP 103/57
[2021-03-24] MEDS: NORCO 5/325 MG TAB PO PRN (17:01)
== END 2021-03-24 20:06 | disposition home or self-care (01) | DRG 202 ==
LOC: ER 17:56 → OBS 03-15 02:48
PROVIDERS: ADMIT Family Medicine; ATTEND Internal Medicine
DX: R53.83 Other fatigue; B97.4 Respiratory syncytial virus as the cause of diseases classified elsewhere; J96.01 Acute respiratory failure with hypoxia; R79.1 Abnormal coagulation profile; R41.82 Altered mental status, unspecified; E11.65 Type 2 diabetes mellitus with hyperglycemia; R60.0 Localized edema; E87.4 Mixed disorder of acid-base balance; Z20.822 Contact with and (suspected) exposure to COVID-19; E86.0 Dehydration; J44.1 Chronic obstructive pulmonary disease with (acute) exacerbation; J20.5 Acute bronchitis due to respiratory syncytial virus; J96.02 Acute respiratory failure with hypercapnia; E26.89 Other hyperaldosteronism; R53.1 Weakness; F19.10 Other psychoactive substance abuse, uncomplicated; F11.10 Opioid abuse, uncomplicated

== ENCOUNTER 2021-10-23 04:05 | Inpatient (IN) ==
[2021-10-23] MEDS ORDERED: SOLU-Medrol 125 MG VIAL IVP ONE (04:26)
[2021-10-23] MEDS ORDERED: LASIX IVP ONE ×2 (04:26→04:27)
[2021-10-23] MEDS ORDERED: SOLU-Medrol 125 MG VIAL ONE (04:27)
[2021-10-23 05:01] LABS: ABG ALLEN TEST P0S; ABG HCO3 40.2 mmol/L (22-26)
[2021-10-23 05:19] LABS: BASOPHILS # (AUTO) 0.1 X10^3/uL (0.0-0.1); BASOPHILS % (AUTO) 1.3 % (0.2-1.0); EOSINOPHILS # (AUTO) 0.1 x10^3/uL (0.0-0.2); EOSINOPHILS % (AUTO) 0.6 % (0.9-2.9); HEMATOCRIT 45.8 % (36.0-47.0); HEMOGLOBIN 14.4 g/dL (12.0-16.0); LYMPHOCYTES % (AUTO) 21.5 % (21.0-51.0); MEAN CORPUSCULAR HGB CONC 31.5 g/dL (33.0-35.0); MEAN CORPUSCULAR VOLUME 82.7 fL (80.0-100.0); MEAN PLATELET VOLUME 9.1 fL (7.4-11.0); MONOCYTES # (AUTO) 0.5 x10^3/uL (0.3-0.8); NEUTROPHILS # (AUTO) 6.4 x10^3/uL (2.2-4.8); NEUTROPHILS % (AUTO) 70.6 % (42.0-75.0); RED BLOOD COUNT 5.55 X10^6/uL (3.5-5.4); RED CELL DISTRIBUTION WIDTH 17.8 % (11.6-16.5); WHITE BLOOD COUNT 9.1 X10^3/uL (3.6-10.0)
--- NOTE | 2021-10-23 05:31 | DR.SOBA ---
HPI Time Seen Time Seen by Provider: 10/23/21 04:26 HPI Comment HPI Comment: PATIENT IS 66YR OLD FEMALE WITH HISTORY OF COPD AND CHF IN ER VIA EMS WITH INCREASING SOB AND COUGH. Complaints Chief Complaint Doctors Comments: INCREASING SOB. COVID-19 Coronavirus risk:travel/contact w/high risk person: No Has patient experienced Coronavirus symptoms: No Reviewed Nurses Notes Reviewed: Yes Source History Provided: Patient and EMS Mode of Arrival Mode of Arrival: EMS Context Onset:: At Rest PE Risk Factors:: None History of:: COPD and CHF Currently on:: Inhaled Bronchodilators Prehospital Care:: O2 and Inhaled B2 Modifying Factors Worsens:: Exertion Improves:: Rest and Sitting Up Associated Signs and Symptoms Associated Signs and Symptoms: Cough, Chest Pain and Leg Swelling If Chest Pain Quality: Pleuritic (TIGHTNESS.) Location: Left Upper Chest, Left Lower Chest and Substernal If Cough Cough: Nonproductive Other History Other History: COPD, HTN. PMH PMH Past Medical History: COPD Past Surgical History: No Surgical History: Unknown Family History Family Medical History: Diabetes Mellitus and Cancer ROS Review of Systems Constitutional: See HPI, Weakness and Fatigue; negative Fever Eyes: No Symptoms Reported and See HPI ENTM: See HPI and Nose Congestion; negative Nose Discharge Respiratoy: See HPI, Non-Productive Cough, Short of Breath and Wheezing Cardiovascular: No Symptoms Reported, See HPI, Chest Pain, Edema and Palpitations Gastrointestinal/Abdominal: See HPI and Nausea; negative Abdominal Pain, Diarrhea and Vomiting Genitourinary: No Symptoms Reported; negative See HPI and Dysuria Neurological: See HPI and Weakness; negative Headache and Dizziness Musculoskeletal: See HPI, Joint Swelling and Muscle Pain Integumentary: No Symptoms Reported, See HPI and Other (EDEMA LOWER EXTREMITY.) Hematologic/Lymphatic: No Symptoms Reported, See HPI and Easy Bruising Endocrine: No Symptoms Reported; negative Increased Thirst and Increased Urine Psychiatric: No Symptoms Reported and See HPI All Other Systems: Reviewed and Negative PE Vital Signs Vitals: Temperature 98.3 F Pulse Rate 74 Respiratory Rate 22 Blood Pressure [Left Arm] 170/79 Blood Pressure 198/86 O2 Sat by Pulse Oximetry 100 General Limitations: No Limitations General Appearance: Alert, In No Apparent Distress and Anxious Head Head Exam: Normal Inspection and Atraumatic Eyes Eye exam: Normal Appearance; negative Scleral Icterus and Conjunctival Injection ENT ENT Exam: Normal Exam, Normal Oropharynx, Normal External Ear Exam and TM's Normal Bilaterally Neck Neck Exam: Normal Inspection and Trachea Midline; negative Tenderness Chest Chest Inspection: Symmetric Chest Wall Rise; negative Tenderness Respiratory Respiratory Exam: Normal Lung Sounds Bilat, Accessory Muscle Use, Chest Wall Tenderness and Respiratory Distress Respiratory Exam: Bilateral: Clear to Auscultation Cardiovascular Cardiovascular Exam: Regular Rate, Normal Rhythm and +S3; negative Systolic Murmur and Diastolic Murmur Abdominal Exam Abdominal Exam: Normal Inspection, Normal Bowel Sounds and Soft; negative Tenderness Abdominal Tenderness: Diffuse and Moderate Extremities Extremities Exam: Normal Capillary Refill and Edema Back Back Exam: Normal Inspection; negative (R) CVA Tenderness and (L) CVA Tenderness Neurologic Neurological Exam: Alert and Oriented X3; negative Motor Sensory Deficit Psychiatric Psychiatric Exam: Normal Affect and Normal Mood Skin Skin Exam: Dry, Intact, Normal Color and Other (EDEMA LOWER EXTREMITIES.) MDM Additional Information Obtained Additional Information Obtained From: Old Records Differential Diagnosis Differential Diagnosis: Bronchitis, CHF, COPD, Hyponatremia, Mycardial Infarction, Panic Attack, Pneumonia, Pneumothorax, PSVT, Respiratory Failure and Respiratory Insufficiency COURSE Treatment Treatment: SEE ORDERS DONE WHILE PATIENT IN ER. LASIX 40MG IV,SOLUMEDROL 40MG IV AND ZOSYN3.375GM IVPB GIVEN WHILE PATIENT WAS IN ER. Reevaluation 1st: Improved 2nd: Improved 3rd: Resolved Consultation Consultation Comments: DISCUSSED PATIENT WITH DR. PENA. HE WILL ADMIT PATIENT. Education/Counseling Education/Counseling: Patient Educated On: Diagnosis ROR Labs Reviewed Laboratory Results Reviewed?: Yes Result Diagrams: 10/23/21 04:55 10/23/21 04:55 Laboratory: WBC 9.1 X10^3/uL (3.6-10.0) 10/23/21 04:55 RBC 5.55 X10^6/uL (3.5-5.4) H 10/23/21 04:55 Hgb 14.4 g/dL (12.0-16.0) 10/23/21 04:55 Hct 45.8 % (36.0-47.0) 10/23/21 04:55 MCV 82.7 fL (80.0-100.0) 10/23/21 04:55 MCH 26.0 pg (27.0-34.0) L 10/23/21 04:55 MCHC 31.5 g/dL (33.0-35.0) L 10/23/21 04:55 RDW 17.8 % (11.6-16.5) H 10/23/21 04:55 Plt Count 312 X10^3/uL (150.0-450.0) 10/23/21 04:55 MPV 9.1 fL (7.4-11.0) 10/23/21 04:55 Neut % (Auto) 70.6 % (42.0-75.0) 10/23/21 04:55 Lymph % (Auto) 21.5 % (21.0-51.0) 10/23/21 04:55 [place] % (Auto) 6.0 % (0.0-13.0) 10/23/21 04:55 Eos % (Auto) 0.6 % (0.9-2.9) L 10/23/21 04:55 Baso % (Auto) 1.3 % (0.2-1.0) H 10/23/21 04:55 Neut # (Auto) 6.4 x10^3/uL (2.2-4.8) H 10/23/21 04:55 Lymph # (Auto) 2.0 X10^3/uL (1.3-2.9) 10/23/21 04:55 [place] # (Auto) 0.5 x10^3/uL (0.3-0.8) 10/23/21 04:55 Eos # (Auto) 0.1 x10^3/uL (0.0-0.2) 10/23/21 04:55 Baso # (Auto) 0.1 X10^3/uL (0.0-0.1) 10/23/21 04:55 Absolute Nucleated RBC 0.1 /100WBC 10/23/21 04:55 PT 12.4 SECONDS (11.8-14.3) 10/23/21 04:55 INR Target Range - 10/23/21 04:55 INR 0.95 (0.8-1.3) 10/23/21 04:55 APTT 22.9 SECONDS (22.9-36.5) 10/23/21 04:55 PTT Comment - 10/23/21 04:55 Sample Site Rr 10/23/21 04:55 ABG pH 7.320 (7.35-7.45) L 10/23/21 04:55 ABG pCO2 78.0 mmHg (35.0-45.0) H* 10/23/21 04:55 ABG pO2 73.0 mmHg (80.0-100.0) L 10/23/21 04:55 ABG HCO3 40.2 mmol/L (22-26) H* 10/23/21 04:55 ABG O2 Saturation 93.0 % (90-100) 10/23/21 04:55 ABG Base Excess 11.0 mmol/L (-2.0-2.0) H 10/23/21 04:55 Varun Test P0s 10/23/21 04:55 A-a Gradient 186.0 mmHg 10/23/21 04:55 FiO2 50.0 10/23/21 04:55 Blood Gas Comments Maicol well ae 10/23/21 04:55 Sodium 139 mmol/L (136-145) 10/23/21 04:55 Corrected Sodium 141 mmol/L (136-145) 10/23/21 04:55 Potassium 4.2 mmol/L (3.5-5.1) 10/23/21 04:55 Chloride 98 mmol/L (98-107) 10/23/21 04:55 Carbon Dioxide 37.5 mmol/L (21-32) H 10/23/21 04:55 BUN 12 mg/dL (7-18) 10/23/21 04:55 Creatinine 0.88 mg/dL (0.55-1.02) 10/23/21 04:55 Est GFR (MDRD) Af Amer > 60 (>60) 10/23/21 04:55 Est GFR (MDRD) Non-Af > 60 (>60) 10/23/21 04:55 Glucose 199 mg/dL (65-99) H 10/23/21 04:55 Lactic Acid 0.4 mmol/L (0.4-2.0) 10/23/21 04:50 Calcium 8.1 mg/dL (8.5-10.1) L 10/23/21 04:55 Corrected Calcium 8.9 mg/dL (8.5-10.1) 10/23/21 04:55 Magnesium 2.0 mg/dL (1.7-2.9) 10/23/21 04:55 Total Bilirubin 0.50 mg/dL (0.2-1.0) 10/23/21 04:55 AST 51 Units/L (15-37) H 10/23/21 04:55 ALT 56 Units/L (12-78) 10/23/21 04:55 Alkaline Phosphatase 127 Units/L (46-116) H 10/23/21 04:55 Creatine Kinase 74 Units/L (26-192) 10/23/21 04:55 CK-MB (CK-2) 1.6 ng/mL (0-4.0) 10/23/21 04:55 CK/CKMB % Calc 2.2 % (<4) 10/23/21 04:55 Troponin I High Sens 17.0 ng/L (4.0-60.0) 10/23/21 04:55 B-Natriuretic Peptide 637 pg/mL (0-79) H* 10/23/21 04:55 Total Protein 8.1 g/dL (6.4-8.2) 10/23/21 04:55 Albumin 3.0 g/dL (3.4-5.0) L 10/23/21 04:55 Globulin 5.1 g/dL (2.5-4.5) H 10/23/21 04:55 Albumin/Globulin Ratio 0.6 Ratio (1.1-2.1) L 10/23/21 04:55 Specimen Type Catherized urine 10/23/21 05:24 Urine Color Straw (YELLOW) 10/23/21 05:24 Urine Appearance Clear (CLEAR) 10/23/21 05:24 Urine pH 7.0 (5.0 - 8.0) 10/23/21 05:24 Ur Specific [place] 1.015 (1.000-1.030) 10/23/21 05:24 Urine Protein Negative (NEGATIVE) 10/23/21 05:24 Urine Glucose (UA) Negative (NEGATIVE) 10/23/21 05:24 Urine Ketones Negative (NEGATIVE) 10/23/21 05:24 Urine Blood Negative (NEGATIVE) 10/23/21 05:24 Urine Nitrite Negative (NEGATIVE) 10/23/21 05:24 Urine Bilirubin Negative (NEGATIVE) 10/23/21 05:24 Urine Urobilinogen Normal (NORMAL) 10/23/21 05:24 Ur Leukocyte Esterase Negative (NEGATIVE) 10/23/21 05:24 XRAY XRAY Interpreted by: Radiologist (REPORT NOTED.) and Self EKG Rate: 77 [place]: Normal Rhythm: NSR Block: None Hypertrophy: None Opioid Opioid Risk Tool Age (Yuval box if 16-45): No History of Preadolescent Sexual Abuse: No Total: 0 Total Score Risk Category: Low Risk Copyright: Baig LR predicting aberrant behaviors Diagnosis Discharge Problem: Acute respiratory distress, COPD exacerbation, Bronchitis CHF (congestive heart failure) Qualifiers: Heart failure type: combined systolic and diastolic Heart failure chronicity: acute on chronic Qualified Code(s): I50.43 - Acute on chronic combined systolic (congestive) and diastolic (congestive) heart failure
[2021-10-23 05:35] LABS: BILIRUBIN,URINE NEGATIVE (NEGATIVE); BLOOD/HEMOGLOBIN,URINE NEGATIVE (NEGATIVE); GLUCOSE, URINE NEGATIVE (NEGATIVE); KETONES,URINE NEGATIVE (NEGATIVE); LEUKOCYTE ESTERASE ,URINE NEGATIVE (NEGATIVE); NITRITES,URINE NEGATIVE (NEGATIVE); PROTEIN,URINE NEGATIVE (NEGATIVE); UROBILINOGEN,URINE NORMAL (NORMAL)
[2021-10-23 05:37] LABS: APPEARANCE,URINE CLEAR (CLEAR); COLOR,URINE STRAW (YELLOW)
[2021-10-23 05:38] LABS: ALANINE AMINOTRANSFERASE 56 Units/L (12-78); ALKALINE PHOSPHATASE 127 Units/L (46-116); ASPARTATE AMINO TRANSFERASE 51 Units/L (15-37); BLOOD UREA NITROGEN 12 mg/dL (7-18); CALCIUM 8.1 mg/dL (8.5-10.1); CARBON DIOXIDE 37.5 mmol/L (21-32); CHLORIDE 98 mmol/L (98-107); CKMB % 2.2 % (<4); COR CA(FOR HYPOALB) 8.9 mg/dL (8.5-10.1); COR NA(FOR HYPERGLY) 141 mmol/L (136-145); CREATINE KINASE 74 Units/L (26-192); CREATINE KINASE MB 1.6 ng/mL (0-4.0); CREATININE 0.88 mg/dL (0.55-1.02); SODIUM 139 mmol/L (136-145); TOTAL PROTEIN 8.1 g/dL (6.4-8.2); eGFR NON BLACK RACES > 60 (>60)
--- NOTE | 2021-10-23 06:03 | RAD ---
HISTORYC/O DIFFICULTY BREATHING FOR 2-3 DAYS THAT GOT WORSE THIS AM. EMS STATES O2SAT 60s UPON ARRIVAL, BUT CAME UP TO 96% ON NC @ 6 WITH NEB TX.STUDYCHESDanny, 1 [id number]/10/2021. only the report is available at this time. Report and exam from 03/14/2021.TECHNIQUEAP view of the chestFINDINGSCardiac silhouette appears mildly enlarged. Mediastinal contour is stable. There is mild thickening of the right minor fissure. No definite consolidation or segmental lung collapse. No pneumothorax. Soft tissue attenuation limits evaluation.IMPRESSIONModerate thickening of the right minor fissure can be seen with small pleural effusion. Mild cardiomegaly.Electronically signed by: Sanyt Cheatham (Oct 23, 2021 06:02:22)
[2021-10-23] MEDS ORDERED: ZOSYN VIAL 3.375 GRAMS 3.375 G in NS 100 ML IV 100 ML IV ONE (06:13)
[2021-10-23] MEDS ORDERED: ZOSYN VIAL 3.375 GRAMS IV ONE ×2 (06:15→07:17)
[2021-10-23] MEDS ORDERED: NS 100 ML IV 100 ML ONE ×2 (06:16→07:18)
[2021-10-23] MEDS: ZOSYN VIAL 3.375 GRAMS 3.375 G in NS 100 ML IV 100 ML IV SCH ×3 (07:21→21:05)
[2021-10-23] MEDS ORDERED: DUONEB 0.5 MG/3 MG (3 mL) NEB ONE (07:52)
[2021-10-23] MEDS ORDERED: PULMICORT NEB TX 0.5 MG NEB ONE (07:54)
[2021-10-23] MEDS: PULMICORT NEB TX 0.5 MG NEB SCH ×2 (08:00→20:34)
[2021-10-23] MEDS: DUONEB 0.5 MG/3 MG (3 mL) NEB SCH ×4 (08:00→20:34)
[2021-10-23 08:09] VITALS: BMI 45.7
[2021-10-23] MEDS: SOLU-Medrol 40 MG VIAL IVP SCH ×2 (08:50→16:30)
[2021-10-23 09:44] LABS: CKMB % 1.7 % (<4); CREATINE KINASE MB 1.2 ng/mL (0-4.0)
[2021-10-23 09:55] LABS: ABG BASE EXCESS 12.7 mmol/L (-2.0-2.0)
[2021-10-23 09:56] LABS: ABG ALLEN TEST POS; ABG HCO3 39.6 mmol/L (22-26)
[2021-10-23] MEDS ORDERED: SOLU-Medrol 40 MG VIAL IVP SCH ×2 (10:00)
[2021-10-23] MEDS: LOVENOX INJ 40 MG SYR SC SCH (10:14)
[2021-10-23] MEDS ORDERED: DUONEB 0.5 MG/3 MG (3 mL) NEB SCH (12:00)
--- NOTE | 2021-10-23 13:21 | DR.H&P ---
H&P History & Physical for Day of: H&P Date: 10/23/21 Chief Complaint Chief Complaint: worsening dyspnea Allergies Allergies Allergy/AdvReac Type Severity Reaction Status Date / Time iodine Allergy Verified 10/23/21 05:28 shellfish derived Allergy Verified 10/23/21 05:28 History of Present Illness History of Present Illness: Ms Leonard is a 66y/o female with a PMH of chronic respiratory failure due to CHF and COPD, recurrent admissions for COPD and CHF exacerbation, Type 2 Diabetes, OA, chronic pain and anxiety presented with increased SOB. In the ER, patient's ABG showed hypoxia and hypercapnia so she was placed on Bipap. BNP was elevated at 637. CXR showed small pleural effusions and cardiomegaly. Patient's cardiac enzymes were negative. She was admitted for acute respiratory failure due to COPD and CHF exacerbation. She was started on IV lasix, antibiotics and steroids. She is currently on BiPAP at FiO2 45%. She is resting in bed with no respiratory distress. Labs/imaging reviewed ECHO 03/16/21: EF 45% Plan: Continue ICU care for closer monitoring. Continue BiPAP, Wean FiO2 as tolerated to keep sats > 88%. Repeat ABG in one hour. Continue IV Zosyn, solumedrol and lasix. Monitor UOP, daily wts, telemetry. Continue nebs and pulmicort. Trend cardiac enzymes. Add SSI , diabetic diet. Monitor AM labs/imaging. Time spent for clinical assessment, reviewing labs/imaging, physical exam, decision making and documentation greater than 45 mins. Past Medical History Past Medical History: Arthritis, CHF, COPD and Diabetes Past Surgical History Surgical History: Unknown Family History Family Medical History: Diabetes Mellitus and Cancer Social History Does patient currently use any type of tobacco product: Yes Type of Tobacco Use: Cigarettes Prescription drug monitoring program results: PDMP reviewed and no concerns identified Medications Home Medications: iodine Allergy (Verified 10/23/21 05:28) shellfish derived Allergy (Verified 10/23/21 05:28) CONTINUE taking the following medications tramadol [Ultram] 50 mg PO BID PRN 10/23/21 [History] Labs Result Diagrams: 10/23/21 04:55 10/23/21 04:55 Labs: Laboratory WBC 9.1 X10^3/uL (3.6-10.0) 10/23/21 04:55 RBC 5.55 X10^6/uL (3.5-5.4) H 10/23/21 04:55 Hgb 14.4 g/dL (12.0-16.0) 10/23/21 04:55 Hct 45.8 % (36.0-47.0) 10/23/21 04:55 MCV 82.7 fL (80.0-100.0) 10/23/21 04:55 MCH 26.0 pg (27.0-34.0) L 10/23/21 04:55 MCHC 31.5 g/dL (33.0-35.0) L 10/23/21 04:55 RDW 17.8 % (11.6-16.5) H 10/23/21 04:55 Plt Count 312 X10^3/uL (150.0-450.0) 10/23/21 04:55 MPV 9.1 fL (7.4-11.0) 10/23/21 04:55 Neut % (Auto) 70.6 % (42.0-75.0) 10/23/21 04:55 Lymph % (Auto) 21.5 % (21.0-51.0) 10/23/21 04:55 [place] % (Auto) 6.0 % (0.0-13.0) 10/23/21 04:55 Eos % (Auto) 0.6 % (0.9-2.9) L 10/23/21 04:55 Baso % (Auto) 1.3 % (0.2-1.0) H 10/23/21 04:55 Neut # (Auto) 6.4 x10^3/uL (2.2-4.8) H 10/23/21 04:55 Lymph # (Auto) 2.0 X10^3/uL (1.3-2.9) 10/23/21 04:55 [place] # (Auto) 0.5 x10^3/uL (0.3-0.8) 10/23/21 04:55 Eos # (Auto) 0.1 x10^3/uL (0.0-0.2) 10/23/21 04:55 Baso # (Auto) 0.1 X10^3/uL (0.0-0.1) 10/23/21 04:55 Absolute Nucleated RBC 0.1 /100WBC 10/23/21 04:55 PT 12.4 SECONDS (11.8-14.3) 10/23/21 04:55 INR Target Range - 10/23/21 04:55 INR 0.95 (0.8-1.3) 10/23/21 04:55 APTT 22.9 SECONDS (22.9-36.5) 10/23/21 04:55 PTT Comment - 10/23/21 04:55 Sample Site Lr 10/23/21 09:50 ABG pH 7.420 (7.35-7.45) 10/23/21 09:50 ABG pCO2 61.0 mmHg (35.0-45.0) H* 10/23/21 09:50 ABG pO2 65.0 mmHg (80.0-100.0) L 10/23/21 09:50 ABG HCO3 39.6 mmol/L (22-26) H* 10/23/21 09:50 ABG O2 Saturation 93.0 % (90-100) 10/23/21 09:50 ABG Base Excess 12.7 mmol/L (-2.0-2.0) H 10/23/21 09:50 Varun Test Pos 10/23/21 09:50 A-a Gradient 180.0 mmHg 10/23/21 09:50 FiO2 45.0 10/23/21 09:50 Blood Gas Comments Pt jose well cdn 10/23/21 09:50 Sodium 139 mmol/L (136-145) 10/23/21 04:55 Corrected Sodium 141 mmol/L (136-145) 10/23/21 04:55 Potassium 4.2 mmol/L (3.5-5.1) 10/23/21 04:55 Chloride 98 mmol/L (98-107) 10/23/21 04:55 Carbon Dioxide 37.5 mmol/L (21-32) H 10/23/21 04:55 BUN 12 mg/dL (7-18) 10/23/21 04:55 Creatinine 0.88 mg/dL (0.55-1.02) 10/23/21 04:55 Est GFR (MDRD) Af Amer > 60 (>60) 10/23/21 04:55 Est GFR (MDRD) Non-Af > 60 (>60) 10/23/21 04:55 Glucose 199 mg/dL (65-99) H 10/23/21 04:55 Lactic Acid 0.4 mmol/L (0.4-2.0) 10/23/21 04:50 Calcium 8.1 mg/dL (8.5-10.1) L 10/23/21 04:55 Corrected Calcium 8.9 mg/dL (8.5-10.1) 10/23/21 04:55 Magnesium 2.0 mg/dL (1.7-2.9) 10/23/21 04:55 Total Bilirubin 0.50 mg/dL (0.2-1.0) 10/23/21 04:55 AST 51 Units/L (15-37) H 10/23/21 04:55 ALT 56 Units/L (12-78) 10/23/21 04:55 Alkaline Phosphatase 127 Units/L (46-116) H 10/23/21 04:55 Creatine Kinase 72 Units/L (26-192) 10/23/21 09:08 CK-MB (CK-2) 1.2 ng/mL (0-4.0) 10/23/21 09:08 CK/CKMB % Calc 1.7 % (<4) 10/23/21 09:08 Troponin I High Sens 20.6 ng/L (4.0-60.0) 10/23/21 09:08 B-Natriuretic Peptide 637 pg/mL (0-79) H* 10/23/21 04:55 Total Protein 8.1 g/dL (6.4-8.2) 10/23/21 04:55 Albumin 3.0 g/dL (3.4-5.0) L 10/23/21 04:55 Globulin 5.1 g/dL (2.5-4.5) H 10/23/21 04:55 Albumin/Globulin Ratio 0.6 Ratio (1.1-2.1) L 10/23/21 04:55 Specimen Type Catherized urine 10/23/21 05:24 Urine Color Straw (YELLOW) 10/23/21 05:24 Urine Appearance Clear (CLEAR) 10/23/21 05:24 Urine pH 7.0 (5.0 - 8.0) 10/23/21 05:24 Ur Specific [place] 1.015 (1.000-1.030) 10/23/21 05:24 Urine Protein Negative (NEGATIVE) 10/23/21 05:24 Urine Glucose (UA) Negative (NEGATIVE) 10/23/21 05:24 Urine Ketones Negative (NEGATIVE) 10/23/21 05:24 Urine Blood Negative (NEGATIVE) 10/23/21 05:24 Urine Nitrite Negative (NEGATIVE) 10/23/21 05:24 Urine Bilirubin Negative (NEGATIVE) 10/23/21 05:24 Urine Urobilinogen Normal (NORMAL) 10/23/21 05:24 Ur Leukocyte Esterase Negative (NEGATIVE) 10/23/21 05:24 Review of Systems Constitutional: No Symptoms Reported Eyes: No Symptoms Reported ENT: No Symptoms Reported Respiratory: Shortness of Breath and Wheezing Cardiovascular: No Symptoms Reported Gastrointestinal: No Symptoms Reported Musculoskeletal: No Symptoms Reported Skin: No Symptoms Reported Neurological: No Symptoms Reported Physical Exam Vital Signs: Temperature 98.3 F Pulse Rate 81 Respiratory Rate 23 Blood Pressure [Left Arm] 170/79 Blood Pressure 172/79 O2 Sat by Pulse Oximetry 95 Oriented: Unable to test Eyes: Normal Ear: Normal Nose: Normal Throat: Normal Respiratory: Diminished Throughout and Wheezes Throughout Cardiovascular: Normal Auscultation: Bowel Sounds: Normal Palpation: Normal Tenderness: Normal Skin: Normal Musculoskeletal: Normal Mood Description: Calm Speech Pattern: Artificially Ventilated (on Bipap ) Assessment/Plan (1) Acute respiratory failure with hypoxia and hypercarbia: Status: Acute (2) CHF exacerbation: Qualifiers: Heart failure type: diastolic Qualified Code(s): I50.33 - Acute on chronic diastolic (congestive) heart failure Status: Acute (3) COPD exacerbation: Status: Acute (4) Bronchitis: Status: Acute (5) Acute respiratory distress: Status: Acute (6) Diabetes: Qualifiers: Diabetes mellitus complication status: with other specified complication Diabetes mellitus chcf insulin use: without ocean transportation intermediary use Diabetes mellitus type: type 2 Qualified Code(s): E11.69 - Type 2 diabetes mellitus with other specified complication Status: Acute (7) Lethargy: Status: Acute Review H&P Reviewed: Yes Patient was examined?: Yes
[2021-10-23 15:37] LABS: CKMB % 2.3 % (<4); CREATINE KINASE 44 Units/L (26-192); CREATINE KINASE MB < 1.0 ng/mL (0-4.0)
[2021-10-23] MEDS: NovoLIN R (or HumuLIN R) SC PRN ×2 (16:21→21:06)
[2021-10-23] MEDS ORDERED: NS 250 ML IV 250 ML IV ONE (20:25)
[2021-10-23 21:05] LABS: CKMB % 3.1 % (<4); CREATINE KINASE 32 Units/L (26-192); CREATINE KINASE MB < 1.0 ng/mL (0-4.0)
[2021-10-23] MEDS: VISTARIL PO PRN (21:53)
[2021-10-23] MEDS ORDERED: NICOTINE PATCH TD ONE (23:11)
[2021-10-23] MEDS: NICOTINE PATCH TD SCH (23:14)
[2021-10-24] MEDS: DUONEB 0.5 MG/3 MG (3 mL) NEB SCH ×6 (00:27→20:07)
[2021-10-24] MEDS: AMBIEN PO PRN ×2 (00:49→20:42)
[2021-10-24] MEDS: SOLU-Medrol 40 MG VIAL IVP SCH ×3 (01:55→16:20)
[2021-10-24] MEDS: ZOSYN VIAL 3.375 GRAMS 3.375 G in NS 100 ML IV 100 ML IV SCH ×3 (05:44→21:28)
[2021-10-24] MEDS: NovoLIN R (or HumuLIN R) SC PRN ×4 (05:44→20:41)
[2021-10-24 06:08] LABS: BASOPHILS % (AUTO) 0.3 % (0.2-1.0); EOSINOPHILS % (AUTO) 0.1 % (0.9-2.9); HEMATOCRIT 46.4 % (36.0-47.0); HEMOGLOBIN 14.8 g/dL (12.0-16.0); LYMPHOCYTES # (AUTO) 0.7 X10^3/uL (1.3-2.9); MEAN CORPUSCULAR HEMOGLOBIN 26.1 pg (27.0-34.0); MEAN CORPUSCULAR VOLUME 81.7 fL (80.0-100.0); MEAN PLATELET VOLUME 8.9 fL (7.4-11.0); MONOCYTES # (AUTO) 0.6 x10^3/uL (0.3-0.8); MONOCYTES % (AUTO) 5.2 % (0.0-13.0); NEUTROPHILS # (AUTO) 10.9 x10^3/uL (2.2-4.8); NEUTROPHILS % (AUTO) 88.4 % (42.0-75.0); RED BLOOD COUNT 5.68 X10^6/uL (3.5-5.4); WHITE BLOOD COUNT 12.3 X10^3/uL (3.6-10.0)
[2021-10-24 06:31] LABS: ALANINE AMINOTRANSFERASE 39 Units/L (12-78); ALBUMIN 2.7 g/dL (3.4-5.0); ALKALINE PHOSPHATASE 117 Units/L (46-116); ASPARTATE AMINO TRANSFERASE 23 Units/L (15-37); BLOOD UREA NITROGEN 18 mg/dL (7-18); CALCIUM 8.8 mg/dL (8.5-10.1); CARBON DIOXIDE 35.1 mmol/L (21-32); CHLORIDE 97 mmol/L (98-107); CHOL/HDL RATIO 9.8 (0.0-5.0); CHOLESTEROL 215 mg/dL (0-200); COR CA(FOR HYPOALB) 9.8 mg/dL (8.5-10.1); COR NA(FOR HYPERGLY) 139 mmol/L (136-145); CREATININE 0.82 mg/dL (0.55-1.02); HDL CHOLESTEROL 22 mg/dL (40-60); MAGNESIUM 2.1 mg/dL (1.7-2.9); SODIUM 136 mmol/L (136-145); TOTAL PROTEIN 7.7 g/dL (6.4-8.2); TRIGLYCERIDES 169 mg/dL (0-150); eGFR NON BLACK RACES > 60 (>60)
[2021-10-24] MEDS: LASIX IVP SCH (08:13)
[2021-10-24] MEDS: NICOTINE PATCH TD SCH (08:13)
[2021-10-24] MEDS: LOVENOX INJ 40 MG SYR SC SCH (08:13)
[2021-10-24] MEDS: PULMICORT NEB TX 0.5 MG NEB SCH ×2 (08:36→20:07)
[2021-10-24] MEDS: APRESOLINE INJ 20 MG VIAL IVP PRN ×2 (08:59→20:41)
[2021-10-24] MEDS: ZESTRIL TAB 10 MG PO SCH (08:59)
--- NOTE | 2021-10-24 09:17 | PCM.PROG ---
Progress Note Progress Note for Day of Date of Exam: 10/24/21 Subjective Subjective: Patient seen at bedside, she did have some agitation last night. She has been on the BiPAP. She took it off to eat and then was placed back on it. She remains on FiO2 45%. She states she is doing ok. Her BP has been elevated. Labs reviewed Plan: repeat ABG this morning, take off BiPAP for meals. Wean FiO2 as tolerated. Add lisinopril for BP, add hydralazine prn. Continue IV lasix, solumedrol and abx. Monitor AM labs/imaging. PT/OT as tolerated once off BiPAP. Time spent for clinical assessment, physical exam, reviewing labs/imaging, decision making and documentation greater than 45 mins. Past Medical Family Social History Past Med/Fam/Surg Hx: No changes since H&P Allergies: Allergies iodine Allergy (Verified 10/23/21 05:28) shellfish derived Allergy (Verified 10/23/21 05:28) Review of Systems ROS: No change since H&P Vital Signs and I&O's Vital Signs: Temperature 98.4 F Pulse Rate 89 Respiratory Rate 29 Blood Pressure [Left Arm] 170/79 Blood Pressure 178/62 O2 Sat by Pulse Oximetry 90 Intake and Output: Intake & Output 10/21/21 10/22/21 10/23/21 10/24/21 23:59 23:59 23:59 23:59 Intake Total 585 / 585 130 / 130 Output Total 3875 / 3875 700 / 700 Balance -3290 / -3290 -570 / -570 Physical Exam Oriented: Normal Eyes: Normal Ear: Normal Nose: Normal Throat: Normal Respiratory: Generalized and Diminished Cardiovascular: Normal Auscultation: Bowel Sounds: Normal Tenderness: Normal Skin: Normal Musculoskeletal: Normal Psychiatric: Anxiety Mood Description: Calm Speech Pattern: Delayed and Artificially Ventilated (On BiPAP ) Laboratory and Diagnostics Result Diagrams: 10/24/21 05:24 10/24/21 05:24 Labs: Laboratory WBC 12.3 X10^3/uL (3.6-10.0) H 10/24/21 05:24 RBC 5.68 X10^6/uL (3.5-5.4) H 10/24/21 05:24 Hgb 14.8 g/dL (12.0-16.0) 10/24/21 05:24 Hct 46.4 % (36.0-47.0) 10/24/21 05:24 MCV 81.7 fL (80.0-100.0) 10/24/21 05:24 MCH 26.1 pg (27.0-34.0) L 10/24/21 05:24 MCHC 32.0 g/dL (33.0-35.0) L 10/24/21 05:24 RDW 18.0 % (11.6-16.5) H 10/24/21 05:24 Plt Count 303 X10^3/uL (150.0-450.0) 10/24/21 05:24 MPV 8.9 fL (7.4-11.0) 10/24/21 05:24 Neut % (Auto) 88.4 % (42.0-75.0) H 10/24/21 05:24 Lymph % (Auto) 6.0 % (21.0-51.0) L 10/24/21 05:24 [place] % (Auto) 5.2 % (0.0-13.0) 10/24/21 05:24 Eos % (Auto) 0.1 % (0.9-2.9) L 10/24/21 05:24 Baso % (Auto) 0.3 % (0.2-1.0) 10/24/21 05:24 Neut # (Auto) 10.9 x10^3/uL (2.2-4.8) H 10/24/21 05:24 Lymph # (Auto) 0.7 X10^3/uL (1.3-2.9) L 10/24/21 05:24 [place] # (Auto) 0.6 x10^3/uL (0.3-0.8) 10/24/21 05:24 Eos # (Auto) 0.0 x10^3/uL (0.0-0.2) 10/24/21 05:24 Baso # (Auto) 0.0 X10^3/uL (0.0-0.1) 10/24/21 05:24 Absolute Nucleated RBC 0.1 /100WBC 10/24/21 05:24 PT 12.4 SECONDS (11.8-14.3) 10/23/21 04:55 INR Target Range - 10/23/21 04:55 INR 0.95 (0.8-1.3) 10/23/21 04:55 APTT 22.9 SECONDS (22.9-36.5) 10/23/21 04:55 PTT Comment - 10/23/21 04:55 Sample Site Lr 10/23/21 09:50 ABG pH 7.420 (7.35-7.45) 10/23/21 09:50 ABG pCO2 61.0 mmHg (35.0-45.0) H* 10/23/21 09:50 ABG pO2 65.0 mmHg (80.0-100.0) L 10/23/21 09:50 ABG HCO3 39.6 mmol/L (22-26) H* 10/23/21 09:50 ABG O2 Saturation 93.0 % (90-100) 10/23/21 09:50 ABG Base Excess 12.7 mmol/L (-2.0-2.0) H 10/23/21 09:50 Varun Test Pos 10/23/21 09:50 A-a Gradient 180.0 mmHg 10/23/21 09:50 FiO2 45.0 10/23/21 09:50 Blood Gas Comments Pt jose well cdn 10/23/21 09:50 Sodium 136 mmol/L (136-145) 10/24/21 05:24 Corrected Sodium 139 mmol/L (136-145) 10/24/21 05:24 Potassium 4.3 mmol/L (3.5-5.1) 10/24/21 05:24 Chloride 97 mmol/L (98-107) L 10/24/21 05:24 Carbon Dioxide 35.1 mmol/L (21-32) H 10/24/21 05:24 BUN 18 mg/dL (7-18) 10/24/21 05:24 Creatinine 0.82 mg/dL (0.55-1.02) 10/24/21 05:24 Est GFR (MDRD) Af Amer > 60 (>60) 10/24/21 05:24 Est GFR (MDRD) Non-Af > 60 (>60) 10/24/21 05:24 Glucose 229 mg/dL (65-99) H 10/24/21 05:24 POC Glucose (mg/dL) 220 mg/dL (65-99) H 10/24/21 05:25 Lactic Acid 0.4 mmol/L (0.4-2.0) 10/23/21 04:50 Calcium 8.8 mg/dL (8.5-10.1) 10/24/21 05:24 Corrected Calcium 9.8 mg/dL (8.5-10.1) 10/24/21 05:24 Magnesium 2.1 mg/dL (1.7-2.9) 10/24/21 05:24 Total Bilirubin 0.50 mg/dL (0.2-1.0) 10/24/21 05:24 AST 23 Units/L (15-37) 10/24/21 05:24 ALT 39 Units/L (12-78) 10/24/21 05:24 Alkaline Phosphatase 117 Units/L (46-116) H 10/24/21 05:24 Creatine Kinase 32 Units/L (26-192) 10/23/21 20:35 CK-MB (CK-2) < 1.0 ng/mL (0-4.0) 10/23/21 20:35 CK/CKMB % Calc 3.1 % (<4) 10/23/21 20:35 Troponin I High Sens 18.3 ng/L (4.0-60.0) 10/23/21 20:35 B-Natriuretic Peptide 637 pg/mL (0-79) H* 10/23/21 04:55 Total Protein 7.7 g/dL (6.4-8.2) 10/24/21 05:24 Albumin 2.7 g/dL (3.4-5.0) L 10/24/21 05:24 Globulin 5.0 g/dL (2.5-4.5) H 10/24/21 05:24 Albumin/Globulin Ratio 0.5 Ratio (1.1-2.1) L 10/24/21 05:24 Triglycerides 169 mg/dL (0-150) H 10/24/21 05:24 Cholesterol 215 mg/dL (0-200) H 10/24/21 05:24 LDL Cholesterol, Calc 159 mg/dL (0-100) H 10/24/21 05:24 HDL Cholesterol 22 mg/dL (40-60) L 10/24/21 05:24 Cholesterol/HDL Ratio 9.8 (0.0-5.0) H 10/24/21 05:24 Specimen Type Catherized urine 10/23/21 05:24 Urine Color Straw (YELLOW) 10/23/21 05:24 Urine Appearance Clear (CLEAR) 10/23/21 05:24 Urine pH 7.0 (5.0 - 8.0) 10/23/21 05:24 Ur Specific [place] 1.015 (1.000-1.030) 10/23/21 05:24 Urine Protein Negative (NEGATIVE) 10/23/21 05:24 Urine Glucose (UA) Negative (NEGATIVE) 10/23/21 05:24 Urine Ketones Negative (NEGATIVE) 10/23/21 05:24 Urine Blood Negative (NEGATIVE) 10/23/21 05:24 Urine Nitrite Negative (NEGATIVE) 10/23/21 05:24 Urine Bilirubin Negative (NEGATIVE) 10/23/21 05:24 Urine Urobilinogen Normal (NORMAL) 10/23/21 05:24 Ur Leukocyte Esterase Negative (NEGATIVE) 10/23/21 05:24 Plan (1) Acute respiratory failure with hypoxia and hypercarbia: Status: Acute (2) CHF exacerbation: Status: Acute Qualifiers: Heart failure type: diastolic Qualified Code(s): I50.33 - Acute on chronic diastolic (congestive) heart failure (3) COPD exacerbation: Status: Acute (4) Bronchitis: Status: Acute (5) Acute respiratory distress: Status: Acute (6) Diabetes: Status: Acute Qualifiers: Diabetes mellitus complication status: with other specified complication Diabetes mellitus detention insulin use: without intermediate manager use Diabetes mellitus type: type 2 Qualified Code(s): E11.69 - Type 2 diabetes mellitus with other specified complication (7) Lethargy: Status: Acute
[2021-10-24 09:56] LABS: ABG BASE EXCESS 19.6 mmol/L (-2.0-2.0)
[2021-10-24 09:57] LABS: ABG ALLEN TEST POS
[2021-10-25] MEDS: SOLU-Medrol 40 MG VIAL IVP SCH ×3 (00:03→16:07)
[2021-10-25] MEDS: DUONEB 0.5 MG/3 MG (3 mL) NEB SCH ×6 (00:18→20:43)
[2021-10-25] MEDS: NovoLIN R (or HumuLIN R) SC PRN ×3 (05:27→21:13)
[2021-10-25] MEDS: ZOSYN VIAL 3.375 GRAMS 3.375 G in NS 100 ML IV 100 ML IV SCH ×3 (05:27→21:13)
[2021-10-25 05:39] LABS: BASOPHILS # (AUTO) 0.1 X10^3/uL (0.0-0.1); BASOPHILS % (AUTO) 0.4 % (0.2-1.0); HEMATOCRIT 49.1 % (36.0-47.0); HEMOGLOBIN 15.7 g/dL (12.0-16.0); LYMPHOCYTES # (AUTO) 0.7 X10^3/uL (1.3-2.9); LYMPHOCYTES % (AUTO) 5.1 % (21.0-51.0); MEAN CORPUSCULAR HGB CONC 31.8 g/dL (33.0-35.0); MEAN CORPUSCULAR VOLUME 81.6 fL (80.0-100.0); MEAN PLATELET VOLUME 8.7 fL (7.4-11.0); MONOCYTES # (AUTO) 0.7 x10^3/uL (0.3-0.8); MONOCYTES % (AUTO) 5.3 % (0.0-13.0); NEUTROPHILS # (AUTO) 12.2 x10^3/uL (2.2-4.8); NEUTROPHILS % (AUTO) 89.2 % (42.0-75.0); RED BLOOD COUNT 6.02 X10^6/uL (3.5-5.4); RED CELL DISTRIBUTION WIDTH 18.3 % (11.6-16.5); WHITE BLOOD COUNT 13.7 X10^3/uL (3.6-10.0)
[2021-10-25 05:53] LABS: ALANINE AMINOTRANSFERASE 28 Units/L (12-78); ALBUMIN 2.6 g/dL (3.4-5.0); ALKALINE PHOSPHATASE 109 Units/L (46-116); ASPARTATE AMINO TRANSFERASE 14 Units/L (15-37); BLOOD UREA NITROGEN 29 mg/dL (7-18); CALCIUM 8.9 mg/dL (8.5-10.1); CARBON DIOXIDE 36.7 mmol/L (21-32); CHLORIDE 97 mmol/L (98-107); COR NA(FOR HYPERGLY) 140 mmol/L (136-145); CREATININE 0.99 mg/dL (0.55-1.02); SODIUM 137 mmol/L (136-145); TOTAL PROTEIN 7.5 g/dL (6.4-8.2); eGFR NON BLACK RACES > 60 (>60)
[2021-10-25] MEDS: PULMICORT NEB TX 0.5 MG NEB SCH ×2 (08:05→20:43)
--- NOTE | 2021-10-25 08:58 | PCM.PROG ---
Progress Note Progress Note for Day of Date of Exam: 10/25/21 Subjective Subjective: Patient seen at bedside. She was taken off BiPAP yesterday and placed on 4L. Her sats were noted to be in mid 80s overnight and placed back on BiPAP. She is currently on FiO2 45%. She states she feels better and wants to eat. Labs reviewed Plan: Wean off BiPAP, place on NC to keep sats > 88%. Will get CXR. Patient's BP has been better controlled. Continue lisinopril and hydralazine prn. Continue IV lasix, solumedrol and abx. Monitor AM labs/imaging. PT/OT as tolerated once off BiPAP. Time spent for clinical assessment, physical exam, reviewing labs/imaging, decision making and documentation greater than 45 mins. Past Medical Family Social History Past Med/Fam/Surg Hx: No changes since H&P Allergies: Allergies iodine Allergy (Verified 10/23/21 05:28) shellfish derived Allergy (Verified 10/23/21 05:28) Review of Systems ROS: No change since H&P Vital Signs and I&O's Vital Signs: Temperature 99.0 F Pulse Rate 101 Respiratory Rate 33 Blood Pressure [Left Arm] 170/79 Blood Pressure 121/59 O2 Sat by Pulse Oximetry 92 Intake and Output: Intake & Output 10/22/21 10/23/21 10/24/21 10/25/21 23:59 23:59 23:59 23:59 Intake Total 585 / 585 1100 / 1100 170 / 170 Output Total 3875 / 3875 4800 / 4800 650 / 650 Balance -3290 / -3290 -3700 / -3700 -480 / -480 Physical Exam Oriented: Unable to test Eyes: Normal Ear: Normal Nose: Normal Throat: Dry Respiratory: Generalized and Diminished Cardiovascular: Normal Auscultation: Bowel Sounds: Normal Tenderness: Normal Skin: Normal Musculoskeletal: Normal Psychiatric: Anxiety Mood Description: Calm Speech Pattern: Artificially Ventilated (on BiPAP ) Laboratory and Diagnostics Result Diagrams: 10/25/21 04:30 10/25/21 04:30 Labs: Laboratory WBC 13.7 X10^3/uL (3.6-10.0) H 10/25/21 04:30 RBC 6.02 X10^6/uL (3.5-5.4) H 10/25/21 04:30 Hgb 15.7 g/dL (12.0-16.0) 10/25/21 04:30 Hct 49.1 % (36.0-47.0) H 10/25/21 04:30 MCV 81.6 fL (80.0-100.0) 10/25/21 04:30 MCH 26.0 pg (27.0-34.0) L 10/25/21 04:30 MCHC 31.8 g/dL (33.0-35.0) L 10/25/21 04:30 RDW 18.3 % (11.6-16.5) H 10/25/21 04:30 Plt Count 348 X10^3/uL (150.0-450.0) 10/25/21 04:30 MPV 8.7 fL (7.4-11.0) 10/25/21 04:30 Neut % (Auto) 89.2 % (42.0-75.0) H 10/25/21 04:30 Lymph % (Auto) 5.1 % (21.0-51.0) L 10/25/21 04:30 [place] % (Auto) 5.3 % (0.0-13.0) 10/25/21 04:30 Eos % (Auto) 0.0 % (0.9-2.9) L 10/25/21 04:30 Baso % (Auto) 0.4 % (0.2-1.0) 10/25/21 04:30 Neut # (Auto) 12.2 x10^3/uL (2.2-4.8) H 10/25/21 04:30 Lymph # (Auto) 0.7 X10^3/uL (1.3-2.9) L 10/25/21 04:30 [place] # (Auto) 0.7 x10^3/uL (0.3-0.8) 10/25/21 04:30 Eos # (Auto) 0.0 x10^3/uL (0.0-0.2) 10/25/21 04:30 Baso # (Auto) 0.1 X10^3/uL (0.0-0.1) 10/25/21 04:30 Absolute Nucleated RBC 0.1 /100WBC 10/25/21 04:30 PT 12.4 SECONDS (11.8-14.3) 10/23/21 04:55 INR Target Range - 10/23/21 04:55 INR 0.95 (0.8-1.3) 10/23/21 04:55 APTT 22.9 SECONDS (22.9-36.5) 10/23/21 04:55 PTT Comment - 10/23/21 04:55 Sample Site Rra 10/24/21 09:53 ABG pH 7.500 (7.35-7.45) H 10/24/21 09:53 ABG pCO2 59.0 mmHg (35.0-45.0) H* 10/24/21 09:53 ABG pO2 55.0 mmHg (80.0-100.0) L 10/24/21 09:53 ABG HCO3 46.0 mmol/L (22-26) H* 10/24/21 09:53 ABG O2 Saturation 91.0 % (90-100) 10/24/21 09:53 ABG Base Excess 19.6 mmol/L (-2.0-2.0) H 10/24/21 09:53 Varun Test Pos 10/24/21 09:53 A-a Gradient 128.0 mmHg 10/24/21 09:53 FiO2 36.0 10/24/21 09:53 Blood Gas Comments Pt jose well eb form tamper operator 10/24/21 09:53 Sodium 137 mmol/L (136-145) 10/25/21 04:30 Corrected Sodium 140 mmol/L (136-145) 10/25/21 04:30 Potassium 4.2 mmol/L (3.5-5.1) 10/25/21 04:30 Chloride 97 mmol/L (98-107) L 10/25/21 04:30 Carbon Dioxide 36.7 mmol/L (21-32) H 10/25/21 04:30 BUN 29 mg/dL (7-18) H 10/25/21 04:30 Creatinine 0.99 mg/dL (0.55-1.02) 10/25/21 04:30 Est GFR (MDRD) Af Amer > 60 (>60) 10/25/21 04:30 Est GFR (MDRD) Non-Af > 60 (>60) 10/25/21 04:30 Glucose 241 mg/dL (65-99) H 10/25/21 04:30 POC Glucose (mg/dL) 238 mg/dL (65-99) H 10/25/21 05:06 Lactic Acid 0.4 mmol/L (0.4-2.0) 10/23/21 04:50 Calcium 8.9 mg/dL (8.5-10.1) 10/25/21 04:30 Corrected Calcium 10.0 mg/dL (8.5-10.1) 10/25/21 04:30 Magnesium 2.1 mg/dL (1.7-2.9) 10/24/21 05:24 Total Bilirubin 0.40 mg/dL (0.2-1.0) 10/25/21 04:30 AST 14 Units/L (15-37) L 10/25/21 04:30 ALT 28 Units/L (12-78) 10/25/21 04:30 Alkaline Phosphatase 109 Units/L (46-116) 10/25/21 04:30 Creatine Kinase 32 Units/L (26-192) 10/23/21 20:35 CK-MB (CK-2) < 1.0 ng/mL (0-4.0) 10/23/21 20:35 CK/CKMB % Calc 3.1 % (<4) 10/23/21 20:35 Troponin I High Sens 18.3 ng/L (4.0-60.0) 10/23/21 20:35 B-Natriuretic Peptide 637 pg/mL (0-79) H* 10/23/21 04:55 Total Protein 7.5 g/dL (6.4-8.2) 10/25/21 04:30 Albumin 2.6 g/dL (3.4-5.0) L 10/25/21 04:30 Globulin 4.9 g/dL (2.5-4.5) H 10/25/21 04:30 Albumin/Globulin Ratio 0.5 Ratio (1.1-2.1) L 10/25/21 04:30 Triglycerides 169 mg/dL (0-150) H 10/24/21 05:24 Cholesterol 215 mg/dL (0-200) H 10/24/21 05:24 LDL Cholesterol, Calc 159 mg/dL (0-100) H 10/24/21 05:24 HDL Cholesterol 22 mg/dL (40-60) L 10/24/21 05:24 Cholesterol/HDL Ratio 9.8 (0.0-5.0) H 10/24/21 05:24 Specimen Type Catherized urine 10/23/21 05:24 Urine Color Straw (YELLOW) 10/23/21 05:24 Urine Appearance Clear (CLEAR) 10/23/21 05:24 Urine pH 7.0 (5.0 - 8.0) 10/23/21 05:24 Ur Specific [place] 1.015 (1.000-1.030) 10/23/21 05:24 Urine Protein Negative (NEGATIVE) 10/23/21 05:24 Urine Glucose (UA) Negative (NEGATIVE) 10/23/21 05:24 Urine Ketones Negative (NEGATIVE) 10/23/21 05:24 Urine Blood Negative (NEGATIVE) 10/23/21 05:24 Urine Nitrite Negative (NEGATIVE) 10/23/21 05:24 Urine Bilirubin Negative (NEGATIVE) 10/23/21 05:24 Urine Urobilinogen Normal (NORMAL) 10/23/21 05:24 Ur Leukocyte Esterase Negative (NEGATIVE) 10/23/21 05:24 Plan (1) Acute respiratory failure with hypoxia and hypercarbia: Status: Acute (2) CHF exacerbation: Status: Acute Qualifiers: Heart failure type: diastolic Qualified Code(s): I50.33 - Acute on chronic diastolic (congestive) heart failure (3) COPD exacerbation: Status: Acute (4) Bronchitis: Status: Acute (5) Acute respiratory distress: Status: Acute (6) Diabetes: Status: Acute Qualifiers: Diabetes mellitus complication status: with other specified complication Diabetes mellitus long chain quiller tender insulin use: without group home use Diabetes mellitus type: type 2 Qualified Code(s): E11.69 - Type 2 diabetes mellitus with other specified complication (7) Lethargy: Status: Acute
[2021-10-25] MEDS: LASIX IVP SCH (10:27)
[2021-10-25] MEDS: NICOTINE PATCH TD SCH (10:27)
[2021-10-25] MEDS: VISTARIL PO PRN (10:27)
[2021-10-25] MEDS: ZESTRIL TAB 10 MG PO SCH (10:27)
[2021-10-25] MEDS: LOVENOX INJ 40 MG SYR SC SCH (11:30)
--- NOTE | 2021-10-25 13:32 | RAD ---
HISTORYHYPOXIA Relevant Clinical InformationSTUDYCHEST, 1 [id number] is mildly deviated to the right, there is mild cardiomegaly l, arge body habitus. No evidence of pneumothorax or pleural effusions. No gross alveolar radiopacityIMPRESSIONLarge body habitus. No gross acute cardiopulmonary disease. Left lateral alveolar radiopacities it was felt to be the left scapulaElectronically signed by: Barb Reich (Oct 25, 2021 13:31:18)
[2021-10-25] MEDS: AMBIEN PO PRN (21:13)
[2021-10-26] MEDS: DUONEB 0.5 MG/3 MG (3 mL) NEB SCH ×6 (00:21→20:10)
[2021-10-26] MEDS: SOLU-Medrol 40 MG VIAL IVP SCH ×3 (01:54→16:40)
[2021-10-26 04:44] LABS: BASOPHILS # (AUTO) 0.1 X10^3/uL (0.0-0.1); BASOPHILS % (AUTO) 1.4 % (0.2-1.0); EOSINOPHILS % (AUTO) 0.1 % (0.9-2.9); HEMATOCRIT 50.7 % (36.0-47.0); HEMOGLOBIN 16.4 g/dL (12.0-16.0); LYMPHOCYTES # (AUTO) 0.6 X10^3/uL (1.3-2.9); LYMPHOCYTES % (AUTO) 6.1 % (21.0-51.0); MEAN CORPUSCULAR HEMOGLOBIN 26.2 pg (27.0-34.0); MEAN CORPUSCULAR HGB CONC 32.3 g/dL (33.0-35.0); MEAN CORPUSCULAR VOLUME 81.1 fL (80.0-100.0); MEAN PLATELET VOLUME 8.7 fL (7.4-11.0); MONOCYTES # (AUTO) 0.4 x10^3/uL (0.3-0.8); MONOCYTES % (AUTO) 4.2 % (0.0-13.0); NEUTROPHILS % (AUTO) 88.2 % (42.0-75.0); RED BLOOD COUNT 6.26 X10^6/uL (3.5-5.4); RED CELL DISTRIBUTION WIDTH 18.6 % (11.6-16.5); WHITE BLOOD COUNT 10.2 X10^3/uL (3.6-10.0)
[2021-10-26 04:46] LABS: BLOOD UREA NITROGEN 33 mg/dL (7-18); CALCIUM 8.7 mg/dL (8.5-10.1); CHLORIDE 98 mmol/L (98-107); COR NA(FOR HYPERGLY) 142 mmol/L (136-145); CREATININE 1.11 mg/dL (0.55-1.02); SODIUM 139 mmol/L (136-145); eGFR NON BLACK RACES 53 (>60)
[2021-10-26] MEDS ORDERED: NS 250 ML IV 250 ML IV ONE (05:37)
[2021-10-26] MEDS: ZOSYN VIAL 3.375 GRAMS 3.375 G in NS 100 ML IV 100 ML IV SCH ×3 (05:49→21:26)
[2021-10-26] MEDS: NovoLIN R (or HumuLIN R) SC PRN ×4 (05:49→20:54)
[2021-10-26 06:04] LABS: PLATELET MORPHOLOGY COMMENT NORMAL (NORMAL)
[2021-10-26] MEDS: LOVENOX INJ 40 MG SYR SC SCH (09:24)
[2021-10-26] MEDS: NICOTINE PATCH TD SCH (09:24)
[2021-10-26] MEDS: LASIX PO SCH (09:25)
[2021-10-26] MEDS: ZESTRIL TAB 10 MG PO SCH (09:25)
[2021-10-26] MEDS: PULMICORT NEB TX 0.5 MG NEB SCH ×2 (09:42→20:10)
[2021-10-26] MEDS ORDERED: GLUCOPHAGE XR 24-HR PO SCH (10:00)
--- NOTE | 2021-10-26 11:58 | PCM.PROG ---
Progress Note Progress Note for Day of Date of Exam: 10/26/21 Subjective Subjective: Patient seen at bedside, no events overnight. She has been on 4L NC and tolerating well with sats between 88-92%. She states she feels better. She reports not being able to take her medications as she ran out months ago and could not follow up due to finances. She has applied for disability. She did have O2 at home but was not using it. Labs review CXR yesterday showed improvement in pleural effusions and congestion. Plan: Wean off O2 to keep sats > 88%. Will get CXR. Continue lisinopril and hydralazine prn. Resume metformin. Continue SSI. Switch to PO lasix, solumedrol and abx. PT/OT as tolerated. Monitor AM labs. Past Medical Family Social History Past Med/Fam/Surg Hx: No changes since H&P Allergies: Allergies iodine Allergy (Verified 10/23/21 05:28) shellfish derived Allergy (Verified 10/23/21 05:28) Review of Systems ROS: No change since H&P Vital Signs and I&O's Vital Signs: Temperature 98.4 F Pulse Rate 81 Respiratory Rate 26 Blood Pressure [Left Arm] 170/79 Blood Pressure 127/62 O2 Sat by Pulse Oximetry 91 Intake and Output: Intake & Output 10/23/21 10/24/21 10/25/21 10/26/21 23:59 23:59 23:59 23:59 Intake Total 585 / 585 1100 / 1100 1096 / 1096 553 / 553 Output Total 3875 / 3875 4800 / 4800 3350 / 3350 750 / 750 Balance -3290 / -3290 -3700 / -3700 -2254 / -2254 -197 / -197 Physical Exam Oriented: Normal Eyes: Normal Ear: Normal Nose: Normal Throat: Normal Respiratory: Generalized and Diminished Cardiovascular: Normal Auscultation: Bowel Sounds: Normal Tenderness: Normal Skin: Normal Musculoskeletal: Normal Psychiatric: Normal Mood Description: Calm Speech Pattern: Clear and Appropriate Laboratory and Diagnostics Result Diagrams: 10/26/21 03:58 10/26/21 03:58 Labs: 10/23/21 04:55 Blood Blood Culture - Preliminary 10/23/21 04:50 Blood Blood Culture - Preliminary Laboratory WBC 10.2 X10^3/uL (3.6-10.0) H 10/26/21 03:58 RBC 6.26 X10^6/uL (3.5-5.4) H 10/26/21 03:58 Hgb 16.4 g/dL (12.0-16.0) H 10/26/21 03:58 Hct 50.7 % (36.0-47.0) H 10/26/21 03:58 MCV 81.1 fL (80.0-100.0) 10/26/21 03:58 MCH 26.2 pg (27.0-34.0) L 10/26/21 03:58 MCHC 32.3 g/dL (33.0-35.0) L 10/26/21 03:58 RDW 18.6 % (11.6-16.5) H 10/26/21 03:58 Plt Count 331 X10^3/uL (150.0-450.0) 10/26/21 03:58 Plt Count Comment Adequate (ADEQUATE) 10/26/21 03:58 MPV 8.7 fL (7.4-11.0) 10/26/21 03:58 Neut % (Auto) 88.2 % (42.0-75.0) H 10/26/21 03:58 Lymph % (Auto) 6.1 % (21.0-51.0) L 10/26/21 03:58 [place] % (Auto) 4.2 % (0.0-13.0) 10/26/21 03:58 Eos % (Auto) 0.1 % (0.9-2.9) L 10/26/21 03:58 Baso % (Auto) 1.4 % (0.2-1.0) H 10/26/21 03:58 Neut # (Auto) 9.0 x10^3/uL (2.2-4.8) H 10/26/21 03:58 Lymph # (Auto) 0.6 X10^3/uL (1.3-2.9) L 10/26/21 03:58 [place] # (Auto) 0.4 x10^3/uL (0.3-0.8) 10/26/21 03:58 Eos # (Auto) 0.0 x10^3/uL (0.0-0.2) 10/26/21 03:58 Baso # (Auto) 0.1 X10^3/uL (0.0-0.1) 10/26/21 03:58 Absolute Nucleated RBC 0.2 /100WBC 10/26/21 03:58 Total Counted 100 10/26/21 03:58 Neutrophils % (Manual) 89 % (39-76) H 10/26/21 03:58 Lymphocytes % (Manual) 6 % (13-43) L 10/26/21 03:58 Monocytes % (Manual) 5 % (4-9) 10/26/21 03:58 Plt Morphology Comment Normal (NORMAL) 10/26/21 03:58 RBC Morphology Normal (NORMAL) 10/26/21 03:58 PT 12.4 SECONDS (11.8-14.3) 10/23/21 04:55 INR Target Range - 10/23/21 04:55 INR 0.95 (0.8-1.3) 10/23/21 04:55 APTT 22.9 SECONDS (22.9-36.5) 10/23/21 04:55 PTT Comment - 10/23/21 04:55 Sample Site Rra 10/24/21 09:53 ABG pH 7.500 (7.35-7.45) H 10/24/21 09:53 ABG pCO2 59.0 mmHg (35.0-45.0) H* 10/24/21 09:53 ABG pO2 55.0 mmHg (80.0-100.0) L 10/24/21 09:53 ABG HCO3 46.0 mmol/L (22-26) H* 10/24/21 09:53 ABG O2 Saturation 91.0 % (90-100) 10/24/21 09:53 ABG Base Excess 19.6 mmol/L (-2.0-2.0) H 10/24/21 09:53 Varun Test Pos 10/24/21 09:53 A-a Gradient 128.0 mmHg 10/24/21 09:53 FiO2 36.0 10/24/21 09:53 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 10/24/21 09:53 Sodium 139 mmol/L (136-145) 10/26/21 03:58 Corrected Sodium 142 mmol/L (136-145) 10/26/21 03:58 Potassium 4.6 mmol/L (3.5-5.1) 10/26/21 03:58 Chloride 98 mmol/L (98-107) 10/26/21 03:58 Carbon Dioxide 38.0 mmol/L (21-32) H 10/26/21 03:58 BUN 33 mg/dL (7-18) H 10/26/21 03:58 Creatinine 1.11 mg/dL (0.55-1.02) H 10/26/21 03:58 Est GFR (MDRD) Af Amer > 60 (>60) 10/26/21 03:58 Est GFR (MDRD) Non-Af 53 (>60) L 10/26/21 03:58 Glucose 245 mg/dL (65-99) H 10/26/21 03:58 POC Glucose (mg/dL) 330 mg/dL (65-99) H 10/26/21 11:43 Lactic Acid 0.4 mmol/L (0.4-2.0) 10/23/21 04:50 Calcium 8.7 mg/dL (8.5-10.1) 10/26/21 03:58 Corrected Calcium 10.0 mg/dL (8.5-10.1) 10/25/21 04:30 Magnesium 2.1 mg/dL (1.7-2.9) 10/24/21 05:24 Total Bilirubin 0.40 mg/dL (0.2-1.0) 10/25/21 04:30 AST 14 Units/L (15-37) L 10/25/21 04:30 ALT 28 Units/L (12-78) 10/25/21 04:30 Alkaline Phosphatase 109 Units/L (46-116) 10/25/21 04:30 Creatine Kinase 32 Units/L (26-192) 10/23/21 20:35 CK-MB (CK-2) < 1.0 ng/mL (0-4.0) 10/23/21 20:35 CK/CKMB % Calc 3.1 % (<4) 10/23/21 20:35 Troponin I High Sens 18.3 ng/L (4.0-60.0) 10/23/21 20:35 B-Natriuretic Peptide 637 pg/mL (0-79) H* 10/23/21 04:55 Total Protein 7.5 g/dL (6.4-8.2) 10/25/21 04:30 Albumin 2.6 g/dL (3.4-5.0) L 10/25/21 04:30 Globulin 4.9 g/dL (2.5-4.5) H 10/25/21 04:30 Albumin/Globulin Ratio 0.5 Ratio (1.1-2.1) L 10/25/21 04:30 Triglycerides 169 mg/dL (0-150) H 10/24/21 05:24 Cholesterol 215 mg/dL (0-200) H 10/24/21 05:24 LDL Cholesterol, Calc 159 mg/dL (0-100) H 10/24/21 05:24 HDL Cholesterol 22 mg/dL (40-60) L 10/24/21 05:24 Cholesterol/HDL Ratio 9.8 (0.0-5.0) H 10/24/21 05:24 Specimen Type Catherized urine 10/23/21 05:24 Urine Color Straw (YELLOW) 10/23/21 05:24 Urine Appearance Clear (CLEAR) 10/23/21 05:24 Urine pH 7.0 (5.0 - 8.0) 10/23/21 05:24 Ur Specific [place] 1.015 (1.000-1.030) 10/23/21 05:24 Urine Protein Negative (NEGATIVE) 10/23/21 05:24 Urine Glucose (UA) Negative (NEGATIVE) 10/23/21 05:24 Urine Ketones Negative (NEGATIVE) 10/23/21 05:24 Urine Blood Negative (NEGATIVE) 10/23/21 05:24 Urine Nitrite Negative (NEGATIVE) 10/23/21 05:24 Urine Bilirubin Negative (NEGATIVE) 10/23/21 05:24 Urine Urobilinogen Normal (NORMAL) 10/23/21 05:24 Ur Leukocyte Esterase Negative (NEGATIVE) 10/23/21 05:24 Plan (1) Acute respiratory failure with hypoxia and hypercarbia: Status: Acute (2) CHF exacerbation: Status: Acute Qualifiers: Heart failure type: diastolic Qualified Code(s): I50.33 - Acute on chronic diastolic (congestive) heart failure (3) COPD exacerbation: Status: Acute (4) Bronchitis: Status: Acute (5) Acute respiratory distress: Status: Acute (6) Diabetes: Status: Acute Qualifiers: Diabetes mellitus complication status: with other specified complication Diabetes mellitus alf insulin use: without alf use Diabetes mellitus type: type 2 Qualified Code(s): E11.69 - Type 2 diabetes mellitus with other specified complication (7) Lethargy: Status: Acute
[2021-10-27] MEDS: SOLU-Medrol 40 MG VIAL IVP SCH (01:46)
[2021-10-27 04:21] LABS: BASOPHILS # (AUTO) 0.1 X10^3/uL (0.0-0.1); BASOPHILS % (AUTO) 0.5 % (0.2-1.0); HEMATOCRIT 47.9 % (36.0-47.0); HEMOGLOBIN 14.9 g/dL (12.0-16.0); LYMPHOCYTES % (AUTO) 8.8 % (21.0-51.0); MEAN CORPUSCULAR HEMOGLOBIN 25.7 pg (27.0-34.0); MEAN CORPUSCULAR HGB CONC 31.2 g/dL (33.0-35.0); MEAN CORPUSCULAR VOLUME 82.5 fL (80.0-100.0); MONOCYTES % (AUTO) 9.3 % (0.0-13.0); NEUTROPHILS # (AUTO) 8.9 x10^3/uL (2.2-4.8); NEUTROPHILS % (AUTO) 81.4 % (42.0-75.0)
[2021-10-27 04:30] LABS: BLOOD UREA NITROGEN 29 mg/dL (7-18); CALCIUM 8.3 mg/dL (8.5-10.1); CARBON DIOXIDE 36.2 mmol/L (21-32); CHLORIDE 101 mmol/L (98-107); COR NA(FOR HYPERGLY) 145 mmol/L (136-145); CREATININE 1.07 mg/dL (0.55-1.02); SODIUM 140 mmol/L (136-145); eGFR NON BLACK RACES 55 (>60)
[2021-10-27] MEDS: DUONEB 0.5 MG/3 MG (3 mL) NEB SCH ×6 (05:10→20:27)
[2021-10-27] MEDS: ZOSYN VIAL 3.375 GRAMS 3.375 G in NS 100 ML IV 100 ML IV SCH ×3 (05:27→21:05)
[2021-10-27] MEDS: NovoLIN R (or HumuLIN R) SC PRN ×4 (05:46→20:17)
[2021-10-27] MEDS: GLUCOPHAGE XR 24-HR PO SCH (08:07)
[2021-10-27] MEDS: LASIX PO SCH (08:08)
[2021-10-27] MEDS: LOVENOX INJ 40 MG SYR SC SCH (08:08)
[2021-10-27] MEDS: TYLENOL 325 MG TAB PO PRN (08:09)
[2021-10-27] MEDS: NICOTINE PATCH TD SCH (08:09)
[2021-10-27] MEDS: SOLU-Medrol 125 MG VIAL IVP SCH ×2 (08:09→20:12)
[2021-10-27] MEDS: ZESTRIL TAB 10 MG PO SCH (08:09)
[2021-10-27] MEDS: PULMICORT NEB TX 0.5 MG NEB SCH ×2 (08:50→20:27)
[2021-10-27] MEDS ORDERED: TORADOL 30 MG VIAL ONE (09:34)
[2021-10-27] MEDS: TORADOL 30 MG VIAL IVP PRN ×2 (09:45→19:51)
--- NOTE | 2021-10-27 12:01 | PCM.PROG ---
Progress Note Progress Note for Day of Date of Exam: 10/27/21 Subjective Subjective: Patient seen at bedside, no events overnight. She feels better today. She did work with PT yesterday and did well. She also sat on the chair for a bit. She has been on 4L NC and tolerating well with sats between 88-92%. Labs review - A1C 7.8% Plan: Wean off O2 to keep sats > 88%. RT consult for walk test. Continue lisinopril and hydralazine prn. Patient's FSBG remains elevated, will increase metformin to 1000 mg daily and add glipizide. Continue SSI. Continue PO lasix. Continue tapering solumedrol and abx. PT/OT as tolerated. Patient does have home O2, reports having a small concentrator. Will arrange home O2 today and possible discharge over the weekend if patient continues to improve. Monitor AM labs. Past Medical Family Social History Past Med/Fam/Surg Hx: No changes since H&P Allergies: Allergies iodine Allergy (Verified 10/23/21 05:28) shellfish derived Allergy (Verified 10/23/21 05:28) Review of Systems ROS: No change since H&P Vital Signs and I&O's Vital Signs: Temperature 97.9 F Pulse Rate 73 Respiratory Rate 25 Blood Pressure [Left Arm] 170/79 Blood Pressure 115/55 O2 Sat by Pulse Oximetry 91 Intake and Output: Intake & Output 10/24/21 10/25/21 10/26/21 10/27/21 23:59 23:59 23:59 23:59 Intake Total 1100 / 1100 1096 / 1096 1673 / 1673 176 / 176 Output Total 4800 / 4800 3350 / 3350 2550 / 2550 600 / 600 Balance -3700 / -3700 -2254 / -2254 -877 / -877 -424 / -424 Physical Exam Oriented: Normal Eyes: Normal Ear: Normal Nose: Normal Throat: Normal Respiratory: Generalized and Diminished Cardiovascular: Normal Auscultation: Bowel Sounds: Normal Tenderness: Normal Skin: Normal Musculoskeletal: Normal Psychiatric: Normal Mood Description: Calm Speech Pattern: Clear Laboratory and Diagnostics Result Diagrams: 10/27/21 03:45 10/27/21 03:45 Labs: 10/23/21 04:55 Blood Blood Culture - Preliminary 10/23/21 04:50 Blood Blood Culture - Preliminary Laboratory WBC 11.0 X10^3/uL (3.6-10.0) H 10/27/21 03:45 RBC 5.80 X10^6/uL (3.5-5.4) H 10/27/21 03:45 Hgb 14.9 g/dL (12.0-16.0) 10/27/21 03:45 Hct 47.9 % (36.0-47.0) H 10/27/21 03:45 MCV 82.5 fL (80.0-100.0) 10/27/21 03:45 MCH 25.7 pg (27.0-34.0) L 10/27/21 03:45 MCHC 31.2 g/dL (33.0-35.0) L 10/27/21 03:45 RDW 18.0 % (11.6-16.5) H 10/27/21 03:45 Plt Count 297 X10^3/uL (150.0-450.0) 10/27/21 03:45 Plt Count Comment Adequate (ADEQUATE) 10/26/21 03:58 MPV 9.0 fL (7.4-11.0) 10/27/21 03:45 Neut % (Auto) 81.4 % (42.0-75.0) H 10/27/21 03:45 Lymph % (Auto) 8.8 % (21.0-51.0) L 10/27/21 03:45 [place] % (Auto) 9.3 % (0.0-13.0) 10/27/21 03:45 Eos % (Auto) 0.0 % (0.9-2.9) L 10/27/21 03:45 Baso % (Auto) 0.5 % (0.2-1.0) 10/27/21 03:45 Neut # (Auto) 8.9 x10^3/uL (2.2-4.8) H 10/27/21 03:45 Lymph # (Auto) 1.0 X10^3/uL (1.3-2.9) L 10/27/21 03:45 [place] # (Auto) 1.0 x10^3/uL (0.3-0.8) H 10/27/21 03:45 Eos # (Auto) 0.0 x10^3/uL (0.0-0.2) 10/27/21 03:45 Baso # (Auto) 0.1 X10^3/uL (0.0-0.1) 10/27/21 03:45 Absolute Nucleated RBC 0.1 /100WBC 10/27/21 03:45 Total Counted 100 10/26/21 03:58 Neutrophils % (Manual) 89 % (39-76) H 10/26/21 03:58 Lymphocytes % (Manual) 6 % (13-43) L 10/26/21 03:58 Monocytes % (Manual) 5 % (4-9) 10/26/21 03:58 Plt Morphology Comment Normal (NORMAL) 10/26/21 03:58 RBC Morphology Normal (NORMAL) 10/26/21 03:58 PT 12.4 SECONDS (11.8-14.3) 10/23/21 04:55 INR Target Range - 10/23/21 04:55 INR 0.95 (0.8-1.3) 10/23/21 04:55 APTT 22.9 SECONDS (22.9-36.5) 10/23/21 04:55 PTT Comment - 10/23/21 04:55 Sample Site Rra 10/24/21 09:53 ABG pH 7.500 (7.35-7.45) H 10/24/21 09:53 ABG pCO2 59.0 mmHg (35.0-45.0) H* 10/24/21 09:53 ABG pO2 55.0 mmHg (80.0-100.0) L 10/24/21 09:53 ABG HCO3 46.0 mmol/L (22-26) H* 10/24/21 09:53 ABG O2 Saturation 91.0 % (90-100) 10/24/21 09:53 ABG Base Excess 19.6 mmol/L (-2.0-2.0) H 10/24/21 09:53 Varun Test Pos 10/24/21 09:53 A-a Gradient 128.0 mmHg 10/24/21 09:53 FiO2 36.0 10/24/21 09:53 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 10/24/21 09:53 Sodium 140 mmol/L (136-145) 10/27/21 03:45 Corrected Sodium 145 mmol/L (136-145) 10/27/21 03:45 Potassium 4.5 mmol/L (3.5-5.1) 10/27/21 03:45 Chloride 101 mmol/L (98-107) 10/27/21 03:45 Carbon Dioxide 36.2 mmol/L (21-32) H 10/27/21 03:45 BUN 29 mg/dL (7-18) H 10/27/21 03:45 Creatinine 1.07 mg/dL (0.55-1.02) H 10/27/21 03:45 Est GFR (MDRD) Af Amer > 60 (>60) 10/27/21 03:45 Est GFR (MDRD) Non-Af 55 (>60) L 10/27/21 03:45 Glucose 306 mg/dL (65-99) H 10/27/21 03:45 POC Glucose (mg/dL) 328 mg/dL (65-99) H 10/27/21 11:44 Hemoglobin A1c 7.8 % 10/27/21 03:45 Lactic Acid 0.4 mmol/L (0.4-2.0) 10/23/21 04:50 Calcium 8.3 mg/dL (8.5-10.1) L 10/27/21 03:45 Corrected Calcium 10.0 mg/dL (8.5-10.1) 10/25/21 04:30 Magnesium 2.1 mg/dL (1.7-2.9) 10/24/21 05:24 Total Bilirubin 0.40 mg/dL (0.2-1.0) 10/25/21 04:30 AST 14 Units/L (15-37) L 10/25/21 04:30 ALT 28 Units/L (12-78) 10/25/21 04:30 Alkaline Phosphatase 109 Units/L (46-116) 10/25/21 04:30 Creatine Kinase 32 Units/L (26-192) 10/23/21 20:35 CK-MB (CK-2) < 1.0 ng/mL (0-4.0) 10/23/21 20:35 CK/CKMB % Calc 3.1 % (<4) 10/23/21 20:35 Troponin I High Sens 18.3 ng/L (4.0-60.0) 10/23/21 20:35 B-Natriuretic Peptide 637 pg/mL (0-79) H* 10/23/21 04:55 Total Protein 7.5 g/dL (6.4-8.2) 10/25/21 04:30 Albumin 2.6 g/dL (3.4-5.0) L 10/25/21 04:30 Globulin 4.9 g/dL (2.5-4.5) H 10/25/21 04:30 Albumin/Globulin Ratio 0.5 Ratio (1.1-2.1) L 10/25/21 04:30 Triglycerides 169 mg/dL (0-150) H 10/24/21 05:24 Cholesterol 215 mg/dL (0-200) H 10/24/21 05:24 LDL Cholesterol, Calc 159 mg/dL (0-100) H 10/24/21 05:24 HDL Cholesterol 22 mg/dL (40-60) L 10/24/21 05:24 Cholesterol/HDL Ratio 9.8 (0.0-5.0) H 10/24/21 05:24 Specimen Type Catherized urine 10/23/21 05:24 Urine Color Straw (YELLOW) 10/23/21 05:24 Urine Appearance Clear (CLEAR) 10/23/21 05:24 Urine pH 7.0 (5.0 - 8.0) 10/23/21 05:24 Ur Specific [place] 1.015 (1.000-1.030) 10/23/21 05:24 Urine Protein Negative (NEGATIVE) 10/23/21 05:24 Urine Glucose (UA) Negative (NEGATIVE) 10/23/21 05:24 Urine Ketones Negative (NEGATIVE) 10/23/21 05:24 Urine Blood Negative (NEGATIVE) 10/23/21 05:24 Urine Nitrite Negative (NEGATIVE) 10/23/21 05:24 Urine Bilirubin Negative (NEGATIVE) 10/23/21 05:24 Urine Urobilinogen Normal (NORMAL) 10/23/21 05:24 Ur Leukocyte Esterase Negative (NEGATIVE) 10/23/21 05:24 Plan (1) Acute respiratory failure with hypoxia and hypercarbia: Status: Acute (2) CHF exacerbation: Status: Acute Qualifiers: Heart failure type: diastolic Qualified Code(s): I50.33 - Acute on chronic diastolic (congestive) heart failure (3) COPD exacerbation: Status: Acute (4) Bronchitis: Status: Acute (5) Acute respiratory distress: Status: Acute (6) Diabetes: Status: Acute Qualifiers: Diabetes mellitus complication status: with other specified complication 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
[2021-10-27] MEDS: GLUCOTROL XL 24-HR PO SCH (13:27)
[2021-10-27] MEDS: SNACK - Diabetic Appropriate PO SCH (19:51)
[2021-10-27] MEDS: AMBIEN PO PRN (20:17)
[2021-10-28] MEDS: DUONEB 0.5 MG/3 MG (3 mL) NEB SCH ×6 (00:15→20:50)
[2021-10-28] MEDS: ZOSYN VIAL 3.375 GRAMS 3.375 G in NS 100 ML IV 100 ML IV SCH ×3 (05:25→21:18)
[2021-10-28 05:35] LABS: BASOPHILS % (AUTO) 0.2 % (0.2-1.0); HEMOGLOBIN 14.4 g/dL (12.0-16.0); LYMPHOCYTES # (AUTO) 0.8 X10^3/uL (1.3-2.9); LYMPHOCYTES % (AUTO) 8.1 % (21.0-51.0); MEAN CORPUSCULAR HEMOGLOBIN 25.7 pg (27.0-34.0); MEAN CORPUSCULAR HGB CONC 31.4 g/dL (33.0-35.0); MEAN PLATELET VOLUME 8.6 fL (7.4-11.0); MONOCYTES # (AUTO) 0.6 x10^3/uL (0.3-0.8); MONOCYTES % (AUTO) 6.4 % (0.0-13.0); NEUTROPHILS # (AUTO) 8.2 x10^3/uL (2.2-4.8); NEUTROPHILS % (AUTO) 85.3 % (42.0-75.0); RED BLOOD COUNT 5.61 X10^6/uL (3.5-5.4); RED CELL DISTRIBUTION WIDTH 18.3 % (11.6-16.5); WHITE BLOOD COUNT 9.6 X10^3/uL (3.6-10.0)
[2021-10-28 05:39] LABS: BLOOD UREA NITROGEN 24 mg/dL (7-18); CALCIUM 8.2 mg/dL (8.5-10.1); CARBON DIOXIDE 37.2 mmol/L (21-32); CHLORIDE 101 mmol/L (98-107); COR NA(FOR HYPERGLY) 142 mmol/L (136-145); CREATININE 0.93 mg/dL (0.55-1.02); SODIUM 137 mmol/L (136-145); eGFR NON BLACK RACES > 60 (>60)
[2021-10-28] MEDS: NovoLIN R (or HumuLIN R) SC PRN ×2 (06:41→20:40)
[2021-10-28] MEDS ORDERED: GLUCOTROL XL 24-HR PO SCH (07:00)
[2021-10-28] MEDS: SOLU-Medrol 125 MG VIAL IVP SCH ×2 (08:29→20:40)
[2021-10-28] MEDS: GLUCOPHAGE XR 24-HR PO SCH (08:30)
[2021-10-28] MEDS: GLUCOTROL XL 24-HR PO SCH (08:30)
[2021-10-28] MEDS: LASIX PO SCH (08:30)
[2021-10-28] MEDS: ZESTRIL TAB 10 MG PO SCH (08:30)
[2021-10-28] MEDS: NICOTINE PATCH TD SCH (08:30)
[2021-10-28] MEDS: LOVENOX INJ 40 MG SYR SC SCH (08:33)
[2021-10-28] MEDS: PULMICORT NEB TX 0.5 MG NEB SCH ×2 (09:17→20:50)
[2021-10-28] MEDS: SNACK - Diabetic Appropriate PO SCH (20:18)
[2021-10-29 04:44] LABS: BASOPHILS % (AUTO) 0.3 % (0.2-1.0); EOSINOPHILS % (AUTO) 0.1 % (0.9-2.9); HEMATOCRIT 47.2 % (36.0-47.0); HEMOGLOBIN 14.7 g/dL (12.0-16.0); LYMPHOCYTES # (AUTO) 0.5 X10^3/uL (1.3-2.9); LYMPHOCYTES % (AUTO) 4.4 % (21.0-51.0); MEAN CORPUSCULAR HEMOGLOBIN 25.7 pg (27.0-34.0); MEAN CORPUSCULAR HGB CONC 31.2 g/dL (33.0-35.0); MEAN CORPUSCULAR VOLUME 82.6 fL (80.0-100.0); MEAN PLATELET VOLUME 8.9 fL (7.4-11.0); MONOCYTES # (AUTO) 0.3 x10^3/uL (0.3-0.8); MONOCYTES % (AUTO) 3.2 % (0.0-13.0); NEUTROPHILS # (AUTO) 9.8 x10^3/uL (2.2-4.8); RED BLOOD COUNT 5.72 X10^6/uL (3.5-5.4); RED CELL DISTRIBUTION WIDTH 18.3 % (11.6-16.5); WHITE BLOOD COUNT 10.6 X10^3/uL (3.6-10.0)
[2021-10-29 04:51] LABS: ALANINE AMINOTRANSFERASE 26 Units/L (12-78); ALBUMIN 2.4 g/dL (3.4-5.0); ALKALINE PHOSPHATASE 97 Units/L (46-116); ASPARTATE AMINO TRANSFERASE 11 Units/L (15-37); BLOOD UREA NITROGEN 19 mg/dL (7-18); CHLORIDE 97 mmol/L (98-107); COR CA(FOR HYPOALB) 9.3 mg/dL (8.5-10.1); COR NA(FOR HYPERGLY) 143 mmol/L (136-145); CREATININE 1.02 mg/dL (0.55-1.02); SODIUM 136 mmol/L (136-145); TOTAL PROTEIN 5.8 g/dL (6.4-8.2); eGFR NON BLACK RACES 58 (>60)
[2021-10-29] MEDS: ZOSYN VIAL 3.375 GRAMS 3.375 G in NS 100 ML IV 100 ML IV SCH (05:05)
[2021-10-29] MEDS: NovoLIN R (or HumuLIN R) SC PRN ×3 (05:29→20:31)
[2021-10-29] MEDS: DUONEB 0.5 MG/3 MG (3 mL) NEB SCH ×6 (05:50→20:55)
[2021-10-29 06:12] LABS: ANISOCYTOSIS SLIGHT; PLATELET MORPHOLOGY COMMENT NORMAL (NORMAL)
[2021-10-29] MEDS: GLUCOPHAGE XR 24-HR PO SCH (08:21)
[2021-10-29] MEDS: NICOTINE PATCH TD SCH (08:21)
[2021-10-29] MEDS: GLUCOTROL XL 24-HR PO SCH (08:21)
[2021-10-29] MEDS: SOLU-Medrol 125 MG VIAL IVP SCH (08:22)
[2021-10-29] MEDS: LOVENOX INJ 40 MG SYR SC SCH (08:29)
[2021-10-29] MEDS: PULMICORT NEB TX 0.5 MG NEB SCH ×2 (08:50→20:55)
[2021-10-29] MEDS: TYLENOL 325 MG TAB PO PRN (09:46)
[2021-10-29] MEDS: ZESTRIL TAB 10 MG PO SCH (09:46)
[2021-10-29] MEDS: LASIX PO SCH (09:46)
[2021-10-29] MEDS ORDERED: NS 250 ML IV 250 ML IV ONE (09:58)
[2021-10-29] MEDS: VIBRAMYCIN PO SCH ×2 (11:14→20:30)
[2021-10-29] MEDS: SNACK - Diabetic Appropriate PO SCH (20:30)
[2021-10-30] MEDS: DUONEB 0.5 MG/3 MG (3 mL) NEB SCH ×3 (00:57→08:28)
[2021-10-30 04:44] LABS: BASOPHILS # (AUTO) 0.1 X10^3/uL (0.0-0.1); BASOPHILS % (AUTO) 0.5 % (0.2-1.0); EOSINOPHILS # (AUTO) 0.2 x10^3/uL (0.0-0.2); EOSINOPHILS % (AUTO) 1.4 % (0.9-2.9); HEMATOCRIT 46.8 % (36.0-47.0); HEMOGLOBIN 14.8 g/dL (12.0-16.0); LYMPHOCYTES # (AUTO) 2.3 X10^3/uL (1.3-2.9); LYMPHOCYTES % (AUTO) 20.6 % (21.0-51.0); MEAN CORPUSCULAR HEMOGLOBIN 25.9 pg (27.0-34.0); MEAN CORPUSCULAR HGB CONC 31.6 g/dL (33.0-35.0); MEAN CORPUSCULAR VOLUME 81.9 fL (80.0-100.0); MONOCYTES # (AUTO) 0.9 x10^3/uL (0.3-0.8); MONOCYTES % (AUTO) 8.2 % (0.0-13.0); NEUTROPHILS # (AUTO) 7.7 x10^3/uL (2.2-4.8); NEUTROPHILS % (AUTO) 69.3 % (42.0-75.0); RED BLOOD COUNT 5.71 X10^6/uL (3.5-5.4); WHITE BLOOD COUNT 11.1 X10^3/uL (3.6-10.0)
[2021-10-30 05:01] LABS: ALANINE AMINOTRANSFERASE 23 Units/L (12-78); ALBUMIN 2.4 g/dL (3.4-5.0); ALKALINE PHOSPHATASE 88 Units/L (46-116); ASPARTATE AMINO TRANSFERASE 10 Units/L (15-37); BLOOD UREA NITROGEN 27 mg/dL (7-18); CALCIUM 8.5 mg/dL (8.5-10.1); CARBON DIOXIDE 35.3 mmol/L (21-32); CHLORIDE 102 mmol/L (98-107); COR CA(FOR HYPOALB) 9.8 mg/dL (8.5-10.1); COR NA(FOR HYPERGLY) 139 mmol/L (136-145); CREATININE 0.95 mg/dL (0.55-1.02); SODIUM 138 mmol/L (136-145); TOTAL PROTEIN 5.9 g/dL (6.4-8.2); eGFR NON BLACK RACES > 60 (>60)
[2021-10-30] MEDS ORDERED: POTASSIUM CHLORIDE LIQ 20 MEQ UDC PO PRN (07:26)
[2021-10-30] MEDS ORDERED: POTASSIUM CHL 60 MEQ/NS 0.45% 500 ML IV PRN (07:26)
[2021-10-30] MEDS ORDERED: K-RIDER 10 MEQ/NS 100 ML 10 MEQ/100 ML BAG IV PRN (07:26)
[2021-10-30] MEDS ORDERED: POTASSIUM CHL 40 MEQ/NS 0.45% 500 ML IV PRN (07:26)
[2021-10-30] MEDS ORDERED: KLOR-CON PO PRN (07:26)
[2021-10-30] MEDS ORDERED: MICRO K EXTEN CAP 10 MEQ PO PRN (07:26)
[2021-10-30] MEDS ORDERED: K-DUR TAB 20 MEQ PO PRN (07:26)
--- NOTE | 2021-10-30 08:17 | W.DIS.FURT ---
Summary of Discharge Discharge Summary of Date Date of Exam: 10/30/21 Admission Date Date of Admission: 10/23/21 Admission Diagnosis Patient Problems (Updated 11/13/21 @ 15:40 by Neema Ramsey) COPD exacerbation (Acute) J44.1 Hospital Course: Ms Leonard is a 66y/o female with a PMH of chronic respiratory failure due to CHF and COPD, recurrent admissions for COPD and CHF exacerbation, Type 2 Diabete s, OA, chronic pain and anxiety presented with increased SOB. In the ER, patient's ABG showed hypoxia and hypercapnia so she was placed on Bipap. BNP was elevated at 637. CXR showed small pleural effusions and cardiomegaly. Patient's cardiac enzymes were negative. She was admitted for acute respiratory failure due to COPD and CHF exacerbation. She was started on IV lasix, antibiotics and steroids. She remained on BiPAP at FiO2 45% and was monitored closely in the ICU. Her labs were monitored daily and electrolytes replaced as needed. She was weaned off BiPAP to nasal canula. Patient's mentation improved and she was alert and oriented. She had been out of all her medications and missed her follow up appointments due to not having insurance. PT/OT was also consulted and patient did well. She was transitioned to oral lasix and PO antibiotics. She had echo done on 03/16/21 which showed EF 45%.She was stable for discharge. She did require home oxygen. She will follow up with PCP and will be referred to cardiology. Vital Signs: Vital Signs (72 hours) 10/27/21 08:50 10/27/21 09:00 10/27/21 09:09 Temperature Pulse Rate 86 81 Pulse Rate [Left Radial] Respiratory Rate 23 20 Blood Pressure 136/63 Blood Pressure [Left Arm] O2 Sat by Pulse Oximetry 92 L 96 10/27/21 09:31 10/27/21 09:45 10/27/21 10:00 Temperature Pulse Rate 81 83 Pulse Rate [Left Radial] Respiratory Rate 20 22 26 H Blood Pressure 136/63 127/59 Blood Pressure [Left Arm] O2 Sat by Pulse Oximetry 96 85 L 10/27/21 10:15 10/27/21 11:00 10/27/21 12:00 Temperature 98.0 F Pulse Rate 73 75 Pulse Rate [Left Radial] Respiratory Rate 20 25 H 26 H Blood Pressure 115/55 122/60 Blood Pressure [Left Arm] O2 Sat by Pulse Oximetry 91 L 91 L 10/27/21 13:00 10/27/21 14:00 10/27/21 14:02 Temperature Pulse Rate 82 78 81 Pulse Rate [Left Radial] Respiratory Rate 32 H 15 28 H Blood Pressure 128/92 81/50 88/52 Blood Pressure [Left Arm] O2 Sat by Pulse Oximetry 85 L 90 L 92 L 10/27/21 15:00 10/27/21 16:00 10/27/21 17:00 Temperature 98.6 F Pulse Rate 84 96 H 91 H Pulse Rate [Left Radial] Respiratory Rate 25 H 23 34 H Blood Pressure 123/62 148/86 Blood Pressure [Left Arm] O2 Sat by Pulse Oximetry 87 L 89 L 93 L 10/27/21 18:00 10/27/21 19:00 10/27/21 19:51 Temperature Pulse Rate 83 80 Pulse Rate [Left Radial] Respiratory Rate 28 H 18 22 Blood Pressure 118/59 120/74 Blood Pressure [Left Arm] O2 Sat by Pulse Oximetry 94 L 92 L 10/27/21 20:00 10/27/21 20:21 10/27/21 20:27 Temperature 98.8 F Pulse Rate 82 83 Pulse Rate [Left Radial] Respiratory Rate 22 20 Blood Pressure 125/61 Blood Pressure [Left Arm] O2 Sat by Pulse Oximetry 92 L 93 L 10/27/21 21:00 10/27/21 22:00 10/27/21 23:00 Temperature Pulse Rate 89 85 83 Pulse Rate [Left Radial] Respiratory Rate 16 24 23 Blood Pressure 103/56 103/62 102/54 Blood Pressure [Left Arm] O2 Sat by Pulse Oximetry 91 L 92 L 91 L 10/28/21 00:00 10/28/21 01:00 10/28/21 02:00 Temperature 98.0 F Pulse Rate 79 72 75 Pulse Rate [Left Radial] Respiratory Rate 22 23 19 Blood Pressure 120/63 132/65 115/60 Blood Pressure [Left Arm] O2 Sat by Pulse Oximetry 94 L 94 L 94 L 10/28/21 03:00 10/28/21 04:00 10/28/21 05:00 Temperature 98.1 F Pulse Rate 72 70 68 Pulse Rate [Left Radial] Respiratory Rate 22 Blood Pressure 129/66 135/65 151/70 Blood Pressure [Left Arm] O2 Sat by Pulse Oximetry 94 L 96 95 10/28/21 06:00 10/28/21 07:00 10/28/21 08:00 Temperature 98.0 F 98.0 F Pulse Rate 76 78 80 Pulse Rate [Left Radial] Respiratory Rate 24 28 H 24 Blood Pressure 161/64 144/64 144/65 Blood Pressure [Left Arm] O2 Sat by Pulse Oximetry 93 L 92 L 92 L 10/28/21 09:00 10/28/21 09:17 10/28/21 10:00 Temperature Pulse Rate 79 76 82 Pulse Rate [Left Radial] Respiratory Rate 24 28 H Blood Pressure 129/67 127/69 Blood Pressure [Left Arm] O2 Sat by Pulse Oximetry 90 L 94 L 92 L 10/28/21 11:00 10/28/21 12:00 10/28/21 13:00 Temperature 98.3 F Pulse Rate 78 79 82 Pulse Rate [Left Radial] Respiratory Rate 24 25 H 24 Blood Pressure 135/63 104/50 80/50 Blood Pressure [Left Arm] O2 Sat by Pulse Oximetry 93 L 90 L 93 L 10/28/21 14:00 10/28/21 15:00 10/28/21 16:00 Temperature 98.0 F Pulse Rate 83 93 H 78 Pulse Rate [Left Radial] Respiratory Rate 23 26 H 23 Blood Pressure 84/51 100/49 100/49 Blood Pressure [Left Arm] O2 Sat by Pulse Oximetry 90 L 90 L 93 L 10/28/21 16:55 10/28/21 17:00 10/28/21 18:00 Temperature Pulse Rate 85 89 86 Pulse Rate [Left Radial] Respiratory Rate 24 27 H Blood Pressure 100/49 86/49 Blood Pressure [Left Arm] O2 Sat by Pulse Oximetry 93 L 90 L 89 L 10/28/21 19:00 10/28/21 20:00 10/28/21 20:01 Temperature 98.1 F Pulse Rate 88 88 88 Pulse Rate [Left Radial] Respiratory Rate 27 H 33 H 33 H Blood Pressure 87/49 91/55 Blood Pressure [Left Arm] O2 Sat by Pulse Oximetry 3 L 89 L 89 L 10/28/21 20:50 10/28/21 21:00 10/28/21 21:07 Temperature Pulse Rate 81 84 85 Pulse Rate [Left Radial] Respiratory Rate 63 H 50 H Blood Pressure 86/44 93/38 Blood Pressure [Left Arm] O2 Sat by Pulse Oximetry 92 L 92 L 94 L 10/28/21 21:15 10/28/21 21:59 10/28/21 22:00 Temperature Pulse Rate 86 81 80 Pulse Rate [Left Radial] Respiratory Rate 45 H 26 H 26 H Blood Pressure 86/44 71/51 Blood Pressure [Left Arm] O2 Sat by Pulse Oximetry 94 L 87 L 3 L 10/28/21 22:01 10/28/21 22:02 10/28/21 22:07 Temperature Pulse Rate 81 80 84 Pulse Rate [Left Radial] Respiratory Rate 27 H 27 H 27 H Blood Pressure 71/48 79/50 Blood Pressure [Left Arm] O2 Sat by Pulse Oximetry 87 L 87 L 87 L 10/28/21 22:17 10/28/21 22:18 10/28/21 23:00 Temperature Pulse Rate 81 84 82 Pulse Rate [Left Radial] Respiratory Rate 30 H 25 H 37 H Blood Pressure 79/52 85/52 105/53 Blood Pressure [Left Arm] O2 Sat by Pulse Oximetry 88 L 88 L 92 L 10/28/21 23:01 10/28/21 23:58 10/29/21 00:00 Temperature 98.2 F Pulse Rate 83 79 82 Pulse Rate [Left Radial] Respiratory Rate 25 H 27 H 22 Blood Pressure 105/53 96/53 Blood Pressure [Left Arm] O2 Sat by Pulse Oximetry 91 L 95 91 L 10/29/21 00:01 10/29/21 01:00 10/29/21 02:00 Temperature Pulse Rate 79 80 80 Pulse Rate [Left Radial] Respiratory Rate 25 H 29 H 32 H Blood Pressure 101/49 83/45 Blood Pressure [Left Arm] O2 Sat by Pulse Oximetry 95 3 L 90 L 10/29/21 03:00 10/29/21 03:02 10/29/21 03:04 Temperature Pulse Rate 86 86 86 Pulse Rate [Left Radial] Respiratory Rate 29 H 48 H 32 H Blood Pressure 83/43 79/40 93/50 Blood Pressure [Left Arm] O2 Sat by Pulse Oximetry 92 L 92 L 90 L 10/29/21 04:00 10/29/21 05:00 10/29/21 06:00 Temperature 98.4 F Pulse Rate 77 76 72 Pulse Rate [Left Radial] Respiratory Rate 26 H 24 21 Blood Pressure 140/65 139/64 89/54 Blood Pressure [Left Arm] O2 Sat by Pulse Oximetry 92 L 94 L 97 10/29/21 06:01 10/29/21 07:00 10/29/21 07:05 Temperature Pulse Rate 83 83 Pulse Rate [Left Radial] Respiratory Rate 43 H 33 H Blood Pressure 89/54 106/55 106/55 Blood Pressure [Left Arm] O2 Sat by Pulse Oximetry 90 L 92 L 10/29/21 08:00 10/29/21 08:04 10/29/21 08:05 Temperature 98.0 F Pulse Rate 81 79 79 Pulse Rate [Left Radial] Respiratory Rate 49 H 41 H 41 H Blood Pressure 94/50 80/44 79/39 Blood Pressure [Left Arm] O2 Sat by Pulse Oximetry 91 L 92 L 91 L 10/29/21 08:06 10/29/21 08:50 10/29/21 09:00 Temperature Pulse Rate 80 75 77 Pulse Rate [Left Radial] Respiratory Rate 34 H 31 H Blood Pressure 94/50 121/53 Blood Pressure [Left Arm] O2 Sat by Pulse Oximetry 93 L 93 L 95 10/29/21 09:01 10/29/21 09:46 10/29/21 10:00 Temperature Pulse Rate 78 77 Pulse Rate [Left Radial] Respiratory Rate 40 H 20 24 Blood Pressure 121/53 132/59 Blood Pressure [Left Arm] O2 Sat by Pulse Oximetry 95 90 L 10/29/21 10:46 10/29/21 11:00 10/29/21 12:00 Temperature 98.8 F Pulse Rate 84 77 Pulse Rate [Left Radial] Respiratory Rate 20 24 22 Blood Pressure 120/56 104/75 Blood Pressure [Left Arm] O2 Sat by Pulse Oximetry 91 L 89 L 10/29/21 13:00 10/29/21 13:20 10/29/21 16:00 Temperature 99 F Pulse Rate 82 79 Pulse Rate [Left Radial] Respiratory Rate 24 20 Blood Pressure 111/55 Blood Pressure [Left Arm] 98/50 O2 Sat by Pulse Oximetry 90 L 92 L 90 L 10/29/21 19:38 10/29/21 20:55 10/29/21 23:50 Temperature 98.8 F 98.8 F Pulse Rate 81 Pulse Rate [Left Radial] 88 88 Respiratory Rate 22 20 Blood Pressure Blood Pressure [Left Arm] 128/58 114/51 O2 Sat by Pulse Oximetry 89 L 94 L 90 L 04/18/22 04:00 10/30/21 07:38 Temperature 98.4 F 98.5 F Pulse Rate Pulse Rate [Left Radial] 82 80 Respiratory Rate 20 20 Blood Pressure Blood Pressure [Left Arm] 120/55 116/54 O2 Sat by Pulse Oximetry 91 L 92 L Labs: Laboratory Last Values WBC 11.1 X10^3/uL (3.6-10.0) H 10/30/21 04:20 RBC 5.71 X10^6/uL (3.5-5.4) H 10/30/21 04:20 Hgb 14.8 g/dL (12.0-16.0) 10/30/21 04:20 Hct 46.8 % (36.0-47.0) 10/30/21 04:20 MCV 81.9 fL (80.0-100.0) 10/30/21 04:20 MCH 25.9 pg (27.0-34.0) L 10/30/21 04:20 MCHC 31.6 g/dL (33.0-35.0) L 10/30/21 04:20 RDW 18.0 % (11.6-16.5) H 10/30/21 04:20 Plt Count 266 X10^3/uL (150.0-450.0) 10/30/21 04:20 Plt Count Comment Adequate (ADEQUATE) 10/29/21 04:21 MPV 9.0 fL (7.4-11.0) 10/30/21 04:20 Neut % (Auto) 69.3 % (42.0-75.0) 10/30/21 04:20 Lymph % (Auto) 20.6 % (21.0-51.0) L 10/30/21 04:20 Mckenzie % (Auto) 8.2 % (0.0-13.0) 10/30/21 04:20 Eos % (Auto) 1.4 % (0.9-2.9) 10/30/21 04:20 Baso % (Auto) 0.5 % (0.2-1.0) 10/30/21 04:20 Neut # (Auto) 7.7 x10^3/uL (2.2-4.8) H 10/30/21 04:20 Lymph # (Auto) 2.3 X10^3/uL (1.3-2.9) 10/30/21 04:20 Mckenzie # (Auto) 0.9 x10^3/uL (0.3-0.8) H 10/30/21 04:20 Eos # (Auto) 0.2 x10^3/uL (0.0-0.2) 10/30/21 04:20 Baso # (Auto) 0.1 X10^3/uL (0.0-0.1) 10/30/21 04:20 Absolute Nucleated RBC 0.1 /100WBC 10/30/21 04:20 Total Counted 100 10/29/21 04:21 Neutrophils % (Manual) 92 % (39-76) H 10/29/21 04:21 Lymphocytes % (Manual) 4 % (13-43) L 10/29/21 04:21 Monocytes % (Manual) 4 % (4-9) 10/29/21 04:21 Plt Morphology Comment Normal (NORMAL) 10/29/21 04:21 RBC Morphology Abnormal (NORMAL) A 10/29/21 04:21 Anisocytosis Slight A 10/29/21 04:21 PT 12.4 SECONDS (11.8-14.3) 10/23/21 04:55 INR Target Range - 10/23/21 04:55 INR 0.95 (0.8-1.3) 10/23/21 04:55 APTT 22.9 SECONDS (22.9-36.5) 10/23/21 04:55 PTT Comment - 10/23/21 04:55 Sample Site Rra 10/24/21 09:53 ABG pH 7.500 (7.35-7.45) H 10/24/21 09:53 ABG pCO2 59.0 mmHg (35.0-45.0) H* 10/24/21 09:53 ABG pO2 55.0 mmHg (80.0-100.0) L 10/24/21 09:53 ABG HCO3 46.0 mmol/L (22-26) H* 10/24/21 09:53 ABG O2 Saturation 91.0 % (90-100) 10/24/21 09:53 ABG Base Excess 19.6 mmol/L (-2.0-2.0) H 10/24/21 09:53 Varun Test Pos 10/24/21 09:53 A-a Gradient 128.0 mmHg 10/24/21 09:53 FiO2 36.0 10/24/21 09:53 Blood Gas Comments Pt jose well eb back winder 10/24/21 09:53 Sodium 138 mmol/L (136-145) 10/30/21 04:20 Corrected Sodium 139 mmol/L (136-145) 10/30/21 04:20 Potassium 3.7 mmol/L (3.5-5.1) 10/30/21 04:20 Chloride 102 mmol/L (98-107) 10/30/21 04:20 Carbon Dioxide 35.3 mmol/L (21-32) H 10/30/21 04:20 BUN 27 mg/dL (7-18) H 10/30/21 04:20 Creatinine 0.95 mg/dL (0.55-1.02) 10/30/21 04:20 Est GFR (MDRD) Af Amer > 60 (>60) 10/30/21 04:20 Est GFR (MDRD) Non-Af > 60 (>60) 10/30/21 04:20 Glucose 151 mg/dL (65-99) H 10/30/21 04:20 POC Glucose (mg/dL) 218 mg/dL (65-99) H 10/29/21 16:39 Hemoglobin A1c 7.8 % 10/27/21 03:45 Lactic Acid 0.4 mmol/L (0.4-2.0) 10/23/21 04:50 Calcium 8.5 mg/dL (8.5-10.1) 10/30/21 04:20 Corrected Calcium 9.8 mg/dL (8.5-10.1) 10/30/21 04:20 Magnesium 2.0 mg/dL (1.7-2.9) 10/30/21 04:20 Total Bilirubin 0.30 mg/dL (0.2-1.0) 10/30/21 04:20 AST 10 Units/L (15-37) L 10/30/21 04:20 ALT 23 Units/L (12-78) 10/30/21 04:20 Alkaline Phosphatase 88 Units/L (46-116) 10/30/21 04:20 Creatine Kinase 32 Units/L (26-192) 10/23/21 20:35 CK-MB (CK-2) < 1.0 ng/mL (0-4.0) 10/23/21 20:35 CK/CKMB % Calc 3.1 % (<4) 10/23/21 20:35 Troponin I High Sens 18.3 ng/L (4.0-60.0) 10/23/21 20:35 B-Natriuretic Peptide 637 pg/mL (0-79) H* 10/23/21 04:55 Total Protein 5.9 g/dL (6.4-8.2) L 10/30/21 04:20 Albumin 2.4 g/dL (3.4-5.0) L 10/30/21 04:20 Globulin 3.5 g/dL (2.5-4.5) 10/30/21 04:20 Albumin/Globulin Ratio 0.7 Ratio (1.1-2.1) L 10/30/21 04:20 Triglycerides 169 mg/dL (0-150) H 10/24/21 05:24 Cholesterol 215 mg/dL (0-200) H 10/24/21 05:24 LDL Cholesterol, Calc 159 mg/dL (0-100) H 10/24/21 05:24 HDL Cholesterol 22 mg/dL (40-60) L 10/24/21 05:24 Cholesterol/HDL Ratio 9.8 (0.0-5.0) H 10/24/21 05:24 Specimen Type Catherized urine 10/23/21 05:24 Urine Color Straw (YELLOW) 10/23/21 05:24 Urine Appearance Clear (CLEAR) 10/23/21 05:24 Urine pH 7.0 (5.0 - 8.0) 10/23/21 05:24 Ur Specific [place] 1.015 (1.000-1.030) 10/23/21 05:24 Urine Protein Negative (NEGATIVE) 10/23/21 05:24 Urine Glucose (UA) Negative (NEGATIVE) 10/23/21 05:24 Urine Ketones Negative (NEGATIVE) 10/23/21 05:24 Urine Blood Negative (NEGATIVE) 10/23/21 05:24 Urine Nitrite Negative (NEGATIVE) 10/23/21 05:24 Urine Bilirubin Negative (NEGATIVE) 10/23/21 05:24 Urine Urobilinogen Normal (NORMAL) 10/23/21 05:24 Ur Leukocyte Esterase Negative (NEGATIVE) 10/23/21 05:24 Reason For Visit: RESPIRATORY DISTRESS, CHF, COPD EXACERBATION Discharge Date Discharge Date: 10/30/21 Discharge Diagnosis All Active Problems (Updated 11/13/21 @ 15:40 by Neema Ramsey) CHF exacerbation (Acute) Acute respiratory failure with hypoxia and hypercarbia (Acute) Bronchitis (Acute) COPD exacerbation (Acute) Generalized weakness (Acute) Lethargy (Acute) Drug abuse (Chronic) Type 2 diabetes mellitus (Chronic) Plan of Treatment: Continue with present treatment and follow up plan. Pt is to keep follow up appointment as instructed and take medications as ordered. Discharge Medications Discharge Medications: iodine Allergy (Verified 10/23/21 05:28) shellfish derived Allergy (Verified 10/23/21 05:28) New Prescriptions albuterol sulfate 2 puff INHALATION Q6H PRN #6.7 g 10/30/21 [Rx] doxycycline hyclate 100 mg PO BID 4 Days #8 cap 10/30/21 [Rx] furosemide 40 mg PO QAM 30 Days #30 tab 10/30/21 [Rx] glipizide 5 mg PO DAILY 30 Days #30 tab 10/30/21 [Rx] ipratropium-albuterol 3 ml NEB TID 30 Days #60 each 10/30/21 [Rx] lisinopril 5 mg PO DAILY 30 Days #30 tab 10/30/21 [Rx] metformin 1,000 mg PO DAILY 30 Days #30 tab 10/30/21 [Rx] potassium chloride 10 meq PO DAILY 30 Days #30 tab 10/30/21 [Rx] Follow up and Referral Follow Up: 1 Week (PCP) Discharge Disposition Assessment: No acute distress noted. Discharge Disposition: Home Discharge Condition: Stable Discharge Plan Discharge Plan Hospital Course: Ms Leonard is a 66y/o female with a PMH of chronic respiratory failure due to CHF and COPD, recurrent admissions for COPD and CHF exacerbation, Type 2 Diabetes, OA, chronic pain and anxiety presented with increased SOB. In the ER, patient's ABG showed hypoxia and hypercapnia so she was placed on Bipap. BNP was elevated at 637. CXR showed small pleural effusions and cardiomegaly. Patient's cardiac enzymes were negative. She was admitted for acute respiratory failure due to COPD and CHF exacerbation. She was started on IV lasix, antibiotics and steroids. She remained on BiPAP at FiO2 45% and was monitored closely in the ICU. Her labs were monitored daily and electrolytes replaced as needed. She was weaned off BiPAP to nasal canula. Patient's mentation improved and she was alert and oriented. She had been out of all her medications and missed her follow up appointments due to not having insurance. PT/OT was also consulted and patient did well. She was transitioned to oral lasix and PO antibiotics. She had echo done on 03/16/21 which showed EF 45%.She was stable for discharge. She did require home oxygen. She will follow up with PCP and will be referred to cardiology. Patient Disposition: 01 HOME, SELF-CARE Condition: Stable Health Concerns: Post Hospitalization: new medications and changes needed to prevent readmission or further decline. Pt educated and given instructions on all concerns. Care Plan Goals: Problem: Respiratory Complications Goal: Improved Uncomplicated Respiratory Status Instructions: Follow provided instructions. Follow up with primary physician as directed. Contact primary care physician or report to the closest Emergency Room if condition worsens. Plan of Treatment: Continue with present treatment and follow up plan. Pt is to keep follow up appointment as instructed and take medications as ordered. Assessment: No acute distress noted. Prescription drug monitoring program results: PDMP reviewed and no concerns identified Prescriptions: New ipratropium-albuterol 0.5 mg-3 mg(2.5 mg base)/3 mL Solution For Nebulization 3 ml NEB TID 30 Days Qty: 60 RF: 0 metformin 1,000 mg tablet extended release 24hr 1,000 mg PO DAILY 30 Days Qty: 30 RF: 1 furosemide 40 mg Tablet 40 mg PO QAM 30 Days Qty: 30 RF: 1 glipizide 5 mg Tablet Extended Release 24 Hr 5 mg PO DAILY 30 Days Qty: 30 RF: 1 lisinopril 5 mg Tablet 5 mg PO DAILY 30 Days Qty: 30 RF: 1 albuterol sulfate 90 mcg/actuation HFA aerosol inhaler 2 puff inhalation Q6H PRN (Reason: shortness of breath or wheezing) Qty: 6.7 RF: 1 potassium chloride 10 mEq tablet extended release 10 meq PO DAILY 30 Days Qty: 30 RF: 1 Discontinued tramadol [Ultram] 50 mg Tablet 50 mg PO BID PRN (Reason: Pain) RF: 0 Follow ups/Referrals Follow ups/Referrals: Neema Ramsey [Primary Care Provider] - 11/15/21 9:30 am Instructions Instructions: Type 2 Diabetes Mellitus, Diagnosis, Adult, Diabetes Mellitus and Sick Day Management, Home Oxygen Use, Adult, Steps to Quit Smoking, [id number], Heart Failure, Self Care, [id number], Weakness, [id number], How to Use a Nebulizer, Adult, Acute Respiratory Failure, Adult, Preventing Diabetes Mellitus Complications Activity Restrictions/Additional Instructions: Daughter to garbage pick up worker Nebulizer at [facility] for patient. Patient current with [facility]. Stand Alone Forms: [facility], [place] [facility], Patient Portal, Social Distancing
[2021-10-30] MEDS: PULMICORT NEB TX 0.5 MG NEB SCH (08:28)
[2021-10-30] MEDS: GLUCOTROL XL 24-HR PO SCH (08:35)
[2021-10-30] MEDS: GLUCOPHAGE XR 24-HR PO SCH (08:35)
[2021-10-30] MEDS: LOVENOX INJ 40 MG SYR SC SCH (08:36)
[2021-10-30] MEDS: NICOTINE PATCH TD SCH (08:36)
[2021-10-30] MEDS: LASIX PO SCH (08:36)
[2021-10-30] MEDS: VIBRAMYCIN PO SCH (08:37)
[2021-10-30] MEDS ORDERED: ZESTRIL TAB 5 MG PO SCH (09:00)
[2021-10-30 12:44] VITALS: BP 114/66
== END 2021-10-30 12:40 | disposition home or self-care (01) | DRG 190 ==
LOC: ER 04:05 → ICU 06:27 → MED/SURG 10-29 14:37
PROVIDERS: ADMIT Family Medicine; ATTEND Internal Medicine
DX: E11.65 Type 2 diabetes mellitus with hyperglycemia; J44.1 Chronic obstructive pulmonary disease with (acute) exacerbation; J96.02 Acute respiratory failure with hypercapnia; F41.8 Other specified anxiety disorders; R26.89 Other abnormalities of gait and mobility; I50.33 Acute on chronic diastolic (congestive) heart failure; J96.01 Acute respiratory failure with hypoxia

== ENCOUNTER 2022-06-08 02:23 | Inpatient (IN) ==
[2022-06-08] MEDS ORDERED: OFIRMEV IV 1000 MG VIAL 1,000 MG/100 ML VIAL IV ONE (02:46)
--- NOTE | 2022-06-08 02:46 | DR.GENAD ---
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 PMH PMH Past Medical History: Arthritis, CHF, COPD and Diabetes Past Surgical History: No Surgical History: Unknown Family History Family Medical History: Diabetes Mellitus and Cancer ROS Review of Systems Constitutional: No Symptoms Reported Eyes: No Symptoms Reported ENTM: No Symptoms Reported Respiratoy: See HPI Cardiovascular: No Symptoms Reported Gastrointestinal/Abdominal: No Symptoms Reported Genitourinary: No Symptoms Reported Neurological: No Symptoms Reported Musculoskeletal: No Symptoms Reported Integumentary: No Symptoms Reported Hematologic/Lymphatic: No Symptoms Reported Endocrine: No Symptoms Reported PE Vital Signs Vitals: Temperature 102.8 F Pulse Rate [Left] 80 Pulse Rate 104 Respiratory Rate 37 Blood Pressure [Left Arm] 92/51 Blood Pressure 85/56 O2 Sat by Pulse Oximetry 95 General Limitations: No Limitations General Appearance: Alert and In No Apparent Distress Head Head Exam: Normal Inspection Eyes Eye exam: Normal Appearance ENT ENT Exam: Normal Exam External Ear Exam: Normal External Inspection TM/Canal Exam: Bilateral: Normal Nose Exam: Normal Nose Exam Mouth Exam: Normal Inspection Throat Exam: Normal Inspection Neck Neck Exam: Normal Inspection Chest Chest Inspection: Normal Inspection Respiratory Respiratory Exam: Normal Lung Sounds Bilat Respiratory Exam: Bilateral: Decreased Breath Sounds (increased wob with use of accessory muscles) Cardiovascular Cardiovascular Exam: Regular Rate and Normal Rhythm Abdominal Exam Abdominal Exam: Normal Inspection, Normal Bowel Sounds and Soft Extremities Extremities Exam: Normal Inspection Back Back Exam: Normal Inspection Neurologic Neurological Exam: Alert and Oriented X3 Psychiatric Psychiatric Exam: Anxious Skin Skin Exam: Cyanosis (mainly in her face ) and Diaphoresis COURSE Consultation Call Returned: 05:45 (Dr Mccloud accepts admission.) Critical Care Notes Total Time (mins): 60 Critical Diagnosis: acute respiratory failure, covid pneumonia Critical Interventions: rsi, intubation after multiple attempts antibiotics fluids ROR Labs Reviewed Result Diagrams: 06/08/22 02:48 06/08/22 02:48 Laboratory: WBC 12.2 X10^3/uL (3.6-10.0) H 06/08/22 02:48 RBC 6.01 X10^6/uL (3.5-5.4) H 06/08/22 02:48 Hgb 15.0 g/dL (12.0-16.0) 06/08/22 02:48 Hct 48.4 % (36.0-47.0) H 06/08/22 02:48 MCV 80.5 fL (80.0-100.0) 06/08/22 02:48 MCH 25.0 pg (27.0-34.0) L 06/08/22 02:48 MCHC 31.1 g/dL (33.0-35.0) L 06/08/22 02:48 RDW 20.1 % (11.6-16.5) H 06/08/22 02:48 Plt Count 276 X10^3/uL (150.0-450.0) 06/08/22 02:48 Plt Count Comment Adequate (ADEQUATE) 06/08/22 02:48 MPV 8.6 fL (7.4-11.0) 06/08/22 02:48 Neut % (Auto) 83.1 % (42.0-75.0) H 06/08/22 02:48 Lymph % (Auto) 9.9 % (21.0-51.0) L 06/08/22 02:48 [place] % (Auto) 5.8 % (0.0-13.0) 06/08/22 02:48 Eos % (Auto) 0.6 % (0.9-2.9) L 06/08/22 02:48 Baso % (Auto) 0.6 % (0.2-1.0) 06/08/22 02:48 Neut # (Auto) 10.1 x10^3/uL (2.2-4.8) H 06/08/22 02:48 Lymph # (Auto) 1.2 X10^3/uL (1.3-2.9) L 06/08/22 02:48 [place] # (Auto) 0.7 x10^3/uL (0.3-0.8) 06/08/22 02:48 Eos # (Auto) 0.1 x10^3/uL (0.0-0.2) 06/08/22 02:48 Baso # (Auto) 0.1 X10^3/uL (0.0-0.1) 06/08/22 02:48 Absolute Nucleated RBC 0.1 /100WBC 06/08/22 02:48 Plt Morphology Comment Normal (NORMAL) 06/08/22 02:48 RBC Morphology Abnormal (NORMAL) A 06/08/22 02:48 Anisocytosis Slight A 06/08/22 02:48 Stomatocytes Slight A 06/08/22 02:48 Crenated Cell Slight A 06/08/22 02:48 Sample Site Lb 06/08/22 02:55 ABG pH 7.310 (7.35-7.45) L 06/08/22 02:55 ABG pCO2 68.0 mmHg (35.0-45.0) H* 06/08/22 02:55 ABG pO2 25.0 mmHg (80.0-100.0) L* 06/08/22 02:55 ABG HCO3 34.2 mmol/L (22-26) H* 06/08/22 02:55 ABG O2 Saturation 39.0 % (90-100) L* 06/08/22 02:55 ABG Base Excess 5.9 mmol/L (-2.0-2.0) H 06/08/22 02:55 Varun Test Na 06/08/22 02:55 A-a Gradient 40.0 mmHg 06/08/22 02:55 FiO2 21.0 06/08/22 02:55 Blood Gas Comments Ma[place] well sw 06/08/22 02:55 Sodium 141 mmol/L (136-145) 06/08/22 02:48 Corrected Sodium 144 mmol/L (136-145) 06/08/22 02:48 Potassium 5.1 mmol/L (3.5-5.1) 06/08/22 02:48 Chloride 99 mmol/L (98-107) 06/08/22 02:48 Carbon Dioxide 36.9 mmol/L (21-32) H 06/08/22 02:48 BUN 15 mg/dL (7-18) 06/08/22 02:48 Creatinine 1.14 mg/dL (0.55-1.02) H 06/08/22 02:48 Est GFR (MDRD) Af Amer > 60 (>60) 06/08/22 02:48 Est GFR (MDRD) Non-Af 51 (>60) L 06/08/22 02:48 Glucose 235 mg/dL (65-99) H 06/08/22 02:48 Calcium 8.2 mg/dL (8.5-10.1) L 06/08/22 02:48 Corrected Calcium 9.1 mg/dL (8.5-10.1) 06/08/22 02:48 Total Bilirubin 0.40 mg/dL (0.2-1.0) 06/08/22 02:48 AST 46 Units/L (15-37) H 06/08/22 02:48 ALT 31 Units/L (12-78) 06/08/22 02:48 Alkaline Phosphatase 111 Units/L (46-116) 06/08/22 02:48 Creatine Kinase 126 Units/L (26-192) 06/08/22 02:48 Troponin I High Sens 20.5 ng/L (4.0-60.0) 06/08/22 02:48 Total Protein 7.5 g/dL (6.4-8.2) 06/08/22 02:48 Albumin 2.9 g/dL (3.4-5.0) L 06/08/22 02:48 Globulin 4.6 g/dL (2.5-4.5) H 06/08/22 02:48 Albumin/Globulin Ratio 0.6 Ratio (1.1-2.1) L 06/08/22 02:48 Specimen Type Catherized urine 06/08/22 04:00 Urine Color Yellow (YELLOW) 06/08/22 04:00 Urine Appearance Slightly hazy (CLEAR) 06/08/22 04:00 Urine pH 5.0 (5.0 - 8.0) 06/08/22 04:00 Ur Specific [place] 1.030 (1.000-1.030) 06/08/22 04:00 Urine Protein 3+ (NEGATIVE) 06/08/22 04:00 Urine Glucose (UA) Negative (NEGATIVE) 06/08/22 04:00 Urine Ketones Negative (NEGATIVE) 06/08/22 04:00 Urine Blood 1+ (NEGATIVE) 06/08/22 04:00 Urine Nitrite Negative (NEGATIVE) 06/08/22 04:00 Urine Bilirubin Negative (NEGATIVE) 06/08/22 04:00 Urine Urobilinogen Normal (NORMAL) 06/08/22 04:00 Ur Leukocyte Esterase Negative (NEGATIVE) 06/08/22 04:00 Urine RBC 5-10 /HPF (0-3) A 06/08/22 04:00 Urine WBC 0-2 /HPF (0-5) 06/08/22 04:00 Ur Squamous Epith Cells Few /HPF (NEGATIVE) 06/08/22 04:00 Amorphous Sediment 1+ /HPF (NEGATIVE) 06/08/22 04:00 Urine Bacteria Trace /HPF (NEGATIVE) 06/08/22 04:00 Hyaline Casts Many /LPF (NEGATIVE) 06/08/22 04:00 Granular Casts Moderate /LPF (NEGATIVE) 06/08/22 04:00 Urine Mucus Few /HPF (NEGATIVE) 06/08/22 04:00 Urine Yeast Rare /HPF (NEGATIVE) 06/08/22 04:00 Ur Culture Indicated? No/not indicated 06/08/22 04:00 Urine Opiates Screen Positive (NEG=<300) A 06/08/22 04:00 Urine Methadone Screen Negative (NEG=<300) 06/08/22 04:00 Ur Barbiturates Screen Negative (NEG=<200) 06/08/22 04:00 Ur Phencyclidine Scrn Negative (NEG=<25) 06/08/22 04:00 Ur Amphetamines Screen Positive (NEG=<1000) A 06/08/22 04:00 U Benzodiazepines Scrn Negative (NEG=<200) 06/08/22 04:00 Urine Cocaine Screen Negative (NEG=<300) 06/08/22 04:00 U Marijuana (THC) Screen Negative (NEG=<50) 06/08/22 04:00 SARS-CoV-2 (PCR) Positive (NEGATIVE) A 06/08/22 02:43 Influenza Type A (PCR) Negative (NEGATIVE) 06/08/22 02:43 Influenza Type B (PCR) Negative (NEGATIVE) 06/08/22 02:43 RSV (PCR) Negative (NEGATIVE) 06/08/22 02:43 XRAY XRAY Interpreted by: Radiologist X-ray Results: CT CHEST W/O: Small bilateral pleural effusions. Small areas of consolidation involving the upper lobes bilaterally. PCXR: Endotracheal tube tip at the belinda and should be withdrawn 2-4 cm. PCXR: Mild cardiomegaly. No active cardiopulmonary disease. Mild cardiomegaly. Opioid Opioid Risk Tool Age (Yuval box if 16-45): No History of Preadolescent Sexual Abuse: No Total: 0 Total Score Risk Category: Low Risk Copyright: [facility] predicting aberrant behaviors Discharge Plan Diagnosis Discharge Problem: Sepsis, Pneumonia due to 2019 novel coronavirus, Acute hypoxemic respiratory failure, Difficult intubation Discharge Plan Patient Disposition: ADMITTED INPATIENT Condition: Stable Prescriptions: No Action metformin 1,000 mg tablet extended release 24hr 1,000 mg PO DAILY 30 Days Qty: 30 1RF furosemide 40 mg Tablet 40 mg PO QAM 30 Days Qty: 30 1RF glipizide 5 mg Tablet Extended Release 24 Hr 5 mg PO DAILY 30 Days Qty: 30 1RF lisinopril 5 mg Tablet 5 mg PO DAILY 30 Days Qty: 30 1RF albuterol sulfate 90 mcg/actuation HFA aerosol inhaler 2 puff inhalation Q6H PRN (Reason: shortness of breath or wheezing) Qty: 6.7 1RF potassium chloride 10 mEq tablet extended release 10 meq PO DAILY 30 Days Qty: 30 1RF Health Concerns: Post Hospitalization: new medications and changes needed to prevent readmission or further decline. Pt educated and given instructions on all concerns. Plan of Treatment: Continue with present treatment and follow up plan. Pt is to keep follow up appointment as instructed and take medications as ordered. Follow ups/Referrals Follow ups/Referrals: Neema Ramsey [Primary Care Provider] - 3 days
[2022-06-08] MEDS: OFIRMEV IV 1000 MG VIAL 1,000 MG/100 ML VIAL IV PRN (02:52)
[2022-06-08 02:57] LABS: ABG BASE EXCESS 5.9 mmol/L (-2.0-2.0)
[2022-06-08 02:58] LABS: ABG HCO3 34.2 mmol/L (22-26)
[2022-06-08] MEDS ORDERED: DIPRIVAN VIAL 20 ML ONE (02:59)
[2022-06-08] MEDS ORDERED: QUELICIN (OR ANECTINE) ONE (03:00)
[2022-06-08 03:01] LABS: BASOPHILS # (AUTO) 0.1 X10^3/uL (0.0-0.1); BASOPHILS % (AUTO) 0.6 % (0.2-1.0); EOSINOPHILS # (AUTO) 0.1 x10^3/uL (0.0-0.2); EOSINOPHILS % (AUTO) 0.6 % (0.9-2.9); HEMATOCRIT 48.4 % (36.0-47.0); LYMPHOCYTES # (AUTO) 1.2 X10^3/uL (1.3-2.9); LYMPHOCYTES % (AUTO) 9.9 % (21.0-51.0); MEAN CORPUSCULAR HGB CONC 31.1 g/dL (33.0-35.0); MEAN CORPUSCULAR VOLUME 80.5 fL (80.0-100.0); MEAN PLATELET VOLUME 8.6 fL (7.4-11.0); MONOCYTES # (AUTO) 0.7 x10^3/uL (0.3-0.8); MONOCYTES % (AUTO) 5.8 % (0.0-13.0); NEUTROPHILS # (AUTO) 10.1 x10^3/uL (2.2-4.8); NEUTROPHILS % (AUTO) 83.1 % (42.0-75.0); RED BLOOD COUNT 6.01 X10^6/uL (3.5-5.4); RED CELL DISTRIBUTION WIDTH 20.1 % (11.6-16.5); WHITE BLOOD COUNT 12.2 X10^3/uL (3.6-10.0)
[2022-06-08] MEDS ORDERED: NS 1,000 ML IV 1,000 ML ONE ×2 (03:04→05:27)
[2022-06-08 03:17] LABS: ALANINE AMINOTRANSFERASE 31 Units/L (12-78); ALBUMIN 2.9 g/dL (3.4-5.0); ALKALINE PHOSPHATASE 111 Units/L (46-116); ASPARTATE AMINO TRANSFERASE 46 Units/L (15-37); BLOOD UREA NITROGEN 15 mg/dL (7-18); CALCIUM 8.2 mg/dL (8.5-10.1); CARBON DIOXIDE 36.9 mmol/L (21-32); CHLORIDE 99 mmol/L (98-107); COR CA(FOR HYPOALB) 9.1 mg/dL (8.5-10.1); COR NA(FOR HYPERGLY) 144 mmol/L (136-145); CREATINE KINASE 126 Units/L (26-192); CREATININE 1.14 mg/dL (0.55-1.02); SODIUM 141 mmol/L (136-145); TOTAL PROTEIN 7.5 g/dL (6.4-8.2); eGFR NON BLACK RACES 51 (>60)
[2022-06-08] MEDS ORDERED: DIPRIVAN VIAL IVP ONE (03:17)
[2022-06-08] MEDS ORDERED: QUELICIN (OR ANECTINE) IVP ONE (03:19)
[2022-06-08 03:23] LABS: ANISOCYTOSIS SLIGHT; CRENATED RBC SLIGHT; PLATELET MORPHOLOGY COMMENT NORMAL (NORMAL); STOMATOCYTES SLIGHT
--- NOTE | 2022-06-08 03:38 | RAD ---
HISTORYPT C/O SOB, FEVER, WAS FOUND BY FRIEND TO BE GASPING FOR AIR, PURPLE IN COLOR AND FOAMING AT THE MOUTH; SX UNKNOWN DM, COPD ARTHRITISSTUDYCHEST, 1 [id number]/11/2022FINDINGSThe trachea is midline. The cardiac silhouette is mildly enlarged.. The lungs are clear without focal infiltrate or effusion. The bony thorax is unremarkable.IMPRESSIONMild cardiomegalyNo active cardiopulmonary disease.Electronically signed by: Evan Truong (Jun 08, 2022 03:37:18)
[2022-06-08] MEDS ORDERED: NORCURON INJ 10 MG VIAL 50 MG in NS 50 ML IV 50 ML IV PRN (03:39)
[2022-06-08] MEDS ORDERED: NORCURON INJ 10 MG VIAL ONE ×2 (03:44→07:03)
[2022-06-08] MEDS ORDERED: NS 50 ML IV 50 ML IV ONE (03:47)
[2022-06-08] MEDS ORDERED: ZOSYN VIAL 3.375 GRAMS 3.375 G in NS 100 ML IV 100 ML IV ONE (03:52)
--- NOTE | 2022-06-08 04:15 | RAD ---
HISTORYS/P ETT, NGT PLACEMENT Relevant Clinical InformationSTUDYCHEST, 1 [id number]/25/2022FINDINGSThe trachea is midline. endotracheal tube tip is at the belinda and should be withdrawn 2-4 cm. There is a nasogastric tube with its tip below the hemidiaphragm. The cardiac silhouette is mildly enlarged.. The lungs are clear without focal infiltrate or effusion. The bony thorax is unremarkable.IMPRESSIONMild cardiomegaly.Endotracheal tube tip at the belinda and should be withdrawn 2-4 cm.COMMUNICATIONS: These findings were discussed with emergency Department personnel at 4:14 a.m. 06/08/2022 by Radiology call support staffElectronically signed by: Evan Truong (Jun 08, 2022 04:14:13)
[2022-06-08 04:17] LABS: BILIRUBIN,URINE NEGATIVE (NEGATIVE); BLOOD/HEMOGLOBIN,URINE 1+ (NEGATIVE); GLUCOSE, URINE NEGATIVE (NEGATIVE); KETONES,URINE NEGATIVE (NEGATIVE); LEUKOCYTE ESTERASE ,URINE NEGATIVE (NEGATIVE); NITRITES,URINE NEGATIVE (NEGATIVE); PROTEIN,URINE 3+ (NEGATIVE); UROBILINOGEN,URINE NORMAL (NORMAL)
[2022-06-08 04:31] LABS: APPEARANCE,URINE SLIGHTLY HAZY (CLEAR); BACTERIA,URINE TRACE /HPF (NEGATIVE); COLOR,URINE YELLOW (YELLOW); SQUAMOUS EPITHELIAL CELL,UR FEW /HPF (NEGATIVE)
[2022-06-08 04:32] LABS: GRANULAR CASTS,URINE MODERATE /LPF (NEGATIVE); HYALINE CASTS, URINE MANY /LPF (NEGATIVE); YEAST,URINE RARE /HPF (NEGATIVE)
[2022-06-08] MEDS ORDERED: NS 1,000 ML IV 1,000 ML IV ONE (04:39)
[2022-06-08] MEDS ORDERED: ZOSYN VIAL 3.375 GRAMS IV ONE (04:40)
[2022-06-08] MEDS ORDERED: NS 100 ML IV 100 ML ONE (04:40)
--- NOTE | 2022-06-08 04:43 | CT ---
HISTORYCOVID POSITIVE, SOB, FEVERSTUDYCHEST W/O [id number]/01/2021TECHNIQUEMultiple axial images of the chest were obtained from the thoracic inlet to the upper abdomen without the administration of IV contrast. Dose reduction techniques including Automated Exposure Control (AEC) and adjustment of mA and kV were utilized.FINDINGSThe mediastinum does not demonstrate significant pathological lymphadenopathy. Endotracheal tube tip above the belinda. There is a nasogastric tube in the stomach. There is no paracardial effusion observed. The thoracic aorta is normal in its contour without evidence for aneurysmal dilatation.Evaluation of the lung parenchyma small bilateral pleural effusions. Areas of consolidation involving the upper lobes bilaterally. No pneumothorax.. No pulmonary nodule or mass can be identified. The bony thorax is unremarkable in its appearance . The visualized portions of the upper abdomen are grossly unremarkable .IMPRESSIONSmall bilateral pleural effusionsSmall areas of consolidation involving the upper lobes bilaterally.Electronically signed by: Evan Truong (Jun 08, 2022 04:42:00)
[2022-06-08] MEDS ORDERED: SOLU-Medrol 125 MG VIAL ONE (05:49)
[2022-06-08] MEDS: ZOSYN VIAL 3.375 GRAMS 3.375 G in NS 100 ML IV 100 ML IV SCH ×4 (05:51→21:20)
[2022-06-08] MEDS: SOLU-Medrol 125 MG VIAL IVP SCH ×2 (05:54→08:19)
[2022-06-08] MEDS ORDERED: NS 1,000 ML IV 1,000 ML IV SCH ×2 (06:00→09:00)
[2022-06-08] MEDS ORDERED: LOVENOX INJ 100 MG SYR SC ONE (07:44)
[2022-06-08] MEDS: VERSED 100 MG in NS 100 ML IV 80 ML IV PRN ×2 (07:45→22:28)
[2022-06-08] MEDS: NovoLIN R (or HumuLIN R) SUBCUT PRN ×4 (07:59→20:25)
[2022-06-08] MEDS: LOVENOX INJ 100 MG SYR SC SCH ×2 (08:00→20:00)
[2022-06-08] MEDS: NORCURON INJ 10 MG VIAL 50 MG in NS 50 ML IV 50 ML IV PRN ×2 (08:42→22:20)
[2022-06-08] MEDS ORDERED: PERIACTIN TAB 4 MG PO PRN (08:49)
[2022-06-08] MEDS ORDERED: PULMICORT NEB TX 0.5 MG NEB SCH (09:00)
[2022-06-08] MEDS ORDERED: PHARMACY CONSULT - IVERMECTIN XX SCH (09:00)
[2022-06-08] MEDS ORDERED: VITAMIN D (1.25MG) PO SCH (09:00)
[2022-06-08] MEDS ORDERED: DUONEB 0.5 MG/3 MG (3 mL) NEB SCH (09:00)
[2022-06-08] MEDS ORDERED: VITAMIN A PO SCH (09:00)
[2022-06-08] MEDS ORDERED: ASCORBIC ACID INJ MULTI-DOSE VIAL 1,500 MG in NS 100 ML IV 100 ML IV SCH (09:00)
[2022-06-08] MEDS: PULMICORT NEB TX 0.5 MG NEB SCH ×2 (09:25→20:00)
[2022-06-08] MEDS: BROVANA IN SCH ×2 (09:25→20:00)
[2022-06-08] MEDS: THIAMINE HCL INJ IVP SCH ×2 (09:54→20:01)
[2022-06-08] MEDS: ZINC SULFATE PO SCH ×2 (09:54→20:01)
[2022-06-08] MEDS: ASCORBIC ACID MULTI IV SCH ×4 (09:54→21:20)
[2022-06-08] MEDS: PROTONIX INJ 40 MG VIAL IVP SCH ×2 (09:54→20:00)
[2022-06-08] MEDS: CYTOTEC PO SCH ×4 (09:54→20:02)
[2022-06-08] MEDS: NS IV SCH ×4 (09:54→21:20)
[2022-06-08] MEDS: PEPCID TAB 40 MG PO SCH ×2 (09:55→20:03)
[2022-06-08] MEDS: IVERMECTIN PO SCH (09:56)
[2022-06-08] MEDS ORDERED: NS 1,000 ML IV 1,000 ML with ASCORBIC ACID INJ MULTI-DOSE VIAL 6,000 MG IV SCH ×2 (10:00)
[2022-06-08] MEDS ORDERED: VITAMIN D3 125 mcg (5,000 UNITS) PO SCH (10:00)
[2022-06-08 10:21] LABS: ABG BASE EXCESS 9.4 mmol/L (-2.0-2.0)
[2022-06-08 10:22] LABS: ABG ALLEN TEST POS; ABG HCO3 37.5 mmol/L (22-26)
--- NOTE | 2022-06-08 11:38 | EKG ---
Test Reason : hypotension Blood Pressure : */* mmHG Vent. Rate : 83 BPM Atrial Rate : 83 BPM P-R Int : 152 ms QRS Dur : 100 ms QT Int : 388 ms P-R-T Axes : 65 4 18 degrees QTc Int : 455 ms Normal sinus rhythm Incomplete right bundle branch block Borderline ECG Confirmed by Sancho Bey (4) on 06/09/2022 10:09:21 AM Referred By: Confirmed By: Sancho Bey
[2022-06-08] MEDS: ENTRESTO 24/26 MG TAB PO SCH ×2 (13:04→20:01)
[2022-06-08] MEDS: COREG TAB 6.25 MG PO SCH ×2 (13:04→20:01)
[2022-06-08] MEDS: SOLU-Medrol 40 MG VIAL IVP SCH ×2 (15:27→20:00)
--- NOTE | 2022-06-08 15:31 | RAD ---
HISTORYcentral line placementSTUDYCHEST, 1 [id number]/25/2022.FINDINGSTip of the endotracheal tube is located approximately 4 cm above the level the belinda. There is an NG tube which courses past the GE junction. There is a left-sided subclavian CVL with tip projecting over the mid SVC. The cardiac silhouette is at the upper limits of normal in size given the portable technique. Scattered pleural parenchymal opacities are grossly unchanged. There is no pneumothorax.IMPRESSION1. Tip of the left subclavian CVL projects over the mid SVC without pneumothorax.2. Tip of the endotracheal tube is located 4 cm above the belinda.3. Tip of the NG tube courses past the GE junction.4. Scattered pleural parenchymal opacities without significant change from recent comparison study.Electronically signed by: AVINASH PURDY (Jun 08, 2022 15:30:20)
[2022-06-08 18:18] VITALS: BMI 43.7
[2022-06-08] MEDS ORDERED: MELATONIN PO SCH (21:00)
[2022-06-09] MEDS: SOLU-Medrol 40 MG VIAL IVP SCH ×4 (02:07→20:15)
[2022-06-09 04:32] LABS: ABG BASE EXCESS 10.4 mmol/L (-2.0-2.0)
[2022-06-09 04:33] LABS: ABG ALLEN TEST POS; ABG HCO3 38.6 mmol/L (22-26)
[2022-06-09 05:13] LABS: BASOPHILS # (AUTO) 0.1 X10^3/uL (0.0-0.1); BASOPHILS % (AUTO) 1.7 % (0.2-1.0); HEMATOCRIT 51.1 % (36.0-47.0); LYMPHOCYTES # (AUTO) 0.6 X10^3/uL (1.3-2.9); LYMPHOCYTES % (AUTO) 7.2 % (21.0-51.0); MEAN CORPUSCULAR HGB CONC 31.3 g/dL (33.0-35.0); MEAN CORPUSCULAR VOLUME 79.9 fL (80.0-100.0); MEAN PLATELET VOLUME 8.4 fL (7.4-11.0); MONOCYTES # (AUTO) 0.3 x10^3/uL (0.3-0.8); MONOCYTES % (AUTO) 3.8 % (0.0-13.0); NEUTROPHILS # (AUTO) 7.6 x10^3/uL (2.2-4.8); NEUTROPHILS % (AUTO) 87.3 % (42.0-75.0); RED BLOOD COUNT 6.39 X10^6/uL (3.5-5.4); RED CELL DISTRIBUTION WIDTH 19.9 % (11.6-16.5); WHITE BLOOD COUNT 8.7 X10^3/uL (3.6-10.0)
[2022-06-09 05:29] LABS: ALANINE AMINOTRANSFERASE 34 Units/L (12-78); ALBUMIN 2.6 g/dL (3.4-5.0); ALKALINE PHOSPHATASE 95 Units/L (46-116); ASPARTATE AMINO TRANSFERASE 39 Units/L (15-37); BLOOD UREA NITROGEN 14 mg/dL (7-18); CALCIUM 7.4 mg/dL (8.5-10.1); CARBON DIOXIDE 34.9 mmol/L (21-32); CHLORIDE 97 mmol/L (98-107); COR CA(FOR HYPOALB) 8.5 mg/dL (8.5-10.1); COR NA(FOR HYPERGLY) 139 mmol/L (136-145); CREATININE 0.74 mg/dL (0.55-1.02); SODIUM 135 mmol/L (136-145); TOTAL PROTEIN 7.2 g/dL (6.4-8.2); eGFR NON BLACK RACES > 60 (>60)
[2022-06-09] MEDS: ZOSYN VIAL 3.375 GRAMS 3.375 G in NS 100 ML IV 100 ML IV SCH ×3 (05:50→21:22)
[2022-06-09] MEDS: NovoLIN R (or HumuLIN R) SUBCUT PRN ×4 (05:51→20:16)
[2022-06-09] MEDS ORDERED: SALINE 3% 15 ML NEB TX ONE (06:32)
[2022-06-09] MEDS: PULMICORT NEB TX 0.5 MG NEB SCH ×2 (07:50→20:00)
[2022-06-09] MEDS: BROVANA IN SCH ×2 (07:50→20:00)
[2022-06-09] MEDS: LOVENOX INJ 100 MG SYR SC SCH ×2 (08:22→20:14)
[2022-06-09] MEDS: PROTONIX INJ 40 MG VIAL IVP SCH ×2 (08:22→20:15)
[2022-06-09] MEDS: ZINC SULFATE PO SCH ×2 (08:22→20:15)
[2022-06-09] MEDS: ENTRESTO 24/26 MG TAB PO SCH ×2 (08:22→20:13)
[2022-06-09] MEDS: THIAMINE HCL INJ IVP SCH ×2 (08:23→20:14)
[2022-06-09] MEDS: IVERMECTIN PO SCH (08:24)
[2022-06-09] MEDS: COREG TAB 6.25 MG PO SCH ×2 (08:24→20:14)
[2022-06-09] MEDS: CYTOTEC PO SCH ×4 (08:24→20:13)
[2022-06-09] MEDS: PEPCID TAB 40 MG PO SCH ×2 (08:45→20:15)
--- NOTE | 2022-06-09 09:49 | RAD ---
HISTORYCOVID-19STUDYPortable AP chestCOMPARISONNovember 2021FINDINGSThere is slight interval increase in diffuse infiltrate in the left lung without evidence for lobar consolidation, mass or associated pleural effusion. Position of support lines is similar. Heart size normal and clear right lung.IMPRESSIONIncreasing density in the left lung as described is concerning for a developing inflammatory process, less likely asymmetric edema. Continued follow-up suggested.Electronically signed by: RELL RIVER (Jun 09, 2022 09:48:00)
[2022-06-09] MEDS ORDERED: NS 1,000 ML IV 1,000 ML ONE (09:52)
[2022-06-09] MEDS: ASCORBIC ACID MULTI IV SCH ×4 (10:09→21:25)
[2022-06-09] MEDS: NS IV SCH ×4 (10:09→21:25)
[2022-06-09] MEDS: NORCURON INJ 10 MG VIAL 50 MG in NS 50 ML IV 50 ML IV PRN ×2 (13:22→23:43)
[2022-06-09] MEDS: VERSED 100 MG in NS 100 ML IV 80 ML IV PRN (14:08)
[2022-06-09 15:17] LABS: ABG BASE EXCESS 9.7 mmol/L (-2.0-2.0)
[2022-06-09 15:18] LABS: ABG ALLEN TEST POS; ABG HCO3 33.5 mmol/L (22-26)
[2022-06-09] MEDS: GLUCOPHAGE PO SCH (17:17)
[2022-06-09 18:52] LABS: ABG BASE EXCESS 9.2 mmol/L (-2.0-2.0)
[2022-06-09 18:53] LABS: ABG ALLEN TEST POS; ABG HCO3 34.2 mmol/L (22-26)
--- NOTE | 2022-06-09 20:54 | DR.OPNOTE ---
OP NOTE Pre-Op Diagnosis: pneumonia, need for central venous access Post-Op Diagnosis: same Procedure Date Date Of Procedure: 06/08/22 Procedure: PROCEDURE: left subclavian triple lumen central vein catheter placement NARRATIVE: The patient is intubated in the ICU. She was placed in Trendelenburg position and the left subclavian area prepped and draped in sterile fashion. The skin underlying the left clavicle infiltrated with 1 % Xylocaine. A 16- gauge needle used to puncture the left subclavian vein. Guide wire placed. Incision made over the guide wire with a #11 knife blade and the dilator placed over the guidewire and removed. The triple Lumen catheter placed show the guide wire into the left subclavian vein. All 3 lines aspirated of blood and flushed with heparinized saline . The catheter secured to the skin with silk sutures and dressing applied. Post-procedure chest x-ray showed good placement of the central venous catheter in the subclavian vein on the left with no pneumothorax. Type of Anesthesia: Local Findings: as above EBL: minimal Complications:: none Needle/Sponge Count:: correct Disposition/Condition: Pt. tolerated procedure without difficulty. Extubated in the OR and taken to PACU in stable condition.
[2022-06-10] MEDS: OFIRMEV IV 1000 MG VIAL 1,000 MG/100 ML VIAL IV PRN (00:03)
[2022-06-10] MEDS ORDERED: DUONEB 0.5 MG/3 MG (3 mL) NEB ONE (00:15)
[2022-06-10] MEDS: LACRI-LUBE S.O.P. AFFEYE SCH ×3 (01:31→20:11)
[2022-06-10] MEDS: SOLU-Medrol 40 MG VIAL IVP SCH ×4 (02:51→20:10)
[2022-06-10] MEDS: VERSED 100 MG in NS 100 ML IV 80 ML IV PRN ×2 (04:07→15:31)
[2022-06-10] MEDS ORDERED: CATAPRES TAB 0.2 MG PO ONE (04:31)
[2022-06-10] MEDS ORDERED: COREG TAB 25 MG ONE (04:35)
[2022-06-10] MEDS ORDERED: CATAPRES TAB 0.2 MG ONE (04:36)
[2022-06-10 04:38] LABS: ABG BASE EXCESS 8.1 mmol/L (-2.0-2.0)
[2022-06-10 04:40] LABS: ABG ALLEN TEST POS; ABG HCO3 32.8 mmol/L (22-26)
[2022-06-10] MEDS: COREG TAB 25 MG PO SCH ×2 (04:51→20:06)
[2022-06-10] MEDS: ZOSYN VIAL 3.375 GRAMS 3.375 G in NS 100 ML IV 100 ML IV SCH ×3 (05:03→21:01)
[2022-06-10 05:05] LABS: ALANINE AMINOTRANSFERASE 27 Units/L (12-78); ALBUMIN 2.5 g/dL (3.4-5.0); ALKALINE PHOSPHATASE 83 Units/L (46-116); ASPARTATE AMINO TRANSFERASE 19 Units/L (15-37); BLOOD UREA NITROGEN 16 mg/dL (7-18); CALCIUM 7.7 mg/dL (8.5-10.1); CARBON DIOXIDE 30.7 mmol/L (21-32); CHLORIDE 97 mmol/L (98-107); COR CA(FOR HYPOALB) 8.9 mg/dL (8.5-10.1); COR NA(FOR HYPERGLY) 138 mmol/L (136-145); CREATININE 0.79 mg/dL (0.55-1.02); SODIUM 135 mmol/L (136-145); TOTAL PROTEIN 6.8 g/dL (6.4-8.2); eGFR NON BLACK RACES > 60 (>60)
[2022-06-10 05:06] LABS: BASOPHILS % (AUTO) 0.5 % (0.2-1.0); HEMATOCRIT 51.7 % (36.0-47.0); HEMOGLOBIN 16.4 g/dL (12.0-16.0); LYMPHOCYTES % (AUTO) 9.8 % (21.0-51.0); MEAN CORPUSCULAR HGB CONC 31.8 g/dL (33.0-35.0); MEAN CORPUSCULAR VOLUME 78.6 fL (80.0-100.0); MEAN PLATELET VOLUME 8.7 fL (7.4-11.0); MONOCYTES # (AUTO) 0.5 x10^3/uL (0.3-0.8); MONOCYTES % (AUTO) 5.4 % (0.0-13.0); NEUTROPHILS # (AUTO) 8.2 x10^3/uL (2.2-4.8); NEUTROPHILS % (AUTO) 84.3 % (42.0-75.0); RED BLOOD COUNT 6.58 X10^6/uL (3.5-5.4); RED CELL DISTRIBUTION WIDTH 19.7 % (11.6-16.5); WHITE BLOOD COUNT 9.8 X10^3/uL (3.6-10.0)
[2022-06-10] MEDS: NovoLIN R (or HumuLIN R) SUBCUT PRN ×3 (05:30→20:21)
[2022-06-10] MEDS: GLUCOPHAGE PO SCH ×2 (06:02→17:13)
[2022-06-10] MEDS: NORCURON INJ 10 MG VIAL 50 MG in NS 50 ML IV 50 ML IV PRN ×2 (06:18→14:18)
[2022-06-10] MEDS: PROTONIX INJ 40 MG VIAL IVP SCH ×2 (08:14→20:10)
[2022-06-10] MEDS: THIAMINE HCL INJ IVP SCH ×2 (08:15→20:10)
[2022-06-10] MEDS: CYTOTEC PO SCH ×4 (08:15→20:07)
[2022-06-10] MEDS: VITAMIN D3 125 mcg (5,000 UNITS) PO SCH (08:15)
[2022-06-10] MEDS: LOVENOX INJ 100 MG SYR SC SCH ×2 (08:16→20:07)
[2022-06-10] MEDS: ENTRESTO 24/26 MG TAB PO SCH ×2 (08:16→20:06)
[2022-06-10] MEDS: ZINC SULFATE PO SCH ×2 (08:17→20:06)
[2022-06-10] MEDS: PEPCID TAB 40 MG PO SCH ×2 (08:18→20:10)
[2022-06-10] MEDS: BROVANA IN SCH ×2 (08:20→21:00)
[2022-06-10] MEDS: PULMICORT NEB TX 0.5 MG NEB SCH ×2 (08:20→21:00)
[2022-06-10] MEDS: IVERMECTIN PO SCH (08:23)
[2022-06-10] MEDS ORDERED: VITAMIN A PO SCH (09:00)
[2022-06-10] MEDS: NS IV SCH ×4 (10:20→21:01)
[2022-06-10] MEDS: ASCORBIC ACID MULTI IV SCH ×4 (10:20→21:01)
--- NOTE | 2022-06-10 12:44 | RAD ---
HISTORYCOVID-19 pneumoniaSTUDYAP chestCOMPARISONNovember 2021FINDINGSStable heart size and support apparatus positioning.Persistent bilateral interstitial prominence.Increasing localized pulmonary density in the right base adjacent to the diaphragm. No pleural fluid is seen.IMPRESSIONFindings concerning for a developing pneumonic infiltrate in the right lower lobe.Electronically signed by: RELL RIVER (Jun 10, 2022 12:42:26)
[2022-06-10] MEDS: NovoLIN R (or HumuLIN R) SC PRN (15:59)
[2022-06-11] MEDS: NORCURON INJ 10 MG VIAL 50 MG in NS 50 ML IV 50 ML IV PRN ×2 (00:34→09:15)
[2022-06-11] MEDS ORDERED: DUONEB 0.5 MG/3 MG (3 mL) NEB ONE (00:35)
[2022-06-11] MEDS: BUTT CREAM (COMPOUND) TOP PRN (01:09)
[2022-06-11] MEDS: VERSED 100 MG in NS 100 ML IV 80 ML IV PRN ×2 (01:14→12:33)
[2022-06-11] MEDS ORDERED: NORCURON INJ 10 MG VIAL ONE (01:28)
[2022-06-11] MEDS: CATAPRES TAB 0.1 MG PO PRN ×2 (02:53→12:44)
[2022-06-11] MEDS: SOLU-Medrol 40 MG VIAL IVP SCH ×4 (02:53→20:19)
[2022-06-11 05:06] LABS: BASOPHILS # (AUTO) 0.1 X10^3/uL (0.0-0.1); BASOPHILS % (AUTO) 0.9 % (0.2-1.0); HEMATOCRIT 48.9 % (36.0-47.0); HEMOGLOBIN 15.6 g/dL (12.0-16.0); LYMPHOCYTES # (AUTO) 0.8 X10^3/uL (1.3-2.9); LYMPHOCYTES % (AUTO) 8.9 % (21.0-51.0); MEAN CORPUSCULAR HEMOGLOBIN 25.2 pg (27.0-34.0); MEAN CORPUSCULAR VOLUME 78.9 fL (80.0-100.0); MEAN PLATELET VOLUME 9.2 fL (7.4-11.0); MONOCYTES # (AUTO) 0.7 x10^3/uL (0.3-0.8); MONOCYTES % (AUTO) 7.6 % (0.0-13.0); NEUTROPHILS # (AUTO) 7.5 x10^3/uL (2.2-4.8); NEUTROPHILS % (AUTO) 82.6 % (42.0-75.0); RED CELL DISTRIBUTION WIDTH 19.8 % (11.6-16.5); WHITE BLOOD COUNT 9.1 X10^3/uL (3.6-10.0)
[2022-06-11] MEDS: ZOSYN VIAL 3.375 GRAMS 3.375 G in NS 100 ML IV 100 ML IV SCH ×3 (05:07→21:06)
[2022-06-11 05:18] LABS: ABG ALLEN TEST POS`; ABG HCO3 32.5 mmol/L (22-26)
[2022-06-11 05:23] LABS: ALANINE AMINOTRANSFERASE 23 Units/L (12-78); ALBUMIN 2.4 g/dL (3.4-5.0); ALKALINE PHOSPHATASE 72 Units/L (46-116); ASPARTATE AMINO TRANSFERASE 19 Units/L (15-37); BLOOD UREA NITROGEN 20 mg/dL (7-18); CALCIUM 7.9 mg/dL (8.5-10.1); CARBON DIOXIDE 30.6 mmol/L (21-32); CHLORIDE 100 mmol/L (98-107); COR CA(FOR HYPOALB) 9.2 mg/dL (8.5-10.1); COR NA(FOR HYPERGLY) 140 mmol/L (136-145); CREATININE 0.76 mg/dL (0.55-1.02); SODIUM 137 mmol/L (136-145); TOTAL PROTEIN 6.1 g/dL (6.4-8.2); eGFR NON BLACK RACES > 60 (>60)
[2022-06-11] MEDS: NovoLIN R (or HumuLIN R) SUBCUT PRN (05:43)
[2022-06-11] MEDS ORDERED: NS 50 ML IV 50 ML IV ONE (06:19)
[2022-06-11] MEDS: GLUCOPHAGE PO SCH ×2 (06:21→17:02)
--- NOTE | 2022-06-11 07:41 | RAD ---
HISTORYVentilatorSTUDYPortable AP chestCOMPARISONNovember 2021FINDINGSNo change in heart size or contour or position of support lines.Right diaphragm elevation without definite consolidation, infiltrate or pleural fluid demonstrated.IMPRESSIONStable cardiomegaly and right diaphragm elevation. The previous suggestion of a developing infiltrate at the right base is not confirmed on this follow-up exam.Electronically signed by: RELL RIVER (Jun 11, 2022 07:39:05)
[2022-06-11] MEDS: PROTONIX INJ 40 MG VIAL IVP SCH ×2 (08:24→20:20)
[2022-06-11] MEDS: THIAMINE HCL INJ IVP SCH (08:25)
[2022-06-11] MEDS: LOVENOX INJ 100 MG SYR SC SCH (08:25)
[2022-06-11] MEDS: IVERMECTIN PO SCH (08:26)
[2022-06-11] MEDS: VITAMIN D3 125 mcg (5,000 UNITS) PO SCH (08:27)
[2022-06-11] MEDS: ENTRESTO 24/26 MG TAB PO SCH ×2 (08:27→20:19)
[2022-06-11] MEDS: CYTOTEC PO SCH (08:27)
[2022-06-11] MEDS: COREG TAB 25 MG PO SCH ×2 (08:27→20:19)
[2022-06-11] MEDS: ZINC SULFATE PO SCH ×2 (08:28→20:19)
[2022-06-11] MEDS: PEPCID TAB 40 MG PO SCH (08:28)
[2022-06-11] MEDS: PULMICORT NEB TX 0.5 MG NEB SCH ×2 (08:40→21:45)
[2022-06-11] MEDS: BROVANA IN SCH ×2 (08:40→21:45)
[2022-06-11] MEDS: LACRI-LUBE S.O.P. AFFEYE SCH ×2 (09:30→20:45)
[2022-06-11] MEDS ORDERED: ENTRESTO 24/26 MG TAB PO NR (09:30)
--- NOTE | 2022-06-11 14:33 | EKG ---
Test Reason : pt diaphoretic Blood Pressure : */* mmHG Vent. Rate : 91 BPM Atrial Rate : 91 BPM P-R Int : 172 ms QRS Dur : 76 ms QT Int : 350 ms P-R-T Axes : 62 -17 19 degrees QTc Int : 430 ms Normal sinus rhythm Anteroseptal infarct , age undetermined Abnormal ECG Leftward axis Confirmed by Sancho Bey ([id number]) on 06/11/2022 2:49:11 PM Referred By: Confirmed By: Sancho Bey
[2022-06-11] MEDS: NORVASC TAB 10 MG PO SCH (17:03)
[2022-06-11] MEDS: NovoLIN R (or HumuLIN R) SC PRN ×2 (17:03→20:20)
[2022-06-11] MEDS: LOVENOX INJ 40 MG SYR SC SCH (20:22)
[2022-06-11] MEDS ORDERED: LOVENOX INJ 100 MG SYR SC SCH (21:00)
[2022-06-12] MEDS: VERSED 100 MG in NS 100 ML IV 80 ML IV PRN (02:15)
[2022-06-12] MEDS: SOLU-Medrol 40 MG VIAL IVP SCH ×4 (02:23→20:12)
[2022-06-12 04:50] LABS: BASOPHILS % (AUTO) 0.4 % (0.2-1.0); EOSINOPHILS % (AUTO) 0.1 % (0.9-2.9); HEMATOCRIT 49.8 % (36.0-47.0); HEMOGLOBIN 15.9 g/dL (12.0-16.0); LYMPHOCYTES # (AUTO) 0.7 X10^3/uL (1.3-2.9); LYMPHOCYTES % (AUTO) 8.2 % (21.0-51.0); MEAN CORPUSCULAR HEMOGLOBIN 25.1 pg (27.0-34.0); MEAN CORPUSCULAR HGB CONC 31.9 g/dL (33.0-35.0); MEAN CORPUSCULAR VOLUME 78.5 fL (80.0-100.0); MONOCYTES # (AUTO) 0.8 x10^3/uL (0.3-0.8); MONOCYTES % (AUTO) 9.4 % (0.0-13.0); NEUTROPHILS # (AUTO) 7.1 x10^3/uL (2.2-4.8); NEUTROPHILS % (AUTO) 81.9 % (42.0-75.0); RED BLOOD COUNT 6.34 X10^6/uL (3.5-5.4); RED CELL DISTRIBUTION WIDTH 19.7 % (11.6-16.5); WHITE BLOOD COUNT 8.7 X10^3/uL (3.6-10.0)
[2022-06-12 05:02] LABS: ALANINE AMINOTRANSFERASE 35 Units/L (12-78); ALBUMIN 2.4 g/dL (3.4-5.0); ALKALINE PHOSPHATASE 64 Units/L (46-116); ASPARTATE AMINO TRANSFERASE 28 Units/L (15-37); BLOOD UREA NITROGEN 24 mg/dL (7-18); CALCIUM 8.3 mg/dL (8.5-10.1); CARBON DIOXIDE 32.2 mmol/L (21-32); CHLORIDE 99 mmol/L (98-107); COR CA(FOR HYPOALB) 9.6 mg/dL (8.5-10.1); COR NA(FOR HYPERGLY) 140 mmol/L (136-145); SODIUM 137 mmol/L (136-145); TOTAL PROTEIN 6.1 g/dL (6.4-8.2); eGFR NON BLACK RACES > 60 (>60)
[2022-06-12] MEDS: ZOSYN VIAL 3.375 GRAMS 3.375 G in NS 100 ML IV 100 ML IV SCH ×3 (05:07→22:42)
[2022-06-12] MEDS: NovoLIN R (or HumuLIN R) SC PRN (05:17)
[2022-06-12 06:00] LABS: ABG BASE EXCESS 7.6 mmol/L (-2.0-2.0)
[2022-06-12 06:02] LABS: ABG ALLEN TEST POS; ABG HCO3 32.7 mmol/L (22-26)
[2022-06-12] MEDS: GLUCOPHAGE PO SCH ×2 (06:02→17:23)
[2022-06-12] MEDS: BROVANA IN SCH ×2 (08:00→20:30)
[2022-06-12] MEDS: PULMICORT NEB TX 0.5 MG NEB SCH ×2 (08:00→20:30)
--- OUTSIDE RECORDS SUMMARY | 2022-06-12 08:04 | XMS | Continuity of Care Document ---
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 She does report taking lasixWt daily, discussed low salt diet [facility] Status: Active Chronic low back pain (M54.50, 724.2) Co mments: Pt w/ chronic pain in low back. XR lumbar ordered, f/u results. 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 Status: Active COPD, severe (J44.9, 496) Comments: Lisa correia is currently not using home O2, states concentrator is empty but she will be calling the [facility]. POX 93% on RA, not in any distress Continue nebs, and inhalerRecent hospitalization for copd exacerbation Status: Active Diabetes type 2, uncontrolled (250.02) C omments: Continue metformin 1000 mg daily Continue glipizideAdvised to check FSBG twice a [id number]/ 7.8% Status: Active Encounter for monitoring opioid maintenance therapy (Z51.81, V58.83) Comments: Pt is new to practice after transferring care from previous provider. Discussed with patient risk, benefit, and side effects of medication. Counseling provided discussing plan of care and importance of getting records for review. Explained to pt that I understand the concerns regarding pain and anxiety. I also explained that I will provide medication during this transition period until I have complete d my review of recor ds. Discussed possibility of starting tapering protocol when appropriate. Pt verbalized understanding. Status: Active Essential hypertension (I10, 401.9) Comm ents: Continue lisinopril Check BP dailyBP 128/74 Status: Active Falls frequently (R29.6, V15.88) Comment s: Discussed home health for PT/OT and nurse visitsPatient's daughter talked to Rocío WYLIE at the hospital to see if patient can be placed in a shelter. If not then we'll consider home health services Status: Active Hospital discharge follow-up (Z09, V67.59) Comments: Patient recently admitted for COPD and CHF exacerbationreviewed medicationsReferral sent to cardio Status: Active Hypercholesterolemia Status: Active Obesity (E66.9, 278.00) Comments: Discus sed with patient adipex to be used only for short term weight loss, not an indication for increasing energy for work. Will discontinue today. Pt verbalized understanding.Discontinued adipex. No more refills. Status: Active Osteoarthritis (M19.90, 715.90) Status: Active Osteoarthritis of both knees, unspecified osteoarthritis typ e (M17.0, 715.96) Comments: Was seeing Dr Villanueva years ago, was on tramadol and then switched to Seagrove Patient denies taking opioids for the past yearHas been taking Tylenol prnWill restart tramadol 100 mg BID prn. Discussed side ef fects, fall precauti onsPt w/ hx of b/l OA. She received steroid inj in knees on 12/2018. Status: Active Rash in adult (R21, 782.1) Status: Activ e Tobacco user (Z72.0, 305.1) Status: Acti ve Medications Name Dates Details Albuterol Sulfate HFA 108 (90 Base) MCG/ ACT Inhalation Aerosol Solution 1 (one) Puff every 4-6 hours, as needed for 30 days Quantity: 1 {Each} Refills: 3 Ordered:15-Nov-2021 Neema Ramsey MD Start : 15-Nov-2021 Active Comments:Medication taken as needed. Aspirin 81 MG Oral Tablet Delayed Release 1 (one) Tablet daily for 90 days Quantity: 90 {Tablet} Refills: 1 Ordered:16-Nov-2021 Neema Ramsey MD Start : 16-Nov-2021 Active Furosemide 40 MG Oral Tablet 1 (one) Tablet daily for 90 days Quantity: 90 {Tablet} Refills: 1 Ordered:15-Nov-2021 Neema Ramsey MD Start : 15-Nov-2021 Active glipiZIDE 5 MG Oral Tablet 1 (one) Tablet daily for 90 days Quantity: 90 {Tablet} Refills: 1 Ordered:15-Nov-2021 Neema Ramsey MD Start : 15-Nov-2021 Active Ipratropium-Albuterol 0.5-2.5 (3) MG/3ML Inhalation Solution 3 Milliliter three times daily, as needed for 30 days Quantity: 270 {Milliliter} Refills: 2 Ordered:15-Nov-2021 Neema Ramsey MD Start : 15-Nov-2021 Active Comments:Medication taken as needed. Lisinopril 5 MG Oral Tablet 1 (one) Tablet daily for 90 days Quantity: 90 {Tablet} Refills: 1 Ordered:15-Nov-2021 Neema Ramsey MD Start : 15-Nov-2021 Active metFORMIN HCl ER (MOD) 1000 MG Oral Tablet Extended Release 24 Hour 1 (one) Tablet daily for 90 days Quantity: 90 {Tablet} Refills: 1 Ordered:15-Nov-2021 Neema Ramsey MD Start : 15-Nov-2021 Active Adipex-P daily Inactive HYDROcodone-Acetaminophen 10-325 MG Oral Tablet 1 tab twice daily as needed (10-325 MG) Inactive Comments:Medication taken as needed. Ketoconazole 2 % External Cream 1 (one) Application twice a day for 30 days Quantity: 45 {Gram} Refills: 0 Ordered:15-Nov-2021 Neema Ramsey MD Start : 31-Mar-2021 End : 15-Nov-2021 Inactive Meloxicam 15 MG Oral Tablet 1 tab daily (15 MG) Inactive Mobic 15 MG Oral Tablet 1 (one) Tablet daily, as needed for 30 days Quantity: 30 {Tablet} Refills: 0 Ordered:09-Mar-2019 Rashard Li Ian L Start : 09-Mar-2019 End : 08-Apr-2019 Inactive Comments:Medication taken as needed. Seagrove 10-325 MG Oral Tablet 1 (one) Tablet three times daily, as needed for 30 days Quantity: 90 {Tablet} Refills: 0 Ordered:09-Mar-2019 Rashard Li Ian L Start : 09-Mar-2019 End : 08-Apr-2019 Inactive Comments:Medication taken as needed. traMADol HCl 100 MG Oral Tablet 1 (one) Tablet two times daily, as needed for 30 days Quantity: 60 {Tablet} Refills: 1 Ordered:15-Nov-2021 Neema Ramsey MD Start : 31-Mar-2021 End : 15-Nov-2021 Inactive Comments:Medication taken as needed. Wellbutrin SR 100 MG Oral Tablet Extended Release 12 Hour 1 (one) Tablet twice a day for 30 days Quantity: 60 {Tablet} Refills: 1 Ordered:15-Nov-2021 Neema Ramsey MD Start : 31-Mar-2021 End : 15-Nov-2021 Inactive Allergies and Adverse Reactions Name Dates Details Iodine (Antiseptic) *ANTISEPTICS & DISINFECTANTS* (Allergy) Status: Active Penicillin G Sodium *PENICILLINS* (Allergy) Status: Active Procedures Procedure Dates Details No Known Past Surgical History Completed 09-Mar-2019 Family History Unknown Family Member Name Dates Details Alcohol Abuse Comments: Father. Mo ther. Status: Active Arthritis Comments: Mother. Status: Active Asthma Comments: Father. Status: Active Colon Cancer Comments: Mother. Status: Active Hypercholesterolemia Comments: Father. Status: Active Hypertension Comments: Father. Status: Active Migraine Headache Comments: Mother. Si ster. Daughter. Status: Active Thyroid problems Comments: Sister. Status: Active Social History Name Dates Details Alcohol use: Remotely quit alcohol use. Drinks hard liquor. Status: Active Caffeine use: Coffee. Tea. Carbonated beverages. 2 servings/ day. Status: Active Exercise: 3 x week. Status: Active Illicit drug use: Uses socially only. Uses marijuana. Status: Active Seat Belt Use: Almost always uses seat belts. Status: Active Tobacco use: Current every day smoker. S mokes < 1 pack of cigarettes per day. Has been smoking for 30+ years. Has never tried to quit. Status: Active Smoking Status Name Dates Details Smokes tobacco daily (finding) Smoker (finding) Vital Signs Date Test Result Details :55 Body temperature 97.7 f Comments: Metho d: Tympanic Heart Rate 93 /min Comments: Pattern: R egular Respiratory rate 20 /min Comments: Pattern: U nlabored O2 SAT 93 % Comments: Room air Systolic blood pressure 128 mm[Hg] Comments: Patien t Position: Sitting; Cuff Location: Left Arm; Cuff Size: Standard Diastolic blood pressure 74 mm[Hg] Comments: Patie nt Position: Sitting; Cuff Location: Left Arm; Cuff Size: Standard Weight 239.25 lb Body height 61 in Body mass index (BMI) [Ratio] 45.21 kg/m2 Body surface area Derived from formula 2.04 m2 :17 Body temperature 98.6 f Comments: Metho d: Oral Heart Rate 82 /min Comments: Pattern: R egular Respiratory rate 18 /min Comments: Pattern: U nlabored O2 SAT 97 % Comments: Room air Systolic blood pressure 127 mm[Hg] Comments: Patien t Position: Sitting; Cuff Location: Left Arm; Cuff Size: Standard Diastolic blood pressure 73 mm[Hg] Comments: Patie nt Position: Sitting; Cuff Location: Left Arm; Cuff Size: Standard Weight 228.5 lb Body height 61 in Body mass index (BMI) [Ratio] 43.17 kg/m2 Body surface area Derived from formula 2.00 m2 [id number] Body temperature 98.5 f Comments: Meth od: Oral Heart Rate 85 /min Comments: Pattern: R egular Respiratory rate 16 /min Comments: Pattern: U nlabored O2 SAT 94 % Comments: Room air Systolic blood pressure 133 mm[Hg] Comments: Patien t Position: Sitting; Cuff Location: Left Arm; Cuff Size: Standard Diastolic blood pressure 83 mm[Hg] Comments: Patie nt Position: Sitting; Cuff Location: Left Arm; Cuff Size: Standard Weight 194.125 lb Body height 61 in Body mass index (BMI) [Ratio] 36.68 kg/m2 Body surface area Derived from formula 1.87 m2 Results Date Description Value Details No Result Information Available Plan of Care Name Dates Details Instructions Follow up after consult Start: 16-Nov-2021 Instruction Typ e: Provider Instructions for Treatment Indication: CHF (congestive heart failure) COPD Start: 15-Nov-2021 Instruction Type: P atient Education Indication: COPD, severe Diabetes: Constant Carbohydrate Meal Plan: carbohydrates St art: 31-Mar-2021 Instruction Type: Patient Education Indication: Diabetes type 2, uncontrolled Diabetes: Healthy Breakfast Ideas *: diabetic diet Start: 1 21-Mar-2021 Instruction Type: Patient Education Indication: Diabetes type 2, uncontrolled Diabetes: Healthy Snacks *: diabetic diet Start: Instruction Type: Patient Education Indication: Diabetes type 2, uncontrolled Diabetes: Food Management: diabetic diet Start: 31-Mar-2021 Instruction Type: Patient Education Indication: Diabetes type 2, uncontrolled Falls, Older Adult Start: 31-Mar-2021 Instruction Type: P atient Education Indication: Falls frequently Opioid Risks Start: 09-Mar-2019 Instruction Type: P atient Education Indication: Encounter for monitoring opioid maintenance ther apy Planned Observations DRUG TEST PRSMV DIR OPT OBS (90268)Indic ation: Encounter for monitoring opioid maintenance therapy On: [id number] Request Planned Procedures PATIENT SCREENED FOR TOBACCO USE AND IDENTIFIED A TOBACCO On: 15-Nov-2021 Intent USER (G9902)By: Candida Leonard SCREENING FOR TOBACCO USE (4004F)By: Candida Leonard On: Intent SMOKING CESSATION COUNSELING FOR 3 TO 10 MINUTES ([id number])By: On: 31-Mar-2021 Intent Candida Leonard XR LUMBAR SPINE, 2-3 VIEWS ([id number])By: Rashard Li , On: 09-Mar-2019 Intent Rashard Ponce Instructions Name Dates Details Verified Opioid Agreement Start: 15-Nov-2021 Instruction T ype: Provider Instructions for Treatment Indication: COPD, severe Follow My Health Start: 15-Nov-2021 Instruction Type: P atient Education Indication: COPD, severe How to Access Health Information Online using Patient Portal and [employer] Apps Start: 15-Nov-2021 Instruction Type: Patient Education Indication: COPD, severe Follow My Health Start: 31-Mar-2021 Instruction Type: P atient Education Indication: Falls frequently How to Access Health Information Online using Patient Portal and [employer] Apps Start: 31-Mar-2021 Instruction Type: Patient Education Indication: Falls frequently Verified Opioid Agreement Start: 09-Mar-2019 Instruction T ype: Provider Instructions for Treatment Indication: Encounter for monitoring opioid maintenance ther apy PDMP information checked Start: 09-Mar-2019 Instruction Ty pe: Provider Instructions for Treatment Indication: Encounter for monitoring opioid maintenance ther apy Encounters Review On: 11-Jun-2022 9:51 [facility] Office Visit On: 15-Nov-2021 15:20 Encounter Reason: Follow Up - Patient is here for a hospital follow up. Encounter Diagnosis: COPD, severe, Diabetes type 2, uncontrolled, Hospital discharge follow-up, Essential hypertension, CHF (congestive heart failure) End: 16-Nov-2021 9:16 [facility] Office Visit On: 31-Mar-2021 9:20 Encounter Reason: Follow Up - Patient is doing a hospital follow up. Patient is still feeling SOB at times, using 3L of O2. States she is hurting at times, also she does have a rash on her left hand. Patient is also falling a lot. End: 31-Mar-2021 12:40 Encounter Diagnosis: Falls frequently, D iabetes type 2, uncontrolled, Tobacco user, Osteoarthritis of both knees, unspecified osteoarthritis type, Rash in adult, COPD, severe, Hospital discharge follow-up [facility] New Patient Visit On: 09-Mar-2019 13:15 Encounter Reason: transfer patient from Dr. Kay Collins [facility]. Denied pain. Encounter Diagnosis: Chronic low back pain, Osteoarthritis of both knees, unspecified osteoarthritis type, Obesity, Encounter for monitoring opioid maintenance therapy End: 10-Mar-2019 12:20 [facility]
[2022-06-12] MEDS: VITAMIN D3 125 mcg (5,000 UNITS) PO SCH (08:11)
[2022-06-12] MEDS: PROTONIX INJ 40 MG VIAL IVP SCH ×2 (08:12→20:12)
[2022-06-12] MEDS: NORVASC TAB 10 MG PO SCH (08:12)
[2022-06-12] MEDS: ENTRESTO 24/26 MG TAB PO SCH ×2 (08:12→20:19)
[2022-06-12] MEDS: ZINC SULFATE PO SCH ×2 (08:12→20:19)
[2022-06-12] MEDS: COREG TAB 25 MG PO SCH ×2 (08:12→20:19)
[2022-06-12] MEDS: LOVENOX INJ 40 MG SYR SC SCH ×2 (08:13→20:12)
[2022-06-12] MEDS: LACRI-LUBE S.O.P. AFFEYE SCH ×2 (08:14→20:12)
[2022-06-12 10:54] LABS: ABG BASE EXCESS 5.5 mmol/L (-2.0-2.0)
[2022-06-12 10:55] LABS: ABG ALLEN TEST POS; ABG HCO3 33.2 mmol/L (22-26)
--- NOTE | 2022-06-12 11:50 | RAD ---
HISTORYIntubatedSTUDYCHEST x-ray, 1 VIEWCOMPARISONX-ray 06/11/2022FINDINGSEndotracheal tube terminates 4.7 cm above the belinda. Enteric tube passes into the stomach. A central venous catheter terminates in the region of the proximal SVC.Patient is rotated to the right. There is suggestion of volume loss in the right danis thorax with possible collapse of the right upper lobe of the lungs. These changes may have worsened since prior study but could be accentuated due to the rotation.There is probable cardiomegaly. CHF may be present. No pneumothorax or pleural effusion is seen.IMPRESSIONPossible collapse of the right upper lobe of the lungs but this could be artifactual appearance from rotation. Endotracheal tube appears appropriately positioned.Probable CHF.Electronically signed by: Serge Dobbins (Jun 12, 2022 11:49:34)
[2022-06-12] MEDS: OFIRMEV IV 1000 MG VIAL 1,000 MG/100 ML VIAL IV PRN (14:19)
[2022-06-13] MEDS: SOLU-Medrol 40 MG VIAL IVP SCH (03:02)
[2022-06-13 05:21] LABS: BASOPHILS % (AUTO) 0.5 % (0.2-1.0); HEMATOCRIT 50.7 % (36.0-47.0); HEMOGLOBIN 16.2 g/dL (12.0-16.0); LYMPHOCYTES # (AUTO) 0.6 X10^3/uL (1.3-2.9); LYMPHOCYTES % (AUTO) 8.1 % (21.0-51.0); MEAN CORPUSCULAR HEMOGLOBIN 25.1 pg (27.0-34.0); MEAN CORPUSCULAR VOLUME 78.5 fL (80.0-100.0); MEAN PLATELET VOLUME 9.3 fL (7.4-11.0); MONOCYTES # (AUTO) 0.7 x10^3/uL (0.3-0.8); MONOCYTES % (AUTO) 9.1 % (0.0-13.0); NEUTROPHILS # (AUTO) 6.4 x10^3/uL (2.2-4.8); NEUTROPHILS % (AUTO) 82.3 % (42.0-75.0); RED BLOOD COUNT 6.46 X10^6/uL (3.5-5.4); RED CELL DISTRIBUTION WIDTH 19.5 % (11.6-16.5); WHITE BLOOD COUNT 7.8 X10^3/uL (3.6-10.0)
[2022-06-13 05:22] LABS: ABG BASE EXCESS 13.3 mmol/L (-2.0-2.0)
[2022-06-13 05:24] LABS: ABG ALLEN TEST POS; ABG HCO3 40.6 mmol/L (22-26)
[2022-06-13] MEDS: ZOSYN VIAL 3.375 GRAMS 3.375 G in NS 100 ML IV 100 ML IV SCH ×3 (05:24→21:02)
[2022-06-13 05:37] LABS: ALANINE AMINOTRANSFERASE 73 Units/L (12-78); ALBUMIN 2.7 g/dL (3.4-5.0); ALKALINE PHOSPHATASE 63 Units/L (46-116); ASPARTATE AMINO TRANSFERASE 37 Units/L (15-37); BLOOD UREA NITROGEN 23 mg/dL (7-18); CALCIUM 8.3 mg/dL (8.5-10.1); CARBON DIOXIDE 35.8 mmol/L (21-32); CHLORIDE 99 mmol/L (98-107); COR CA(FOR HYPOALB) 9.3 mg/dL (8.5-10.1); COR NA(FOR HYPERGLY) 141 mmol/L (136-145); CREATININE 0.62 mg/dL (0.55-1.02); SODIUM 138 mmol/L (136-145); TOTAL PROTEIN 6.4 g/dL (6.4-8.2); eGFR NON BLACK RACES > 60 (>60)
[2022-06-13] MEDS ORDERED: NORMODYNE INJ 20 MG VIAL IV PRN (06:03)
[2022-06-13] MEDS: BROVANA IN SCH ×2 (08:55→21:03)
[2022-06-13] MEDS: PULMICORT NEB TX 0.5 MG NEB SCH ×2 (08:55→21:03)
[2022-06-13] MEDS: VITAMIN D3 125 mcg (5,000 UNITS) PO SCH (09:48)
[2022-06-13] MEDS: ENTRESTO 24/26 MG TAB PO SCH ×2 (09:48→20:44)
[2022-06-13] MEDS: LACRI-LUBE S.O.P. AFFEYE SCH ×2 (09:49→20:46)
[2022-06-13] MEDS: APRESOLINE TAB 25 MG PO SCH ×4 (09:49→23:27)
[2022-06-13] MEDS: GLUCOPHAGE PO SCH ×2 (09:49→17:45)
[2022-06-13] MEDS: PROTONIX INJ 40 MG VIAL IVP SCH ×2 (09:49→20:46)
[2022-06-13] MEDS: COREG TAB 25 MG PO SCH ×2 (09:49→23:27)
[2022-06-13] MEDS: ZINC SULFATE PO SCH ×2 (09:50→20:44)
[2022-06-13] MEDS: LOVENOX INJ 40 MG SYR SC SCH ×2 (09:50→20:47)
[2022-06-13] MEDS: NORVASC TAB 10 MG PO SCH (09:50)
[2022-06-14] MEDS: ZOSYN VIAL 3.375 GRAMS 3.375 G in NS 100 ML IV 100 ML IV SCH ×3 (05:22→21:56)
[2022-06-14 05:27] LABS: BASOPHILS # (AUTO) 0.3 X10^3/uL (0.0-0.1); BASOPHILS % (AUTO) 2.4 % (0.2-1.0); EOSINOPHILS % (AUTO) 0.4 % (0.9-2.9); HEMATOCRIT 50.1 % (36.0-47.0); HEMOGLOBIN 15.9 g/dL (12.0-16.0); LYMPHOCYTES # (AUTO) 1.2 X10^3/uL (1.3-2.9); LYMPHOCYTES % (AUTO) 10.4 % (21.0-51.0); MEAN CORPUSCULAR HEMOGLOBIN 25.1 pg (27.0-34.0); MEAN CORPUSCULAR HGB CONC 31.8 g/dL (33.0-35.0); MEAN CORPUSCULAR VOLUME 78.9 fL (80.0-100.0); MEAN PLATELET VOLUME 9.2 fL (7.4-11.0); MONOCYTES # (AUTO) 1.1 x10^3/uL (0.3-0.8); NEUTROPHILS # (AUTO) 8.7 x10^3/uL (2.2-4.8); NEUTROPHILS % (AUTO) 76.8 % (42.0-75.0); RED BLOOD COUNT 6.35 X10^6/uL (3.5-5.4); RED CELL DISTRIBUTION WIDTH 19.5 % (11.6-16.5); WHITE BLOOD COUNT 11.3 X10^3/uL (3.6-10.0)
[2022-06-14 05:34] LABS: ALANINE AMINOTRANSFERASE 65 Units/L (12-78); ALBUMIN 2.6 g/dL (3.4-5.0); ALKALINE PHOSPHATASE 57 Units/L (46-116); ASPARTATE AMINO TRANSFERASE 29 Units/L (15-37); BLOOD UREA NITROGEN 26 mg/dL (7-18); CALCIUM 8.3 mg/dL (8.5-10.1); CARBON DIOXIDE 36.4 mmol/L (21-32); CHLORIDE 102 mmol/L (98-107); COR CA(FOR HYPOALB) 9.4 mg/dL (8.5-10.1); CREATININE 0.74 mg/dL (0.55-1.02); SODIUM 140 mmol/L (136-145); TOTAL PROTEIN 5.8 g/dL (6.4-8.2); eGFR NON BLACK RACES > 60 (>60)
[2022-06-14 05:52] LABS: PLATELET MORPHOLOGY COMMENT NORMAL (NORMAL)
[2022-06-14 05:53] LABS: ANISOCYTOSIS SLIGHT; STOMATOCYTES SLIGHT
[2022-06-14] MEDS: GLUCOPHAGE PO SCH ×2 (07:44→17:34)
[2022-06-14] MEDS: ZINC SULFATE PO SCH ×2 (08:09→22:00)
[2022-06-14] MEDS: COREG TAB 25 MG PO SCH (08:10)
[2022-06-14] MEDS: PROTONIX INJ 40 MG VIAL IVP SCH ×2 (08:11→22:00)
[2022-06-14] MEDS: VITAMIN D3 125 mcg (5,000 UNITS) PO SCH (08:11)
[2022-06-14] MEDS: ENTRESTO 24/26 MG TAB PO SCH ×2 (08:11→22:01)
[2022-06-14] MEDS: LOVENOX INJ 40 MG SYR SC SCH ×2 (08:12→21:59)
[2022-06-14] MEDS: LACRI-LUBE S.O.P. AFFEYE SCH ×2 (08:45→22:02)
[2022-06-14] MEDS: PULMICORT NEB TX 0.5 MG NEB SCH ×2 (09:33→21:00)
[2022-06-14] MEDS: BROVANA IN SCH ×2 (09:33→21:00)
[2022-06-14] MEDS ORDERED: COREG TAB 25 MG PO SCH (21:00)
[2022-06-14] MEDS: BUTT CREAM (COMPOUND) TOP PRN (22:00)
[2022-06-14] MEDS: COREG TAB 6.25 MG PO SCH (22:00)
[2022-06-15 05:01] LABS: BASOPHILS # (AUTO) 0.1 X10^3/uL (0.0-0.1); BASOPHILS % (AUTO) 0.7 % (0.2-1.0); EOSINOPHILS # (AUTO) 0.2 x10^3/uL (0.0-0.2); EOSINOPHILS % (AUTO) 1.9 % (0.9-2.9); HEMATOCRIT 47.3 % (36.0-47.0); HEMOGLOBIN 15.1 g/dL (12.0-16.0); LYMPHOCYTES # (AUTO) 1.5 X10^3/uL (1.3-2.9); LYMPHOCYTES % (AUTO) 15.8 % (21.0-51.0); MEAN CORPUSCULAR HEMOGLOBIN 25.2 pg (27.0-34.0); MEAN CORPUSCULAR VOLUME 78.9 fL (80.0-100.0); MEAN PLATELET VOLUME 9.5 fL (7.4-11.0); MONOCYTES # (AUTO) 0.7 x10^3/uL (0.3-0.8); MONOCYTES % (AUTO) 7.9 % (0.0-13.0); NEUTROPHILS # (AUTO) 6.8 x10^3/uL (2.2-4.8); NEUTROPHILS % (AUTO) 73.7 % (42.0-75.0); RED CELL DISTRIBUTION WIDTH 19.5 % (11.6-16.5); WHITE BLOOD COUNT 9.2 X10^3/uL (3.6-10.0)
[2022-06-15 05:10] LABS: ALANINE AMINOTRANSFERASE 49 Units/L (12-78); ALBUMIN 2.4 g/dL (3.4-5.0); ALKALINE PHOSPHATASE 51 Units/L (46-116); ASPARTATE AMINO TRANSFERASE 18 Units/L (15-37); BLOOD UREA NITROGEN 22 mg/dL (7-18); CALCIUM 8.3 mg/dL (8.5-10.1); CARBON DIOXIDE 37.1 mmol/L (21-32); CHLORIDE 102 mmol/L (98-107); COR CA(FOR HYPOALB) 9.6 mg/dL (8.5-10.1); COR NA(FOR HYPERGLY) 144 mmol/L (136-145); CREATININE 0.74 mg/dL (0.55-1.02); SODIUM 143 mmol/L (136-145); TOTAL PROTEIN 5.6 g/dL (6.4-8.2); eGFR NON BLACK RACES > 60 (>60)
[2022-06-15] MEDS ORDERED: POTASSIUM CHL 40 MEQ/NS 0.45% 500 ML IV PRN (05:34)
[2022-06-15] MEDS ORDERED: KLOR-CON PO PRN (05:34)
[2022-06-15] MEDS ORDERED: K-RIDER 10 MEQ/NS 100 ML 10 MEQ/100 ML BAG IV PRN (05:34)
[2022-06-15] MEDS ORDERED: POTASSIUM CHLORIDE LIQ 20 MEQ UDC PO PRN (05:34)
[2022-06-15] MEDS ORDERED: POTASSIUM CHL 60 MEQ/NS 0.45% 500 ML IV PRN (05:34)
[2022-06-15] MEDS: ZOSYN VIAL 3.375 GRAMS 3.375 G in NS 100 ML IV 100 ML IV SCH (05:49)
[2022-06-15] MEDS: BUTT CREAM (COMPOUND) TOP PRN (05:51)
[2022-06-15] MEDS: MICRO K EXTEN CAP 10 MEQ PO PRN ×2 (06:10→06:11)
[2022-06-15] MEDS: MAGNESIUM SULFATE 1 GRAM/100 mL PREMIX 1 G/100 ML BAG IV PRN ×2 (06:11→08:32)
[2022-06-15] MEDS: GLUCOPHAGE PO SCH (06:12)
[2022-06-15] MEDS: NORVASC TAB 10 MG PO SCH (07:48)
[2022-06-15] MEDS: APRESOLINE TAB 25 MG PO SCH (07:48)
[2022-06-15] MEDS: BROVANA IN SCH ×2 (08:24→21:30)
[2022-06-15] MEDS: PULMICORT NEB TX 0.5 MG NEB SCH ×2 (08:24→21:30)
[2022-06-15] MEDS: K-DUR TAB 20 MEQ PO PRN (08:32)
[2022-06-15] MEDS: ZINC SULFATE PO SCH ×2 (09:49→20:34)
[2022-06-15] MEDS: COREG TAB 6.25 MG PO SCH ×2 (09:49→20:33)
[2022-06-15] MEDS: PROTONIX INJ 40 MG VIAL IVP SCH ×2 (09:49→20:34)
[2022-06-15] MEDS: ENTRESTO 24/26 MG TAB PO SCH ×2 (09:49→20:33)
[2022-06-15] MEDS: VITAMIN D3 125 mcg (5,000 UNITS) PO SCH (09:49)
[2022-06-15] MEDS: LOVENOX INJ 40 MG SYR SC SCH ×2 (09:50→20:35)
[2022-06-15] MEDS: VSL#3 PO SCH (09:51)
--- NOTE | 2022-06-15 13:49 | RAD ---
HISTORYCOVID PNEUMONIA, COPD, SEPSISSTUDYCHEST x-ray, PA/LAT ADULTCOMPARISONX-ray 06/12/2022FINDINGSCentral venous catheter terminates in the region of the mid SVC. No pneumothorax or pleural effusion is seen heart is probably normal in size. Very minimal vague bilateral infiltrates may be present. There is diminished appearance of the right upper lobe opacification seen previously.IMPRESSIONThing bilateral infiltrates could be mild atelectasis or pneumonia. Interval resolution of the opacification of the medial aspect of the right upper lung.Electronically signed by: Serge Dobbins (Jun 15, 2022 13:48:02)
[2022-06-15] MEDS: GLUCOPHAGE XR 24-HR PO SCH (20:34)
[2022-06-16 05:50] LABS: BASOPHILS # (AUTO) 0.1 X10^3/uL (0.0-0.1); BASOPHILS % (AUTO) 1.2 % (0.2-1.0); EOSINOPHILS # (AUTO) 0.3 x10^3/uL (0.0-0.2); HEMATOCRIT 46.2 % (36.0-47.0); HEMOGLOBIN 14.5 g/dL (12.0-16.0); LYMPHOCYTES # (AUTO) 1.3 X10^3/uL (1.3-2.9); LYMPHOCYTES % (AUTO) 13.7 % (21.0-51.0); MEAN CORPUSCULAR HEMOGLOBIN 25.1 pg (27.0-34.0); MEAN CORPUSCULAR HGB CONC 31.3 g/dL (33.0-35.0); MEAN CORPUSCULAR VOLUME 80.1 fL (80.0-100.0); MEAN PLATELET VOLUME 9.3 fL (7.4-11.0); MONOCYTES # (AUTO) 0.5 x10^3/uL (0.3-0.8); MONOCYTES % (AUTO) 4.8 % (0.0-13.0); NEUTROPHILS # (AUTO) 7.4 x10^3/uL (2.2-4.8); NEUTROPHILS % (AUTO) 77.3 % (42.0-75.0); RED BLOOD COUNT 5.77 X10^6/uL (3.5-5.4); RED CELL DISTRIBUTION WIDTH 19.8 % (11.6-16.5); WHITE BLOOD COUNT 9.6 X10^3/uL (3.6-10.0)
[2022-06-16] MEDS: NovoLIN R (or HumuLIN R) SC PRN (05:55)
[2022-06-16 06:02] LABS: ALANINE AMINOTRANSFERASE 41 Units/L (12-78); ALBUMIN 2.4 g/dL (3.4-5.0); ALKALINE PHOSPHATASE 61 Units/L (46-116); ASPARTATE AMINO TRANSFERASE 16 Units/L (15-37); BLOOD UREA NITROGEN 16 mg/dL (7-18); CARBON DIOXIDE 36.3 mmol/L (21-32); CHLORIDE 105 mmol/L (98-107); COR CA(FOR HYPOALB) 9.3 mg/dL (8.5-10.1); COR NA(FOR HYPERGLY) 145 mmol/L (136-145); CREATININE 0.74 mg/dL (0.55-1.02); MAGNESIUM 1.8 mg/dL (2.0-2.9); SODIUM 144 mmol/L (136-145); TOTAL PROTEIN 5.7 g/dL (6.4-8.2); eGFR NON BLACK RACES > 60 (>60)
[2022-06-16 06:24] LABS: BASOPHILS % (MANUAL) 1 % (0-1)
[2022-06-16 06:25] LABS: PLATELET MORPHOLOGY COMMENT NORMAL (NORMAL)
[2022-06-16 06:27] LABS: STOMATOCYTES PRESENT
[2022-06-16] MEDS: GLUCOPHAGE XR 24-HR PO SCH ×2 (08:50→20:49)
[2022-06-16] MEDS: ZINC SULFATE PO SCH ×2 (08:50→20:50)
[2022-06-16] MEDS: VSL#3 PO SCH (08:50)
[2022-06-16] MEDS: COREG TAB 6.25 MG PO SCH ×2 (08:50→11:37)
[2022-06-16] MEDS: ENTRESTO 24/26 MG TAB PO SCH ×3 (08:50→20:50)
[2022-06-16] MEDS: VITAMIN D3 125 mcg (5,000 UNITS) PO SCH (08:50)
[2022-06-16] MEDS: PROTONIX INJ 40 MG VIAL IVP SCH ×2 (08:51→20:50)
[2022-06-16] MEDS: LOVENOX INJ 40 MG SYR SC SCH ×2 (08:51→20:50)
[2022-06-16] MEDS: PULMICORT NEB TX 0.5 MG NEB SCH ×2 (08:56→21:35)
[2022-06-16] MEDS: BROVANA IN SCH ×2 (08:56→21:35)
--- NOTE | 2022-06-16 11:20 | PCM.PROG ---
Progress Note Progress Note for Day of Date of Exam: 06/16/22 Subjective Subjective: Patient seen at bedside, no events overnight. She states she feels better. She is currently on 5L NC. She is being treated for acute on chronic respiratory failure due to COPD/CHF exacerbation requiring intubation. She also tested positive for COVID-19 on admission. She states her diarrhea is a lot better, tolerating oral intake. Her BP has been running low for the past couple days. Her BP medications were adjusted yesterday but SBP still in 90-low 100s. Labs reviewed: WBC 9.6 K: 3.5 Mg 1.8 CXR: thin bilateral infiltrates Sputum: Proteus Plan: Hold coreg and entresto for now, monitor BP. Replace K and Mag as per protocol. Patient has completed 7 days of antibiotics. Continue home medications. Wean O2 as tolerated to keep sats >92%, non-invasive ventilation qHS. Monitor AM labs/imaging. Past Medical Family Social History Allergies: Allergies iodine Allergy (Verified 06/08/22 16:37) shellfish derived Allergy (Verified 06/08/22 16:37) Penicillin G Sodium *PENICILLINS* Allergy (Uncoded 06/12/22 08:15) Vital Signs and I&O's Vital Signs: Temperature 99.1 F Pulse Rate [Left] 73 Pulse Rate 94 Respiratory Rate 24 Blood Pressure [Left Arm] 104/56 Blood Pressure 170/94 O2 Sat by Pulse Oximetry 95 Intake and Output: Intake & Output 06/13/22 06/14/22 06/15/22 06/16/22 23:59 23:59 23:59 23:59 Intake Total 723 / 723 2624 / 2624 2550 / 2550 110 / 110 Output Total 2300 / 2300 2275 / 2275 1225 / 1225 300 / 300 Balance -1577 / -1577 349 / 349 1325 / 1325 -190 / -190 Physical Exam Oriented: Normal Eyes: Normal Nose: Normal Throat: Normal Respiratory: Generalized, Diminished and Wheezes Cardiovascular: Normal Auscultation: Bowel Sounds: Normal Palpation: Normal Tenderness: Normal Skin: Normal Musculoskeletal: Normal Psychiatric: Normal Mood Description: Calm Affect: Normal Speech Pattern: Clear and Appropriate Laboratory and Diagnostics Result Diagrams: 06/16/22 05:11 06/16/22 05:11 Labs: 06/08/22 03:58 Blood Blood Culture - Final 06/08/22 04:05 Blood Blood Culture - Final 06/08/22 09:25 Sputum - Endotracheal Wash Sputum Culture - Final Proteus Mirabilis 06/08/22 09:25 Sputum - Endotracheal Wash - Final Laboratory WBC 9.6 X10^3/uL (3.6-10.0) 06/16/22 05:11 RBC 5.77 X10^6/uL (3.5-5.4) H 06/16/22 05:11 Hgb 14.5 g/dL (12.0-16.0) 06/16/22 05:11 Hct 46.2 % (36.0-47.0) 06/16/22 05:11 MCV 80.1 fL (80.0-100.0) 06/16/22 05:11 MCH 25.1 pg (27.0-34.0) L 06/16/22 05:11 MCHC 31.3 g/dL (33.0-35.0) L 06/16/22 05:11 RDW 19.8 % (11.6-16.5) H 06/16/22 05:11 Plt Count 224 X10^3/uL (150.0-450.0) 06/16/22 05:11 Plt Count Comment Adequate (ADEQUATE) 06/16/22 05:11 MPV 9.3 fL (7.4-11.0) 06/16/22 05:11 Neut % (Auto) 77.3 % (42.0-75.0) H 06/16/22 05:11 Lymph % (Auto) 13.7 % (21.0-51.0) L 06/16/22 05:11 Wilson % (Auto) 4.8 % (0.0-13.0) 06/16/22 05:11 Eos % (Auto) 3.0 % (0.9-2.9) H 06/16/22 05:11 Baso % (Auto) 1.2 % (0.2-1.0) H 06/16/22 05:11 Neut # (Auto) 7.4 x10^3/uL (2.2-4.8) H 06/16/22 05:11 Lymph # (Auto) 1.3 X10^3/uL (1.3-2.9) 06/16/22 05:11 Wilson # (Auto) 0.5 x10^3/uL (0.3-0.8) 06/16/22 05:11 Eos # (Auto) 0.3 x10^3/uL (0.0-0.2) H 06/16/22 05:11 Baso # (Auto) 0.1 X10^3/uL (0.0-0.1) 06/16/22 05:11 Absolute Nucleated RBC 0.0 /100WBC 06/16/22 05:11 Total Counted 100 06/16/22 05:11 Neutrophils % (Manual) 75 % (39-76) 06/16/22 05:11 Lymphocytes % (Manual) 16 % (13-43) 06/16/22 05:11 Monocytes % (Manual) 5 % (4-9) 06/16/22 05:11 Eosinophils % (Manual) 3 % (0-6) 06/16/22 05:11 Basophils % (Manual) 1 % (0-1) 06/16/22 05:11 Plt Morphology Comment Normal (NORMAL) 06/16/22 05:11 RBC Morphology Abnormal (NORMAL) A 06/16/22 05:11 Anisocytosis Slight A 06/14/22 04:40 Stomatocytes Present 06/16/22 05:11 Crenated Cell Slight A 06/08/22 02:48 Sample Site Rr 06/13/22 05:17 ABG pH 7.410 (7.35-7.45) 06/13/22 05:17 ABG pCO2 64.0 mmHg (35.0-45.0) H* 06/13/22 05:17 ABG pO2 67.0 mmHg (80.0-100.0) L 06/13/22 05:17 ABG HCO3 40.6 mmol/L (22-26) H* 06/13/22 05:17 ABG O2 Saturation 93.0 % (90-100) 06/13/22 05:17 ABG Base Excess 13.3 mmol/L (-2.0-2.0) H 06/13/22 05:17 Varun Test Pos 06/13/22 05:17 A-a Gradient 138.0 mmHg 06/13/22 05:17 FiO2 40.0 06/13/22 05:17 Blood Gas Comments Maicol well ae 06/13/22 05:17 Sodium 144 mmol/L (136-145) 06/16/22 05:11 Corrected Sodium 145 mmol/L (136-145) 06/16/22 05:11 Potassium 3.5 mmol/L (3.5-5.1) 06/16/22 05:11 Chloride 105 mmol/L (98-107) 06/16/22 05:11 Carbon Dioxide 36.3 mmol/L (21-32) H 06/16/22 05:11 BUN 16 mg/dL (7-18) 06/16/22 05:11 Creatinine 0.74 mg/dL (0.55-1.02) 06/16/22 05:11 Est GFR (MDRD) Af Amer > 60 (>60) 06/16/22 05:11 Est GFR (MDRD) Non-Af > 60 (>60) 06/16/22 05:11 Glucose 162 mg/dL (65-99) H 06/16/22 05:11 POC Glucose (mg/dL) 176 mg/dL (65-99) H 06/16/22 05:28 Calcium 8.0 mg/dL (8.5-10.1) L 06/16/22 05:11 Corrected Calcium 9.3 mg/dL (8.5-10.1) 06/16/22 05:11 Magnesium 1.8 mg/dL (2.0-2.9) L 06/16/22 05:11 Total Bilirubin 0.30 mg/dL (0.2-1.0) 06/16/22 05:11 AST 16 Units/L (15-37) 06/16/22 05:11 ALT 41 Units/L (12-78) 06/16/22 05:11 Alkaline Phosphatase 61 Units/L (46-116) 06/16/22 05:11 Creatine Kinase 76 Units/L (26-192) 06/08/22 17:53 Troponin I High Sens 21.6 ng/L (4.0-60.0) 06/08/22 23:10 Total Protein 5.7 g/dL (6.4-8.2) L 06/16/22 05:11 Albumin 2.4 g/dL (3.4-5.0) L 06/16/22 05:11 Globulin 3.3 g/dL (2.5-4.5) 06/16/22 05:11 Albumin/Globulin Ratio 0.7 Ratio (1.1-2.1) L 06/16/22 05:11 Specimen Type Catherized urine 06/08/22 04:00 Urine Color Yellow (YELLOW) 06/08/22 04:00 Urine Appearance Slightly hazy (CLEAR) 06/08/22 04:00 Urine pH 5.0 (5.0 - 8.0) 06/08/22 04:00 Ur Specific Bryan 1.030 (1.000-1.030) 06/08/22 04:00 Urine Protein 3+ (NEGATIVE) 06/08/22 04:00 Urine Glucose (UA) Negative (NEGATIVE) 06/08/22 04:00 Urine Ketones Negative (NEGATIVE) 06/08/22 04:00 Urine Blood 1+ (NEGATIVE) 06/08/22 04:00 Urine Nitrite Negative (NEGATIVE) 06/08/22 04:00 Urine Bilirubin Negative (NEGATIVE) 06/08/22 04:00 Urine Urobilinogen Normal (NORMAL) 06/08/22 04:00 Ur Leukocyte Esterase Negative (NEGATIVE) 06/08/22 04:00 Urine RBC 5-10 /HPF (0-3) A 06/08/22 04:00 Urine WBC 0-2 /HPF (0-5) 06/08/22 04:00 Ur Squamous Epith Cells Few /HPF (NEGATIVE) 06/08/22 04:00 Amorphous Sediment 1+ /HPF (NEGATIVE) 06/08/22 04:00 Urine Bacteria Trace /HPF (NEGATIVE) 06/08/22 04:00 Hyaline Casts Many /LPF (NEGATIVE) 06/08/22 04:00 Granular Casts Moderate /LPF (NEGATIVE) 06/08/22 04:00 Urine Mucus Few /HPF (NEGATIVE) 06/08/22 04:00 Urine Yeast Rare /HPF (NEGATIVE) 06/08/22 04:00 Ur Culture Indicated? No/not indicated 06/08/22 04:00 Stl Occult Blood (IFOB) Negative (NEGATIVE) 06/15/22 11:05 Stool H. pylori Ag Negative (NEGATIVE) 06/15/22 11:05 Urine Opiates Screen Positive (NEG=<300) A 06/08/22 04:00 Urine Methadone Screen Negative (NEG=<300) 06/08/22 04:00 Ur Barbiturates Screen Negative (NEG=<200) 06/08/22 04:00 Ur Phencyclidine Scrn Negative (NEG=<25) 06/08/22 04:00 Ur Amphetamines Screen Positive (NEG=<1000) A 06/08/22 04:00 U Benzodiazepines Scrn Negative (NEG=<200) 06/08/22 04:00 Urine Cocaine Screen Negative (NEG=<300) 06/08/22 04:00 U Marijuana (THC) Screen Negative (NEG=<50) 06/08/22 04:00 SARS-CoV-2 (PCR) Positive (NEGATIVE) A 06/08/22 02:43 Influenza Type A (PCR) Negative (NEGATIVE) 06/08/22 02:43 Influenza Type B (PCR) Negative (NEGATIVE) 06/08/22 02:43 RSV (PCR) Negative (NEGATIVE) 06/08/22 02:43 Plan (1) Acute respiratory failure with hypoxia and hypercarbia: Status: Acute (2) Pneumonia due to 2019 novel coronavirus: Status: Acute (3) COPD exacerbation: Status: Acute (4) CHF exacerbation: Status: Acute Qualifiers: Heart failure type: diastolic Qualified Code(s): I50.33 - Acute on chronic diastolic (congestive) heart failure (5) Difficult intubation: Status: Acute (6) Osteoarthritis: Status: Chronic (7) Obesity: Status: Chronic (8) Diabetes type 2, uncontrolled: Status: Chronic
[2022-06-16] MEDS: K-DUR TAB 20 MEQ PO PRN (13:23)
[2022-06-17 05:59] LABS: BASOPHILS # (AUTO) 0.1 X10^3/uL (0.0-0.1); BASOPHILS % (AUTO) 0.7 % (0.2-1.0); EOSINOPHILS # (AUTO) 0.2 x10^3/uL (0.0-0.2); EOSINOPHILS % (AUTO) 2.3 % (0.9-2.9); HEMATOCRIT 45.7 % (36.0-47.0); HEMOGLOBIN 14.5 g/dL (12.0-16.0); LYMPHOCYTES # (AUTO) 1.3 X10^3/uL (1.3-2.9); LYMPHOCYTES % (AUTO) 13.8 % (21.0-51.0); MEAN CORPUSCULAR HEMOGLOBIN 25.3 pg (27.0-34.0); MEAN CORPUSCULAR HGB CONC 31.7 g/dL (33.0-35.0); MEAN CORPUSCULAR VOLUME 79.9 fL (80.0-100.0); MONOCYTES # (AUTO) 0.8 x10^3/uL (0.3-0.8); MONOCYTES % (AUTO) 8.1 % (0.0-13.0); NEUTROPHILS # (AUTO) 7.2 x10^3/uL (2.2-4.8); NEUTROPHILS % (AUTO) 75.1 % (42.0-75.0); RED BLOOD COUNT 5.73 X10^6/uL (3.5-5.4); RED CELL DISTRIBUTION WIDTH 19.3 % (11.6-16.5); WHITE BLOOD COUNT 9.5 X10^3/uL (3.6-10.0)
[2022-06-17 06:07] LABS: ALANINE AMINOTRANSFERASE 45 Units/L (12-78); ALBUMIN 2.5 g/dL (3.4-5.0); ALKALINE PHOSPHATASE 61 Units/L (46-116); ASPARTATE AMINO TRANSFERASE 17 Units/L (15-37); BLOOD UREA NITROGEN 11 mg/dL (7-18); CALCIUM 8.3 mg/dL (8.5-10.1); CARBON DIOXIDE 40.8 mmol/L (21-32); CHLORIDE 102 mmol/L (98-107); COR CA(FOR HYPOALB) 9.5 mg/dL (8.5-10.1); COR NA(FOR HYPERGLY) 145 mmol/L (136-145); CREATININE 0.62 mg/dL (0.55-1.02); MAGNESIUM 1.6 mg/dL (2.0-2.9); SODIUM 143 mmol/L (136-145); TOTAL PROTEIN 6.1 g/dL (6.4-8.2); eGFR NON BLACK RACES > 60 (>60)
[2022-06-17] MEDS: BROVANA IN SCH ×2 (08:53→20:40)
[2022-06-17] MEDS: PULMICORT NEB TX 0.5 MG NEB SCH ×2 (08:53→20:39)
[2022-06-17] MEDS: PROTONIX INJ 40 MG VIAL IVP SCH ×2 (08:56→20:34)
[2022-06-17] MEDS: LOVENOX INJ 40 MG SYR SC SCH ×2 (08:58→20:34)
[2022-06-17] MEDS: ZINC SULFATE PO SCH ×2 (08:59→20:33)
[2022-06-17] MEDS: ENTRESTO 24/26 MG TAB PO SCH ×2 (08:59→20:34)
[2022-06-17] MEDS: GLUCOPHAGE XR 24-HR PO SCH ×2 (08:59→20:34)
[2022-06-17] MEDS: VSL#3 PO SCH (08:59)
[2022-06-17] MEDS: VITAMIN D3 125 mcg (5,000 UNITS) PO SCH (09:00)
[2022-06-17] MEDS: MAGNESIUM SULFATE 1 GRAM/100 mL PREMIX 1 G/100 ML BAG IV PRN ×2 (10:17→12:50)
--- NOTE | 2022-06-17 11:59 | PCM.PROG ---
Progress Note Progress Note for Day of Date of Exam: 06/17/22 Subjective Subjective: Patient seen at bedside, no events overnight. She states she feels better. She remains on 5L NC. She is being treated for acute on chronic respiratory failure due to COPD/CHF exacerbation requiring intubation. She also tested positive for COVID-19 on admission. Her BP was better later in the evening yesterday and she has been getting Entresto. Coreg is still on hold. Labs reviewed: WBC 9.5 K: 3.7 Mg 1.6 CXR: thin bilateral infiltrates Sputum: Proteus Plan: Monitor BP, hold coreg for now, can be given Entresto if SBP > 120. Replace K and Mag as per protocol. Patient has completed 7 days of antibiotics. Continue home medications. Wean O2 as tolerated to keep sats >92%, non-invasive ventilation qHS. CXR ordered for the AM. Monitor AM labs/imaging. Past Medical Family Social History Allergies: Allergies iodine Allergy (Verified 06/08/22 16:37) shellfish derived Allergy (Verified 06/08/22 16:37) Penicillin G Sodium *PENICILLINS* Allergy (Uncoded 06/12/22 08:15) Vital Signs and I&O's Vital Signs: Temperature 97.9 F Pulse Rate [Brachial] 90 Pulse Rate [Left] 74 Pulse Rate 74 Respiratory Rate 20 Blood Pressure [Left Arm] 104/51 Blood Pressure 170/94 O2 Sat by Pulse Oximetry 94 Intake and Output: Intake & Output 06/14/22 06/15/22 06/16/22 06/17/22 23:59 23:59 23:59 23:59 Intake Total 2624 / 2624 2550 / 2550 880 / 880 1240 / 1240 Output Total 2275 / 2275 1225 / 1225 1100 / 1100 1000 / 1000 Balance 349 / 349 1325 / 1325 -220 / -220 240 / 240 Physical Exam Oriented: Normal Eyes: Normal Nose: Normal Throat: Normal Respiratory: Generalized, Diminished and Wheezes Cardiovascular: Normal Auscultation: Bowel Sounds: Normal Tenderness: Normal Skin: Normal Musculoskeletal: Normal Psychiatric: Normal Mood Description: Calm Affect: Normal Speech Pattern: Clear and Appropriate Laboratory and Diagnostics Result Diagrams: 06/17/22 05:26 06/17/22 05:26 Labs: 06/08/22 03:58 Blood Blood Culture - Final 06/08/22 04:05 Blood Blood Culture - Final 06/08/22 09:25 Sputum - Endotracheal Wash Sputum Culture - Final Proteus Mirabilis 06/08/22 09:25 Sputum - Endotracheal Wash - Final Laboratory WBC 9.5 X10^3/uL (3.6-10.0) 06/17/22 05:26 RBC 5.73 X10^6/uL (3.5-5.4) H 06/17/22 05:26 Hgb 14.5 g/dL (12.0-16.0) 06/17/22 05:26 Hct 45.7 % (36.0-47.0) 06/17/22 05:26 MCV 79.9 fL (80.0-100.0) L 06/17/22 05:26 MCH 25.3 pg (27.0-34.0) L 06/17/22 05:26 MCHC 31.7 g/dL (33.0-35.0) L 06/17/22 05:26 RDW 19.3 % (11.6-16.5) H 06/17/22 05:26 Plt Count 229 X10^3/uL (150.0-450.0) 06/17/22 05:26 Plt Count Comment Adequate (ADEQUATE) 06/16/22 05:11 MPV 9.0 fL (7.4-11.0) 06/17/22 05:26 Neut % (Auto) 75.1 % (42.0-75.0) H 06/17/22 05:26 Lymph % (Auto) 13.8 % (21.0-51.0) L 06/17/22 05:26 [place] % (Auto) 8.1 % (0.0-13.0) 06/17/22 05:26 Eos % (Auto) 2.3 % (0.9-2.9) 06/17/22 05:26 Baso % (Auto) 0.7 % (0.2-1.0) 06/17/22 05:26 Neut # (Auto) 7.2 x10^3/uL (2.2-4.8) H 06/17/22 05:26 Lymph # (Auto) 1.3 X10^3/uL (1.3-2.9) 06/17/22 05:26 [place] # (Auto) 0.8 x10^3/uL (0.3-0.8) 06/17/22 05:26 Eos # (Auto) 0.2 x10^3/uL (0.0-0.2) 06/17/22 05:26 Baso # (Auto) 0.1 X10^3/uL (0.0-0.1) 06/17/22 05:26 Absolute Nucleated RBC 0.0 /100WBC 06/17/22 05:26 Total Counted 100 06/16/22 05:11 Neutrophils % (Manual) 75 % (39-76) 06/16/22 05:11 Lymphocytes % (Manual) 16 % (13-43) 06/16/22 05:11 Monocytes % (Manual) 5 % (4-9) 06/16/22 05:11 Eosinophils % (Manual) 3 % (0-6) 06/16/22 05:11 Basophils % (Manual) 1 % (0-1) 06/16/22 05:11 Plt Morphology Comment Normal (NORMAL) 06/16/22 05:11 RBC Morphology Abnormal (NORMAL) A 06/16/22 05:11 Anisocytosis Slight A 06/14/22 04:40 Stomatocytes Present 06/16/22 05:11 Crenated Cell Slight A 06/08/22 02:48 Sample Site Rr 06/13/22 05:17 ABG pH 7.410 (7.35-7.45) 06/13/22 05:17 ABG pCO2 64.0 mmHg (35.0-45.0) H* 06/13/22 05:17 ABG pO2 67.0 mmHg (80.0-100.0) L 06/13/22 05:17 ABG HCO3 40.6 mmol/L (22-26) H* 06/13/22 05:17 ABG O2 Saturation 93.0 % (90-100) 06/13/22 05:17 ABG Base Excess 13.3 mmol/L (-2.0-2.0) H 06/13/22 05:17 Varun Test Pos 06/13/22 05:17 A-a Gradient 138.0 mmHg 06/13/22 05:17 FiO2 40.0 06/13/22 05:17 Blood Gas Comments Maicol well ae 06/13/22 05:17 Sodium 143 mmol/L (136-145) 06/17/22 05:26 Corrected Sodium 145 mmol/L (136-145) 06/17/22 05:26 Potassium 3.9 mmol/L (3.5-5.1) 06/17/22 05:26 Chloride 102 mmol/L (98-107) 06/17/22 05:26 Carbon Dioxide 40.8 mmol/L (21-32) H 06/17/22 05:26 BUN 11 mg/dL (7-18) 06/17/22 05:26 Creatinine 0.62 mg/dL (0.55-1.02) 06/17/22 05:26 Est GFR (MDRD) Af Amer > 60 (>60) 06/17/22 05:26 Est GFR (MDRD) Non-Af > 60 (>60) 06/17/22 05:26 Glucose 169 mg/dL (65-99) H 06/17/22 05:26 POC Glucose (mg/dL) 171 mg/dL (65-99) H 06/16/22 19:34 Calcium 8.3 mg/dL (8.5-10.1) L 06/17/22 05:26 Corrected Calcium 9.5 mg/dL (8.5-10.1) 06/17/22 05:26 Magnesium 1.6 mg/dL (2.0-2.9) L 06/17/22 05:26 Total Bilirubin 0.60 mg/dL (0.2-1.0) 06/17/22 05:26 AST 17 Units/L (15-37) 06/17/22 05:26 ALT 45 Units/L (12-78) 06/17/22 05:26 Alkaline Phosphatase 61 Units/L (46-116) 06/17/22 05:26 Creatine Kinase 76 Units/L (26-192) 06/08/22 17:53 Troponin I High Sens 21.6 ng/L (4.0-60.0) 06/08/22 23:10 Total Protein 6.1 g/dL (6.4-8.2) L 06/17/22 05:26 Albumin 2.5 g/dL (3.4-5.0) L 06/17/22 05:26 Globulin 3.6 g/dL (2.5-4.5) 06/17/22 05:26 Albumin/Globulin Ratio 0.7 Ratio (1.1-2.1) L 06/17/22 05:26 Specimen Type Catherized urine 06/08/22 04:00 Urine Color Yellow (YELLOW) 06/08/22 04:00 Urine Appearance Slightly hazy (CLEAR) 06/08/22 04:00 Urine pH 5.0 (5.0 - 8.0) 06/08/22 04:00 Ur Specific [place] 1.030 (1.000-1.030) 06/08/22 04:00 Urine Protein 3+ (NEGATIVE) 06/08/22 04:00 Urine Glucose (UA) Negative (NEGATIVE) 06/08/22 04:00 Urine Ketones Negative (NEGATIVE) 06/08/22 04:00 Urine Blood 1+ (NEGATIVE) 06/08/22 04:00 Urine Nitrite Negative (NEGATIVE) 06/08/22 04:00 Urine Bilirubin Negative (NEGATIVE) 06/08/22 04:00 Urine Urobilinogen Normal (NORMAL) 06/08/22 04:00 Ur Leukocyte Esterase Negative (NEGATIVE) 06/08/22 04:00 Urine RBC 5-10 /HPF (0-3) A 06/08/22 04:00 Urine WBC 0-2 /HPF (0-5) 06/08/22 04:00 Ur Squamous Epith Cells Few /HPF (NEGATIVE) 06/08/22 04:00 Amorphous Sediment 1+ /HPF (NEGATIVE) 06/08/22 04:00 Urine Bacteria Trace /HPF (NEGATIVE) 06/08/22 04:00 Hyaline Casts Many /LPF (NEGATIVE) 06/08/22 04:00 Granular Casts Moderate /LPF (NEGATIVE) 06/08/22 04:00 Urine Mucus Few /HPF (NEGATIVE) 06/08/22 04:00 Urine Yeast Rare /HPF (NEGATIVE) 06/08/22 04:00 Ur Culture Indicated? No/not indicated 06/08/22 04:00 Stl Occult Blood (IFOB) Negative (NEGATIVE) 06/15/22 11:05 Stool H. pylori Ag Negative (NEGATIVE) 06/15/22 11:05 Urine Opiates Screen Positive (NEG=<300) A 06/08/22 04:00 Urine Methadone Screen Negative (NEG=<300) 06/08/22 04:00 Ur Barbiturates Screen Negative (NEG=<200) 06/08/22 04:00 Ur Phencyclidine Scrn Negative (NEG=<25) 06/08/22 04:00 Ur Amphetamines Screen Positive (NEG=<1000) A 06/08/22 04:00 U Benzodiazepines Scrn Negative (NEG=<200) 06/08/22 04:00 Urine Cocaine Screen Negative (NEG=<300) 06/08/22 04:00 U Marijuana (THC) Screen Negative (NEG=<50) 06/08/22 04:00 SARS-CoV-2 (PCR) Positive (NEGATIVE) A 06/08/22 02:43 Influenza Type A (PCR) Negative (NEGATIVE) 06/08/22 02:43 Influenza Type B (PCR) Negative (NEGATIVE) 06/08/22 02:43 RSV (PCR) Negative (NEGATIVE) 06/08/22 02:43 Plan (1) Acute respiratory failure with hypoxia and hypercarbia: Status: Acute (2) Pneumonia due to 2019 novel coronavirus: Status: Acute (3) COPD exacerbation: Status: Acute (4) CHF exacerbation: Status: Acute Qualifiers: Heart failure type: diastolic Qualified Code(s): I50.33 - Acute on chronic diastolic (congestive) heart failure (5) Difficult intubation: Status: Acute (6) Osteoarthritis: Status: Chronic (7) Obesity: Status: Chronic (8) Diabetes type 2, uncontrolled: Status: Chronic
[2022-06-17] MEDS: BUTT CREAM (COMPOUND) TOP PRN (16:22)
[2022-06-18 05:55] LABS: BASOPHILS # (AUTO) 0.1 X10^3/uL (0.0-0.1); EOSINOPHILS # (AUTO) 0.2 x10^3/uL (0.0-0.2); EOSINOPHILS % (AUTO) 2.2 % (0.9-2.9); HEMATOCRIT 45.6 % (36.0-47.0); HEMOGLOBIN 14.3 g/dL (12.0-16.0); LYMPHOCYTES # (AUTO) 1.6 X10^3/uL (1.3-2.9); MEAN CORPUSCULAR HEMOGLOBIN 25.1 pg (27.0-34.0); MEAN CORPUSCULAR HGB CONC 31.4 g/dL (33.0-35.0); MEAN CORPUSCULAR VOLUME 79.9 fL (80.0-100.0); MEAN PLATELET VOLUME 9.1 fL (7.4-11.0); MONOCYTES % (AUTO) 9.1 % (0.0-13.0); NEUTROPHILS # (AUTO) 7.7 x10^3/uL (2.2-4.8); NEUTROPHILS % (AUTO) 72.7 % (42.0-75.0); RED BLOOD COUNT 5.71 X10^6/uL (3.5-5.4); RED CELL DISTRIBUTION WIDTH 18.9 % (11.6-16.5); WHITE BLOOD COUNT 10.6 X10^3/uL (3.6-10.0)
[2022-06-18 06:05] LABS: ALANINE AMINOTRANSFERASE 47 Units/L (12-78); ALBUMIN 2.5 g/dL (3.4-5.0); ALKALINE PHOSPHATASE 72 Units/L (46-116); ASPARTATE AMINO TRANSFERASE 26 Units/L (15-37); BLOOD UREA NITROGEN 11 mg/dL (7-18); CALCIUM 8.3 mg/dL (8.5-10.1); CARBON DIOXIDE 35.6 mmol/L (21-32); CHLORIDE 101 mmol/L (98-107); COR CA(FOR HYPOALB) 9.5 mg/dL (8.5-10.1); COR NA(FOR HYPERGLY) 141 mmol/L (136-145); CREATININE 0.63 mg/dL (0.55-1.02); SODIUM 139 mmol/L (136-145); TOTAL PROTEIN 6.5 g/dL (6.4-8.2); eGFR NON BLACK RACES > 60 (>60)
[2022-06-18 06:06] LABS: PLATELET MORPHOLOGY COMMENT NORMAL (NORMAL)
[2022-06-18] MEDS: PULMICORT NEB TX 0.5 MG NEB SCH (08:30)
[2022-06-18] MEDS: BROVANA IN SCH (08:30)
[2022-06-18] MEDS: PROTONIX INJ 40 MG VIAL IVP SCH (08:55)
[2022-06-18] MEDS: LOVENOX INJ 40 MG SYR SC SCH (08:55)
[2022-06-18] MEDS: GLUCOPHAGE XR 24-HR PO SCH (08:56)
[2022-06-18] MEDS: ZINC SULFATE PO SCH (08:56)
[2022-06-18] MEDS: ENTRESTO 24/26 MG TAB PO SCH (08:56)
[2022-06-18] MEDS: VITAMIN D3 125 mcg (5,000 UNITS) PO SCH (08:56)
[2022-06-18] MEDS: VSL#3 PO SCH (08:57)
--- NOTE | 2022-06-18 11:13 | RAD ---
HISTORYRespiratory failure pneumoniaSTUDYPortable AP chestCOMPARISONDecember 2021FINDINGSHeart size normal with no evidence for localized pneumonia, atelectasis or pulmonary edema. There is no definite pleural effusion demonstrated. Stable appearance of left subclavian line or port.IMPRESSIONNo acute chest findings.Electronically signed by: RELL RIVER (Jun 18, 2022 11:11:28)
[2022-06-18 13:44] VITALS: BP 105/52
== END 2022-06-18 13:30 | disposition home health service (06) | DRG 208 ==
LOC: ER 02:30 → ICU 05:38 → MED/SURG 06-15 16:23
PROVIDERS: ADMIT Obstetrics & Gynecology Obstetrics; ATTEND Obstetrics & Gynecology Obstetrics
DX: J15.6 Pneumonia due to other Gram-negative bacteria; T88.4XXA Failed or difficult intubation, initial encounter; J90 Pleural effusion, not elsewhere classified; J44.1 Chronic obstructive pulmonary disease with (acute) exacerbation; R94.31 Abnormal electrocardiogram [ECG] [EKG]; E66.9 Obesity, unspecified; J96.01 Acute respiratory failure with hypoxia; J96.02 Acute respiratory failure with hypercapnia; U07.1 COVID-19; R26.89 Other abnormalities of gait and mobility; M19.90 Unspecified osteoarthritis, unspecified site; I50.33 Acute on chronic diastolic (congestive) heart failure; E11.65 Type 2 diabetes mellitus with hyperglycemia

== ENCOUNTER 2022-06-23 12:37 | Inpatient (IN) ==
--- NOTE | 2022-06-23 13:00 | DR.SOBA ---
HPI Time Seen Time Seen by Provider: 06/23/22 12:45 Primary Care Physician Primary Care Physician: DR CHURCHILL Complaints Chief Complaint:: PER EMS PT C/O SHORTNESS OF BREATH. UPON ARRIVAL ON SCENE EMS REPORTS THAT PT'S NASAL CANNULA WAS OFF OF PT AND PT'S O2 SAT WAS 59%. PT WAS PLACED ON 4L NC AND UPON ARRIVAL TO ED O2 SAT IS UP TO 86%. PT IS AWAKE BUT D ROWSY AND HAS DIFFICULTY ANSWERING QUESTIONS AT TIME OF TRIAGE. DENIES PAIN. COVID-19 Coronavirus risk:travel/contact w/high risk person: No Has patient experienced Coronavirus symptoms: No Reviewed Nurses Notes Reviewed: Yes Source History Provided: Patient and EMS Mode of Arrival Mode of Arrival: EMS Timing Onset of Chief Complaint: 06/23/22 PMH PMH Past Medical History: Yes Past Medical History: Arthritis, CHF, COPD and Diabetes Past Surgical History: Yes Surgical History: Unknown Family History History of Family Medical Conditions: No Family Medical History: Diabetes Mellitus and Cancer Social History Does patient currently use any type of tobacco product: Yes Have you used tobacco products in the last 12 months: Yes Type of Tobacco Use: Cigarettes Does any household member use tobacco: No Alcohol Use: None Do you use any recreational Drugs:: Yes Lives With: Family Lives Where: Home Travel Risk Coronavirus risk:travel/contact w/high risk person: No Has patient experienced Coronavirus symptoms: No Infectious screening In the last 2 months have you had wt loss of >10#?: NO Have you had fever, night sweats or hemotysis?: No Have you traveled outside the country in the last 6 months?: No Isolation: Droplet PE Vital Signs Vitals: Temperature 98.0 F Pulse Rate 75 Respiratory Rate 35 Blood Pressure [Left Arm] 105/52 Blood Pressure 142/71 O2 Sat by Pulse Oximetry 90 ROR Labs Reviewed Result Diagrams: 06/23/22 13:24 06/23/22 13:24 Laboratory: WBC 9.8 X10^3/uL (3.6-10.0) 06/23/22 13:24 RBC 5.32 X10^6/uL (3.5-5.4) 06/23/22 13:24 Hgb 13.7 g/dL (12.0-16.0) 06/23/22 13:24 Hct 43.4 % (36.0-47.0) 06/23/22 13:24 MCV 81.6 fL (80.0-100.0) 06/23/22 13:24 MCH 25.7 pg (27.0-34.0) L 06/23/22 13:24 MCHC 31.5 g/dL (33.0-35.0) L 06/23/22 13:24 RDW 19.3 % (11.6-16.5) H 06/23/22 13:24 Plt Count 258 X10^3/uL (150.0-450.0) 06/23/22 13:24 MPV 8.6 fL (7.4-11.0) 06/23/22 13:24 Neut % (Auto) 81.6 % (42.0-75.0) H 06/23/22 13:24 Lymph % (Auto) 12.1 % (21.0-51.0) L 06/23/22 13:24 [place] % (Auto) 5.8 % (0.0-13.0) 06/23/22 13:24 Eos % (Auto) 0.1 % (0.9-2.9) L 06/23/22 13:24 Baso % (Auto) 0.4 % (0.2-1.0) 06/23/22 13:24 Neut # (Auto) 8.0 x10^3/uL (2.2-4.8) H 06/23/22 13:24 Lymph # (Auto) 1.2 X10^3/uL (1.3-2.9) L 06/23/22 13:24 [place] # (Auto) 0.6 x10^3/uL (0.3-0.8) 06/23/22 13:24 Eos # (Auto) 0.0 x10^3/uL (0.0-0.2) 06/23/22 13:24 Baso # (Auto) 0.0 X10^3/uL (0.0-0.1) 06/23/22 13:24 Absolute Nucleated RBC 0.0 /100WBC 06/23/22 13:24 Sample Site Rra 06/23/22 15:11 ABG pH 7.280 (7.35-7.45) L 06/23/22 15:11 ABG pCO2 80.0 mmHg (35.0-45.0) H* 06/23/22 15:11 ABG pO2 208.0 mmHg (80.0-100.0) H 06/23/22 15:11 ABG HCO3 37.6 mmol/L (22-26) H* 06/23/22 15:11 ABG O2 Saturation 100.0 % (90-100) 06/23/22 15:11 ABG Base Excess 8.1 mmol/L (-2.0-2.0) H 06/23/22 15:11 Varun Test Pos 06/23/22 15:11 A-a Gradient 120.0 mmHg 06/23/22 15:11 FiO2 60.0 06/23/22 15:11 Blood Gas Comments Pt jose well eb 06/23/22 15:11 Sodium 139 mmol/L (136-145) 06/23/22 13:24 Corrected Sodium 141 mmol/L (136-145) 06/23/22 13:24 Potassium 4.6 mmol/L (3.5-5.1) 06/23/22 13:24 Chloride 101 mmol/L (98-107) 06/23/22 13:24 Carbon Dioxide 38.4 mmol/L (21-32) H 06/23/22 13:24 BUN 18 mg/dL (7-18) 06/23/22 13:24 Creatinine 0.86 mg/dL (0.55-1.02) 06/23/22 13:24 Est GFR (MDRD) Af Amer > 60 (>60) 06/23/22 13:24 Est GFR (MDRD) Non-Af > 60 (>60) 06/23/22 13:24 Glucose 181 mg/dL (65-99) H 06/23/22 13:24 Calcium 8.8 mg/dL (8.5-10.1) 06/23/22 13:24 Corrected Calcium 10.0 mg/dL (8.5-10.1) 06/23/22 13:24 Total Bilirubin 0.30 mg/dL (0.2-1.0) 06/23/22 13:24 AST 33 Units/L (15-37) 06/23/22 13:24 ALT 51 Units/L (12-78) 06/23/22 13:24 Alkaline Phosphatase 86 Units/L (46-116) 06/23/22 13:24 Creatine Kinase 31 Units/L (26-192) 06/23/22 13:24 Troponin I High Sens 25.3 ng/L (4.0-60.0) 06/23/22 13:24 B-Natriuretic Peptide 955 pg/mL (0-79) H* 06/23/22 13:24 Total Protein 7.4 g/dL (6.4-8.2) 06/23/22 13:24 Albumin 2.5 g/dL (3.4-5.0) L 06/23/22 13:24 Globulin 4.9 g/dL (2.5-4.5) H 06/23/22 13:24 Albumin/Globulin Ratio 0.5 Ratio (1.1-2.1) L 06/23/22 13:24 Specimen Type Catherized urine 06/23/22 13:15 Urine Color Yellow (YELLOW) 06/23/22 13:15 Urine Appearance Clear (CLEAR) 06/23/22 13:15 Urine pH 5.0 (5.0 - 8.0) 06/23/22 13:15 Ur Specific [place] 1.025 (1.000-1.030) 06/23/22 13:15 Urine Protein 3+ (NEGATIVE) 06/23/22 13:15 Urine Glucose (UA) Negative (NEGATIVE) 06/23/22 13:15 Urine Ketones Negative (NEGATIVE) 06/23/22 13:15 Urine Blood 1+ (NEGATIVE) 06/23/22 13:15 Urine Nitrite Positive (NEGATIVE) 06/23/22 13:15 Urine Bilirubin Negative (NEGATIVE) 06/23/22 13:15 Urine Urobilinogen 2+ (NORMAL) 06/23/22 13:15 Ur Leukocyte Esterase 1+ (NEGATIVE) 06/23/22 13:15 Urine RBC 0-2 /HPF (0-3) 06/23/22 13:15 Urine WBC 3-5 /HPF (0-5) 06/23/22 13:15 Ur Squamous Epith Cells Few /HPF (NEGATIVE) 06/23/22 13:15 Urine Bacteria Trace /HPF (NEGATIVE) 06/23/22 13:15 Granular Casts Many /LPF (NEGATIVE) 06/23/22 13:15 Ur Culture Indicated? No/not indicated 06/23/22 13:15 Urine Opiates Screen Negative (NEG=<300) 06/23/22 13:15 Urine Methadone Screen Negative (NEG=<300) 06/23/22 13:15 Ur Barbiturates Screen Negative (NEG=<200) 06/23/22 13:15 Ur Phencyclidine Scrn Negative (NEG=<25) 06/23/22 13:15 Ur Amphetamines Screen Positive (NEG=<1000) A 06/23/22 13:15 U Benzodiazepines Scrn Negative (NEG=<200) 06/23/22 13:15 Urine Cocaine Screen Negative (NEG=<300) 06/23/22 13:15 U Marijuana (THC) Screen Negative (NEG=<50) 06/23/22 13:15 Opioid Opioid Risk Tool Age (Yuval box if 16-45): No History of Preadolescent Sexual Abuse: No Total: 0 Total Score Risk Category: Low Risk Copyright: Baig predicting aberrant behaviors Discharge Plan Diagnosis Discharge Problem: Acute CHF, Hypercapnic respiratory failure, Hypoxemia, Bronchitis Discharge Plan Patient Disposition: 09 ADMITTED INPATIENT Condition: Stable Prescriptions: No Action carvedilol 6.25 mg Tablet 6.25 mg PO BID Qty: 60 3RF Entresto 24-26 mg Tablet 1 tab PO BID Qty: 60 3RF metformin 500 mg Tablet Extended Release 24 Hr 100 mg PO BID Qty: 120 3RF Trelegy Ellipta 100-62.5-25 mcg blister with device 1 inh inhalation Q24H Qty: 28 0RF Health Concerns: Post Hospitalization: new medications and changes needed to prevent readmission or further decline. Pt educated and given instructions on all concerns. Plan of Treatment: Continue with present treatment and follow up plan. Pt is to keep follow up appointment as instructed and take medications as ordered. Orders to Discharge Patient Discharge Orders: Transfer (Routine); Ordered 06/23/22 Ordered By: RIGO CLOUD Follow ups/Referrals Follow ups/Referrals: Neema Ramsey [Primary Care Provider] - 3 days
[2022-06-23 13:02] LABS: ABG BASE EXCESS 7.5 mmol/L (-2.0-2.0)
[2022-06-23 13:04] LABS: ABG HCO3 37.7 mmol/L (22-26)
[2022-06-23 13:05] LABS: ABG ALLEN TEST POS
--- NOTE | 2022-06-23 13:17 | EKG ---
Test Reason : HTN Blood Pressure : */* mmHG Vent. Rate : 88 BPM Atrial Rate : 88 BPM P-R Int : 166 ms QRS Dur : 96 ms QT Int : 332 ms P-R-T Axes : 59 12 25 degrees QTc Int : 401 ms Normal sinus rhythm Possible Anterior infarct (cited on or before 08-JUN-2022) Abnormal ECG When compared with ECG of 08-JUN-2022 17:03, Criteria for Inferior infarct are no longer present Questionable change in initial forces of Septal leads Confirmed by Sancho Bey ([id number]) on 06/26/2022 5:51:59 PM Referred By: Confirmed By: Sancho Bey
[2022-06-23 13:43] LABS: BASOPHILS % (AUTO) 0.4 % (0.2-1.0); EOSINOPHILS % (AUTO) 0.1 % (0.9-2.9); HEMATOCRIT 43.4 % (36.0-47.0); HEMOGLOBIN 13.7 g/dL (12.0-16.0); LYMPHOCYTES # (AUTO) 1.2 X10^3/uL (1.3-2.9); LYMPHOCYTES % (AUTO) 12.1 % (21.0-51.0); MEAN CORPUSCULAR HEMOGLOBIN 25.7 pg (27.0-34.0); MEAN CORPUSCULAR HGB CONC 31.5 g/dL (33.0-35.0); MEAN CORPUSCULAR VOLUME 81.6 fL (80.0-100.0); MEAN PLATELET VOLUME 8.6 fL (7.4-11.0); MONOCYTES # (AUTO) 0.6 x10^3/uL (0.3-0.8); MONOCYTES % (AUTO) 5.8 % (0.0-13.0); NEUTROPHILS % (AUTO) 81.6 % (42.0-75.0); RED BLOOD COUNT 5.32 X10^6/uL (3.5-5.4); RED CELL DISTRIBUTION WIDTH 19.3 % (11.6-16.5); WHITE BLOOD COUNT 9.8 X10^3/uL (3.6-10.0)
[2022-06-23 13:43] LABS: BILIRUBIN,URINE NEGATIVE (NEGATIVE); BLOOD/HEMOGLOBIN,URINE 1+ (NEGATIVE); GLUCOSE, URINE NEGATIVE (NEGATIVE); KETONES,URINE NEGATIVE (NEGATIVE); LEUKOCYTE ESTERASE ,URINE 1+ (NEGATIVE); NITRITES,URINE POSITIVE (NEGATIVE); PROTEIN,URINE 3+ (NEGATIVE); UROBILINOGEN,URINE 2+ (NORMAL)
[2022-06-23 13:52] LABS: APPEARANCE,URINE CLEAR (CLEAR); COLOR,URINE YELLOW (YELLOW)
[2022-06-23 13:53] LABS: BACTERIA,URINE TRACE /HPF (NEGATIVE); GRANULAR CASTS,URINE MANY /LPF (NEGATIVE); RBC,URINE 0-2 /HPF (0-3); SQUAMOUS EPITHELIAL CELL,UR FEW /HPF (NEGATIVE)
[2022-06-23 14:01] LABS: ALANINE AMINOTRANSFERASE 51 Units/L (12-78); ALBUMIN 2.5 g/dL (3.4-5.0); ALKALINE PHOSPHATASE 86 Units/L (46-116); ASPARTATE AMINO TRANSFERASE 33 Units/L (15-37); BLOOD UREA NITROGEN 18 mg/dL (7-18); CALCIUM 8.8 mg/dL (8.5-10.1); CARBON DIOXIDE 38.4 mmol/L (21-32); CHLORIDE 101 mmol/L (98-107); COR NA(FOR HYPERGLY) 141 mmol/L (136-145); CREATINE KINASE 31 Units/L (26-192); CREATININE 0.86 mg/dL (0.55-1.02); SODIUM 139 mmol/L (136-145); TOTAL PROTEIN 7.4 g/dL (6.4-8.2); eGFR NON BLACK RACES > 60 (>60)
[2022-06-23] MEDS ORDERED: LASIX ONE (15:01)
[2022-06-23] MEDS ORDERED: LASIX IVP ONE (15:02)
[2022-06-23 15:16] LABS: ABG BASE EXCESS 8.1 mmol/L (-2.0-2.0)
[2022-06-23 15:18] LABS: ABG ALLEN TEST POS; ABG HCO3 37.6 mmol/L (22-26)
[2022-06-23 17:08] VITALS: BMI 38.9
[2022-06-23] MEDS ORDERED: BUTT CREAM (COMPOUND) ONE (17:12)
[2022-06-23] MEDS ORDERED: BUTT CREAM (COMPOUND) TOP PRN (17:28)
[2022-06-23] MEDS ORDERED: PULMICORT NEB TX 0.5 MG NEB ONE (19:16)
[2022-06-23] MEDS ORDERED: DUONEB 0.5 MG/3 MG (3 mL) NEB ONE (19:16)
[2022-06-23] MEDS: DUONEB 0.5 MG/3 MG (3 mL) NEB SCH (20:30)
[2022-06-23] MEDS: PULMICORT NEB TX 0.5 MG NEB SCH (20:30)
--- NOTE | 2022-06-23 21:32 | RAD ---
PROCEDURE: Chest X-ray 1 View .HISTORY: Hypoxia and respiratory distress.TECHNIQUE: AP view .COMPARISON: 06/18/2022.TECHNICAL QUALITY: Satisfactory .FINDINGS:Normal size heart .Mediastinum and hilar regions show no masses or lymphadenopathy .Normal central vascularity .No pulmonary consolidation, masses, pleural fluid, or pneumothorax .No acute bony abnormality .IMPRESSION:No active cardiopulmonary disease .Electronically signed by: Mango Cancino (Jun 23, 2022 21:31:20)
[2022-06-24 05:15] LABS: BASOPHILS # (AUTO) 0.1 X10^3/uL (0.0-0.1); BASOPHILS % (AUTO) 0.5 % (0.2-1.0); HEMATOCRIT 43.1 % (36.0-47.0); HEMOGLOBIN 13.3 g/dL (12.0-16.0); LYMPHOCYTES # (AUTO) 1.2 X10^3/uL (1.3-2.9); LYMPHOCYTES % (AUTO) 10.2 % (21.0-51.0); MEAN CORPUSCULAR HEMOGLOBIN 25.3 pg (27.0-34.0); MEAN CORPUSCULAR HGB CONC 30.9 g/dL (33.0-35.0); MEAN PLATELET VOLUME 8.9 fL (7.4-11.0); MONOCYTES % (AUTO) 8.4 % (0.0-13.0); NEUTROPHILS # (AUTO) 9.6 x10^3/uL (2.2-4.8); NEUTROPHILS % (AUTO) 80.9 % (42.0-75.0); RED BLOOD COUNT 5.25 X10^6/uL (3.5-5.4); RED CELL DISTRIBUTION WIDTH 19.1 % (11.6-16.5); WHITE BLOOD COUNT 11.9 X10^3/uL (3.6-10.0)
[2022-06-24 05:24] LABS: ALANINE AMINOTRANSFERASE 55 Units/L (12-78); ALBUMIN 2.4 g/dL (3.4-5.0); ALKALINE PHOSPHATASE 80 Units/L (46-116); ASPARTATE AMINO TRANSFERASE 31 Units/L (15-37); BLOOD UREA NITROGEN 14 mg/dL (7-18); CALCIUM 8.9 mg/dL (8.5-10.1); CARBON DIOXIDE 40.1 mmol/L (21-32); CHLORIDE 103 mmol/L (98-107); COR CA(FOR HYPOALB) 10.2 mg/dL (8.5-10.1); COR NA(FOR HYPERGLY) 145 mmol/L (136-145); CREATININE 0.84 mg/dL (0.55-1.02); SODIUM 144 mmol/L (136-145); TOTAL PROTEIN 7.1 g/dL (6.4-8.2); eGFR NON BLACK RACES > 60 (>60)
[2022-06-24 05:38] LABS: ABG BASE EXCESS 18.5 mmol/L (-2.0-2.0)
[2022-06-24 05:40] LABS: ABG ALLEN TEST POS
[2022-06-24] MEDS: DUONEB 0.5 MG/3 MG (3 mL) NEB SCH ×4 (08:44→21:15)
[2022-06-24] MEDS: PULMICORT NEB TX 0.5 MG NEB SCH ×2 (08:44→21:15)
[2022-06-24] MEDS ORDERED: LEVAQUIN TAB 500 MG PO SCH (13:00)
[2022-06-24] MEDS: ENTRESTO 24/26 MG TAB PO SCH ×2 (13:21→20:25)
[2022-06-24] MEDS: LR 1,000 ML IV 1,000 ML IV SCH ×2 (13:21→23:10)
[2022-06-24] MEDS: GLUCOPHAGE XR 24-HR PO SCH ×2 (13:21→20:25)
[2022-06-24] MEDS: COREG TAB 6.25 MG PO SCH ×2 (13:22→20:25)
[2022-06-24] MEDS ORDERED: PATIENT'S HOME MEDICATION (Fluticasone-Umeclidin-Vilanter [Trelegy Ellipta] 100-62.5-25 mc IN SCH (14:00)
[2022-06-24] MEDS: TYLENOL 325 MG TAB PO PRN (21:39)
[2022-06-25 05:24] LABS: BASOPHILS # (AUTO) 0.1 X10^3/uL (0.0-0.1); BASOPHILS % (AUTO) 0.7 % (0.2-1.0); EOSINOPHILS % (AUTO) 0.2 % (0.9-2.9); HEMATOCRIT 39.4 % (36.0-47.0); HEMOGLOBIN 12.2 g/dL (12.0-16.0); LYMPHOCYTES # (AUTO) 0.8 X10^3/uL (1.3-2.9); MEAN CORPUSCULAR HEMOGLOBIN 25.4 pg (27.0-34.0); MEAN CORPUSCULAR HGB CONC 30.9 g/dL (33.0-35.0); MEAN CORPUSCULAR VOLUME 82.4 fL (80.0-100.0); MEAN PLATELET VOLUME 8.7 fL (7.4-11.0); MONOCYTES # (AUTO) 0.7 x10^3/uL (0.3-0.8); MONOCYTES % (AUTO) 5.7 % (0.0-13.0); NEUTROPHILS # (AUTO) 9.9 x10^3/uL (2.2-4.8); NEUTROPHILS % (AUTO) 86.4 % (42.0-75.0); RED BLOOD COUNT 4.78 X10^6/uL (3.5-5.4); WHITE BLOOD COUNT 11.5 X10^3/uL (3.6-10.0)
[2022-06-25] MEDS: LR 1,000 ML IV 1,000 ML IV SCH ×3 (05:35→15:13)
[2022-06-25 05:38] LABS: ALANINE AMINOTRANSFERASE 50 Units/L (12-78); ALKALINE PHOSPHATASE 74 Units/L (46-116); ASPARTATE AMINO TRANSFERASE 29 Units/L (15-37); BLOOD UREA NITROGEN 10 mg/dL (7-18); CHLORIDE 102 mmol/L (98-107); COR CA(FOR HYPOALB) 10.6 mg/dL (8.5-10.1); COR NA(FOR HYPERGLY) 144 mmol/L (136-145); CREATININE 0.61 mg/dL (0.55-1.02); SODIUM 143 mmol/L (136-145); TOTAL PROTEIN 6.4 g/dL (6.4-8.2); eGFR NON BLACK RACES > 60 (>60)
[2022-06-25 05:46] LABS: CARBON DIOXIDE > 45.0 mmol/L (21-32)
[2022-06-25 05:59] LABS: ABG BASE EXCESS 25.3 mmol/L (-2.0-2.0)
[2022-06-25 06:00] LABS: ABG ALLEN TEST POS; ABG HCO3 55.7 mmol/L (22-26)
[2022-06-25] MEDS: DUONEB 0.5 MG/3 MG (3 mL) NEB SCH ×4 (08:19→20:31)
[2022-06-25] MEDS: PULMICORT NEB TX 0.5 MG NEB SCH ×2 (08:19→20:31)
[2022-06-25] MEDS: COREG TAB 6.25 MG PO SCH ×2 (08:44→23:14)
[2022-06-25] MEDS: XANAX PO PRN ×2 (08:44→20:39)
[2022-06-25] MEDS: LOVENOX INJ 40 MG SYR SC SCH (08:45)
[2022-06-25] MEDS: ENTRESTO 24/26 MG TAB PO SCH ×2 (08:45→23:14)
[2022-06-25] MEDS: GLUCOPHAGE XR 24-HR PO SCH ×2 (08:45→20:39)
[2022-06-25] MEDS: LEVAQUIN PREMIX IV 500 MG 500 MG/100 ML BAG IV SCH (08:46)
[2022-06-25] MEDS ORDERED: LASIX IVP ONE (14:27)
--- NOTE | 2022-06-25 16:55 | PCM.PROG ---
Progress Note Progress Note for Day of Date of Exam: 06/25/22 Subjective Subjective: Pt is a 67 year old female past medical history of CHF and COPD admitted for acute respiratory failure, COPD exacerbation, and hypercapnia. She was recently discharged but was non-compliant with medications and discharge instructions, was re-admitted, and placed on BiPAP. She also tested positive for amphetamines. This morning she remains on BiPAP. Labs/imaging: Wbc 11.5, Hgb 12.2, Plt 224, Na 143, K 4.3, Creatinine 0.61, Glucose 158, ABG was obtained that revealed: pH 7.39, pCO2 92, pO2 88, HCO3 55, O2sat 97% with FiO2 60%. Pt is currently receiving IV Levaquin, Coreg, Entresto. Will change IVF to D5 1/2 NS@75ml/h due to low glucose levels. Add xanax prn for anxiety. Give IV lasix 2 0mg x1. Continue BiPAP and titrate/wean per protocol by RT. Otherwise, continue with current treatment plan. Adult Protective Services notified. Continue to closely monitor and follow up labs/imaging in the morning. Past Medical Family Social History Past Med/Fam/Surg Hx: No changes since H&P Allergies: Allergies iodine Allergy (Verified 06/08/22 16:37) shellfish derived Allergy (Verified 06/08/22 16:37) Penicillin G Sodium *PENICILLINS* Allergy (Uncoded 06/12/22 08:15) Review of Systems ROS: No change since H&P Vital Signs and I&O's Vital Signs: Temperature 97.9 F Pulse Rate 61 Respiratory Rate 30 Blood Pressure [Left Arm] 105/52 Blood Pressure 93/54 O2 Sat by Pulse Oximetry 92 Intake and Output: Intake & Output 06/22/22 06/23/22 06/24/22 06/25/22 23:59 23:59 23:59 23:59 Intake Total 0 / 0 1582 / 1582 1851 / 1851 Output Total 2099 / 2099 1275 / 1275 1000 / 1000 Balance -2099 / -2099 307 / 307 851 / 851 Physical Exam Oriented: Other Eyes: Normal Nose: Normal Respiratory: Diminished Cardiovascular: Normal : Normal Auscultation: Bowel Sounds: Normal Palpation: Normal Tenderness: Normal Skin: Normal Musculoskeletal: Normal Speech Pattern: Inappropriate Laboratory and Diagnostics Result Diagrams: 06/26/22 04:25 06/26/22 04:25 Labs: 06/23/22 13:34 Blood Blood Culture - Preliminary 06/23/22 13:24 Blood Blood Culture - Preliminary Laboratory WBC 11.5 X10^3/uL (3.6-10.0) H 06/25/22 05:05 RBC 4.78 X10^6/uL (3.5-5.4) 06/25/22 05:05 Hgb 12.2 g/dL (12.0-16.0) 06/25/22 05:05 Hct 39.4 % (36.0-47.0) 06/25/22 05:05 MCV 82.4 fL (80.0-100.0) 06/25/22 05:05 MCH 25.4 pg (27.0-34.0) L 06/25/22 05:05 MCHC 30.9 g/dL (33.0-35.0) L 06/25/22 05:05 RDW 19.0 % (11.6-16.5) H 06/25/22 05:05 Plt Count 224 X10^3/uL (150.0-450.0) 06/25/22 05:05 MPV 8.7 fL (7.4-11.0) 06/25/22 05:05 Neut % (Auto) 86.4 % (42.0-75.0) H 06/25/22 05:05 Lymph % (Auto) 7.0 % (21.0-51.0) L 06/25/22 05:05 [place] % (Auto) 5.7 % (0.0-13.0) 06/25/22 05:05 Eos % (Auto) 0.2 % (0.9-2.9) L 06/25/22 05:05 Baso % (Auto) 0.7 % (0.2-1.0) 06/25/22 05:05 Neut # (Auto) 9.9 x10^3/uL (2.2-4.8) H 06/25/22 05:05 Lymph # (Auto) 0.8 X10^3/uL (1.3-2.9) L 06/25/22 05:05 [place] # (Auto) 0.7 x10^3/uL (0.3-0.8) 06/25/22 05:05 Eos # (Auto) 0.0 x10^3/uL (0.0-0.2) 06/25/22 05:05 Baso # (Auto) 0.1 X10^3/uL (0.0-0.1) 06/25/22 05:05 Absolute Nucleated RBC 0.0 /100WBC 06/25/22 05:05 Sample Site [place] 06/25/22 05:55 ABG pH 7.390 (7.35-7.45) 06/25/22 05:55 ABG pCO2 92.0 mmHg (35.0-45.0) H* 06/25/22 05:55 ABG pO2 88.0 mmHg (80.0-100.0) 06/25/22 05:55 ABG HCO3 55.7 mmol/L (22-26) H* 06/25/22 05:55 ABG O2 Saturation 97.0 % (90-100) 06/25/22 05:55 ABG Base Excess 25.3 mmol/L (-2.0-2.0) H 06/25/22 05:55 Varun Test Pos 06/25/22 05:55 A-a Gradient 225.0 mmHg 06/25/22 05:55 FiO2 60.0 06/25/22 05:55 Blood Gas Comments Maicol well 06/25/22 05:55 Sodium 143 mmol/L (136-145) 06/25/22 05:05 Corrected Sodium 144 mmol/L (136-145) 06/25/22 05:05 Potassium 4.3 mmol/L (3.5-5.1) 06/25/22 05:05 Chloride 102 mmol/L (98-107) 06/25/22 05:05 Carbon Dioxide > 45.0 mmol/L (21-32) H* 06/25/22 05:05 BUN 10 mg/dL (7-18) 06/25/22 05:05 Creatinine 0.61 mg/dL (0.55-1.02) 06/25/22 05:05 Est GFR (MDRD) Af Amer > 60 (>60) 06/25/22 05:05 Est GFR (MDRD) Non-Af > 60 (>60) 06/25/22 05:05 Glucose 158 mg/dL (65-99) H 06/25/22 05:05 POC Glucose (mg/dL) 82 mg/dL (65-99) 06/25/22 15:54 Calcium 9.0 mg/dL (8.5-10.1) 06/25/22 05:05 Corrected Calcium 10.6 mg/dL (8.5-10.1) H 06/25/22 05:05 Total Bilirubin 0.60 mg/dL (0.2-1.0) 06/25/22 05:05 AST 29 Units/L (15-37) 06/25/22 05:05 ALT 50 Units/L (12-78) 06/25/22 05:05 Alkaline Phosphatase 74 Units/L (46-116) 06/25/22 05:05 Creatine Kinase 31 Units/L (26-192) 06/23/22 13:24 Troponin I High Sens 25.3 ng/L (4.0-60.0) 06/23/22 13:24 B-Natriuretic Peptide 955 pg/mL (0-79) H* 06/23/22 13:24 Total Protein 6.4 g/dL (6.4-8.2) 06/25/22 05:05 Albumin 2.0 g/dL (3.4-5.0) L 06/25/22 05:05 Globulin 4.4 g/dL (2.5-4.5) 06/25/22 05:05 Albumin/Globulin Ratio 0.5 Ratio (1.1-2.1) L 06/25/22 05:05 Specimen Type Catherized urine 06/23/22 13:15 Urine Color Yellow (YELLOW) 06/23/22 13:15 Urine Appearance Clear (CLEAR) 06/23/22 13:15 Urine pH 5.0 (5.0 - 8.0) 06/23/22 13:15 Ur Specific [place] 1.025 (1.000-1.030) 06/23/22 13:15 Urine Protein 3+ (NEGATIVE) 06/23/22 13:15 Urine Glucose (UA) Negative (NEGATIVE) 06/23/22 13:15 Urine Ketones Negative (NEGATIVE) 06/23/22 13:15 Urine Blood 1+ (NEGATIVE) 06/23/22 13:15 Urine Nitrite Positive (NEGATIVE) 06/23/22 13:15 Urine Bilirubin Negative (NEGATIVE) 06/23/22 13:15 Urine Urobilinogen 2+ (NORMAL) 06/23/22 13:15 Ur Leukocyte Esterase 1+ (NEGATIVE) 06/23/22 13:15 Urine RBC 0-2 /HPF (0-3) 06/23/22 13:15 Urine WBC 3-5 /HPF (0-5) 06/23/22 13:15 Ur Squamous Epith Cells Few /HPF (NEGATIVE) 06/23/22 13:15 Urine Bacteria Trace /HPF (NEGATIVE) 06/23/22 13:15 Granular Casts Many /LPF (NEGATIVE) 06/23/22 13:15 Ur Culture Indicated? No/not indicated 06/23/22 13:15 Urine Opiates Screen Negative (NEG=<300) 06/23/22 13:15 Urine Methadone Screen Negative (NEG=<300) 06/23/22 13:15 Ur Barbiturates Screen Negative (NEG=<200) 06/23/22 13:15 Ur Phencyclidine Scrn Negative (NEG=<25) 06/23/22 13:15 Ur Amphetamines Screen Positive (NEG=<1000) A 06/23/22 13:15 U Benzodiazepines Scrn Negative (NEG=<200) 06/23/22 13:15 Urine Cocaine Screen Negative (NEG=<300) 06/23/22 13:15 U Marijuana (THC) Screen Negative (NEG=<50) 06/23/22 13:15 Plan (1) Acute respiratory failure with hypoxia and hypercarbia: Status: Acute (2) COPD exacerbation: Status: Acute (3) Acute CHF: Status: Acute (4) Drug abuse: Status: Chronic
[2022-06-25] MEDS: D5 1/2 NS 1,000 ML 1,000 ML IV SCH (17:24)
[2022-06-25] MEDS: TYLENOL 325 MG TAB PO PRN (17:54)
[2022-06-25] MEDS ORDERED: ARTIFICIAL TEARS DROPS AFFEYE PRN (18:00)
[2022-06-26] MEDS: D5 1/2 NS 1,000 ML 1,000 ML IV SCH ×3 (03:55→20:15)
[2022-06-26 05:07] LABS: HEMOGLOBIN 12.5 g/dL (12.0-16.0)
[2022-06-26 05:09] LABS: BASOPHILS % (AUTO) 0.4 % (0.2-1.0); EOSINOPHILS # (AUTO) 0.1 x10^3/uL (0.0-0.2); EOSINOPHILS % (AUTO) 0.8 % (0.9-2.9); HEMATOCRIT 39.2 % (36.0-47.0); LYMPHOCYTES # (AUTO) 0.9 X10^3/uL (1.3-2.9); LYMPHOCYTES % (AUTO) 12.5 % (21.0-51.0); MEAN CORPUSCULAR HGB CONC 31.9 g/dL (33.0-35.0); MEAN CORPUSCULAR VOLUME 81.4 fL (80.0-100.0); MEAN PLATELET VOLUME 8.8 fL (7.4-11.0); MONOCYTES # (AUTO) 0.4 x10^3/uL (0.3-0.8); MONOCYTES % (AUTO) 5.9 % (0.0-13.0); NEUTROPHILS # (AUTO) 5.9 x10^3/uL (2.2-4.8); NEUTROPHILS % (AUTO) 80.4 % (42.0-75.0); RED BLOOD COUNT 4.82 X10^6/uL (3.5-5.4); RED CELL DISTRIBUTION WIDTH 18.7 % (11.6-16.5); WHITE BLOOD COUNT 7.3 X10^3/uL (3.6-10.0)
[2022-06-26 05:16] LABS: ALANINE AMINOTRANSFERASE 42 Units/L (12-78); ALBUMIN 1.9 g/dL (3.4-5.0); ALKALINE PHOSPHATASE 72 Units/L (46-116); ASPARTATE AMINO TRANSFERASE 24 Units/L (15-37); BLOOD UREA NITROGEN 11 mg/dL (7-18); CHLORIDE 99 mmol/L (98-107); COR CA(FOR HYPOALB) 10.7 mg/dL (8.5-10.1); COR NA(FOR HYPERGLY) 144 mmol/L (136-145); CREATININE 0.62 mg/dL (0.55-1.02); SODIUM 144 mmol/L (136-145); TOTAL PROTEIN 6.5 g/dL (6.4-8.2); eGFR NON BLACK RACES > 60 (>60)
[2022-06-26 05:20] LABS: CARBON DIOXIDE > 45.0 mmol/L (21-32)
[2022-06-26] MEDS ORDERED: POTASSIUM CHL 60 MEQ/NS 0.45% 500 ML IV PRN (05:27)
[2022-06-26] MEDS ORDERED: KLOR-CON PO PRN (05:27)
[2022-06-26] MEDS ORDERED: POTASSIUM CHL 40 MEQ/NS 0.45% 500 ML IV PRN (05:27)
[2022-06-26] MEDS ORDERED: POTASSIUM CHLORIDE LIQ 20 MEQ UDC PO PRN (05:27)
[2022-06-26] MEDS ORDERED: K-RIDER 10 MEQ/NS 100 ML 10 MEQ/100 ML BAG IV PRN (05:27)
[2022-06-26] MEDS ORDERED: MICRO K EXTEN CAP 10 MEQ PO PRN (05:27)
[2022-06-26] MEDS ORDERED: MAGNESIUM SULFATE 1 GRAM/100 mL PREMIX 1 G/100 ML BAG IV ONE (05:53)
[2022-06-26] MEDS: MAGNESIUM SULFATE 1 GRAM/100 mL PREMIX 1 G/100 ML BAG IV PRN ×4 (06:14→13:42)
[2022-06-26] MEDS: LOVENOX INJ 40 MG SYR SC SCH (08:18)
[2022-06-26] MEDS: GLUCOPHAGE XR 24-HR PO SCH ×2 (08:20→20:15)
[2022-06-26] MEDS: COREG TAB 6.25 MG PO SCH (08:20)
[2022-06-26] MEDS: XANAX PO PRN (08:21)
[2022-06-26] MEDS: ENTRESTO 24/26 MG TAB PO SCH (08:33)
[2022-06-26] MEDS: LEVAQUIN PREMIX IV 500 MG 500 MG/100 ML BAG IV SCH (08:33)
[2022-06-26] MEDS: PULMICORT NEB TX 0.5 MG NEB SCH ×2 (09:00→20:05)
[2022-06-26] MEDS: DUONEB 0.5 MG/3 MG (3 mL) NEB SCH ×4 (09:00→20:05)
[2022-06-26] MEDS ORDERED: LEVOPHED 8 MG/250 ML IV *PREMIX 8 MG/250 ML PLAST..BAG IV PRN (10:09)
--- NOTE | 2022-06-26 12:15 | RAD ---
HISTORYCHFSTUDYCHEST, 1 [id number] cardiomediastinal silhouette is stable. Pulmonary vascular congestion. No acute airspace disease. No pneumothorax or effusion. The bony thorax appears intact.IMPRESSIONCongestion without edema.Electronically signed by: ROSALES BARNES (Jun 26, 2022 12:13:02)
--- NOTE | 2022-06-26 16:03 | PCM.PROG ---
Progress Note Progress Note for Day of Date of Exam: 06/26/22 Subjective Subjective: Pt is a 67 year old female past medical history of CHF and COPD admitted for acute on chronic respiratory failure with hypoxia and hypercapnia and COPD/CHF exacerbation. She was recently discharged but has been non- compliant with medications and with using home O2. She did require intubation during her last admission. She was placed on BiPAP on admission. She also tested positive for amphetamines. This morning, she remains on BiPAP FiO2 60%, patient was placed on 5L NC for a short time but her sats did not stay up so was placed back on BiPAP. Her BP had been low normal but dropped significantly earlier this morning. She is currently on Levophed at 3mcg to keep MAP > 65. She does open eyes. Her sats are above 92% on BiPAP. She did receive Xanax and coreg this morning, Entresto was held. Labs/imaging reviewed : BUN/Cr 11/0.62 WBC 7.3 CXR: pulmonary congestion without edema Plan: Titrate levoped to keep MAP > 65, continue gentle D5 hydration due to hypoglycemia and poor oral intake. Wean BiPAP as tolerated. Continue home medications, hold Coreg, Xanax and Entresto. Monitor in the ICU with telemetry. Monitor respiratory status. Monitor AM labs/imaging. Time spent for clinical assessment, reviewing labs/imaging, physical exam, decision making and documentation greater than 45 mins. Past Medical Family Social History Past Med/Fam/Surg Hx: No changes since H&P Allergies: Allergies iodine Allergy (Verified 06/08/22 16:37) shellfish derived Allergy (Verified 06/08/22 16:37) Penicillin G Sodium *PENICILLINS* Allergy (Uncoded 06/12/22 08:15) Review of Systems ROS: No change since H&P Vital Signs and I&O's Vital Signs: Temperature 98.2 F Pulse Rate 61 Respiratory Rate 30 Blood Pressure [Left Arm] 105/52 Blood Pressure 88/50 O2 Sat by Pulse Oximetry 94 Intake and Output: Intake & Output 06/23/22 06/24/22 06/25/22 06/26/22 23:59 23:59 23:59 23:59 Intake Total 0 / 0 1582 / 1582 2631 / 2631 674.2 / 674.2 Output Total 2100 / 2100 1275 / 1275 3100 / 3100 350 / 350 Balance -2100 / -2100 307 / 307 -469 / -469 324.2 / 324.2 Physical Exam Oriented: Unable to test Eyes: Normal Nose: Normal Respiratory: Diminished Cardiovascular: Normal and Edema (trace LE edema ) Auscultation: Bowel Sounds: Normal Tenderness: Normal Skin: Normal Musculoskeletal: Normal Speech Pattern: Artificially Ventilated (on Bipap ) Laboratory and Diagnostics Result Diagrams: 06/26/22 04:25 06/26/22 04:25 Labs: 06/23/22 13:34 Blood Blood Culture - Preliminary 06/23/22 13:24 Blood Blood Culture - Preliminary Laboratory WBC 7.3 X10^3/uL (3.6-10.0) 06/26/22 04:25 RBC 4.82 X10^6/uL (3.5-5.4) 06/26/22 04:25 Hgb 12.5 g/dL (12.0-16.0) 06/26/22 04:25 Hct 39.2 % (36.0-47.0) 06/26/22 04:25 MCV 81.4 fL (80.0-100.0) 06/26/22 04:25 MCH 26.0 pg (27.0-34.0) L 06/26/22 04:25 MCHC 31.9 g/dL (33.0-35.0) L 06/26/22 04:25 RDW 18.7 % (11.6-16.5) H 06/26/22 04:25 Plt Count 228 X10^3/uL (150.0-450.0) 06/26/22 04:25 MPV 8.8 fL (7.4-11.0) 06/26/22 04:25 Neut % (Auto) 80.4 % (42.0-75.0) H 06/26/22 04:25 Lymph % (Auto) 12.5 % (21.0-51.0) L 06/26/22 04:25 [place] % (Auto) 5.9 % (0.0-13.0) 06/26/22 04:25 Eos % (Auto) 0.8 % (0.9-2.9) L 06/26/22 04:25 Baso % (Auto) 0.4 % (0.2-1.0) 06/26/22 04:25 Neut # (Auto) 5.9 x10^3/uL (2.2-4.8) H 06/26/22 04:25 Lymph # (Auto) 0.9 X10^3/uL (1.3-2.9) L 06/26/22 04:25 [place] # (Auto) 0.4 x10^3/uL (0.3-0.8) 06/26/22 04:25 Eos # (Auto) 0.1 x10^3/uL (0.0-0.2) 06/26/22 04:25 Baso # (Auto) 0.0 X10^3/uL (0.0-0.1) 06/26/22 04:25 Absolute Nucleated RBC 0.0 /100WBC 06/26/22 04:25 Sample Site [place] 06/25/22 05:55 ABG pH 7.390 (7.35-7.45) 06/25/22 05:55 ABG pCO2 92.0 mmHg (35.0-45.0) H* 06/25/22 05:55 ABG pO2 88.0 mmHg (80.0-100.0) 06/25/22 05:55 ABG HCO3 55.7 mmol/L (22-26) H* 06/25/22 05:55 ABG O2 Saturation 97.0 % (90-100) 06/25/22 05:55 ABG Base Excess 25.3 mmol/L (-2.0-2.0) H 06/25/22 05:55 Varun Test Pos 06/25/22 05:55 A-a Gradient 225.0 mmHg 06/25/22 05:55 FiO2 60.0 06/25/22 05:55 Blood Gas Comments [place] well 06/25/22 05:55 Sodium 144 mmol/L (136-145) 06/26/22 04:25 Corrected Sodium 144 mmol/L (136-145) 06/26/22 04:25 Potassium 3.6 mmol/L (3.5-5.1) 06/26/22 04:25 Chloride 99 mmol/L (98-107) 06/26/22 04:25 Carbon Dioxide > 45.0 mmol/L (21-32) H* 06/26/22 04:25 BUN 11 mg/dL (7-18) 06/26/22 04:25 Creatinine 0.62 mg/dL (0.55-1.02) 06/26/22 04:25 Est GFR (MDRD) Af Amer > 60 (>60) 06/26/22 04:25 Est GFR (MDRD) Non-Af > 60 (>60) 06/26/22 04:25 Glucose 114 mg/dL (65-99) H 06/26/22 04:25 POC Glucose (mg/dL) 105 mg/dL (65-99) H 06/26/22 15:46 Calcium 9.0 mg/dL (8.5-10.1) 06/26/22 04:25 Corrected Calcium 10.7 mg/dL (8.5-10.1) H 06/26/22 04:25 Magnesium 1.3 mg/dL (2.0-2.9) L 06/26/22 04:35 Total Bilirubin 0.50 mg/dL (0.2-1.0) 06/26/22 04:25 AST 24 Units/L (15-37) 06/26/22 04:25 ALT 42 Units/L (12-78) 06/26/22 04:25 Alkaline Phosphatase 72 Units/L (46-116) 06/26/22 04:25 Creatine Kinase 31 Units/L (26-192) 06/23/22 13:24 Troponin I High Sens 25.3 ng/L (4.0-60.0) 06/23/22 13:24 B-Natriuretic Peptide 314 pg/mL (0-79) H 06/26/22 04:25 Total Protein 6.5 g/dL (6.4-8.2) 06/26/22 04:25 Albumin 1.9 g/dL (3.4-5.0) L 06/26/22 04:25 Globulin 4.6 g/dL (2.5-4.5) H 06/26/22 04:25 Albumin/Globulin Ratio 0.4 Ratio (1.1-2.1) L 06/26/22 04:25 Specimen Type Catherized urine 06/23/22 13:15 Urine Color Yellow (YELLOW) 06/23/22 13:15 Urine Appearance Clear (CLEAR) 06/23/22 13:15 Urine pH 5.0 (5.0 - 8.0) 06/23/22 13:15 Ur Specific [place] 1.025 (1.000-1.030) 06/23/22 13:15 Urine Protein 3+ (NEGATIVE) 06/23/22 13:15 Urine Glucose (UA) Negative (NEGATIVE) 06/23/22 13:15 Urine Ketones Negative (NEGATIVE) 06/23/22 13:15 Urine Blood 1+ (NEGATIVE) 06/23/22 13:15 Urine Nitrite Positive (NEGATIVE) 06/23/22 13:15 Urine Bilirubin Negative (NEGATIVE) 06/23/22 13:15 Urine Urobilinogen 2+ (NORMAL) 06/23/22 13:15 Ur Leukocyte Esterase 1+ (NEGATIVE) 06/23/22 13:15 Urine RBC 0-2 /HPF (0-3) 06/23/22 13:15 Urine WBC 3-5 /HPF (0-5) 06/23/22 13:15 Ur Squamous Epith Cells Few /HPF (NEGATIVE) 06/23/22 13:15 Urine Bacteria Trace /HPF (NEGATIVE) 06/23/22 13:15 Granular Casts Many /LPF (NEGATIVE) 06/23/22 13:15 Ur Culture Indicated? No/not indicated 06/23/22 13:15 Urine Opiates Screen Negative (NEG=<300) 06/23/22 13:15 Urine Methadone Screen Negative (NEG=<300) 06/23/22 13:15 Ur Barbiturates Screen Negative (NEG=<200) 06/23/22 13:15 Ur Phencyclidine Scrn Negative (NEG=<25) 06/23/22 13:15 Ur Amphetamines Screen Positive (NEG=<1000) A 06/23/22 13:15 U Benzodiazepines Scrn Negative (NEG=<200) 06/23/22 13:15 Urine Cocaine Screen Negative (NEG=<300) 06/23/22 13:15 U Marijuana (THC) Screen Negative (NEG=<50) 06/23/22 13:15 Plan (1) Acute respiratory failure with hypoxia and hypercarbia: Status: Acute (2) COPD exacerbation: Status: Acute (3) Acute CHF: Status: Acute (4) Hypotension: Status: Acute (5) Drug abuse: Status: Chronic (6) Hypercapnic respiratory failure: Status: Acute (7) Anxiety disorder: Status: Chronic (8) Non-compliance: Status: Acute
[2022-06-26] MEDS: TYLENOL 325 MG TAB PO PRN (20:14)
[2022-06-26] MEDS: K-DUR TAB 20 MEQ PO PRN (20:15)
[2022-06-27] MEDS: TYLENOL 325 MG TAB PO PRN (02:54)
[2022-06-27 04:50] LABS: BASOPHILS # (AUTO) 0.1 X10^3/uL (0.0-0.1); BASOPHILS % (AUTO) 2.9 % (0.2-1.0); EOSINOPHILS # (AUTO) 0.1 x10^3/uL (0.0-0.2); EOSINOPHILS % (AUTO) 2.2 % (0.9-2.9); HEMATOCRIT 38.4 % (36.0-47.0); HEMOGLOBIN 12.1 g/dL (12.0-16.0); LYMPHOCYTES # (AUTO) 0.9 X10^3/uL (1.3-2.9); LYMPHOCYTES % (AUTO) 19.3 % (21.0-51.0); MEAN CORPUSCULAR HEMOGLOBIN 25.7 pg (27.0-34.0); MEAN CORPUSCULAR HGB CONC 31.6 g/dL (33.0-35.0); MEAN CORPUSCULAR VOLUME 81.3 fL (80.0-100.0); MEAN PLATELET VOLUME 8.9 fL (7.4-11.0); MONOCYTES # (AUTO) 0.3 x10^3/uL (0.3-0.8); MONOCYTES % (AUTO) 6.4 % (0.0-13.0); NEUTROPHILS # (AUTO) 3.4 x10^3/uL (2.2-4.8); NEUTROPHILS % (AUTO) 69.2 % (42.0-75.0); RED BLOOD COUNT 4.72 X10^6/uL (3.5-5.4); RED CELL DISTRIBUTION WIDTH 18.9 % (11.6-16.5); WHITE BLOOD COUNT 4.9 X10^3/uL (3.6-10.0)
[2022-06-27 05:15] LABS: ALANINE AMINOTRANSFERASE 35 Units/L (12-78); ALBUMIN 1.9 g/dL (3.4-5.0); ALKALINE PHOSPHATASE 70 Units/L (46-116); ASPARTATE AMINO TRANSFERASE 19 Units/L (15-37); BLOOD UREA NITROGEN 10 mg/dL (7-18); CALCIUM 8.8 mg/dL (8.5-10.1); CHLORIDE 96 mmol/L (98-107); COR CA(FOR HYPOALB) 10.5 mg/dL (8.5-10.1); COR NA(FOR HYPERGLY) 143 mmol/L (136-145); CREATININE 0.64 mg/dL (0.55-1.02); MAGNESIUM 1.8 mg/dL (2.0-2.9); SODIUM 142 mmol/L (136-145); TOTAL PROTEIN 6.4 g/dL (6.4-8.2); eGFR NON BLACK RACES > 60 (>60)
[2022-06-27 05:21] LABS: CARBON DIOXIDE > 45.0 mmol/L (21-32)
[2022-06-27] MEDS: MAGNESIUM SULFATE 1 GRAM/100 mL PREMIX 1 G/100 ML BAG IV PRN ×2 (05:28→08:18)
[2022-06-27] MEDS: LEVAQUIN PREMIX IV 500 MG 500 MG/100 ML BAG IV SCH (08:19)
[2022-06-27] MEDS: GLUCOPHAGE XR 24-HR PO SCH ×2 (08:19→21:40)
[2022-06-27] MEDS: K-DUR TAB 20 MEQ PO PRN (08:19)
[2022-06-27] MEDS: LOVENOX INJ 40 MG SYR SC SCH (08:20)
[2022-06-27 08:34] LABS: ABG BASE EXCESS 28.2 mmol/L (-2.0-2.0)
[2022-06-27 08:36] LABS: ABG ALLEN TEST POSITIVE; ABG HCO3 57.7 mmol/L (22-26)
[2022-06-27] MEDS: PULMICORT NEB TX 0.5 MG NEB SCH ×2 (09:00→20:47)
[2022-06-27] MEDS: DUONEB 0.5 MG/3 MG (3 mL) NEB SCH ×4 (09:00→20:47)
--- NOTE | 2022-06-27 09:04 | RAD ---
HISTORYCongestive heart failureSTUDYChest AP [id number] heart remains enlarged. Previously noted pulmonary venous congestion appears to have resolved. No definite interstitial edema, alveolar edema, alveolar infiltrates or pleural effusions are identified. Bony thorax is unremarkable with the exception of an old clavicular fracture.IMPRESSIONCardiomegaly without congestive heart failure on today's examinationNo definite infiltratesElectronically signed by: ROSALES BARNES (Jun 27, 2022 09:02:58)
[2022-06-27] MEDS: VSL#3 PO SCH (11:52)
[2022-06-27] MEDS: IMODIUM CAP 2 MG PO PRN (11:52)
--- NOTE | 2022-06-27 12:03 | PCM.PROG ---
Progress Note Progress Note for Day of Date of Exam: 06/27/22 Subjective Subjective: Patient seen at bedside, no acute events overnight. Her BP is better, she was just weaned off Levophed. She did wear BiPAP all night, just switched over to NC at 5L, sats > 92%. Patient more alert and awake this AM. She states she was using O2 and Trelegy at home after discharge. She is not sure what happened that brought her back to the ER. Labs/imaging reviewed : BUN/Cr 10/0.64 WBC 4.9 CXR: pulmonary congestion without edema Plan: Wean O2 as tolerated, BiPAP qhS. Continue home medications, hold Coreg, Xanax and Entresto. Monitor in the ICU with telemetry. Monitor respiratory status. Change diet to cardiac. Continue levaquin and nebs. Monitor AM labs/imaging. Time spent for clinical assessment, reviewing labs/imaging, physical exam, decision making and documentation greater than 45 mins. Past Medical Family Social History Past Med/Fam/Surg Hx: No changes since H&P Allergies: Allergies iodine Allergy (Verified 06/08/22 16:37) shellfish derived Allergy (Verified 06/08/22 16:37) Penicillin G Sodium *PENICILLINS* Allergy (Uncoded 06/12/22 08:15) Review of Systems ROS: No change since H&P Vital Signs and I&O's Vital Signs: Temperature 98.2 F Pulse Rate 72 Respiratory Rate 35 Blood Pressure [Left Arm] 105/52 Blood Pressure 102/52 O2 Sat by Pulse Oximetry 90 Intake and Output: Intake & Output 06/24/22 06/25/22 06/26/22 06/27/22 23:59 23:59 23:59 23:59 Intake Total 1582 / 1582 2631 / 2631 2499.2 / 2499.2 592.1 / 592.1 Output Total 1275 / 1275 3100 / 3100 1300 / 1300 250 / 250 Balance 307 / 307 -469 / -469 1199.2 / 1199.2 342.1 / 342.1 Physical Exam Oriented: Normal Eyes: Normal Nose: Normal Respiratory: Generalized, Diminished and Rhonchi Cardiovascular: Normal and Edema (trace LE edema ) Auscultation: Bowel Sounds: Normal Tenderness: Normal Skin: Normal Musculoskeletal: Normal Speech Pattern: Inappropriate Laboratory and Diagnostics Result Diagrams: 06/27/22 04:00 06/27/22 04:00 Labs: 06/23/22 13:34 Blood Blood Culture - Preliminary 06/23/22 13:24 Blood Blood Culture - Preliminary Laboratory WBC 4.9 X10^3/uL (3.6-10.0) 06/27/22 04:00 RBC 4.72 X10^6/uL (3.5-5.4) 06/27/22 04:00 Hgb 12.1 g/dL (12.0-16.0) 06/27/22 04:00 Hct 38.4 % (36.0-47.0) 06/27/22 04:00 MCV 81.3 fL (80.0-100.0) 06/27/22 04:00 MCH 25.7 pg (27.0-34.0) L 06/27/22 04:00 MCHC 31.6 g/dL (33.0-35.0) L 06/27/22 04:00 RDW 18.9 % (11.6-16.5) H 06/27/22 04:00 Plt Count 239 X10^3/uL (150.0-450.0) 06/27/22 04:00 MPV 8.9 fL (7.4-11.0) 06/27/22 04:00 Neut % (Auto) 69.2 % (42.0-75.0) 06/27/22 04:00 Lymph % (Auto) 19.3 % (21.0-51.0) L 06/27/22 04:00 [place] % (Auto) 6.4 % (0.0-13.0) 06/27/22 04:00 Eos % (Auto) 2.2 % (0.9-2.9) 06/27/22 04:00 Baso % (Auto) 2.9 % (0.2-1.0) H 06/27/22 04:00 Neut # (Auto) 3.4 x10^3/uL (2.2-4.8) 06/27/22 04:00 Lymph # (Auto) 0.9 X10^3/uL (1.3-2.9) L 06/27/22 04:00 [place] # (Auto) 0.3 x10^3/uL (0.3-0.8) 06/27/22 04:00 Eos # (Auto) 0.1 x10^3/uL (0.0-0.2) 06/27/22 04:00 Baso # (Auto) 0.1 X10^3/uL (0.0-0.1) 06/27/22 04:00 Absolute Nucleated RBC 0.0 /100WBC 06/27/22 04:00 Sample Site Rr 06/27/22 08:29 ABG pH 7.450 (7.35-7.45) 06/27/22 08:29 ABG pCO2 83.0 mmHg (35.0-45.0) H* 06/27/22 08:29 ABG pO2 61.0 mmHg (80.0-100.0) L 06/27/22 08:29 ABG HCO3 57.7 mmol/L (22-26) H* 06/27/22 08:29 ABG O2 Saturation 92.0 % (90-100) 06/27/22 08:29 ABG Base Excess 28.2 mmol/L (-2.0-2.0) H 06/27/22 08:29 Varun Test Positive 06/27/22 08:29 A-a Gradient 120.0 mmHg 06/27/22 08:29 FiO2 40.0 06/27/22 08:29 Blood Gas Comments Js 06/27/22 08:29 Sodium 142 mmol/L (136-145) 06/27/22 04:00 Corrected Sodium 143 mmol/L (136-145) 06/27/22 04:00 Potassium 3.6 mmol/L (3.5-5.1) 06/27/22 04:00 Chloride 96 mmol/L (98-107) L 06/27/22 04:00 Carbon Dioxide > 45.0 mmol/L (21-32) H* 06/27/22 04:00 BUN 10 mg/dL (7-18) 06/27/22 04:00 Creatinine 0.64 mg/dL (0.55-1.02) 06/27/22 04:00 Est GFR (MDRD) Af Amer > 60 (>60) 06/27/22 04:00 Est GFR (MDRD) Non-Af > 60 (>60) 06/27/22 04:00 Glucose 129 mg/dL (65-99) H 06/27/22 04:00 POC Glucose (mg/dL) 121 mg/dL (65-99) H 06/27/22 05:17 Calcium 8.8 mg/dL (8.5-10.1) 06/27/22 04:00 Corrected Calcium 10.5 mg/dL (8.5-10.1) H 06/27/22 04:00 Magnesium 1.8 mg/dL (2.0-2.9) L 06/27/22 04:00 Total Bilirubin 0.40 mg/dL (0.2-1.0) 06/27/22 04:00 AST 19 Units/L (15-37) 06/27/22 04:00 ALT 35 Units/L (12-78) 06/27/22 04:00 Alkaline Phosphatase 70 Units/L (46-116) 06/27/22 04:00 Creatine Kinase 31 Units/L (26-192) 06/23/22 13:24 Troponin I High Sens 25.3 ng/L (4.0-60.0) 06/23/22 13:24 B-Natriuretic Peptide 314 pg/mL (0-79) H 06/26/22 04:25 Total Protein 6.4 g/dL (6.4-8.2) 06/27/22 04:00 Albumin 1.9 g/dL (3.4-5.0) L 06/27/22 04:00 Globulin 4.5 g/dL (2.5-4.5) 06/27/22 04:00 Albumin/Globulin Ratio 0.4 Ratio (1.1-2.1) L 06/27/22 04:00 Specimen Type Catherized urine 06/23/22 13:15 Urine Color Yellow (YELLOW) 06/23/22 13:15 Urine Appearance Clear (CLEAR) 06/23/22 13:15 Urine pH 5.0 (5.0 - 8.0) 06/23/22 13:15 Ur Specific [place] 1.025 (1.000-1.030) 06/23/22 13:15 Urine Protein 3+ (NEGATIVE) 06/23/22 13:15 Urine Glucose (UA) Negative (NEGATIVE) 06/23/22 13:15 Urine Ketones Negative (NEGATIVE) 06/23/22 13:15 Urine Blood 1+ (NEGATIVE) 06/23/22 13:15 Urine Nitrite Positive (NEGATIVE) 06/23/22 13:15 Urine Bilirubin Negative (NEGATIVE) 06/23/22 13:15 Urine Urobilinogen 2+ (NORMAL) 06/23/22 13:15 Ur Leukocyte Esterase 1+ (NEGATIVE) 06/23/22 13:15 Urine RBC 0-2 /HPF (0-3) 06/23/22 13:15 Urine WBC 3-5 /HPF (0-5) 06/23/22 13:15 Ur Squamous Epith Cells Few /HPF (NEGATIVE) 06/23/22 13:15 Urine Bacteria Trace /HPF (NEGATIVE) 06/23/22 13:15 Granular Casts Many /LPF (NEGATIVE) 06/23/22 13:15 Ur Culture Indicated? No/not indicated 06/23/22 13:15 Urine Opiates Screen Negative (NEG=<300) 06/23/22 13:15 Urine Methadone Screen Negative (NEG=<300) 06/23/22 13:15 Ur Barbiturates Screen Negative (NEG=<200) 06/23/22 13:15 Ur Phencyclidine Scrn Negative (NEG=<25) 06/23/22 13:15 Ur Amphetamines Screen Positive (NEG=<1000) A 06/23/22 13:15 U Benzodiazepines Scrn Negative (NEG=<200) 06/23/22 13:15 Urine Cocaine Screen Negative (NEG=<300) 06/23/22 13:15 U Marijuana (THC) Screen Negative (NEG=<50) 06/23/22 13:15 Plan (1) Acute respiratory failure with hypoxia and hypercarbia: Status: Acute (2) COPD exacerbation: Status: Acute (3) Acute CHF: Status: Acute (4) Hypotension: Status: Acute (5) Drug abuse: Status: Chronic (6) Hypercapnic respiratory failure: Status: Acute (7) Anxiety disorder: Status: Chronic (8) Non-compliance: Status: Acute
[2022-06-28 05:03] LABS: BASOPHILS % (AUTO) 0.2 % (0.2-1.0); EOSINOPHILS # (AUTO) 0.1 x10^3/uL (0.0-0.2); EOSINOPHILS % (AUTO) 1.7 % (0.9-2.9); HEMATOCRIT 39.2 % (36.0-47.0); HEMOGLOBIN 12.5 g/dL (12.0-16.0); LYMPHOCYTES # (AUTO) 1.4 X10^3/uL (1.3-2.9); LYMPHOCYTES % (AUTO) 28.5 % (21.0-51.0); MEAN CORPUSCULAR HEMOGLOBIN 25.6 pg (27.0-34.0); MEAN CORPUSCULAR HGB CONC 31.8 g/dL (33.0-35.0); MEAN CORPUSCULAR VOLUME 80.5 fL (80.0-100.0); MEAN PLATELET VOLUME 8.9 fL (7.4-11.0); MONOCYTES # (AUTO) 0.4 x10^3/uL (0.3-0.8); MONOCYTES % (AUTO) 7.8 % (0.0-13.0); NEUTROPHILS % (AUTO) 61.8 % (42.0-75.0); RED BLOOD COUNT 4.86 X10^6/uL (3.5-5.4); RED CELL DISTRIBUTION WIDTH 19.4 % (11.6-16.5); WHITE BLOOD COUNT 4.9 X10^3/uL (3.6-10.0)
[2022-06-28 05:15] LABS: ALANINE AMINOTRANSFERASE 27 Units/L (12-78); ALKALINE PHOSPHATASE 68 Units/L (46-116); ASPARTATE AMINO TRANSFERASE 15 Units/L (15-37); BLOOD UREA NITROGEN 10 mg/dL (7-18); CALCIUM 8.8 mg/dL (8.5-10.1); CARBON DIOXIDE 42.6 mmol/L (21-32); CHLORIDE 98 mmol/L (98-107); COR CA(FOR HYPOALB) 10.4 mg/dL (8.5-10.1); COR NA(FOR HYPERGLY) 144 mmol/L (136-145); CREATININE 0.69 mg/dL (0.55-1.02); MAGNESIUM 1.5 mg/dL (2.0-2.9); SODIUM 144 mmol/L (136-145); TOTAL PROTEIN 6.4 g/dL (6.4-8.2); eGFR NON BLACK RACES > 60 (>60)
[2022-06-28] MEDS: K-DUR TAB 20 MEQ PO PRN ×2 (05:33→08:29)
[2022-06-28] MEDS: MAGNESIUM SULFATE 1 GRAM/100 mL PREMIX 1 G/100 ML BAG IV PRN ×2 (05:33→06:34)
[2022-06-28] MEDS: LOVENOX INJ 40 MG SYR SC SCH (08:09)
[2022-06-28] MEDS: LEVAQUIN PREMIX IV 500 MG 500 MG/100 ML BAG IV SCH (08:09)
[2022-06-28] MEDS: GLUCOPHAGE XR 24-HR PO SCH ×2 (08:10→20:20)
[2022-06-28] MEDS: VSL#3 PO SCH (08:10)
[2022-06-28] MEDS: IMODIUM CAP 2 MG PO PRN (08:11)
[2022-06-28] MEDS: DUONEB 0.5 MG/3 MG (3 mL) NEB SCH ×4 (09:00→21:09)
[2022-06-28] MEDS: PULMICORT NEB TX 0.5 MG NEB SCH ×2 (09:00→21:09)
[2022-06-28] MEDS ORDERED: SOLU-Medrol 40 MG VIAL IVP ONE (09:50)
--- NOTE | 2022-06-28 10:50 | PCM.PROG ---
Progress Note Progress Note for Day of Date of Exam: 06/28/22 Subjective Subjective: Patient seen at bedside, no acute events overnight. She remains on Bipap this morning. She did tolerate nasal canula for a few hours yesterday but then her sats were in the low 80s so she was placed back n BiPAP. Her BP is better, has been off Levophed since yesterday. Her diarrhea has slowed down, all stool studies were negative. Labs/imaging reviewed CXR: pulmonary congestion without edema Plan: Wean O2 as tolerated, BiPAP qhS. Continue home medications, hold Coreg, Xanax and Entresto. Patient not able to tolerate those due to low-normal BP. Will start metoprolol succinate 12.5 mg daily. Monitor respiratory status. Continue levaquin and nebs. Give one dose of Solumedrol 40 mg IV. Monitor AM labs/imaging. Time spent for clinical assessment, reviewing labs/imaging, physical exam, decision making and documentation greater than 45 mins. Past Medical Family Social History Past Med/Fam/Surg Hx: No changes since H&P Allergies: Allergies iodine Allergy (Verified 06/08/22 16:37) shellfish derived Allergy (Verified 06/08/22 16:37) Penicillin G Sodium *PENICILLINS* Allergy (Uncoded 06/12/22 08:15) Review of Systems ROS: No change since H&P Vital Signs and I&O's Vital Signs: Temperature 98 F Pulse Rate 67 Respiratory Rate 26 Blood Pressure [Left Arm] 105/52 Blood Pressure 124/60 O2 Sat by Pulse Oximetry 96 Intake and Output: Intake & Output 06/25/22 06/26/22 06/27/22 06/28/22 23:59 23:59 23:59 23:59 Intake Total 2631 / 2631 2499.2 / 2499.2 1952.1 / 1952.1 260 / 260 Output Total 3100 / 3100 1300 / 1300 1375 / 1375 350 / 350 Balance -469 / -469 1199.2 / 1199.2 577.1 / 577.1 -90 / -90 Physical Exam Oriented: Normal Eyes: Normal Nose: Normal Respiratory: Generalized, Wheezes and Rhonchi Cardiovascular: Normal and Edema (trace LE edema ) Auscultation: Bowel Sounds: Normal Tenderness: Normal Skin: Normal Musculoskeletal: Normal Psychiatric: Normal Mood Description: Calm Affect: Normal Speech Pattern: Clear and Appropriate Laboratory and Diagnostics Result Diagrams: 06/28/22 04:07 06/28/22 07:30 Labs: 06/27/22 12:53 Stool Stool Culture - Preliminary 06/27/22 12:53 Stool - Final 06/23/22 13:34 Blood Blood Culture - Preliminary 06/23/22 13:24 Blood Blood Culture - Preliminary Laboratory WBC 4.9 X10^3/uL (3.6-10.0) 06/28/22 04:07 RBC 4.86 X10^6/uL (3.5-5.4) 06/28/22 04:07 Hgb 12.5 g/dL (12.0-16.0) 06/28/22 04:07 Hct 39.2 % (36.0-47.0) 06/28/22 04:07 MCV 80.5 fL (80.0-100.0) 06/28/22 04:07 MCH 25.6 pg (27.0-34.0) L 06/28/22 04:07 MCHC 31.8 g/dL (33.0-35.0) L 06/28/22 04:07 RDW 19.4 % (11.6-16.5) H 06/28/22 04:07 Plt Count 261 X10^3/uL (150.0-450.0) 06/28/22 04:07 MPV 8.9 fL (7.4-11.0) 06/28/22 04:07 Neut % (Auto) 61.8 % (42.0-75.0) 06/28/22 04:07 Lymph % (Auto) 28.5 % (21.0-51.0) 06/28/22 04:07 [place] % (Auto) 7.8 % (0.0-13.0) 06/28/22 04:07 Eos % (Auto) 1.7 % (0.9-2.9) 06/28/22 04:07 Baso % (Auto) 0.2 % (0.2-1.0) 06/28/22 04:07 Neut # (Auto) 3.0 x10^3/uL (2.2-4.8) 06/28/22 04:07 Lymph # (Auto) 1.4 X10^3/uL (1.3-2.9) 06/28/22 04:07 [place] # (Auto) 0.4 x10^3/uL (0.3-0.8) 06/28/22 04:07 Eos # (Auto) 0.1 x10^3/uL (0.0-0.2) 06/28/22 04:07 Baso # (Auto) 0.0 X10^3/uL (0.0-0.1) 06/28/22 04:07 Absolute Nucleated RBC 0.1 /100WBC 06/28/22 04:07 Sample Site Rr 06/27/22 08:29 ABG pH 7.450 (7.35-7.45) 06/27/22 08:29 ABG pCO2 83.0 mmHg (35.0-45.0) H* 06/27/22 08:29 ABG pO2 61.0 mmHg (80.0-100.0) L 06/27/22 08:29 ABG HCO3 57.7 mmol/L (22-26) H* 06/27/22 08:29 ABG O2 Saturation 92.0 % (90-100) 06/27/22 08:29 ABG Base Excess 28.2 mmol/L (-2.0-2.0) H 06/27/22 08:29 Varun Test Positive 06/27/22 08:29 A-a Gradient 120.0 mmHg 06/27/22 08:29 FiO2 40.0 06/27/22 08:29 Blood Gas Comments Js 06/27/22 08:29 Sodium 144 mmol/L (136-145) 06/28/22 04:07 Corrected Sodium 144 mmol/L (136-145) 06/28/22 04:07 Potassium 3.7 mmol/L (3.5-5.1) 06/28/22 07:30 Chloride 98 mmol/L (98-107) 06/28/22 04:07 Carbon Dioxide 42.6 mmol/L (21-32) H 06/28/22 04:07 BUN 10 mg/dL (7-18) 06/28/22 04:07 Creatinine 0.69 mg/dL (0.55-1.02) 06/28/22 04:07 Est GFR (MDRD) Af Amer > 60 (>60) 06/28/22 04:07 Est GFR (MDRD) Non-Af > 60 (>60) 06/28/22 04:07 Glucose 113 mg/dL (65-99) H 06/28/22 04:07 POC Glucose (mg/dL) 123 mg/dL (65-99) H 06/28/22 05:32 Calcium 8.8 mg/dL (8.5-10.1) 06/28/22 04:07 Corrected Calcium 10.4 mg/dL (8.5-10.1) H 06/28/22 04:07 Magnesium 1.5 mg/dL (2.0-2.9) L 06/28/22 04:07 Total Bilirubin 0.30 mg/dL (0.2-1.0) 06/28/22 04:07 AST 15 Units/L (15-37) 06/28/22 04:07 ALT 27 Units/L (12-78) 06/28/22 04:07 Alkaline Phosphatase 68 Units/L (46-116) 06/28/22 04:07 Creatine Kinase 31 Units/L (26-192) 06/23/22 13:24 Troponin I High Sens 25.3 ng/L (4.0-60.0) 06/23/22 13:24 B-Natriuretic Peptide 314 pg/mL (0-79) H 06/26/22 04:25 Total Protein 6.4 g/dL (6.4-8.2) 06/28/22 04:07 Albumin 2.0 g/dL (3.4-5.0) L 06/28/22 04:07 Globulin 4.4 g/dL (2.5-4.5) 06/28/22 04:07 Albumin/Globulin Ratio 0.5 Ratio (1.1-2.1) L 06/28/22 04:07 Specimen Type Catherized urine 06/23/22 13:15 Urine Color Yellow (YELLOW) 06/23/22 13:15 Urine Appearance Clear (CLEAR) 06/23/22 13:15 Urine pH 5.0 (5.0 - 8.0) 06/23/22 13:15 Ur Specific [place] 1.025 (1.000-1.030) 06/23/22 13:15 Urine Protein 3+ (NEGATIVE) 06/23/22 13:15 Urine Glucose (UA) Negative (NEGATIVE) 06/23/22 13:15 Urine Ketones Negative (NEGATIVE) 06/23/22 13:15 Urine Blood 1+ (NEGATIVE) 06/23/22 13:15 Urine Nitrite Positive (NEGATIVE) 06/23/22 13:15 Urine Bilirubin Negative (NEGATIVE) 06/23/22 13:15 Urine Urobilinogen 2+ (NORMAL) 06/23/22 13:15 Ur Leukocyte Esterase 1+ (NEGATIVE) 06/23/22 13:15 Urine RBC 0-2 /HPF (0-3) 06/23/22 13:15 Urine WBC 3-5 /HPF (0-5) 06/23/22 13:15 Ur Squamous Epith Cells Few /HPF (NEGATIVE) 06/23/22 13:15 Urine Bacteria Trace /HPF (NEGATIVE) 06/23/22 13:15 Granular Casts Many /LPF (NEGATIVE) 06/23/22 13:15 Ur Culture Indicated? No/not indicated 06/23/22 13:15 Stl C. diff Tox B Gene Negative (NEGATIVE) 06/27/22 12:45 Stl C. diff [id number] Presumptive negative (NEGATIVE) 06/27/22 12:45 Urine Opiates Screen Negative (NEG=<300) 06/23/22 13:15 Urine Methadone Screen Negative (NEG=<300) 06/23/22 13:15 Ur Barbiturates Screen Negative (NEG=<200) 06/23/22 13:15 Ur Phencyclidine Scrn Negative (NEG=<25) 06/23/22 13:15 Ur Amphetamines Screen Positive (NEG=<1000) A 06/23/22 13:15 U Benzodiazepines Scrn Negative (NEG=<200) 06/23/22 13:15 Urine Cocaine Screen Negative (NEG=<300) 06/23/22 13:15 U Marijuana (THC) Screen Negative (NEG=<50) 06/23/22 13:15 Plan (1) Acute respiratory failure with hypoxia and hypercarbia: Status: Acute (2) COPD exacerbation: Status: Acute (3) Acute CHF: Status: Acute (4) Hypotension: Status: Acute (5) Drug abuse: Status: Chronic (6) Hypercapnic respiratory failure: Status: Acute (7) Anxiety disorder: Status: Chronic (8) Non-compliance: Status: Acute
[2022-06-28] MEDS: TOPROL XL PO SCH (10:58)
[2022-06-28] MEDS ORDERED: SOLU-Medrol 40 MG VIAL IVP NR (13:00)
[2022-06-29 05:09] LABS: BASOPHILS # (AUTO) 0.1 X10^3/uL (0.0-0.1); BASOPHILS % (AUTO) 2.1 % (0.2-1.0); EOSINOPHILS # (AUTO) 0.1 x10^3/uL (0.0-0.2); EOSINOPHILS % (AUTO) 1.4 % (0.9-2.9); HEMOGLOBIN 12.5 g/dL (12.0-16.0); LYMPHOCYTES # (AUTO) 1.8 X10^3/uL (1.3-2.9); LYMPHOCYTES % (AUTO) 30.4 % (21.0-51.0); MEAN CORPUSCULAR HEMOGLOBIN 25.5 pg (27.0-34.0); MEAN CORPUSCULAR HGB CONC 31.3 g/dL (33.0-35.0); MEAN CORPUSCULAR VOLUME 81.5 fL (80.0-100.0); MEAN PLATELET VOLUME 8.9 fL (7.4-11.0); MONOCYTES # (AUTO) 0.5 x10^3/uL (0.3-0.8); MONOCYTES % (AUTO) 8.6 % (0.0-13.0); NEUTROPHILS # (AUTO) 3.4 x10^3/uL (2.2-4.8); NEUTROPHILS % (AUTO) 57.5 % (42.0-75.0); RED BLOOD COUNT 4.91 X10^6/uL (3.5-5.4); RED CELL DISTRIBUTION WIDTH 19.6 % (11.6-16.5); WHITE BLOOD COUNT 5.9 X10^3/uL (3.6-10.0)
[2022-06-29 05:20] LABS: ALANINE AMINOTRANSFERASE 23 Units/L (12-78); ALKALINE PHOSPHATASE 67 Units/L (46-116); ASPARTATE AMINO TRANSFERASE 15 Units/L (15-37); BLOOD UREA NITROGEN 11 mg/dL (7-18); CALCIUM 8.6 mg/dL (8.5-10.1); CARBON DIOXIDE 41.9 mmol/L (21-32); CHLORIDE 100 mmol/L (98-107); COR CA(FOR HYPOALB) 10.2 mg/dL (8.5-10.1); COR NA(FOR HYPERGLY) 144 mmol/L (136-145); CREATININE 0.75 mg/dL (0.55-1.02); MAGNESIUM 1.6 mg/dL (2.0-2.9); SODIUM 144 mmol/L (136-145); TOTAL PROTEIN 6.3 g/dL (6.4-8.2); eGFR NON BLACK RACES > 60 (>60)
[2022-06-29] MEDS: MAGNESIUM SULFATE 1 GRAM/100 mL PREMIX 1 G/100 ML BAG IV PRN ×2 (05:37→08:07)
[2022-06-29] MEDS: PULMICORT NEB TX 0.5 MG NEB SCH ×2 (07:35→21:35)
[2022-06-29] MEDS: DUONEB 0.5 MG/3 MG (3 mL) NEB SCH ×4 (07:35→21:35)
[2022-06-29] MEDS: GLUCOPHAGE XR 24-HR PO SCH ×2 (08:05→20:32)
[2022-06-29] MEDS: TOPROL XL PO SCH (08:05)
[2022-06-29] MEDS: VSL#3 PO SCH (08:05)
[2022-06-29] MEDS: LOVENOX INJ 40 MG SYR SC SCH (08:06)
[2022-06-29] MEDS: LEVAQUIN PREMIX IV 500 MG 500 MG/100 ML BAG IV SCH (08:07)
[2022-06-29] MEDS: ENTRESTO 24/26 MG TAB PO SCH ×2 (08:21→20:32)
--- NOTE | 2022-06-29 09:22 | RAD ---
HISTORYCHFSTUDYCHEST, 1 [id number]/[id number] lungs are clear. No pneumothorax or significant effusion.Heart size is normal.Bones are unremarkable.EKG leads are noted.IMPRESSION1. No significant abnormalityElectronically signed by: Johan Acosta (Jun 29, 2022 09:21:06)
--- NOTE | 2022-06-29 11:15 | PCM.PROG ---
Progress Note Progress Note for Day of Date of Exam: 06/29/22 Subjective Subjective: Patient seen at bedside, no acute events overnight. She remains on Bipap this morning. She did wear the NC to eat breakfast but stats were in the low 80s so was placed back on BiPAP. She states she feels better. She did work with PT yesterday. She has been tolerating PO intake, diarrhea is better. Patient's BP has been elevated earlier this morning. Labs/imaging reviewed Plan: Wean O2 as tolerated, BiPAP qhS. Continue home medications, will restart Entresto and continue metoprolol succinate. Repeat CXR. Monitor BP and respiratory status. Patient will be going to stay with her daughter after discharge. Monitor AM labs/imaging. Time spent for clinical assessment, reviewing labs/imaging, physical exam, decision making and documentation greater than 45 mins. Past Medical Family Social History Past Med/Fam/Surg Hx: No changes since H&P Allergies: Allergies iodine Allergy (Verified 06/08/22 16:37) shellfish derived Allergy (Verified 06/08/22 16:37) Penicillin G Sodium *PENICILLINS* Allergy (Uncoded 06/12/22 08:15) Review of Systems ROS: No change since H&P Vital Signs and I&O's Vital Signs: Temperature 98.2 F Pulse Rate 69 Respiratory Rate 31 Blood Pressure [Left Arm] 105/52 Blood Pressure 114/55 O2 Sat by Pulse Oximetry 93 Intake and Output: Intake & Output 06/26/22 06/27/22 06/28/22 06/29/22 23:59 23:59 23:59 23:59 Intake Total 2499.2 / 2499.2 1952.1 / 1952.1 1321 / 1321 260 / 260 Output Total 1300 / 1300 1375 / 1375 1100 / 1100 500 / 500 Balance 1199.2 / 1199.2 577.1 / 577.1 221 / 221 -240 / -240 Physical Exam Oriented: Normal Eyes: Normal Nose: Normal Respiratory: Generalized and Rhonchi Cardiovascular: Normal and Edema (trace LE edema ) : Normal Auscultation: Bowel Sounds: Normal Tenderness: Normal Skin: Normal Musculoskeletal: Normal Psychiatric: Normal Mood Description: Calm Affect: Normal Speech Pattern: Inappropriate Laboratory and Diagnostics Result Diagrams: 06/29/22 04:30 06/29/22 04:30 Labs: 06/27/22 12:53 Stool Stool Culture - Final 06/27/22 12:53 Stool - Final 06/23/22 13:34 Blood Blood Culture - Final 06/23/22 13:24 Blood Blood Culture - Final Laboratory WBC 5.9 X10^3/uL (3.6-10.0) 06/29/22 04:30 RBC 4.91 X10^6/uL (3.5-5.4) 06/29/22 04:30 Hgb 12.5 g/dL (12.0-16.0) 06/29/22 04:30 Hct 40.0 % (36.0-47.0) 06/29/22 04:30 MCV 81.5 fL (80.0-100.0) 06/29/22 04:30 MCH 25.5 pg (27.0-34.0) L 06/29/22 04:30 MCHC 31.3 g/dL (33.0-35.0) L 06/29/22 04:30 RDW 19.6 % (11.6-16.5) H 06/29/22 04:30 Plt Count 263 X10^3/uL (150.0-450.0) 06/29/22 04:30 MPV 8.9 fL (7.4-11.0) 06/29/22 04:30 Neut % (Auto) 57.5 % (42.0-75.0) 06/29/22 04:30 Lymph % (Auto) 30.4 % (21.0-51.0) 06/29/22 04:30 [place] % (Auto) 8.6 % (0.0-13.0) 06/29/22 04:30 Eos % (Auto) 1.4 % (0.9-2.9) 06/29/22 04:30 Baso % (Auto) 2.1 % (0.2-1.0) H 06/29/22 04:30 Neut # (Auto) 3.4 x10^3/uL (2.2-4.8) 06/29/22 04:30 Lymph # (Auto) 1.8 X10^3/uL (1.3-2.9) 06/29/22 04:30 [place] # (Auto) 0.5 x10^3/uL (0.3-0.8) 06/29/22 04:30 Eos # (Auto) 0.1 x10^3/uL (0.0-0.2) 06/29/22 04:30 Baso # (Auto) 0.1 X10^3/uL (0.0-0.1) 06/29/22 04:30 Absolute Nucleated RBC 0.1 /100WBC 06/29/22 04:30 Sample Site Rr 06/27/22 08:29 ABG pH 7.450 (7.35-7.45) 06/27/22 08:29 ABG pCO2 83.0 mmHg (35.0-45.0) H* 06/27/22 08:29 ABG pO2 61.0 mmHg (80.0-100.0) L 06/27/22 08:29 ABG HCO3 57.7 mmol/L (22-26) H* 06/27/22 08:29 ABG O2 Saturation 92.0 % (90-100) 06/27/22 08:29 ABG Base Excess 28.2 mmol/L (-2.0-2.0) H 06/27/22 08:29 Varun Test Positive 06/27/22 08:29 A-a Gradient 120.0 mmHg 06/27/22 08:29 FiO2 40.0 06/27/22 08:29 Blood Gas Comments Js 06/27/22 08:29 Sodium 144 mmol/L (136-145) 06/29/22 04:30 Corrected Sodium 144 mmol/L (136-145) 06/29/22 04:30 Potassium 4.1 mmol/L (3.5-5.1) 06/29/22 04:30 Chloride 100 mmol/L (98-107) 06/29/22 04:30 Carbon Dioxide 41.9 mmol/L (21-32) H 06/29/22 04:30 BUN 11 mg/dL (7-18) 06/29/22 04:30 Creatinine 0.75 mg/dL (0.55-1.02) 06/29/22 04:30 Est GFR (MDRD) Af Amer > 60 (>60) 06/29/22 04:30 Est GFR (MDRD) Non-Af > 60 (>60) 06/29/22 04:30 Glucose 113 mg/dL (65-99) H 06/29/22 04:30 POC Glucose (mg/dL) 106 mg/dL (65-99) H 06/29/22 05:35 Calcium 8.6 mg/dL (8.5-10.1) 06/29/22 04:30 Corrected Calcium 10.2 mg/dL (8.5-10.1) H 06/29/22 04:30 Magnesium 1.6 mg/dL (2.0-2.9) L 06/29/22 04:30 Total Bilirubin 0.20 mg/dL (0.2-1.0) 06/29/22 04:30 AST 15 Units/L (15-37) 06/29/22 04:30 ALT 23 Units/L (12-78) 06/29/22 04:30 Alkaline Phosphatase 67 Units/L (46-116) 06/29/22 04:30 Creatine Kinase 31 Units/L (26-192) 06/23/22 13:24 Troponin I High Sens 25.3 ng/L (4.0-60.0) 06/23/22 13:24 B-Natriuretic Peptide 314 pg/mL (0-79) H 06/26/22 04:25 Total Protein 6.3 g/dL (6.4-8.2) L 06/29/22 04:30 Albumin 2.0 g/dL (3.4-5.0) L 06/29/22 04:30 Globulin 4.3 g/dL (2.5-4.5) 06/29/22 04:30 Albumin/Globulin Ratio 0.5 Ratio (1.1-2.1) L 06/29/22 04:30 Specimen Type Catherized urine 06/23/22 13:15 Urine Color Yellow (YELLOW) 06/23/22 13:15 Urine Appearance Clear (CLEAR) 06/23/22 13:15 Urine pH 5.0 (5.0 - 8.0) 06/23/22 13:15 Ur Specific [place] 1.025 (1.000-1.030) 06/23/22 13:15 Urine Protein 3+ (NEGATIVE) 06/23/22 13:15 Urine Glucose (UA) Negative (NEGATIVE) 06/23/22 13:15 Urine Ketones Negative (NEGATIVE) 06/23/22 13:15 Urine Blood 1+ (NEGATIVE) 06/23/22 13:15 Urine Nitrite Positive (NEGATIVE) 06/23/22 13:15 Urine Bilirubin Negative (NEGATIVE) 06/23/22 13:15 Urine Urobilinogen 2+ (NORMAL) 06/23/22 13:15 Ur Leukocyte Esterase 1+ (NEGATIVE) 06/23/22 13:15 Urine RBC 0-2 /HPF (0-3) 06/23/22 13:15 Urine WBC 3-5 /HPF (0-5) 06/23/22 13:15 Ur Squamous Epith Cells Few /HPF (NEGATIVE) 06/23/22 13:15 Urine Bacteria Trace /HPF (NEGATIVE) 06/23/22 13:15 Granular Casts Many /LPF (NEGATIVE) 06/23/22 13:15 Ur Culture Indicated? No/not indicated 06/23/22 13:15 Stl C. diff Tox B Gene Negative (NEGATIVE) 06/27/22 12:45 Stl C. diff [id number] Presumptive negative (NEGATIVE) 06/27/22 12:45 Urine Opiates Screen Negative (NEG=<300) 06/23/22 13:15 Urine Methadone Screen Negative (NEG=<300) 06/23/22 13:15 Ur Barbiturates Screen Negative (NEG=<200) 06/23/22 13:15 Ur Phencyclidine Scrn Negative (NEG=<25) 06/23/22 13:15 Ur Amphetamines Screen Positive (NEG=<1000) A 06/23/22 13:15 U Benzodiazepines Scrn Negative (NEG=<200) 06/23/22 13:15 Urine Cocaine Screen Negative (NEG=<300) 06/23/22 13:15 U Marijuana (THC) Screen Negative (NEG=<50) 06/23/22 13:15 Plan (1) Acute respiratory failure with hypoxia and hypercarbia: Status: Acute (2) COPD exacerbation: Status: Acute (3) Acute CHF: Status: Acute (4) Hypotension: Status: Acute (5) Drug abuse: Status: Chronic (6) Hypercapnic respiratory failure: Status: Acute (7) Anxiety disorder: Status: Chronic (8) Non-compliance: Status: Acute
[2022-06-29] MEDS: IMODIUM CAP 2 MG PO PRN (17:57)
[2022-06-30 05:14] LABS: BASOPHILS # (AUTO) 0.1 X10^3/uL (0.0-0.1); BASOPHILS % (AUTO) 1.2 % (0.2-1.0); EOSINOPHILS # (AUTO) 0.1 x10^3/uL (0.0-0.2); EOSINOPHILS % (AUTO) 1.3 % (0.9-2.9); HEMATOCRIT 42.8 % (36.0-47.0); HEMOGLOBIN 13.5 g/dL (12.0-16.0); LYMPHOCYTES # (AUTO) 1.8 X10^3/uL (1.3-2.9); LYMPHOCYTES % (AUTO) 22.9 % (21.0-51.0); MEAN CORPUSCULAR HEMOGLOBIN 25.8 pg (27.0-34.0); MEAN CORPUSCULAR HGB CONC 31.6 g/dL (33.0-35.0); MEAN CORPUSCULAR VOLUME 81.8 fL (80.0-100.0); MEAN PLATELET VOLUME 8.9 fL (7.4-11.0); MONOCYTES # (AUTO) 0.6 x10^3/uL (0.3-0.8); MONOCYTES % (AUTO) 8.1 % (0.0-13.0); NEUTROPHILS # (AUTO) 5.3 x10^3/uL (2.2-4.8); NEUTROPHILS % (AUTO) 66.5 % (42.0-75.0); RED BLOOD COUNT 5.23 X10^6/uL (3.5-5.4); RED CELL DISTRIBUTION WIDTH 19.5 % (11.6-16.5)
[2022-06-30 05:24] LABS: ALANINE AMINOTRANSFERASE 18 Units/L (12-78); ALBUMIN 2.2 g/dL (3.4-5.0); ALKALINE PHOSPHATASE 68 Units/L (46-116); ASPARTATE AMINO TRANSFERASE 18 Units/L (15-37); BLOOD UREA NITROGEN 13 mg/dL (7-18); CALCIUM 8.9 mg/dL (8.5-10.1); CARBON DIOXIDE 36.7 mmol/L (21-32); CHLORIDE 100 mmol/L (98-107); COR CA(FOR HYPOALB) 10.3 mg/dL (8.5-10.1); CREATININE 0.71 mg/dL (0.55-1.02); MAGNESIUM 1.6 mg/dL (2.0-2.9); SODIUM 141 mmol/L (136-145); TOTAL PROTEIN 6.5 g/dL (6.4-8.2); eGFR NON BLACK RACES > 60 (>60)
[2022-06-30 05:39] LABS: BAND NEUTROPHILS % 1 % (0-10)
[2022-06-30 05:40] LABS: ANISOCYTOSIS SLIGHT; HYPOCHROMASIA SLIGHT; PLATELET MORPHOLOGY COMMENT NORMAL (NORMAL)
[2022-06-30 05:57] LABS: ABG BASE EXCESS 17.3 mmol/L (-2.0-2.0)
[2022-06-30 05:58] LABS: ABG ALLEN TEST POS; ABG HCO3 44.5 mmol/L (22-26)
[2022-06-30] MEDS ORDERED: NS 100 ML IV 100 ML ONE (05:58)
[2022-06-30] MEDS: MAGNESIUM SULFATE 1 GRAM/100 mL PREMIX 1 G/100 ML BAG IV PRN ×2 (06:03→11:28)
[2022-06-30] MEDS: LEVAQUIN PREMIX IV 500 MG 500 MG/100 ML BAG IV SCH (08:16)
[2022-06-30] MEDS: LOVENOX INJ 40 MG SYR SC SCH (08:17)
[2022-06-30] MEDS: VSL#3 PO SCH (08:17)
[2022-06-30] MEDS: TOPROL XL PO SCH (08:17)
[2022-06-30] MEDS: GLUCOPHAGE XR 24-HR PO SCH ×2 (08:17→20:59)
[2022-06-30] MEDS: ENTRESTO 24/26 MG TAB PO SCH ×2 (08:17→22:00)
[2022-06-30] MEDS: DUONEB 0.5 MG/3 MG (3 mL) NEB SCH ×4 (08:19→20:33)
[2022-06-30] MEDS: PULMICORT NEB TX 0.5 MG NEB SCH ×2 (08:19→20:33)
--- NOTE | 2022-06-30 09:29 | RAD ---
HISTORYSOBSTUDYAP supine [id number] normal heart size. The retrocardiac structures are now not well defined. The previously visible left diaphragm and descending aorta are now obscured. There is no evidence for pleural fluid.IMPRESSIONPossible developing airspace process in the left lower lobe. Follow-up suggested.Electronically signed by: RELL RIVER (Jun 30, 2022 09:27:25)
[2022-06-30] MEDS: LASIX IVP SCH ×2 (11:25→17:01)
--- NOTE | 2022-06-30 19:23 | PCM.PROG ---
Progress Note - Progress Note for Day of Date of Exam: 06/30/22 - Subjective Subjective: IS A 67 YEAR OLD PATIENT OF . SHE IS INPATIENT STATUS FOR TREATMENT OF ACUTE RESPIRATORY FAILURE WITH HYPOXIA AND HYPERCARBIA, COPD EXACERBATION, AND ACUTE CHF. SHE WAS ADMITTED ON 06/23/22 WITH OXYGEN SATURATIONS IN THE 60s. SHE HAS BEEN ORDERED TO WEAR THE BIPAP. FOR THE MOST PART, PATIENT HAS BEEN COMPLIANT WITH THE BIPAP. TODAY, SHE IS ALERT, LYING IN BED ON MORNING ROUNDS. SHE IS CURRENTLY UTILIZING OXYGEN VIA NASAL CANNULA AT 5 LPM. SHE WAS PLACED ON NASAL CANNULA WHILE EATING BREAKFAST. HER OXYGEN SATURATIONS HAVE DROPPED INTO THE 80s SOME THIS MORNING WHILE ON NASAL CANNULA. SHE CONTINUES TO COMPLAIN OF SHORTNESS OF BREATH AND WEAKNESS, BUT DENIES OTHER COMPLAINTS THIS MORNING. ON EXAMINATION, HEART IS REGULAR IN RATE AND RHYTHM. BILATERAL LUNGS ARE NOTED WITH RHONCHI THROUGHOUT. BILATERAL LOWER EXTREMITIES ARE NOTED WITH TRACE EDEMA. HER VITALS THIS MORNING ARE: 98.6-73-31-84%-112/60. LABS WERE OBTAINED. WBC 8.0, RBC 5.23, HGB 13.5, HCT 42.8, PLT COUNT 308, SODIUM 141, POTASSIUM 4.2, CHLORIDE 100, CARBON DIOXIDE 36.7, BUN 13, CREATININE 0.71, GLUCOSE 106, CALCIUM 8.9, MAGNESIUM 1.6, AST 18, ALT 18, ALK PHOS 68, TOTAL PROTEIN 6.5, ALBUMIN 2.2. A CHEST XRAY WAS OBTAINED AND REVEALED: Possible developing airspace process in the left lower lobe. TODAY, WE WILL ADD LASIX 20MG IV BID. OTHERWISE, WE WILL CONTINUE WITH HER CURRENT ANTIBIOTICS, NEB TX, AND OTHER PLAN OF CARE. WE WILL FOLLOW-UP WITH LABS AND CHEST XRAY AND CONTINUE TO MONITOR. TIME SPENT ON CLINICAL ASSESSMENT, REVIEWING LABS AND IMAGING, DECISION MAKING, AND DOCUMENTATION GREATER THAN 45 MINUTES. - Past Medical Family Social History Past Med/Fam/Surg Hx: No changes since H&P Allergies: Allergies iodine Allergy (Verified 06/08/22 16:37) shellfish derived Allergy (Verified 06/08/22 16:37) Penicillin G Sodium *PENICILLINS* Allergy (Uncoded 06/12/22 08:15) - Review of Systems ROS: No change since H&P - Vital Signs and I&O's Vital Signs: Temperature 98.6 F Pulse Rate 78 Respiratory Rate 34 Blood Pressure [Left Arm] 105/52 Blood Pressure 100/50 O2 Sat by Pulse Oximetry 90 Intake and Output: Intake & Output 06/28/22 06/29/22 06/30/22 07/01/22 11:59 11:59 11:59 11:59 Intake Total 1620 / 1620 1321 / 1321 1304 / 1304 436 / 436 Output Total 1475 / 1475 1250 / 1250 1725 / 1725 1800 / 1800 Balance 145 / 145 71 / 71 -421 / -421 -1364 / -1364 - Physical Exam Oriented: Normal Eyes: Normal Ear: Normal Nose: Normal Respiratory: Generalized, Rhonchi Cardiovascular: Normal, Edema (trace LE edema) : Normal Auscultation: Bowel Sounds: Normal Palpation: Normal Tenderness: Normal Skin: Normal Musculoskeletal: Normal Psychiatric: Normal Mood Description: Calm Affect: Normal Speech Pattern: Appropriate - Laboratory and Diagnostics Result Diagrams: 06/30/22 04:32 06/30/22 04:42 Labs: 06/27/22 12:53 Stool Stool Culture - Final 06/27/22 12:53 Stool - Final 06/23/22 13:34 Blood Blood Culture - Final 06/23/22 13:24 Blood Blood Culture - Final Laboratory WBC 8.0 X10^3/uL (3.6-10.0) 06/30/22 04:32 RBC 5.23 X10^6/uL (3.5-5.4) 06/30/22 04:32 Hgb 13.5 g/dL (12.0-16.0) 06/30/22 04:32 Hct 42.8 % (36.0-47.0) 06/30/22 04:32 MCV 81.8 fL (80.0-100.0) 06/30/22 04:32 MCH 25.8 pg (27.0-34.0) L 06/30/22 04:32 MCHC 31.6 g/dL (33.0-35.0) L 06/30/22 04:32 RDW 19.5 % (11.6-16.5) H 06/30/22 04:32 Plt Count 308 X10^3/uL (150.0-450.0) 06/30/22 04:32 Plt Count Comment Adequate (ADEQUATE) 06/30/22 04:32 MPV 8.9 fL (7.4-11.0) 06/30/22 04:32 Neut % (Auto) 66.5 % (42.0-75.0) 06/30/22 04:32 Lymph % (Auto) 22.9 % (21.0-51.0) 06/30/22 04:32 [place] % (Auto) 8.1 % (0.0-13.0) 06/30/22 04:32 Eos % (Auto) 1.3 % (0.9-2.9) 06/30/22 04:32 Baso % (Auto) 1.2 % (0.2-1.0) H 06/30/22 04:32 Neut # (Auto) 5.3 x10^3/uL (2.2-4.8) H 06/30/22 04:32 Lymph # (Auto) 1.8 X10^3/uL (1.3-2.9) 06/30/22 04:32 [place] # (Auto) 0.6 x10^3/uL (0.3-0.8) 06/30/22 04:32 Eos # (Auto) 0.1 x10^3/uL (0.0-0.2) 06/30/22 04:32 Baso # (Auto) 0.1 X10^3/uL (0.0-0.1) 06/30/22 04:32 Absolute Nucleated RBC 0.0 /100WBC 06/30/22 04:32 Total Counted 100 06/30/22 04:32 Neutrophils % (Manual) 66 % (39-76) 06/30/22 04:32 Band Neutrophils % 1 % (0-10) 06/30/22 04:32 Lymphocytes % (Manual) 26 % (13-43) 06/30/22 04:32 Monocytes % (Manual) 5 % (4-9) 06/30/22 04:32 Eosinophils % (Manual) 2 % (0-6) 06/30/22 04:32 Plt Morphology Comment Normal (NORMAL) 06/30/22 04:32 RBC Morphology Abnormal (NORMAL) A 06/30/22 04:32 Hypochromasia Slight A 06/30/22 04:32 Anisocytosis Slight A 06/30/22 04:32 Sample Site Rrad 06/30/22 05:52 ABG pH 7.450 (7.35-7.45) 06/30/22 05:52 ABG pCO2 64.0 mmHg (35.0-45.0) H* 06/30/22 05:52 ABG pO2 51.0 mmHg (80.0-100.0) L 06/30/22 05:52 ABG HCO3 44.5 mmol/L (22-26) H* 06/30/22 05:52 ABG O2 Saturation 87.0 % (90-100) L 06/30/22 05:52 ABG Base Excess 17.3 mmol/L (-2.0-2.0) H 06/30/22 05:52 Varun Test Pos 06/30/22 05:52 A-a Gradient 154.0 mmHg 06/30/22 05:52 FiO2 40.0 06/30/22 05:52 Blood Gas Comments Maicol well-mtf 06/30/22 05:52 Sodium 141 mmol/L (136-145) 06/30/22 04:42 Corrected Sodium TNP 06/30/22 04:42 Potassium 4.2 mmol/L (3.5-5.1) 06/30/22 04:42 Chloride 100 mmol/L (98-107) 06/30/22 04:42 Carbon Dioxide 36.7 mmol/L (21-32) H 06/30/22 04:42 BUN 13 mg/dL (7-18) 06/30/22 04:42 Creatinine 0.71 mg/dL (0.55-1.02) 06/30/22 04:42 Est GFR (MDRD) Af Amer > 60 (>60) 06/30/22 04:42 Est GFR (MDRD) Non-Af > 60 (>60) 06/30/22 04:42 Glucose 106 mg/dL (65-99) H 06/30/22 04:42 POC Glucose (mg/dL) 94 mg/dL (65-99) 06/30/22 16:20 Calcium 8.9 mg/dL (8.5-10.1) 06/30/22 04:42 Corrected Calcium 10.3 mg/dL (8.5-10.1) H 06/30/22 04:42 Magnesium 1.6 mg/dL (2.0-2.9) L 06/30/22 04:42 Total Bilirubin 0.20 mg/dL (0.2-1.0) 06/30/22 04:42 AST 18 Units/L (15-37) 06/30/22 04:42 ALT 18 Units/L (12-78) 06/30/22 04:42 Alkaline Phosphatase 68 Units/L (46-116) 06/30/22 04:42 Creatine Kinase 31 Units/L (26-192) 06/23/22 13:24 Troponin I High Sens 25.3 ng/L (4.0-60.0) 06/23/22 13:24 B-Natriuretic Peptide 314 pg/mL (0-79) H 06/26/22 04:25 Total Protein 6.5 g/dL (6.4-8.2) 06/30/22 04:42 Albumin 2.2 g/dL (3.4-5.0) L 06/30/22 04:42 Globulin 4.3 g/dL (2.5-4.5) 06/30/22 04:42 Albumin/Globulin Ratio 0.5 Ratio (1.1-2.1) L 06/30/22 04:42 Specimen Type Catherized urine 06/23/22 13:15 Urine Color Yellow (YELLOW) 06/23/22 13:15 Urine Appearance Clear (CLEAR) 06/23/22 13:15 Urine pH 5.0 (5.0 - 8.0) 06/23/22 13:15 Ur Specific [place] 1.025 (1.000-1.030) 06/23/22 13:15 Urine Protein 3+ (NEGATIVE) 06/23/22 13:15 Urine Glucose (UA) Negative (NEGATIVE) 06/23/22 13:15 Urine Ketones Negative (NEGATIVE) 06/23/22 13:15 Urine Blood 1+ (NEGATIVE) 06/23/22 13:15 Urine Nitrite Positive (NEGATIVE) 06/23/22 13:15 Urine Bilirubin Negative (NEGATIVE) 06/23/22 13:15 Urine Urobilinogen 2+ (NORMAL) 06/23/22 13:15 Ur Leukocyte Esterase 1+ (NEGATIVE) 06/23/22 13:15 Urine RBC 0-2 /HPF (0-3) 06/23/22 13:15 Urine WBC 3-5 /HPF (0-5) 06/23/22 13:15 Ur Squamous Epith Cells Few /HPF (NEGATIVE) 06/23/22 13:15 Urine Bacteria Trace /HPF (NEGATIVE) 06/23/22 13:15 Granular Casts Many /LPF (NEGATIVE) 06/23/22 13:15 Ur Culture Indicated? No/not indicated 06/23/22 13:15 Stl C. diff Tox B Gene Negative (NEGATIVE) 06/27/22 12:45 Stl C. diff [id number] Presumptive negative (NEGATIVE) 06/27/22 12:45 Urine Opiates Screen Negative (NEG=<300) 06/23/22 13:15 Urine Methadone Screen Negative (NEG=<300) 06/23/22 13:15 Ur Barbiturates Screen Negative (NEG=<200) 06/23/22 13:15 Ur Phencyclidine Scrn Negative (NEG=<25) 06/23/22 13:15 Ur Amphetamines Screen Positive (NEG=<1000) A 06/23/22 13:15 U Benzodiazepines Scrn Negative (NEG=<200) 06/23/22 13:15 Urine Cocaine Screen Negative (NEG=<300) 06/23/22 13:15 U Marijuana (THC) Screen Negative (NEG=<50) 06/23/22 13:15 - Plan (1) Acute respiratory failure with hypoxia and hypercarbia Status: Acute (2) COPD exacerbation Status: Acute (3) CHF exacerbation Status: Acute Qualifiers: Heart failure type: unspecified Qualified Code(s): I50.9 - Heart failure, unspecified (4) Hypotension Status: Acute Qualifiers: Hypotension type: unspecified hypotension type Qualified Code(s): I95.9 - Hypotension, unspecified (5) Hypercapnic respiratory failure Status: Acute Qualifiers: Chronicity: unspecified Qualified Code(s): J96.92 - Respiratory failure, unspecified with hypercapnia (6) Drug abuse Status: Chronic (7) Anxiety disorder Status: Chronic Qualifiers: Anxiety disorder type: unspecified anxiety disorder Qualified Code(s): F41. 9 - Anxiety disorder, unspecified
[2022-07-01 05:20] LABS: BASOPHILS # (AUTO) 0.1 X10^3/uL (0.0-0.1); BASOPHILS % (AUTO) 0.9 % (0.2-1.0); EOSINOPHILS # (AUTO) 0.2 x10^3/uL (0.0-0.2); EOSINOPHILS % (AUTO) 2.7 % (0.9-2.9); HEMATOCRIT 44.3 % (36.0-47.0); LYMPHOCYTES # (AUTO) 2.1 X10^3/uL (1.3-2.9); LYMPHOCYTES % (AUTO) 28.5 % (21.0-51.0); MEAN CORPUSCULAR HEMOGLOBIN 25.7 pg (27.0-34.0); MEAN CORPUSCULAR HGB CONC 31.7 g/dL (33.0-35.0); MEAN CORPUSCULAR VOLUME 81.2 fL (80.0-100.0); MEAN PLATELET VOLUME 8.9 fL (7.4-11.0); MONOCYTES # (AUTO) 0.6 x10^3/uL (0.3-0.8); MONOCYTES % (AUTO) 8.5 % (0.0-13.0); NEUTROPHILS # (AUTO) 4.4 x10^3/uL (2.2-4.8); NEUTROPHILS % (AUTO) 59.4 % (42.0-75.0); RED BLOOD COUNT 5.45 X10^6/uL (3.5-5.4); RED CELL DISTRIBUTION WIDTH 19.7 % (11.6-16.5); WHITE BLOOD COUNT 7.4 X10^3/uL (3.6-10.0)
[2022-07-01 05:32] LABS: ALANINE AMINOTRANSFERASE 16 Units/L (12-78); ALBUMIN 2.3 g/dL (3.4-5.0); ALKALINE PHOSPHATASE 70 Units/L (46-116); ASPARTATE AMINO TRANSFERASE 16 Units/L (15-37); BLOOD UREA NITROGEN 13 mg/dL (7-18); CALCIUM 8.6 mg/dL (8.5-10.1); CARBON DIOXIDE 35.6 mmol/L (21-32); CHLORIDE 99 mmol/L (98-107); CREATININE 0.77 mg/dL (0.55-1.02); MAGNESIUM 1.7 mg/dL (2.0-2.9); SODIUM 141 mmol/L (136-145); TOTAL PROTEIN 6.5 g/dL (6.4-8.2); eGFR NON BLACK RACES > 60 (>60)
[2022-07-01] MEDS: MAGNESIUM SULFATE 1 GRAM/100 mL PREMIX 1 G/100 ML BAG IV PRN ×2 (06:07→09:53)
--- NOTE | 2022-07-01 07:25 | RAD ---
HISTORYSOBSTUDYAP chestCOMPARISONDecember 2021FINDINGSHeart size is unchanged. There are indistinct bibasal pulmonary densities that have slightly increased since prior. The upper lobes remain clear and well inflated. There is no evidence for vascular congestion or pneumothorax.IMPRESSIONSlight apparent increase in bibasal opacities consistent with inflammatory disease and/or atelectasis.Electronically signed by: RELL RIVER (Jul 01, 2022 07:23:49)
[2022-07-01] MEDS: LEVAQUIN PREMIX IV 500 MG 500 MG/100 ML BAG IV SCH (08:24)
[2022-07-01] MEDS: LOVENOX INJ 40 MG SYR SC SCH (08:25)
[2022-07-01] MEDS: K-DUR TAB 20 MEQ PO PRN (08:25)
[2022-07-01] MEDS: VSL#3 PO SCH (08:25)
[2022-07-01] MEDS: GLUCOPHAGE XR 24-HR PO SCH ×2 (08:25→20:49)
[2022-07-01] MEDS: IMODIUM CAP 2 MG PO PRN ×2 (08:29→16:20)
[2022-07-01] MEDS: DUONEB 0.5 MG/3 MG (3 mL) NEB SCH ×4 (08:51→21:00)
[2022-07-01] MEDS: PULMICORT NEB TX 0.5 MG NEB SCH ×2 (08:52→21:00)
[2022-07-01] MEDS: TOPROL XL PO SCH (09:22)
[2022-07-01] MEDS: ENTRESTO 24/26 MG TAB PO SCH ×2 (09:22→20:49)
[2022-07-02 05:22] LABS: BASOPHILS # (AUTO) 0.1 X10^3/uL (0.0-0.1); BASOPHILS % (AUTO) 1.1 % (0.2-1.0); EOSINOPHILS # (AUTO) 0.2 x10^3/uL (0.0-0.2); EOSINOPHILS % (AUTO) 2.6 % (0.9-2.9); HEMATOCRIT 43.3 % (36.0-47.0); HEMOGLOBIN 13.6 g/dL (12.0-16.0); LYMPHOCYTES # (AUTO) 2.2 X10^3/uL (1.3-2.9); LYMPHOCYTES % (AUTO) 31.7 % (21.0-51.0); MEAN CORPUSCULAR HEMOGLOBIN 25.9 pg (27.0-34.0); MEAN CORPUSCULAR HGB CONC 31.4 g/dL (33.0-35.0); MEAN CORPUSCULAR VOLUME 82.6 fL (80.0-100.0); MEAN PLATELET VOLUME 9.2 fL (7.4-11.0); MONOCYTES # (AUTO) 0.6 x10^3/uL (0.3-0.8); NEUTROPHILS % (AUTO) 56.6 % (42.0-75.0); RED BLOOD COUNT 5.23 X10^6/uL (3.5-5.4); RED CELL DISTRIBUTION WIDTH 19.8 % (11.6-16.5); WHITE BLOOD COUNT 7.1 X10^3/uL (3.6-10.0)
[2022-07-02 05:36] LABS: ALANINE AMINOTRANSFERASE 14 Units/L (12-78); ALBUMIN 2.3 g/dL (3.4-5.0); ALKALINE PHOSPHATASE 73 Units/L (46-116); ASPARTATE AMINO TRANSFERASE 13 Units/L (15-37); BLOOD UREA NITROGEN 15 mg/dL (7-18); CALCIUM 8.7 mg/dL (8.5-10.1); CARBON DIOXIDE 37.2 mmol/L (21-32); CHLORIDE 99 mmol/L (98-107); COR CA(FOR HYPOALB) 10.1 mg/dL (8.5-10.1); COR NA(FOR HYPERGLY) 142 mmol/L (136-145); CREATININE 0.77 mg/dL (0.55-1.02); MAGNESIUM 1.6 mg/dL (2.0-2.9); SODIUM 141 mmol/L (136-145); TOTAL PROTEIN 6.4 g/dL (6.4-8.2); eGFR NON BLACK RACES > 60 (>60)
[2022-07-02] MEDS: MAGNESIUM SULFATE 1 GRAM/100 mL PREMIX 1 G/100 ML BAG IV PRN (06:07)
--- NOTE | 2022-07-02 07:45 | RAD ---
HISTORYHypoxiaSTUDYChest AP [id number]/2022FINDINGSThe heart remains enlarged. No congestive heart failure is noted. Right basilar infiltrate and subsegmental atelectasis appears unchanged. Upper lung viera remain clear. Left base is poorly evaluated due to overlying cardiomegaly and underpenetration. No pleural effusions are identified. Bony thorax is unremarkable.IMPRESSIONCardiomegaly without congestive heart failureRight basilar subsegmental atelectasis and infiltrate unchangedElectronically signed by: ROSALES BARNES (Jul 02, 2022 07:43:33)
[2022-07-02] MEDS: LOVENOX INJ 40 MG SYR SC SCH (08:22)
[2022-07-02] MEDS: LEVAQUIN PREMIX IV 500 MG 500 MG/100 ML BAG IV SCH (08:22)
[2022-07-02] MEDS: VSL#3 PO SCH (08:22)
[2022-07-02] MEDS: IMODIUM CAP 2 MG PO PRN ×2 (08:22→14:25)
[2022-07-02] MEDS: GLUCOPHAGE XR 24-HR PO SCH (08:23)
[2022-07-02] MEDS: DUONEB 0.5 MG/3 MG (3 mL) NEB SCH ×2 (08:24→12:08)
[2022-07-02] MEDS: PULMICORT NEB TX 0.5 MG NEB SCH (08:24)
[2022-07-02] MEDS: ENTRESTO 24/26 MG TAB PO SCH (08:34)
[2022-07-02] MEDS: TOPROL XL PO SCH (08:35)
[2022-07-02 13:21] VITALS: BP 81/45
== END 2022-07-02 15:45 | disposition home health service (06) | DRG 189 ==
LOC: ER 12:37 → ICU 16:51
PROVIDERS: ADMIT Obstetrics & Gynecology Obstetrics; ATTEND Internal Medicine
DX: R63.8 Other symptoms and signs concerning food and fluid intake; R19.7 Diarrhea, unspecified; J44.1 Chronic obstructive pulmonary disease with (acute) exacerbation; F19.10 Other psychoactive substance abuse, uncomplicated; E11.649 Type 2 diabetes mellitus with hypoglycemia without coma; I95.9 Hypotension, unspecified; Z91.199 Patient's noncompliance with other medical treatment and regimen due to unspecified reason; R26.89 Other abnormalities of gait and mobility; F41.9 Anxiety disorder, unspecified; I50.9 Heart failure, unspecified; M19.90 Unspecified osteoarthritis, unspecified site; Z72.0 Tobacco use; J96.21 Acute and chronic respiratory failure with hypoxia; J96.22 Acute and chronic respiratory failure with hypercapnia; Z99.81 Dependence on supplemental oxygen

== ENCOUNTER 2023-07-22 19:34 | Inpatient (IN) ==
--- NOTE | 2023-07-22 19:55 | DR.EXTPAIN ---
HPI Time seen Time Seen by Provider: 07/22/23 19:54 PMH PMH Past Medical History: Arthritis, CHF, COPD and Diabetes Past Surgical History: Yes Surgical History: Unknown Family History Family Medical History: Diabetes Mellitus and Cancer Social History Do you use any recreational Drugs:: Yes PE Vital Signs Vitals: Vital Signs Temperature 99.1 F Pulse Rate 76 Pulse Rate 79 Pulse Rate 80 Pulse Rate 85 Pulse Rate 84 Respiratory Rate 22 Respiratory Rate 21 Respiratory Rate 28 Respiratory Rate 29 Respiratory Rate 28 Respiratory Rate 31 Blood Pressure 131/82 Blood Pressure 140/65 Blood Pressure 130/87 O2 Sat by Pulse Oximetry 100 O2 Sat by Pulse Oximetry 96 O2 Sat by Pulse Oximetry 100 O2 Sat by Pulse Oximetry 92 O2 Sat by Pulse Oximetry 76 ROR Labs Reviewed 07/22/23 20:20 07/22/23 20:20 Laboratory: WBC 6.9 X10^3/uL (3.6-10.0) 07/22/23 20:20 RBC 5.26 X10^6/uL (3.5-5.4) 07/22/23 20:20 Hgb 14.4 g/dL (12.0-16.0) 07/22/23 20:20 Hct 45.9 % (36.0-47.0) 07/22/23 20:20 MCV 87.2 fL (80.0-100.0) 07/22/23 20:20 MCH 27.4 pg (27.0-34.0) 07/22/23 20:20 MCHC 31.4 g/dL (33.0-35.0) L 07/22/23 20:20 RDW 16.2 % (11.6-16.5) 07/22/23 20:20 Plt Count 233 X10^3/uL (150.0-450.0) 07/22/23 20:20 MPV 8.7 fL (7.4-11.0) 07/22/23 20:20 Neut % (Auto) 68.7 % (42.0-75.0) 07/22/23 20:20 Lymph % (Auto) 24.6 % (21.0-51.0) 07/22/23 20:20 [place] % (Auto) 5.2 % (0.0-13.0) 07/22/23 20:20 Eos % (Auto) 1.0 % (0.9-2.9) 07/22/23 20:20 Baso % (Auto) 0.5 % (0.2-1.0) 07/22/23 20:20 Neut # (Auto) 4.7 x10^3/uL (2.2-4.8) 07/22/23 20:20 Lymph # (Auto) 1.7 X10^3/uL (1.3-2.9) 07/22/23 20:20 [place] # (Auto) 0.4 x10^3/uL (0.3-0.8) 07/22/23 20:20 Eos # (Auto) 0.1 x10^3/uL (0.0-0.2) 07/22/23 20:20 Baso # (Auto) 0.0 X10^3/uL (0.0-0.1) 07/22/23 20:20 Absolute Nucleated RBC 0.1 /100WBC 07/22/23 20:20 Sample Site Rrad 07/22/23 20:02 ABG pH 7.390 (7.35-7.45) 07/22/23 20:02 ABG pCO2 63.0 mmHg (35.0-45.0) H* 07/22/23 20:02 ABG pO2 39.0 mmHg (80.0-100.0) L* 07/22/23 20:02 ABG HCO3 38.1 mmol/L (22-26) H* 07/22/23 20:02 ABG O2 Saturation 73.0 % (90-100) L* 07/22/23 20:02 ABG Base Excess 10.8 mmol/L (-2.0-2.0) H 07/22/23 20:02 Varun Test Pos 07/22/23 20:02 A-a Gradient 32.0 mmHg 07/22/23 20:02 FiO2 21.0 07/22/23 20:02 Blood Gas Comments Maicol abg well-mtf 07/22/23 20:02 Sodium 140 mmol/L (136-145) 07/22/23 20:20 Corrected Sodium 143 mmol/L (136-145) 07/22/23 20:20 Potassium 3.7 mmol/L (3.5-5.1) 07/22/23 20:20 Chloride 98 mmol/L (98-107) 07/22/23 20:20 Carbon Dioxide 36.8 mmol/L (21-32) H 07/22/23 20:20 BUN 9 mg/dL (7-18) 07/22/23 20:20 Creatinine 1.03 mg/dL (0.55-1.02) H 07/22/23 20:20 Est GFR (MDRD) Af Amer > 60 (>60) 07/22/23 20:20 Est GFR (MDRD) Non-Af 57 (>60) L 07/22/23 20:20 Glucose 242 mg/dL (65-99) H 07/22/23 20:20 Lactic Acid 1.5 mmol/L (0.4-2.0) 07/22/23 20:05 Calcium 8.3 mg/dL (8.5-10.1) L 07/22/23 20:20 Corrected Calcium 9.7 mg/dL (8.5-10.1) 07/22/23 20:20 Total Bilirubin 0.20 mg/dL (0.2-1.0) 07/22/23 20:20 AST 12 Units/L (15-37) L 07/22/23 20:20 ALT 12 Units/L (12-78) 07/22/23 20:20 Alkaline Phosphatase 96 Units/L (46-116) 07/22/23 20:20 Creatine Kinase 64 Units/L (26-192) 07/22/23 20:20 Troponin I High Sens 9.8 ng/L (4.0-60.0) 07/22/23 20:20 Total Protein 6.8 g/dL (6.4-8.2) 07/22/23 20:20 Albumin 2.2 g/dL (3.4-5.0) L 07/22/23 20:20 Globulin 4.6 g/dL (2.5-4.5) H 07/22/23 20:20 Albumin/Globulin Ratio 0.5 Ratio (1.1-2.1) L 07/22/23 20:20 SARS-CoV-2 (PCR) Negative (NEGATIVE) 07/22/23 20:20 Influenza Type A (PCR) Negative (NEGATIVE) 07/22/23 20:20 Influenza Type B (PCR) Negative (NEGATIVE) 07/22/23 20:20 RSV (PCR) Negative (NEGATIVE) 07/22/23 20:20 Opioid Opioid Risk Tool Age (Yuval box if 16-45): No History of Preadolescent Sexual Abuse: No Total: 0 Total Score Risk Category: Low Risk Copyright: Jovanni HAYES predicting aberrant behaviors Discharge Plan Diagnosis Discharge Problem: Hypercapnia, Bronchitis, COPD exacerbation, Hypoxia Discharge Plan Patient Disposition: 09 ADMITTED INPATIENT Condition: Stable Orders to Discharge Patient Discharge Orders: Transfer (Routine); Ordered 07/23/23 Ordered By: RIGO CLOUD
[2023-07-22 20:02] LABS: ABG BASE EXCESS 10.8 mmol/L (-2.0-2.0)
[2023-07-22 20:06] LABS: ABG ALLEN TEST POS; ABG HCO3 38.1 mmol/L (22-26)
[2023-07-22 20:21] LABS: BASOPHILS % (AUTO) 0.5 % (0.2-1.0); EOSINOPHILS # (AUTO) 0.1 x10^3/uL (0.0-0.2); HEMATOCRIT 45.9 % (36.0-47.0); HEMOGLOBIN 14.4 g/dL (12.0-16.0); LYMPHOCYTES # (AUTO) 1.7 X10^3/uL (1.3-2.9); LYMPHOCYTES % (AUTO) 24.6 % (21.0-51.0); MEAN CORPUSCULAR HEMOGLOBIN 27.4 pg (27.0-34.0); MEAN CORPUSCULAR HGB CONC 31.4 g/dL (33.0-35.0); MEAN CORPUSCULAR VOLUME 87.2 fL (80.0-100.0); MEAN PLATELET VOLUME 8.7 fL (7.4-11.0); MONOCYTES # (AUTO) 0.4 x10^3/uL (0.3-0.8); MONOCYTES % (AUTO) 5.2 % (0.0-13.0); NEUTROPHILS # (AUTO) 4.7 x10^3/uL (2.2-4.8); NEUTROPHILS % (AUTO) 68.7 % (42.0-75.0); PLATELET COUNT 233 X10^3/uL (150.0-450.0); RED BLOOD COUNT 5.26 X10^6/uL (3.5-5.4); RED CELL DISTRIBUTION WIDTH 16.2 % (11.6-16.5); WHITE BLOOD COUNT 6.9 X10^3/uL (3.6-10.0)
--- NOTE | 2023-07-22 20:31 | EKG ---
Test Reason : HTN Blood Pressure : */* mmHG Vent. Rate : 79 BPM Atrial Rate : 79 BPM P-R Int : 168 ms QRS Dur : 72 ms QT Int : 364 ms P-R-T Axes : 70 4 37 degrees QTc Int : 417 ms Normal sinus rhythm with sinus arrhythmia Normal ECG When compared with ECG of 23-JUN-2022 13:16, QRS duration has decreased Non-specific change in ST segment in Lateral leads Nonspecific T wave abnormality no longer evident in Anterior leads Confirmed by Sancho Bey ([id number]) on 07/23/2023 8:44:19 AM Referred By: Confirmed By: Sancho Bey
[2023-07-22 20:34] LABS: ALANINE AMINOTRANSFERASE 12 Units/L (12-78); ALBUMIN 2.2 g/dL (3.4-5.0); ALKALINE PHOSPHATASE 96 Units/L (46-116); ASPARTATE AMINO TRANSFERASE 12 Units/L (15-37); BLOOD UREA NITROGEN 9 mg/dL (7-18); CALCIUM 8.3 mg/dL (8.5-10.1); CARBON DIOXIDE 36.8 mmol/L (21-32); CHLORIDE 98 mmol/L (98-107); COR CA(FOR HYPOALB) 9.7 mg/dL (8.5-10.1); COR NA(FOR HYPERGLY) 143 mmol/L (136-145); CREATINE KINASE 64 Units/L (26-192); CREATININE 1.03 mg/dL (0.55-1.02); GLUCOSE 242 mg/dL (65-99); POTASSIUM 3.7 mmol/L (3.5-5.1); SODIUM 140 mmol/L (136-145); TOTAL PROTEIN 6.8 g/dL (6.4-8.2); eGFR NON BLACK RACES 57 (>60)
--- NOTE | 2023-07-22 22:31 | RAD ---
EXAM:CHEST, 1 VIEWHISTORY:Short of breath;COMPARISON:July 02, 2022TECHNIQUE:Chest radiographic imaging, AP portable projection, 1 imageFINDINGS:No cardiomegaly.No focal airspace disease.No pleural effusion.No pneumothorax.No acute osseous abnormality.IMPRESSION:No imaging findings of acute cardiopulmonary disease or significant changes.THIS IS AN ELECTRONICALLY VERIFIED FINAL REPORT07/22/2023 10:20 PM - Electronically signed by Cj Malagon MD
[2023-07-23] MEDS ORDERED: MORPHINE SULFATE INJ 4 MG ONE (00:06)
[2023-07-23] MEDS ORDERED: ZOFRAN INJ 4 MG VIAL ONE (00:07)
[2023-07-23] MEDS ORDERED: ZOFRAN INJ 4 MG VIAL IVP ONE (00:11)
[2023-07-23] MEDS ORDERED: MORPHINE SULFATE INJ 4 MG IVP ONE (00:11)
[2023-07-23 03:40] VITALS: BMI 44.4
[2023-07-23] MEDS: NS 1,000 ML IV 1,000 ML IV SCH ×2 (04:06→15:35)
[2023-07-23] MEDS: DUONEB 0.5 MG/3 MG (3 mL) NEB SCH ×4 (05:56→17:49)
[2023-07-23 06:09] LABS: BASOPHILS # (AUTO) 0.1 X10^3/uL (0.0-0.1); BASOPHILS % (AUTO) 0.7 % (0.2-1.0); EOSINOPHILS # (AUTO) 0.1 x10^3/uL (0.0-0.2); EOSINOPHILS % (AUTO) 0.8 % (0.9-2.9); HEMATOCRIT 46.1 % (36.0-47.0); HEMOGLOBIN 14.3 g/dL (12.0-16.0); LYMPHOCYTES # (AUTO) 1.6 X10^3/uL (1.3-2.9); LYMPHOCYTES % (AUTO) 19.2 % (21.0-51.0); MEAN CORPUSCULAR HGB CONC 31.1 g/dL (33.0-35.0); MEAN CORPUSCULAR VOLUME 86.8 fL (80.0-100.0); MEAN PLATELET VOLUME 8.8 fL (7.4-11.0); MONOCYTES # (AUTO) 0.5 x10^3/uL (0.3-0.8); MONOCYTES % (AUTO) 6.4 % (0.0-13.0); NEUTROPHILS # (AUTO) 5.9 x10^3/uL (2.2-4.8); NEUTROPHILS % (AUTO) 72.9 % (42.0-75.0); PLATELET COUNT 223 X10^3/uL (150.0-450.0); RED BLOOD COUNT 5.31 X10^6/uL (3.5-5.4); RED CELL DISTRIBUTION WIDTH 16.4 % (11.6-16.5); WHITE BLOOD COUNT 8.1 X10^3/uL (3.6-10.0)
[2023-07-23 06:19] LABS: ALANINE AMINOTRANSFERASE 14 Units/L (12-78); ALBUMIN 2.3 g/dL (3.4-5.0); ALKALINE PHOSPHATASE 93 Units/L (46-116); ASPARTATE AMINO TRANSFERASE 13 Units/L (15-37); BLOOD UREA NITROGEN 9 mg/dL (7-18); CALCIUM 8.7 mg/dL (8.5-10.1); CARBON DIOXIDE 38.8 mmol/L (21-32); CHLORIDE 99 mmol/L (98-107); COR CA(FOR HYPOALB) 10.1 mg/dL (8.5-10.1); COR NA(FOR HYPERGLY) 142 mmol/L (136-145); CREATININE 0.89 mg/dL (0.55-1.02); GLUCOSE 171 mg/dL (65-99); POTASSIUM 4.2 mmol/L (3.5-5.1); SODIUM 140 mmol/L (136-145); TOTAL PROTEIN 7.1 g/dL (6.4-8.2); eGFR NON BLACK RACES > 60 (>60)
[2023-07-23] MEDS: LEVAQUIN PREMIX IV 500 MG 500 MG/100 ML BAG IV SCH (09:15)
[2023-07-23] MEDS: VSL#3 PO SCH (09:23)
[2023-07-23 09:26] LABS: ABG BASE EXCESS 13.7 mmol/L (-2.0-2.0)
[2023-07-23 09:28] LABS: ABG ALLEN TEST POS; ABG HCO3 42.4 mmol/L (22-26)
[2023-07-23] MEDS: LOVENOX INJ 40 MG SYR SC SCH (10:55)
[2023-07-23 12:52] LABS: APPEARANCE,URINE CLOUDY (CLEAR); BLOOD/HEMOGLOBIN,URINE 1+ (NEGATIVE); COLOR,URINE YELLOW (YELLOW); GLUCOSE, URINE NEGATIVE (NEGATIVE); KETONES,URINE NEGATIVE (NEGATIVE); NITRITES,URINE POSITIVE (NEGATIVE); PROTEIN,URINE 1+ (NEGATIVE)
[2023-07-23 12:53] LABS: BILIRUBIN,URINE NEGATIVE (NEGATIVE); LEUKOCYTE ESTERASE ,URINE 3+ (NEGATIVE); UROBILINOGEN,URINE NORMAL (NORMAL)
[2023-07-23 13:01] LABS: BACTERIA,URINE 4+ /HPF (NEGATIVE); RBC,URINE 0-2 /HPF (0-3); SQUAMOUS EPITHELIAL CELL,UR RARE /HPF (NEGATIVE)
[2023-07-24] MEDS: DUONEB 0.5 MG/3 MG (3 mL) NEB SCH ×2 (00:50→06:23)
[2023-07-24] MEDS: NS 1,000 ML IV 1,000 ML IV SCH (05:04)
[2023-07-24] MEDS: NovoLIN R (or HumuLIN R) SUBCUT PRN ×2 (05:43→11:43)
[2023-07-24 05:55] LABS: ABG BASE EXCESS 15.8 mmol/L (-2.0-2.0)
[2023-07-24 05:57] LABS: ABG ALLEN TEST POS; ABG HCO3 44.4 mmol/L (22-26)
[2023-07-24 06:38] LABS: ALANINE AMINOTRANSFERASE 17 Units/L (12-78); ALBUMIN 2.1 g/dL (3.4-5.0); ALKALINE PHOSPHATASE 93 Units/L (46-116); ASPARTATE AMINO TRANSFERASE 19 Units/L (15-37); BLOOD UREA NITROGEN 9 mg/dL (7-18); CALCIUM 8.4 mg/dL (8.5-10.1); CARBON DIOXIDE 38.1 mmol/L (21-32); CHLORIDE 100 mmol/L (98-107); COR CA(FOR HYPOALB) 9.9 mg/dL (8.5-10.1); COR NA(FOR HYPERGLY) 142 mmol/L (136-145); CREATININE 0.83 mg/dL (0.55-1.02); GLUCOSE 207 mg/dL (65-99); POTASSIUM 3.8 mmol/L (3.5-5.1); SODIUM 139 mmol/L (136-145); TOTAL PROTEIN 6.9 g/dL (6.4-8.2); eGFR NON BLACK RACES > 60 (>60)
[2023-07-24 06:43] LABS: BASOPHILS % (AUTO) 0.6 % (0.2-1.0); EOSINOPHILS # (AUTO) 0.1 x10^3/uL (0.0-0.2); EOSINOPHILS % (AUTO) 0.7 % (0.9-2.9); HEMATOCRIT 44.7 % (36.0-47.0); LYMPHOCYTES # (AUTO) 1.7 X10^3/uL (1.3-2.9); LYMPHOCYTES % (AUTO) 21.4 % (21.0-51.0); MEAN CORPUSCULAR HEMOGLOBIN 27.4 pg (27.0-34.0); MEAN CORPUSCULAR HGB CONC 31.3 g/dL (33.0-35.0); MEAN CORPUSCULAR VOLUME 87.5 fL (80.0-100.0); MONOCYTES # (AUTO) 0.6 x10^3/uL (0.3-0.8); MONOCYTES % (AUTO) 7.7 % (0.0-13.0); NEUTROPHILS # (AUTO) 5.5 x10^3/uL (2.2-4.8); NEUTROPHILS % (AUTO) 69.6 % (42.0-75.0); PLATELET COUNT 242 X10^3/uL (150.0-450.0); RED BLOOD COUNT 5.11 X10^6/uL (3.5-5.4); RED CELL DISTRIBUTION WIDTH 16.7 % (11.6-16.5); WHITE BLOOD COUNT 7.9 X10^3/uL (3.6-10.0)
[2023-07-24] MEDS ORDERED: SOLU-Medrol 40 MG VIAL IVP SCH (09:00)
[2023-07-24] MEDS ORDERED: CONSULT PHARMACY - POTASSIUM & MAGNESIUM XX SCH (09:00)
[2023-07-24] MEDS ORDERED: NS + KCL 20 MEQ/L 1,000 ML IV SCH (09:00)
[2023-07-24] MEDS: LEVAQUIN PREMIX IV 500 MG 500 MG/100 ML BAG IV SCH (09:42)
[2023-07-24] MEDS: VSL#3 PO SCH (09:42)
[2023-07-24] MEDS: LOVENOX INJ 40 MG SYR SC SCH (09:42)
[2023-07-24] MEDS ORDERED: GLUCOPHAGE XR 24-HR PO SCH (10:00)
[2023-07-24] MEDS ORDERED: COREG TAB 6.25 MG PO SCH (10:00)
[2023-07-24] MEDS ORDERED: ENTRESTO 24/26 MG TABLET PO SCH (10:00)
[2023-07-24] MEDS ORDERED: TYLENOL 325 MG TAB PO PRN (11:02)
[2023-07-24 11:26] VITALS: RESP 22
[2023-07-24 13:34] VITALS: BP 147/67; PULSE 72; TEMP 98; O2SAT 91
[2023-07-24] MEDS ORDERED: SNACK - Diabetic Appropriate PO SCH (20:00)
== END 2023-07-24 13:40 | disposition home or self-care (01) | DRG 191 ==
LOC: ER 19:34 → MED/SURG 07-23 01:58
PROVIDERS: ADMIT Internal Medicine; ATTEND Obstetrics & Gynecology Obstetrics
DX: Z20.822 Contact with and (suspected) exposure to COVID-19; Z68.41 Body mass index [BMI] 40.0-44.9, adult; R06.89 Other abnormalities of breathing; E66.2 Morbid (severe) obesity with alveolar hypoventilation; J44.1 Chronic obstructive pulmonary disease with (acute) exacerbation; E11.65 Type 2 diabetes mellitus with hyperglycemia; J20.8 Acute bronchitis due to other specified organisms; R06.02 Shortness of breath; N39.0 Urinary tract infection, site not specified; R09.02 Hypoxemia; B96.29 Other Escherichia coli [E. coli] as the cause of diseases classified elsewhere

== ENCOUNTER 2024-09-02 16:40 | Inpatient (IN) ==
[2024-09-02 16:53] LABS: ABG BASE EXCESS 12.1 mmol/L (-2.0-2.0)
[2024-09-02 16:54] LABS: ABG ALLEN TEST POS; ABG HCO3 42.7 mmol/L (22-26)
[2024-09-02] MEDS: DECADRON INJ IVP ONE ×2 (16:58→17:01)
[2024-09-02] MEDS: DUONEB 0.5 MG/3 MG (3 mL) NEB ONE ×2 (17:02→19:20)
[2024-09-02 17:08] LABS: BASOPHILS # (AUTO) 0.1 X10^3/uL (0.0-0.1); BASOPHILS % (AUTO) 0.7 % (0.2-1.0); EOSINOPHILS % (AUTO) 0.3 % (0.9-2.9); HEMATOCRIT 45.2 % (36.0-47.0); HEMOGLOBIN 14.3 g/dL (12.0-16.0); MEAN CORPUSCULAR HGB CONC 31.6 g/dL (33.0-35.0); MEAN CORPUSCULAR VOLUME 88.8 fL (80.0-100.0); MEAN PLATELET VOLUME 8.3 fL (7.4-11.0); MONOCYTES % (AUTO) 7.8 % (0.0-13.0); NEUTROPHILS # (AUTO) 9.4 x10^3/uL (2.2-4.8); NEUTROPHILS % (AUTO) 75.2 % (42.0-75.0); PLATELET COUNT 239 X10^3/uL (150.0-450.0); RED BLOOD COUNT 5.09 X10^6/uL (3.5-5.4); RED CELL DISTRIBUTION WIDTH 16.7 % (11.6-16.5); WHITE BLOOD COUNT 12.5 X10^3/uL (3.6-10.0)
[2024-09-02 17:16] LABS: INR 1.07 (0.8-1.3)
[2024-09-02 17:30] LABS: ALANINE AMINOTRANSFERASE 29 Units/L (12-78); ALBUMIN 2.7 g/dL (3.4-5.0); ALKALINE PHOSPHATASE 109 Units/L (46-116); ASPARTATE AMINO TRANSFERASE 23 Units/L (15-37); BLOOD UREA NITROGEN 9 mg/dL (7-18); CALCIUM 8.8 mg/dL (8.5-10.1); CARBON DIOXIDE 40.4 mmol/L (21-32); CHLORIDE 101 mmol/L (98-107); COR CA(FOR HYPOALB) 9.8 mg/dL (8.5-10.1); COR NA(FOR HYPERGLY) 143 mmol/L (136-145); CREATINE KINASE 40 Units/L (26-192); CREATININE 0.89 mg/dL (0.55-1.02); GLUCOSE 213 mg/dL (65-99); MAGNESIUM 1.8 mg/dL (2.0-2.9); POTASSIUM 4.2 mmol/L (3.5-5.1); SODIUM 140 mmol/L (136-145); TOTAL PROTEIN 7.8 g/dL (6.4-8.2); eGFR NON BLACK RACES > 60 (>60)
--- NOTE | 2024-09-02 17:59 | EKG ---
Test Reason : dyspnea Blood Pressure : */* mmHG Vent. Rate : 75 BPM Atrial Rate : 75 BPM P-R Int : 182 ms QRS Dur : 74 ms QT Int : 356 ms P-R-T Axes : -16 2 20 degrees QTc Int : 397 ms Normal sinus rhythm Cannot rule out Anteroseptal infarct (cited on or before 07-MAR-2024) Abnormal ECG When compared with ECG of 07-MAR-2024 08:51, Questionable change in initial forces of Septal leads QT has shortened Confirmed by Jaime Meraz MD ([id number]) on 09/03/2024 5:44:22 AM Referred By: Confirmed By: Jaime Meraz MD
[2024-09-02 19:11] LABS: ABG BASE EXCESS 14.2 mmol/L (-2.0-2.0)
[2024-09-02 19:12] LABS: ABG HCO3 43.8 mmol/L (22-26)
[2024-09-02] MEDS ORDERED: DUONEB 0.5 MG/3 MG (3 mL) NEB ONE (19:16)
--- NOTE | 2024-09-02 19:37 | DR.SOBA ---
HPI Time Seen Time Seen by Provider: 09/02/24 16:48 Primary Care Physician Primary Care Physician: Mccloud Complaints Chief Complaint Doctors Comments: 69 yo F, hx of COPD, on 4L home O2, Pt states she has been short of breath today, coughing, chest congestion x1 week, has not seen PCP, c/o "a little bit" of chest pain. On arrival, pt is cyanotic around her mouth and nose, wheezing. She states she wears home 4L O2 at all times, but left the house "in a hurry" and has been without oxygen x1 hour. Pt is supposed to take breathing tx at home but hasn't taken one today. Pt cont to smoke 1 ppd cigarettes Chief Complaint:: Dyspnea, Wheezing, Prod Cough COVID-19 Coronavirus risk:travel/contact w/high risk person: Yes Has patient experienced Coronavirus symptoms: Yes Coronavirus symptoms experienced: Coughing and Shortness of Breath Source History Provided: Patient Mode of Arrival Mode of Arrival: Ambulatory Timing Onset of Chief Complaint: 08/26/24 PMH PMH Past Medical History: Yes Past Medical History: Anxiety, Arthritis, Asthma, CHF, COPD, Diabetes and Dyslipidemia Past Medical History Comment: osteoarthritis, Pickwickian Syndrome, chronic low back pain, Past Surgical History: No Surgical History: Unknown Family History History of Family Medical Conditions: Yes Family Medical History: Diabetes Mellitus Social History Does patient currently use any type of tobacco product: Yes Have you used tobacco products in the last 12 months: Yes Type of Tobacco Use: Cigarettes Does any household member use tobacco: Yes Alcohol Use: None Do you use any recreational Drugs:: No Lives With: Family Lives Where: Home Travel Risk Coronavirus risk:travel/contact w/high risk person: Yes Has patient experienced Coronavirus symptoms: Yes Coronavirus symptoms experienced: Coughing and Shortness of Breath Infectious screening In the last 2 months have you had wt loss of >10#?: NO Have you had fever, night sweats or hemotysis?: No Have you traveled outside the country in the last 6 months?: No Isolation: Droplet ROS Review of Systems Constitutional: negative Fever Respiratoy: Productive Cough, Short of Breath and Wheezing Cardiovascular: Chest Pain All Other Systems: Reviewed and Negative PE Vital Signs Vitals: Vital Signs Temperature 97.8 F Pulse Rate 74 Pulse Rate 77 Pulse Rate 73 Pulse Rate 77 Pulse Rate 78 Pulse Rate 79 Pulse Rate 87 Pulse Rate 86 Pulse Rate 86 Pulse Rate 89 Pulse Rate 96 Pulse Rate 90 Respiratory Rate 36 Respiratory Rate 25 Respiratory Rate 21 Respiratory Rate 26 Respiratory Rate 22 Respiratory Rate 25 Respiratory Rate 29 Respiratory Rate 41 Respiratory Rate 37 Blood Pressure 134/60 Blood Pressure 134/60 Blood Pressure 142/61 Blood Pressure 133/63 Blood Pressure 139/65 Blood Pressure 135/60 Blood Pressure 132/59 Blood Pressure 132/59 O2 Sat by Pulse Oximetry 90 O2 Sat by Pulse Oximetry 98 O2 Sat by Pulse Oximetry 99 O2 Sat by Pulse Oximetry 95 O2 Sat by Pulse Oximetry 97 O2 Sat by Pulse Oximetry 94 O2 Sat by Pulse Oximetry 96 O2 Sat by Pulse Oximetry 91 O2 Sat by Pulse Oximetry 91 O2 Sat by Pulse Oximetry 96 O2 Sat by Pulse Oximetry 74 O2 Sat by Pulse Oximetry 43 General General Appearance: Alert, Anxious and In Distress Head Head Exam: Normal Inspection Eyes Eye exam: Normal Appearance ENT ENT Exam: Normal Exam Neck Neck Exam: Normal Inspection Chest Chest Inspection: Normal Inspection Respiratory Respiratory Exam: Accessory Muscle Use and Respiratory Distress Respiratory Exam: Bilateral: Wheezing and Bilateral: Decreased Breath Sounds Cardiovascular Cardiovascular Exam: Regular Rate and Normal Rhythm Abdominal Exam Abdominal Exam: Normal Inspection, Normal Bowel Sounds and Soft Extremities Extremities Exam: Normal Inspection Back Back Exam: Normal Inspection Neurologic Neurological Exam: Alert and Oriented X3 Psychiatric Psychiatric Exam: Normal Affect and Normal Mood Skin Skin Exam: Warm, Dry, Intact and Normal Color COURSE Consultation Consultation Comments: Dr Ramsey agrees to admit at 1925 ROR Labs Reviewed Laboratory Results Reviewed?: Yes 09/02/24 16:55 09/02/24 16:55 Laboratory: WBC 12.5 X10^3/uL (3.6-10.0) H 09/02/24 16:55 RBC 5.09 X10^6/uL (3.5-5.4) 09/02/24 16:55 Hgb 14.3 g/dL (12.0-16.0) 09/02/24 16:55 Hct 45.2 % (36.0-47.0) 09/02/24 16:55 MCV 88.8 fL (80.0-100.0) 09/02/24 16:55 MCH 28.0 pg (27.0-34.0) 09/02/24 16:55 MCHC 31.6 g/dL (33.0-35.0) L 09/02/24 16:55 RDW 16.7 % (11.6-16.5) H 09/02/24 16:55 Plt Count 239 X10^3/uL (150.0-450.0) 09/02/24 16:55 MPV 8.3 fL (7.4-11.0) 09/02/24 16:55 Neut % (Auto) 75.2 % (42.0-75.0) H 09/02/24 16:55 Lymph % (Auto) 16.0 % (21.0-51.0) L 09/02/24 16:55 [place] % (Auto) 7.8 % (0.0-13.0) 09/02/24 16:55 Eos % (Auto) 0.3 % (0.9-2.9) L 09/02/24 16:55 Baso % (Auto) 0.7 % (0.2-1.0) 09/02/24 16:55 Neut # (Auto) 9.4 x10^3/uL (2.2-4.8) H 09/02/24 16:55 Lymph # (Auto) 2.0 X10^3/uL (1.3-2.9) 09/02/24 16:55 [place] # (Auto) 1.0 x10^3/uL (0.3-0.8) H 09/02/24 16:55 Eos # (Auto) 0.0 x10^3/uL (0.0-0.2) 09/02/24 16:55 Baso # (Auto) 0.1 X10^3/uL (0.0-0.1) 09/02/24 16:55 Absolute Nucleated RBC 0.1 /100WBC 09/02/24 16:55 PT 13.7 SECONDS (11.8-14.3) 09/02/24 16:55 INR Target Range - 09/02/24 16:55 INR 1.07 (0.8-1.3) 09/02/24 16:55 APTT 24.9 SECONDS (22.9-36.5) 09/02/24 16:55 PTT Comment - 09/02/24 16:55 Sample Site Lb 09/02/24 19:05 ABG pH 7.330 (7.35-7.45) L 09/02/24 19:05 ABG pCO2 83.0 mmHg (35.0-45.0) H* 09/02/24 19:05 ABG pO2 54.0 mmHg (80.0-100.0) L 09/02/24 19:05 ABG HCO3 43.8 mmol/L (22-26) H* 09/02/24 19:05 ABG O2 Saturation 85.0 % (90-100) L 09/02/24 19:05 ABG Base Excess 14.2 mmol/L (-2.0-2.0) H 09/02/24 19:05 Varun Test N/a 09/02/24 19:05 A-a Gradient 99.0 mmHg 09/02/24 19:05 FiO2 36.0 09/02/24 19:05 Blood Gas Comments Maicol well ae 09/02/24 19:05 Sodium 140 mmol/L (136-145) 09/02/24 16:55 Corrected Sodium 143 mmol/L (136-145) 09/02/24 16:55 Potassium 4.2 mmol/L (3.5-5.1) 09/02/24 16:55 Chloride 101 mmol/L (98-107) 09/02/24 16:55 Carbon Dioxide 40.4 mmol/L (21-32) H 09/02/24 16:55 BUN 9 mg/dL (7-18) 09/02/24 16:55 Creatinine 0.89 mg/dL (0.55-1.02) 09/02/24 16:55 Est GFR (MDRD) Af Amer > 60 (>60) 09/02/24 16:55 Est GFR (MDRD) Non-Af > 60 (>60) 09/02/24 16:55 Glucose 213 mg/dL (65-99) H 09/02/24 16:55 Calcium 8.8 mg/dL (8.5-10.1) 09/02/24 16:55 Corrected Calcium 9.8 mg/dL (8.5-10.1) 09/02/24 16:55 Magnesium 1.8 mg/dL (2.0-2.9) L 09/02/24 16:55 Total Bilirubin 0.40 mg/dL (0.2-1.0) 09/02/24 16:55 AST 23 Units/L (15-37) 09/02/24 16:55 ALT 29 Units/L (12-78) 09/02/24 16:55 Alkaline Phosphatase 109 Units/L (46-116) 09/02/24 16:55 Creatine Kinase 40 Units/L (26-192) 09/02/24 16:55 Troponin I High Sens 19.7 ng/L (4.0-60.0) 09/02/24 16:55 Troponin I High Sens Cancelled 09/02/24 16:55 B-Natriuretic Peptide 178 pg/mL (0-79) H 09/02/24 16:55 Total Protein 7.8 g/dL (6.4-8.2) 09/02/24 16:55 Albumin 2.7 g/dL (3.4-5.0) L 09/02/24 16:55 Globulin 5.1 g/dL (2.5-4.5) H 09/02/24 16:55 Albumin/Globulin Ratio 0.5 Ratio (1.1-2.1) L 09/02/24 16:55 SARS-CoV-2 (PCR) Negative (NEGATIVE) 09/02/24 16:58 Influenza Type A (PCR) Negative (NEGATIVE) 09/02/24 16:58 Influenza Type B (PCR) Negative (NEGATIVE) 09/02/24 16:58 RSV (PCR) Negative (NEGATIVE) 09/02/24 16:58 Opioid Opioid Risk Tool Age (Yuval box if 16-45): No History of Preadolescent Sexual Abuse: No Total: 0 Total Score Risk Category: Low Risk Copyright: Jovanni HAYES predicting aberrant behaviors Discharge Plan Diagnosis Discharge Problem: Acute respiratory failure with hypoxia and hypercarbia, COPD exacerbation Discharge Plan Patient Disposition: 09 ADMITTED INPATIENT Condition: Stable Prescriptions: No Action carvedilol 6.25 mg Tablet 6.25 mg PO BID Qty: 60 3RF spironolactone 25 mg tablet 25 mg PO QDAY metformin 1,000 mg tablet 1,000 mg PO BID furosemide 20 mg tablet 20 mg PO QDAY dapagliflozin propanediol [Farxiga] 10 mg Tablet 10 mg PO QDAY Trelegy Ellipta 100-62.5-25 mcg blister with device 1 ea inhalation QDAY levofloxacin 750 mg tablet 750 mg PO Q24H Qty: 5 0RF Entresto 24-26 mg Tablet 0.5 tab PO BID Qty: 30 0RF Health Concerns: Post Hospitalization: new medications and changes needed to prevent readmission or further decline. Pt educated and given instructions on all concerns. Plan of Treatment: Continue with present treatment and follow up plan. Pt is to keep follow up appointment as instructed and take medications as ordered. Orders to Discharge Patient Discharge Orders: Transfer (Routine); Ordered 09/02/24 Ordered By: Dylan Cameron Follow ups/Referrals Follow ups/Referrals: Rosa Maria Lamas [Primary Care Provider] - 3 days Instructions Stand Alone Forms: Find Help Web Site, Post Hospital Follow Up Care
--- NOTE | 2024-09-02 21:56 | EKG ---
Test Reason : Dyspnea Blood Pressure : */* mmHG Vent. Rate : 86 BPM Atrial Rate : 86 BPM P-R Int : 160 ms QRS Dur : 80 ms QT Int : 342 ms P-R-T Axes : 71 -11 24 degrees QTc Int : 409 ms Sinus rhythm with premature atrial complexes Low voltage QRS Borderline ECG When compared with ECG of 02-SEP-2024 17:55, (Unconfirmed) premature atrial complexes are now present Minimal criteria for Anteroseptal infarct are no longer present Confirmed by Jaime Meraz MD ([id number]) on 09/03/2024 5:43:13 AM Referred By: Confirmed By: Jaime Meraz MD
[2024-09-02] MEDS: COREG TAB 6.25 MG PO SCH (22:54)
[2024-09-02] MEDS: ENTRESTO 24/26 MG TABLET PO SCH (22:54)
[2024-09-02] MEDS: GLUCOPHAGE PO SCH (22:55)
[2024-09-02] MEDS: NS 1,000 ML IV 1,000 ML IV SCH (22:59)
--- NOTE | 2024-09-02 23:23 | RAD ---
PROCEDURE: Chest X-ray 1 View.HISTORY: short of breath today, coughing, chest congestion x1 week, has not seen PCP, c/o "a little bit" of chest pain. On arrival, pt is cyanotic around her mouth and nose, wheezing.; .TECHNIQUE: AP view.COMPARISON: 03/11/2024.TECHNICAL QUALITY: Satisfactory.FINDINGS:Normal size heart.Mediastinum and hilar regions show no masses or lymphadenopathy.Normal central vascularity.No pulmonary consolidation, masses, pleural fluid, or pneumothorax.No acute bony abnormality.IMPRESSION:No evidence of active cardiopulmonary disease.THIS IS AN ELECTRONICALLY VERIFIED FINAL REPORT09/02/2024 11:20 PM - Electronically signed by Mango Cancino MD
[2024-09-03] MEDS: DUONEB 0.5 MG/3 MG (3 mL) NEB SCH (00:09)
[2024-09-03 02:28] LABS: BASOPHILS # (AUTO) 0.1 X10^3/uL (0.0-0.1); BASOPHILS % (AUTO) 0.6 % (0.2-1.0); EOSINOPHILS % (AUTO) 0.1 % (0.9-2.9); HEMATOCRIT 47.2 % (36.0-47.0); HEMOGLOBIN 14.8 g/dL (12.0-16.0); LYMPHOCYTES # (AUTO) 0.7 X10^3/uL (1.3-2.9); LYMPHOCYTES % (AUTO) 5.7 % (21.0-51.0); MEAN CORPUSCULAR HGB CONC 31.4 g/dL (33.0-35.0); MEAN PLATELET VOLUME 8.6 fL (7.4-11.0); MONOCYTES # (AUTO) 0.3 x10^3/uL (0.3-0.8); MONOCYTES % (AUTO) 2.1 % (0.0-13.0); NEUTROPHILS # (AUTO) 11.1 x10^3/uL (2.2-4.8); NEUTROPHILS % (AUTO) 91.5 % (42.0-75.0); PLATELET COUNT 212 X10^3/uL (150.0-450.0); RED CELL DISTRIBUTION WIDTH 17.2 % (11.6-16.5); WHITE BLOOD COUNT 12.2 X10^3/uL (3.6-10.0)
[2024-09-03 02:33] LABS: INR 1.03 (0.8-1.3)
[2024-09-03 02:37] LABS: ALANINE AMINOTRANSFERASE 29 Units/L (12-78); ALBUMIN 2.5 g/dL (3.4-5.0); ALKALINE PHOSPHATASE 109 Units/L (46-116); ASPARTATE AMINO TRANSFERASE 18 Units/L (15-37); BLOOD UREA NITROGEN 10 mg/dL (7-18); CALCIUM 8.6 mg/dL (8.5-10.1); CARBON DIOXIDE 41.5 mmol/L (21-32); CHLORIDE 100 mmol/L (98-107); COR CA(FOR HYPOALB) 9.8 mg/dL (8.5-10.1); COR NA(FOR HYPERGLY) 145 mmol/L (136-145); CREATININE 0.91 mg/dL (0.55-1.02); GLUCOSE 299 mg/dL (65-99); MAGNESIUM 1.9 mg/dL (2.0-2.9); SODIUM 140 mmol/L (136-145); TOTAL PROTEIN 7.9 g/dL (6.4-8.2); eGFR NON BLACK RACES > 60 (>60)
[2024-09-03 02:38] LABS: ANISOCYTOSIS SLIGHT; PLATELET MORPHOLOGY COMMENT NORMAL (NORMAL)
[2024-09-03 02:39] LABS: POTASSIUM 5.1 mmol/L (3.5-5.1)
--- NOTE | 2024-09-03 03:58 | EKG ---
Test Reason : Dyspnea Blood Pressure : */* mmHG Vent. Rate : 84 BPM Atrial Rate : 84 BPM P-R Int : 162 ms QRS Dur : 82 ms QT Int : 344 ms P-R-T Axes : 71 0 44 degrees QTc Int : 406 ms Normal sinus rhythm Septal infarct , age undetermined Abnormal ECG When compared with ECG of 02-SEP-2024 21:34, (Unconfirmed) premature atrial complexes are no longer present Septal infarct is now present Confirmed by Jaime Meraz MD ([id number]) on 09/03/2024 5:42:51 AM Referred By: Confirmed By: Jaime Meraz MD
[2024-09-03 04:22] LABS: ABG BASE EXCESS 16.6 mmol/L (-2.0-2.0)
[2024-09-03 04:23] LABS: ABG ALLEN TEST POS; ABG HCO3 46.9 mmol/L (22-26)
[2024-09-03] MEDS: NovoLIN R (or HumuLIN R) SUBCUT PRN (05:15)
--- NOTE | 2024-09-03 05:57 | RAD ---
EXAM:CHEST, 1 VIEWHISTORY:RESPIRATORY FAILURE ; ASTHMA, CHF, COPD, DMCOMPARISON:09/02/2024FINDINGS:The cardiomediastinal silhouette is stable.Scattered bilateral airspace opacities. No pneumothorax or effusion.No acute osseous abnormality.IMPRESSION:Bilateral opacities which may reflect chronic changes, edema, or pneumonia. Continued follow-up recommended to ensure resolution.THIS IS AN ELECTRONICALLY VERIFIED FINAL REPORT09/03/2024 5:43 AM - Electronically signed by Kaveh Campbell MD
[2024-09-03] MEDS: NYSTATIN POWDER ONE (07:25)
[2024-09-03] MEDS ORDERED: ZOFRAN INJ 4 MG VIAL ONE (08:10)
[2024-09-03] MEDS: ZOFRAN INJ 4 MG VIAL IVP PRN (08:15)
[2024-09-03] MEDS: NYSTATIN POWDER TOP SCH (08:41)
[2024-09-03] MEDS: LOVENOX INJ 40 MG SYR SC SCH (08:41)
[2024-09-03] MEDS: PULMICORT NEB TX 0.5 MG NEB SCH (08:58)
[2024-09-03] MEDS: ALDACTONE TAB 25 MG PO SCH (09:22)
[2024-09-03] MEDS: LASIX PO SCH (09:22)
[2024-09-03] MEDS: FARXIGA PO SCH (09:22)
--- NOTE | 2024-09-03 10:18 | EKG ---
Test Reason : Dyspnea Blood Pressure : */* mmHG Vent. Rate : 87 BPM Atrial Rate : 87 BPM P-R Int : 166 ms QRS Dur : 74 ms QT Int : 336 ms P-R-T Axes : 45 -3 35 degrees QTc Int : 404 ms Normal sinus rhythm Septal infarct (cited on or before 03-SEP-2024) Abnormal ECG When compared with ECG of 03-SEP-2024 03:28, No significant change was found Confirmed by Jaime Meraz MD ([id number]) on 09/04/2024 6:34:21 AM Referred By: Confirmed By: Jaime Meraz MD
[2024-09-03] MEDS: SOLU-Medrol 40 MG VIAL IVP SCH (10:28)
[2024-09-03] MEDS: ROCEPHIN VIAL 1 GRAM 1 G in NS 100 ML IV 100 ML IV SCH (10:29)
--- NOTE | 2024-09-03 10:42 | DR.H&P ---
H&P History & Physical for Day of: H&P Date: 09/03/24 Chief Complaint Chief Complaint: Shortness of breath History of Present Illness History of Present Illness: Patient is a 67y/o female with a hx of chronic respiratory failure due to COPD/Emphysema, UMM and CHF presented with worsening dyspnea. She has a history of recurrent exacerbations. Reports being short of breath today, coughing, chest congestion for the past week. She uses 4L O2 at all times. On arrival to the ER she was found to be hypoxic. She was placed on BiPAP respiratory support. Labs/imaging: WBC 12.2, hemoglobin 14.8, platelets 212, sodium 140, potassium 5.1, creatinine 0.91, glucose 299, ABG: pH 7.32, pCO2 91 PE, pCO2 66, HCO3 46, O2 sat 91%. On FiO2 45%. AIT pending. Patient is admitted for acute on chronic respiratory failure, Pneumonia, CHF exacerbation. Will start patient on IV antibiotics Rocephin and azithromycin. IV Solu-Medrol 40 mg three times daily. Consult respiratory therapy for BiPAP. Wean/titrate oxygen as tolerated. Will repeat ABG in the afternoon. Patient is on IV fluids normal saline at 75 mL/h, will decrease down to KVO and monitor. Otherwise, we will continue with current treatment plan. Continue to closely monitor and follow-up labs/imaging. Time spent for clinical assessment, reviewing labs/imaging, physical exam, decision making and documentation greater than 45 mins. 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 100 mcg-umeclid 1 ea inhalation QDAY 03/07/24 09/02/24 History 62.5 mcg-vilant 25 mcg inhalat.powder (Trelegy Ellipta) furosemide 20 mg tablet 20 mg PO QDAY 03/07/24 09/02/24 History metformin 1,000 mg tablet 1,000 mg PO BID 03/07/24 09/02/24 History spironolactone 25 mg tablet 25 mg PO QDAY 03/07/24 09/02/24 History albuterol sulfate 90 mcg/actuation 2 puff inhalation Q6H PRN 09/02/24 09/02/24 History aerosol inhaler ipratropium 0.5 mg-albuterol 3 mg 3 ml inhalation Q6H PRN 09/02/24 09/02/24 History (2.5 mg base)/3 mL nebulization soln Allergies Allergies Allergy/AdvReac Type Severity Reaction Status Date / Time Iodinated Contrast Media Allergy Verified 09/02/24 17:09 iodine Allergy Verified 09/02/24 17:09 Penicillins Allergy Verified 09/02/24 17:09 shellfish derived Allergy Verified 09/02/24 17:09 Labs 09/03/24 02:14 09/03/24 02:14 Labs: Laboratory WBC 12.2 X10^3/uL (3.6-10.0) H 09/03/24 02:14 RBC 5.30 X10^6/uL (3.5-5.4) 09/03/24 02:14 Hgb 14.8 g/dL (12.0-16.0) 09/03/24 02:14 Hct 47.2 % (36.0-47.0) H 09/03/24 02:14 MCV 89.0 fL (80.0-100.0) 09/03/24 02:14 MCH 28.0 pg (27.0-34.0) 09/03/24 02:14 MCHC 31.4 g/dL (33.0-35.0) L 09/03/24 02:14 RDW 17.2 % (11.6-16.5) H 09/03/24 02:14 Plt Count 212 X10^3/uL (150.0-450.0) 09/03/24 02:14 Plt Count Comment Adequate (ADEQUATE) 09/03/24 02:14 MPV 8.6 fL (7.4-11.0) 09/03/24 02:14 Neut % (Auto) 91.5 % (42.0-75.0) H 09/03/24 02:14 Lymph % (Auto) 5.7 % (21.0-51.0) L 09/03/24 02:14 [place] % (Auto) 2.1 % (0.0-13.0) 09/03/24 02:14 Eos % (Auto) 0.1 % (0.9-2.9) L 09/03/24 02:14 Baso % (Auto) 0.6 % (0.2-1.0) 09/03/24 02:14 Neut # (Auto) 11.1 x10^3/uL (2.2-4.8) H 09/03/24 02:14 Lymph # (Auto) 0.7 X10^3/uL (1.3-2.9) L 09/03/24 02:14 [place] # (Auto) 0.3 x10^3/uL (0.3-0.8) 09/03/24 02:14 Eos # (Auto) 0.0 x10^3/uL (0.0-0.2) 09/03/24 02:14 Baso # (Auto) 0.1 X10^3/uL (0.0-0.1) 09/03/24 02:14 Absolute Nucleated RBC 0.0 /100WBC 09/03/24 02:14 Total Counted 100 09/03/24 02:14 Neutrophils % (Manual) 95 % (39-76) H 09/03/24 02:14 Lymphocytes % (Manual) 4 % (13-43) L 09/03/24 02:14 Monocytes % (Manual) 1 % (4-9) L 09/03/24 02:14 Plt Morphology Comment Normal (NORMAL) 09/03/24 02:14 RBC Morphology Abnormal (NORMAL) A 09/03/24 02:14 Anisocytosis Slight A 09/03/24 02:14 PT 13.3 SECONDS (11.8-14.3) 09/03/24 02:14 INR Target Range - 09/03/24 02:14 INR 1.03 (0.8-1.3) 09/03/24 02:14 APTT 25.3 SECONDS (22.9-36.5) 09/03/24 02:14 PTT Comment - 09/03/24 02:14 Sample Site Lr 09/03/24 04:16 ABG pH 7.320 (7.35-7.45) L 09/03/24 04:16 ABG pCO2 91.0 mmHg (35.0-45.0) H* 09/03/24 04:16 ABG pO2 66.0 mmHg (80.0-100.0) L 09/03/24 04:16 ABG HCO3 46.9 mmol/L (22-26) H* 09/03/24 04:16 ABG O2 Saturation 91.0 % (90-100) 09/03/24 04:16 ABG Base Excess 16.6 mmol/L (-2.0-2.0) H 09/03/24 04:16 Varun Test Pos 09/03/24 04:16 A-a Gradient 141.0 mmHg 09/03/24 04:16 FiO2 45.0 09/03/24 04:16 Blood Gas Comments Maicol well ae 09/03/24 04:16 Sodium 140 mmol/L (136-145) 09/03/24 02:14 Corrected Sodium 145 mmol/L (136-145) 09/03/24 02:14 Potassium 5.1 mmol/L (3.5-5.1) 09/03/24 02:14 Chloride 100 mmol/L (98-107) 09/03/24 02:14 Carbon Dioxide 41.5 mmol/L (21-32) H 09/03/24 02:14 BUN 10 mg/dL (7-18) 09/03/24 02:14 Creatinine 0.91 mg/dL (0.55-1.02) 09/03/24 02:14 Est GFR (MDRD) Af Amer > 60 (>60) 09/03/24 02:14 Est GFR (MDRD) Non-Af > 60 (>60) 09/03/24 02:14 Glucose 299 mg/dL (65-99) H 09/03/24 02:14 POC Glucose (mg/dL) 260 mg/dL (65-99) H 09/03/24 04:59 Calcium 8.6 mg/dL (8.5-10.1) 09/03/24 02:14 Corrected Calcium 9.8 mg/dL (8.5-10.1) 09/03/24 02:14 Magnesium 1.9 mg/dL (2.0-2.9) L 09/03/24 02:14 Total Bilirubin 0.50 mg/dL (0.2-1.0) 09/03/24 02:14 AST 18 Units/L (15-37) 09/03/24 02:14 ALT 29 Units/L (12-78) 09/03/24 02:14 Alkaline Phosphatase 109 Units/L (46-116) 09/03/24 02:14 Creatine Kinase 52 Units/L (26-192) 09/03/24 02:14 Troponin I High Sens 11.2 ng/L (4.0-60.0) 09/03/24 02:14 B-Natriuretic Peptide 178 pg/mL (0-79) H 09/02/24 16:55 Total Protein 7.9 g/dL (6.4-8.2) 09/03/24 02:14 Albumin 2.5 g/dL (3.4-5.0) L 09/03/24 02:14 Globulin 5.4 g/dL (2.5-4.5) H 09/03/24 02:14 Albumin/Globulin Ratio 0.5 Ratio (1.1-2.1) L 09/03/24 02:14 SARS-CoV-2 (PCR) Negative (NEGATIVE) 09/02/24 16:58 Influenza Type A (PCR) Negative (NEGATIVE) 09/02/24 16:58 Influenza Type B (PCR) Negative (NEGATIVE) 09/02/24 16:58 RSV (PCR) Negative (NEGATIVE) 09/02/24 16:58 Review of Systems Constitutional: Weakness Eyes: No Symptoms Reported ENT: No Symptoms Reported Respiratory: Cough, Shortness of Breath and Wheezing Cardiovascular: No Symptoms Reported Gastrointestinal: No Symptoms Reported Genitourinary: No Symptoms Reported Musculoskeletal: No Symptoms Reported Skin: No Symptoms Reported Neurological: No Symptoms Reported Physical Exam Vital Signs: Vital Signs Temperature 97.3 F Temperature 97.7 F Pulse Rate [Left Brachial] 83 Pulse Rate [Left Brachial] 84 Pulse Rate 84 Respiratory Rate 20 Respiratory Rate 21 Blood Pressure [Right Arm] 177/80 Blood Pressure [Left Arm] 169/72 O2 Sat by Pulse Oximetry 91 O2 Sat by Pulse Oximetry 95 O2 Sat by Pulse Oximetry 92 Oriented: Normal Eyes: Normal Ear: Normal Nose: Normal Throat: Normal Respiratory: Diminished Throughout, Rhonchi Throughout and Wheezes Throughout Cardiovascular: Normal : Normal Auscultation: Bowel Sounds: Normal Palpation: Normal Tenderness: Normal Skin: Normal Musculoskeletal: Normal Psychiatric: Normal Mood Description: Calm and Appropriate Affect: Normal Speech Pattern: Clear and Appropriate Assessment/Plan (1) Acute respiratory failure with hypoxia and hypercarbia: Status: Acute Plan: continue BIPAP, repeat ABG in afternoon (2) COPD exacerbation: Status: Acute Plan: Bronchodilators, IV solumedrol (3) Community acquired bacterial pneumonia: Status: Acute Plan: IV antitbiotics (4) Hypercapnia: Status: Acute (5) Acute CHF: Qualifiers: Heart failure type: combined systolic and diastolic Qualified Code(s): I50.41 - Acute combined systolic (congestive) and diastolic (congestive) heart failure Status: Acute Plan: IVF at [facility] Review H&P Reviewed: Yes Patient was examined?: Yes
[2024-09-03] MEDS: ZITHROMAX INJ 500 MG VIAL 500 MG in NS 250 ML IV 250 ML IV SCH (11:24)
[2024-09-03 15:26] LABS: ABG ALLEN TEST POS; ABG BASE EXCESS 16.4 mmol/L (-2.0-2.0); ABG HCO3 46.4 mmol/L (22-26)
[2024-09-03] MEDS: SNACK - Diabetic Appropriate PO SCH (20:22)
[2024-09-03] MEDS: PATIENT'S HOME MEDICATION (Metformin 1,000 mg tablet) PO SCH (20:26)
[2024-09-04 04:44] LABS: ABG BASE EXCESS 19.2 mmol/L (-2.0-2.0)
[2024-09-04 04:45] LABS: ABG HCO3 49.1 mmol/L (22-26)
[2024-09-04 04:46] LABS: ABG ALLEN TEST POS
[2024-09-04 06:02] LABS: BASOPHILS # (AUTO) 0.1 X10^3/uL (0.0-0.1); BASOPHILS % (AUTO) 0.6 % (0.2-1.0); EOSINOPHILS % (AUTO) 0.1 % (0.9-2.9); HEMOGLOBIN 14.4 g/dL (12.0-16.0); LYMPHOCYTES # (AUTO) 0.7 X10^3/uL (1.3-2.9); MEAN CORPUSCULAR HEMOGLOBIN 27.6 pg (27.0-34.0); MEAN CORPUSCULAR HGB CONC 31.4 g/dL (33.0-35.0); MEAN PLATELET VOLUME 8.9 fL (7.4-11.0); MONOCYTES # (AUTO) 0.5 x10^3/uL (0.3-0.8); MONOCYTES % (AUTO) 4.7 % (0.0-13.0); NEUTROPHILS # (AUTO) 9.3 x10^3/uL (2.2-4.8); NEUTROPHILS % (AUTO) 87.6 % (42.0-75.0); PLATELET COUNT 246 X10^3/uL (150.0-450.0); RED BLOOD COUNT 5.23 X10^6/uL (3.5-5.4); RED CELL DISTRIBUTION WIDTH 16.5 % (11.6-16.5); WHITE BLOOD COUNT 10.6 X10^3/uL (3.6-10.0)
[2024-09-04 06:33] LABS: ALBUMIN 2.4 g/dL (3.4-5.0); ASPARTATE AMINO TRANSFERASE 18 Units/L (15-37); BLOOD UREA NITROGEN 22 mg/dL (7-18); CALCIUM 8.9 mg/dL (8.5-10.1); CARBON DIOXIDE 40.6 mmol/L (21-32); CHLORIDE 101 mmol/L (98-107); COR CA(FOR HYPOALB) 10.2 mg/dL (8.5-10.1); COR NA(FOR HYPERGLY) 145 mmol/L (136-145); CREATININE 0.87 mg/dL (0.55-1.02); GLUCOSE 245 mg/dL (65-99); SODIUM 142 mmol/L (136-145); eGFR NON BLACK RACES > 60 (>60)
[2024-09-04 06:48] LABS: ALANINE AMINOTRANSFERASE 29 Units/L (12-78); ALKALINE PHOSPHATASE 101 Units/L (46-116); TOTAL PROTEIN 7.5 g/dL (6.4-8.2)
[2024-09-04] MEDS: GLUCOPHAGE ONE ×2 (09:10→17:54)
--- NOTE | 2024-09-04 11:15 | RAD ---
EXAM: CHEST, 1 VIEW HISTORY: ACUTE RESP FAILURE; COMPARISON: 09/03/2024 FINDINGS: The cardiomediastinal silhouette is stable. Possible congestion. No focal consolidation.. No pneumothorax or effusion. No acute osseous abnormality. IMPRESSION: Possible congestion. THIS IS AN ELECTRONICALLY VERIFIED FINAL REPORT 09/04/2024 11:12 AM - Electronically signed by Kaveh Campbell MD
[2024-09-04] MEDS: MAGNESIUM SULFATE 1 GRAM/100 mL PREMIX 1 G/100 ML BAG IV SCH (21:13)
[2024-09-04] MEDS: PROVENTIL NEB TX 0.083% 2.5MG/ 3ML NEB ONE ×2 (21:27→22:48)
[2024-09-04 21:35] LABS: ABG ALLEN TEST POS; ABG HCO3 46.1 mmol/L (22-26)
[2024-09-05 05:29] LABS: BASOPHILS % (AUTO) 0.3 % (0.2-1.0); EOSINOPHILS % (AUTO) 0.1 % (0.9-2.9); HEMATOCRIT 47.9 % (36.0-47.0); HEMOGLOBIN 15.4 g/dL (12.0-16.0); LYMPHOCYTES # (AUTO) 1.1 X10^3/uL (1.3-2.9); MEAN CORPUSCULAR HEMOGLOBIN 27.7 pg (27.0-34.0); MEAN CORPUSCULAR VOLUME 86.5 fL (80.0-100.0); MEAN PLATELET VOLUME 8.6 fL (7.4-11.0); MONOCYTES # (AUTO) 0.6 x10^3/uL (0.3-0.8); MONOCYTES % (AUTO) 5.6 % (0.0-13.0); NEUTROPHILS # (AUTO) 8.4 x10^3/uL (2.2-4.8); PLATELET COUNT 272 X10^3/uL (150.0-450.0); RED BLOOD COUNT 5.54 X10^6/uL (3.5-5.4); RED CELL DISTRIBUTION WIDTH 16.6 % (11.6-16.5); WHITE BLOOD COUNT 10.1 X10^3/uL (3.6-10.0)
[2024-09-05 05:45] LABS: ALANINE AMINOTRANSFERASE 28 Units/L (12-78); ALBUMIN 2.6 g/dL (3.4-5.0); ALKALINE PHOSPHATASE 104 Units/L (46-116); ASPARTATE AMINO TRANSFERASE 21 Units/L (15-37); BLOOD UREA NITROGEN 29 mg/dL (7-18); CALCIUM 8.9 mg/dL (8.5-10.1); CARBON DIOXIDE 39.2 mmol/L (21-32); CHLORIDE 96 mmol/L (98-107); COR NA(FOR HYPERGLY) 141 mmol/L (136-145); CREATININE 0.95 mg/dL (0.55-1.02); GLUCOSE 171 mg/dL (65-99); POTASSIUM 4.8 mmol/L (3.5-5.1); SODIUM 139 mmol/L (136-145); TOTAL PROTEIN 7.6 g/dL (6.4-8.2); eGFR NON BLACK RACES > 60 (>60)
[2024-09-05 06:01] LABS: ABG BASE EXCESS 16.9 mmol/L (-2.0-2.0)
[2024-09-05 06:02] LABS: ABG ALLEN TEST POS; ABG HCO3 44.5 mmol/L (22-26)
[2024-09-05] MEDS ORDERED: PHARMACY CONSULT - TPN XX SCH (07:00)
--- NOTE | 2024-09-05 07:32 | RAD ---
EXAM:AP chestHISTORY:Respiratory failureCOMPARISON:09/04/2024FINDINGS:Sta ble cardiac enlargement. There is no definite pulmonary consolidation/pneumonia, CHF, pneumothorax or pleural fluid.IMPRESSION:Similar cardiac prominence. No localized pulmonary or pleural lesion now identified.THIS IS AN ELECTRONICALLY VERIFIED FINAL REPORT09/05/2024 7:29 AM - Electronically signed by Nishant Ross MD
--- NOTE | 2024-09-05 08:17 | PCM.PROG ---
Progress Note Progress Note for Day of Date of Exam: 09/04/24 Subjective Subjective: Patient is a 67y/o female with a hx of chronic respiratory failure due to COPD/Emphysema, UMM and CHF admitted for acute on chronic respiratory failure, Pneumonia, CHF exacerbation. She is currently on BiPAP respiratory support. This morning she remains the same as yesterday. No acute events overnight. Labs/imaging: WBC 10.6, hemoglobin 14.4, platelets 246, sodium 142, potassium 5.0, creatinine 0.87, glucose 245, ABG: pH 7.36, pCO2 87, pO2 59, HCO3 49, O2 sat 89%. On FiO2 50%. CXR revealed Possible congestion. No focal consolidation. No pneumothorax or effusion. AIT pending. Continue IV antibiotics Rocephin and azithromycin. IV Solu-Medrol 40 mg three times daily. Respiratory therapy for BiPAP. Wean/titrate oxygen as tolerated. Consult [facility], repeat ABG in the afternoon. Patient is on IVF@KVO. Otherwise, we will continue with current treatment plan. Continue to closely monitor and follow-up labs/imaging. Time spent for clinical assessment, reviewing labs/imaging, physical exam, decision making and documentation greater than 45 mins. Past Medical Family Social History Allergies: Allergies Iodinated Contrast Media Allergy (Verified 09/02/24 17:09) iodine Allergy (Verified 09/02/24 17:09) Penicillins Allergy (Verified 09/02/24 17:09) shellfish derived Allergy (Verified 09/02/24 17:09) Review of Systems ROS changes noted: see HPI Vital Signs and I&O's Vital Signs: Vital Signs Temperature 98.8 F Pulse Rate 74 Pulse Rate 74 Pulse Rate 70 Respiratory Rate 26 Blood Pressure 175/79 O2 Sat by Pulse Oximetry 90 O2 Sat by Pulse Oximetry 90 O2 Sat by Pulse Oximetry 89 Intake and Output: Intake & Output 09/02/24 09/03/24 09/04/24 09/05/24 23:59 23:59 23:59 23:59 Intake Total 1270 / 1270 2452 / 2452 254 / 254 Output Total 800 / 800 Balance 1270 / 1270 1652 / 1652 254 / 254 Physical Exam Oriented: Normal Eyes: Normal Ear: Normal Nose: Normal Throat: Normal Respiratory: Diminished and Wheezes Cardiovascular: Normal : Normal Auscultation: Bowel Sounds: Normal Tenderness: Normal Skin: Normal Musculoskeletal: Normal Psychiatric: Normal Mood Description: Calm and Appropriate Affect: Normal Speech Pattern: Appropriate and Delayed Laboratory and Diagnostics 09/05/24 04:45 09/05/24 04:45 Labs: Laboratory WBC 10.1 X10^3/uL (3.6-10.0) H 09/05/24 04:45 RBC 5.54 X10^6/uL (3.5-5.4) H 09/05/24 04:45 Hgb 15.4 g/dL (12.0-16.0) 09/05/24 04:45 Hct 47.9 % (36.0-47.0) H 09/05/24 04:45 MCV 86.5 fL (80.0-100.0) 09/05/24 04:45 MCH 27.7 pg (27.0-34.0) 09/05/24 04:45 MCHC 32.0 g/dL (33.0-35.0) L 09/05/24 04:45 RDW 16.6 % (11.6-16.5) H 09/05/24 04:45 Plt Count 272 X10^3/uL (150.0-450.0) 09/05/24 04:45 Plt Count Comment Adequate (ADEQUATE) 09/03/24 02:14 MPV 8.6 fL (7.4-11.0) 09/05/24 04:45 Neut % (Auto) 83.0 % (42.0-75.0) H 09/05/24 04:45 Lymph % (Auto) 11.0 % (21.0-51.0) L 09/05/24 04:45 [place] % (Auto) 5.6 % (0.0-13.0) 09/05/24 04:45 Eos % (Auto) 0.1 % (0.9-2.9) L 09/05/24 04:45 Baso % (Auto) 0.3 % (0.2-1.0) 09/05/24 04:45 Neut # (Auto) 8.4 x10^3/uL (2.2-4.8) H 09/05/24 04:45 Lymph # (Auto) 1.1 X10^3/uL (1.3-2.9) L 09/05/24 04:45 [place] # (Auto) 0.6 x10^3/uL (0.3-0.8) 09/05/24 04:45 Eos # (Auto) 0.0 x10^3/uL (0.0-0.2) 09/05/24 04:45 Baso # (Auto) 0.0 X10^3/uL (0.0-0.1) 09/05/24 04:45 Absolute Nucleated RBC 0.1 /100WBC 09/05/24 04:45 Total Counted 100 09/03/24 02:14 Neutrophils % (Manual) 95 % (39-76) H 09/03/24 02:14 Lymphocytes % (Manual) 4 % (13-43) L 09/03/24 02:14 Monocytes % (Manual) 1 % (4-9) L 09/03/24 02:14 Plt Morphology Comment Normal (NORMAL) 09/03/24 02:14 RBC Morphology Abnormal (NORMAL) A 09/03/24 02:14 Anisocytosis Slight A 09/03/24 02:14 PT 13.3 SECONDS (11.8-14.3) 09/03/24 02:14 INR Target Range - 09/03/24 02:14 INR 1.03 (0.8-1.3) 09/03/24 02:14 APTT 25.3 SECONDS (22.9-36.5) 09/03/24 02:14 PTT Comment - 09/03/24 02:14 Sample Site Lrad 09/05/24 06:01 ABG pH 7.430 (7.35-7.45) 09/05/24 06:01 ABG pCO2 67.0 mmHg (35.0-45.0) H* 09/05/24 06:01 ABG pO2 58.0 mmHg (80.0-100.0) L 09/05/24 06:01 ABG HCO3 44.5 mmol/L (22-26) H* 09/05/24 06:01 ABG O2 Saturation 90.0 % (90-100) 09/05/24 06:01 ABG Base Excess 16.9 mmol/L (-2.0-2.0) H 09/05/24 06:01 Varun Test Pos 09/05/24 06:01 A-a Gradient 215.0 mmHg 02/22/25 06:01 FiO2 50.0 09/05/24 06:01 Blood Gas Comments Maicol abg well-mtf 09/05/24 06:01 Sodium 139 mmol/L (136-145) 09/05/24 04:45 Corrected Sodium 141 mmol/L (136-145) 09/05/24 04:45 Potassium 4.8 mmol/L (3.5-5.1) 09/05/24 04:45 Chloride 96 mmol/L (98-107) L 09/05/24 04:45 Carbon Dioxide 39.2 mmol/L (21-32) H 09/05/24 04:45 BUN 29 mg/dL (7-18) H 09/05/24 04:45 Creatinine 0.95 mg/dL (0.55-1.02) 09/05/24 04:45 Est GFR (MDRD) Af Amer > 60 (>60) 09/05/24 04:45 Est GFR (MDRD) Non-Af > 60 (>60) 09/05/24 04:45 Glucose 171 mg/dL (65-99) H 09/05/24 04:45 POC Glucose (mg/dL) 182 mg/dL (65-99) H 09/05/24 05:09 Lactic Acid 0.8 mmol/L (0.4-2.0) 09/04/24 09:05 Calcium 8.9 mg/dL (8.5-10.1) 09/05/24 04:45 Corrected Calcium 10.0 mg/dL (8.5-10.1) 09/05/24 04:45 Magnesium 2.5 mg/dL (2.0-2.9) 09/05/24 04:45 Total Bilirubin 0.50 mg/dL (0.2-1.0) 09/05/24 04:45 AST 21 Units/L (15-37) 09/05/24 04:45 ALT 28 Units/L (12-78) 09/05/24 04:45 Alkaline Phosphatase 104 Units/L (46-116) 09/05/24 04:45 Creatine Kinase 52 Units/L (26-192) 09/03/24 02:14 Troponin I High Sens 11.2 ng/L (4.0-60.0) 09/03/24 02:14 B-Natriuretic Peptide 576 pg/mL (0-79) H 09/04/24 09:12 Total Protein 7.6 g/dL (6.4-8.2) 09/05/24 04:45 Albumin 2.6 g/dL (3.4-5.0) L 09/05/24 04:45 Globulin 5.0 g/dL (2.5-4.5) H 09/05/24 04:45 Albumin/Globulin Ratio 0.5 Ratio (1.1-2.1) L 09/05/24 04:45 SARS-CoV-2 (PCR) Negative (NEGATIVE) 09/02/24 16:58 Influenza Type A (PCR) Negative (NEGATIVE) 09/02/24 16:58 Influenza Type B (PCR) Negative (NEGATIVE) 09/02/24 16:58 RSV (PCR) Negative (NEGATIVE) 09/02/24 16:58 Plan (1) Acute respiratory failure with hypoxia and hypercarbia: Status: Acute Plan: continue BIPAP, repeat ABG in afternoon (2) COPD exacerbation: Status: Acute Plan: Bronchodilators, IV solumedrol (3) Community acquired bacterial pneumonia: Status: Acute Plan: IV antitbiotics (4) Hypercapnia: Status: Acute (5) Acute CHF: Status: Acute Qualifiers: Heart failure type: combined systolic and diastolic Qualified Code(s): I50.41 - Acute combined systolic (congestive) and diastolic (congestive) heart failure Plan: IVF at [facility]
[2024-09-05 08:21] VITALS: BMI 46.3
[2024-09-05] MEDS: GLUCOPHAGE ONE ×2 (11:27→18:40)
[2024-09-05 15:05] LABS: CRYPTOSPORIDIUM PARVUM ANTIGEN NEGATIVE (NEGATIVE); GIARDIA LAMBLIA ANTIGEN NEGATIVE (NEGATIVE)
[2024-09-05] MEDS: IMODIUM CAP 2 MG PO PRN (16:30)
[2024-09-05] MEDS ORDERED: BUTT CREAM (COMPOUND) TOP PRN (17:32)
[2024-09-05 21:09] LABS: ABG BASE EXCESS 10.1 mmol/L (-2.0-2.0)
[2024-09-05 21:10] LABS: ABG ALLEN TEST POS; ABG HCO3 36.8 mmol/L (22-26)
[2024-09-06 05:14] LABS: BASOPHILS % (AUTO) 0.5 % (0.2-1.0); HEMATOCRIT 49.4 % (36.0-47.0); LYMPHOCYTES # (AUTO) 0.9 X10^3/uL (1.3-2.9); LYMPHOCYTES % (AUTO) 10.6 % (21.0-51.0); MEAN CORPUSCULAR HEMOGLOBIN 27.8 pg (27.0-34.0); MEAN CORPUSCULAR HGB CONC 32.4 g/dL (33.0-35.0); MEAN PLATELET VOLUME 8.7 fL (7.4-11.0); MONOCYTES # (AUTO) 0.6 x10^3/uL (0.3-0.8); MONOCYTES % (AUTO) 6.8 % (0.0-13.0); NEUTROPHILS # (AUTO) 7.1 x10^3/uL (2.2-4.8); NEUTROPHILS % (AUTO) 82.1 % (42.0-75.0); PLATELET COUNT 251 X10^3/uL (150.0-450.0); RED BLOOD COUNT 5.75 X10^6/uL (3.5-5.4); RED CELL DISTRIBUTION WIDTH 16.2 % (11.6-16.5); WHITE BLOOD COUNT 8.6 X10^3/uL (3.6-10.0)
[2024-09-06 05:50] LABS: ABG BASE EXCESS 9.5 mmol/L (-2.0-2.0)
[2024-09-06 05:51] LABS: ALANINE AMINOTRANSFERASE 24 Units/L (12-78); ALBUMIN 2.6 g/dL (3.4-5.0); ALKALINE PHOSPHATASE 93 Units/L (46-116); ASPARTATE AMINO TRANSFERASE 15 Units/L (15-37); BLOOD UREA NITROGEN 31 mg/dL (7-18); CALCIUM 8.7 mg/dL (8.5-10.1); CARBON DIOXIDE 34.7 mmol/L (21-32); CHLORIDE 97 mmol/L (98-107); COR CA(FOR HYPOALB) 9.8 mg/dL (8.5-10.1); COR NA(FOR HYPERGLY) 140 mmol/L (136-145); CREATININE 0.85 mg/dL (0.55-1.02); GLUCOSE 209 mg/dL (65-99); POTASSIUM 4.9 mmol/L (3.5-5.1); SODIUM 137 mmol/L (136-145); TOTAL PROTEIN 7.2 g/dL (6.4-8.2); eGFR NON BLACK RACES > 60 (>60)
[2024-09-06 05:51] LABS: ABG ALLEN TEST POS; ABG HCO3 36.1 mmol/L (22-26)
--- NOTE | 2024-09-06 06:56 | RAD ---
EXAM: AP chest HISTORY: Respiratory failure COMPARISON: 09/05/2024 FINDINGS: Heart size normal and unchanged with clear right lung. Suggestion of mild developing infiltrate in the left lower lung, equivocal. No pleural fluid demonstrated. IMPRESSION: Possible developing left lower lobe infiltrate. Follow-up recommended to confirm or exclude. THIS IS AN ELECTRONICALLY VERIFIED FINAL REPORT 09/06/2024 6:52 AM - Electronically signed by Nishant Ross MD
[2024-09-06] MEDS: GLUCOPHAGE ONE (08:19)
[2024-09-06] MEDS ORDERED: GLUCOPHAGE ONE (16:27)
[2024-09-07 05:15] LABS: BASOPHILS % (AUTO) 0.3 % (0.2-1.0); HEMATOCRIT 49.5 % (36.0-47.0); HEMOGLOBIN 15.9 g/dL (12.0-16.0); LYMPHOCYTES % (AUTO) 8.1 % (21.0-51.0); MEAN CORPUSCULAR HEMOGLOBIN 27.6 pg (27.0-34.0); MEAN CORPUSCULAR HGB CONC 32.2 g/dL (33.0-35.0); MEAN CORPUSCULAR VOLUME 85.7 fL (80.0-100.0); MONOCYTES # (AUTO) 0.9 x10^3/uL (0.3-0.8); MONOCYTES % (AUTO) 7.2 % (0.0-13.0); NEUTROPHILS % (AUTO) 84.4 % (42.0-75.0); PLATELET COUNT 253 X10^3/uL (150.0-450.0); RED BLOOD COUNT 5.78 X10^6/uL (3.5-5.4); RED CELL DISTRIBUTION WIDTH 16.2 % (11.6-16.5); WHITE BLOOD COUNT 11.9 X10^3/uL (3.6-10.0)
[2024-09-07 05:34] LABS: ALANINE AMINOTRANSFERASE 19 Units/L (12-78); ALBUMIN 2.5 g/dL (3.4-5.0); ALKALINE PHOSPHATASE 83 Units/L (46-116); ASPARTATE AMINO TRANSFERASE 11 Units/L (15-37); BLOOD UREA NITROGEN 33 mg/dL (7-18); CALCIUM 8.8 mg/dL (8.5-10.1); CARBON DIOXIDE 33.7 mmol/L (21-32); CHLORIDE 101 mmol/L (98-107); COR NA(FOR HYPERGLY) 141 mmol/L (136-145); CREATININE 0.94 mg/dL (0.55-1.02); GLUCOSE 241 mg/dL (65-99); SODIUM 138 mmol/L (136-145); TOTAL PROTEIN 6.8 g/dL (6.4-8.2); eGFR NON BLACK RACES > 60 (>60)
[2024-09-07 05:37] LABS: ABG BASE EXCESS 7.8 mmol/L (-2.0-2.0)
[2024-09-07 05:38] LABS: ABG ALLEN TEST POS; ABG HCO3 34.5 mmol/L (22-26)
--- NOTE | 2024-09-07 08:32 | RAD ---
EXAM: AP chest HISTORY: Hypoxia COMPARISON: 09/06/2024 FINDINGS: Heart size normal. Mild diffuse and nonspecific interstitial prominence. There is a subtle air bro nchogram noted behind the heart in the left lower lung. The left upper lobe is clear and there is no definite pleural effusion. IMPRESSION: Findings described above are consistent with increasing airspace involvement in the left lower lobe, consistent with pneumonia/atelectasis. THIS IS AN ELECTRONICALLY VERIFIED FINAL REPORT 09/07/2024 8:29 AM - Electronically signed by Nishant Ross MD
[2024-09-07] MEDS ORDERED: GLUCOPHAGE ONE (08:34)
--- NOTE | 2024-09-07 10:06 | PCM.PROG ---
Progress Note Progress Note for Day of Date of Exam: 09/07/24 Subjective Subjective: Patient seen at bedside, no acute events overnight. She is feeling a lot better today. She is on 4L NC. She has been admitted for acute on chronic respiratory failure requiring BiPAP and COPD/CHF exacerbation. She does use 4L NC at home. CXR shows LL infiltrate. She remains on IV antibiotics and steroids. All cultures have been negative. Echo is pending. Labs/imaging reviewed: -WBC 11.9 Hgb 15.9 Plt 253 Na 138 K 5.0 BUN/Cr 33/0.94 -AB.39/57/81/34.5 -Echo pending Plan: Wean O2 as tolerated. BiPAP prn. Appreciate [facility] services. Continue IV antibiotics, nebs and IS. Taper steroids. Continue PO lasix. Echo pending. Continue home medications. PT/OT as tolerated. Replace electrolytes as per protocol. Monitor AM labs/imaging. Past Medical Family Social History Allergies: Allergies Iodinated Contrast Media Allergy (Verified 09/02/24 17:09) iodine Allergy (Verified 09/02/24 17:09) Penicillins Allergy (Verified 09/02/24 17:09) shellfish derived Allergy (Verified 09/02/24 17:09) Vital Signs and I&O's Vital Signs: Vital Signs Temperature 99.7 F Pulse Rate 97 Pulse Rate 69 Pulse Rate 67 Respiratory Rate 18 Blood Pressure 147/84 O2 Sat by Pulse Oximetry 92 O2 Sat by Pulse Oximetry 92 O2 Sat by Pulse Oximetry 94 Intake and Output: Intake & Output 09/04/24 09/05/24 09/06/24 09/07/24 23:59 23:59 23:59 23:59 Intake Total 2452 / 2452 205 / 205 1622 / 1622 237 / 237 Output Total 800 / 800 1550 / 1550 2 / 2 Balance 1652 / 1652 509 / 509 1620 / 1620 237 / 237 Physical Exam Oriented: Normal Eyes: Normal Ear: Normal Nose: Normal Throat: Normal Respiratory: Diminished and Wheezes Cardiovascular: Normal and Edema Auscultation: Bowel Sounds: Normal Palpation: Normal Tenderness: Normal Skin: Normal Musculoskeletal: Normal Psychiatric: Normal Mood Description: Calm and Appropriate Affect: Normal Speech Pattern: Appropriate Laboratory and Diagnostics 09/07/24 04:42 09/07/24 04:42 Labs: 09/05/24 14:12 Stool Stool Culture - Final 09/05/24 14:12 Stool - Final 09/05/24 09:52 Sputum - Expectorated Sputum Sputum Culture - Preliminary 09/05/24 09:52 Sputum - Expectorated Sputum - Final 09/04/24 09:12 Blood Blood Culture - Preliminary 09/04/24 09:05 Blood Blood Culture - Preliminary Laboratory WBC 11.9 X10^3/uL (3.6-10.0) H 09/07/24 04:42 RBC 5.78 X10^6/uL (3.5-5.4) H 09/07/24 04:42 Hgb 15.9 g/dL (12.0-16.0) 09/07/24 04:42 Hct 49.5 % (36.0-47.0) H 09/07/24 04:42 MCV 85.7 fL (80.0-100.0) 09/07/24 04:42 MCH 27.6 pg (27.0-34.0) 09/07/24 04:42 MCHC 32.2 g/dL (33.0-35.0) L 09/07/24 04:42 RDW 16.2 % (11.6-16.5) 09/07/24 04:42 Plt Count 253 X10^3/uL (150.0-450.0) 09/07/24 04:42 Plt Count Comment Adequate (ADEQUATE) 09/03/24 02:14 MPV 9.0 fL (7.4-11.0) 09/07/24 04:42 Neut % (Auto) 84.4 % (42.0-75.0) H 09/07/24 04:42 Lymph % (Auto) 8.1 % (21.0-51.0) L 09/07/24 04:42 [place] % (Auto) 7.2 % (0.0-13.0) 09/07/24 04:42 Eos % (Auto) 0.0 % (0.9-2.9) L 09/07/24 04:42 Baso % (Auto) 0.3 % (0.2-1.0) 09/07/24 04:42 Neut # (Auto) 10.0 x10^3/uL (2.2-4.8) H 09/07/24 04:42 Lymph # (Auto) 1.0 X10^3/uL (1.3-2.9) L 09/07/24 04:42 [place] # (Auto) 0.9 x10^3/uL (0.3-0.8) H 09/07/24 04:42 Eos # (Auto) 0.0 x10^3/uL (0.0-0.2) 09/07/24 04:42 Baso # (Auto) 0.0 X10^3/uL (0.0-0.1) 09/07/24 04:42 Absolute Nucleated RBC 0.1 /100WBC 09/07/24 04:42 Total Counted 100 09/03/24 02:14 Neutrophils % (Manual) 95 % (39-76) H 09/03/24 02:14 Lymphocytes % (Manual) 4 % (13-43) L 09/03/24 02:14 Monocytes % (Manual) 1 % (4-9) L 09/03/24 02:14 Plt Morphology Comment Normal (NORMAL) 09/03/24 02:14 RBC Morphology Abnormal (NORMAL) A 09/03/24 02:14 Anisocytosis Slight A 09/03/24 02:14 PT 13.3 SECONDS (11.8-14.3) 09/03/24 02:14 INR Target Range - 09/03/24 02:14 INR 1.03 (0.8-1.3) 09/03/24 02:14 APTT 25.3 SECONDS (22.9-36.5) 09/03/24 02:14 PTT Comment - 09/03/24 02:14 Sample Site Lrad 09/07/24 05:37 ABG pH 7.390 (7.35-7.45) 09/07/24 05:37 ABG pCO2 57.0 mmHg (35.0-45.0) H* 09/07/24 05:37 ABG pO2 81.0 mmHg (80.0-100.0) 09/07/24 05:37 ABG HCO3 34.5 mmol/L (22-26) H* 09/07/24 05:37 ABG O2 Saturation 96.0 % (90-100) 09/07/24 05:37 ABG Base Excess 7.8 mmol/L (-2.0-2.0) H 09/07/24 05:37 Varun Test Pos 09/07/24 05:37 A-a Gradient 204.0 mmHg 09/07/24 05:37 FiO2 50.0 09/07/24 05:37 Blood Gas Comments Maicol abg well-mtf 09/07/24 05:37 Sodium 138 mmol/L (136-145) 09/07/24 04:42 Corrected Sodium 141 mmol/L (136-145) 09/07/24 04:42 Potassium 5.0 mmol/L (3.5-5.1) 09/07/24 04:42 Chloride 101 mmol/L (98-107) 09/07/24 04:42 Carbon Dioxide 33.7 mmol/L (21-32) H 09/07/24 04:42 BUN 33 mg/dL (7-18) H 09/07/24 04:42 Creatinine 0.94 mg/dL (0.55-1.02) 09/07/24 04:42 Est GFR (MDRD) Af Amer > 60 (>60) 09/07/24 04:42 Est GFR (MDRD) Non-Af > 60 (>60) 09/07/24 04:42 Glucose 241 mg/dL (65-99) H 09/07/24 04:42 POC Glucose (mg/dL) 243 mg/dL (65-99) H 09/07/24 05:24 Lactic Acid 0.8 mmol/L (0.4-2.0) 09/04/24 09:05 Calcium 8.8 mg/dL (8.5-10.1) 09/07/24 04:42 Corrected Calcium 10.0 mg/dL (8.5-10.1) 09/07/24 04:42 Magnesium 2.0 mg/dL (2.0-2.9) 09/06/24 04:49 Total Bilirubin 0.40 mg/dL (0.2-1.0) 09/07/24 04:42 AST 11 Units/L (15-37) L 09/07/24 04:42 ALT 19 Units/L (12-78) 09/07/24 04:42 Alkaline Phosphatase 83 Units/L (46-116) 09/07/24 04:42 Creatine Kinase 52 Units/L (26-192) 09/03/24 02:14 Troponin I High Sens 11.2 ng/L (4.0-60.0) 09/03/24 02:14 B-Natriuretic Peptide 576 pg/mL (0-79) H 09/04/24 09:12 Total Protein 6.8 g/dL (6.4-8.2) 09/07/24 04:42 Albumin 2.5 g/dL (3.4-5.0) L 09/07/24 04:42 Globulin 4.3 g/dL (2.5-4.5) 09/07/24 04:42 Albumin/Globulin Ratio 0.6 Ratio (1.1-2.1) L 09/07/24 04:42 Stool for White Cells Positive (NEGATIVE) A 09/05/24 14:12 Stl C. diff Tox B Gene Negative (NEGATIVE) 09/05/24 14:12 Stl C. diff [id number] Presumptive negative (NEGATIVE) 09/05/24 14:12 Stool H. pylori Ag Negative (NEGATIVE) 09/05/24 14:12 SARS-CoV-2 (PCR) Negative (NEGATIVE) 09/02/24 16:58 Cryptosporid parvum Ag Negative (NEGATIVE) 09/05/24 14:12 Giardia lamblia Ag Negative (NEGATIVE) 09/05/24 14:12 Influenza Type A (PCR) Negative (NEGATIVE) 09/02/24 16:58 Influenza Type B (PCR) Negative (NEGATIVE) 09/02/24 16:58 RSV (PCR) Negative (NEGATIVE) 09/02/24 16:58 Resp Viral Panel (PCR) See scanned report 09/02/24 20:56 Plan (1) Acute respiratory failure with hypoxia and hypercarbia: Status: Acute (2) COPD exacerbation: Status: Acute (3) Community acquired bacterial pneumonia: Status: Acute (4) Hypercapnia: Status: Acute (5) Acute CHF: Status: Acute Qualifiers: Heart failure type: combined systolic and diastolic Qualified Code(s): I50.41 - Acute combined systolic (congestive) and diastolic (congestive) heart failure
[2024-09-07] MEDS: MAALOX or MYLANTA PO PRN (13:53)
[2024-09-07] MEDS: PEPCID TAB 20 MG PO PRN (16:36)
[2024-09-07] MEDS: GLUCOPHAGE ONE (17:31)
[2024-09-07] MEDS: SOLU-Medrol 40 MG VIAL IVP SCH (20:18)
[2024-09-08 05:14] LABS: ABG BASE EXCESS 9.2 mmol/L (-2.0-2.0)
[2024-09-08 05:15] LABS: ABG ALLEN TEST POS; ABG HCO3 35.9 mmol/L (22-26)
[2024-09-08] MEDS ORDERED: GLUCOPHAGE ONE (05:37)
[2024-09-08 06:11] LABS: BASOPHILS # (AUTO) 0.1 X10^3/uL (0.0-0.1); BASOPHILS % (AUTO) 0.4 % (0.2-1.0); EOSINOPHILS % (AUTO) 0.1 % (0.9-2.9); HEMATOCRIT 52.7 % (36.0-47.0); HEMOGLOBIN 16.6 g/dL (12.0-16.0); LYMPHOCYTES # (AUTO) 1.1 X10^3/uL (1.3-2.9); LYMPHOCYTES % (AUTO) 8.4 % (21.0-51.0); MEAN CORPUSCULAR HGB CONC 31.4 g/dL (33.0-35.0); MEAN CORPUSCULAR VOLUME 85.8 fL (80.0-100.0); MEAN PLATELET VOLUME 9.3 fL (7.4-11.0); MONOCYTES # (AUTO) 0.8 x10^3/uL (0.3-0.8); MONOCYTES % (AUTO) 6.4 % (0.0-13.0); NEUTROPHILS # (AUTO) 10.9 x10^3/uL (2.2-4.8); NEUTROPHILS % (AUTO) 84.7 % (42.0-75.0); PLATELET COUNT 283 X10^3/uL (150.0-450.0); RED BLOOD COUNT 6.14 X10^6/uL (3.5-5.4); RED CELL DISTRIBUTION WIDTH 16.2 % (11.6-16.5); WHITE BLOOD COUNT 12.9 X10^3/uL (3.6-10.0)
[2024-09-08 06:37] LABS: ALANINE AMINOTRANSFERASE 19 Units/L (12-78); ALBUMIN 2.7 g/dL (3.4-5.0); ALKALINE PHOSPHATASE 78 Units/L (46-116); ASPARTATE AMINO TRANSFERASE 17 Units/L (15-37); BLOOD UREA NITROGEN 30 mg/dL (7-18); CALCIUM 8.6 mg/dL (8.5-10.1); CARBON DIOXIDE 32.2 mmol/L (21-32); CHLORIDE 99 mmol/L (98-107); COR CA(FOR HYPOALB) 9.6 mg/dL (8.5-10.1); COR NA(FOR HYPERGLY) 138 mmol/L (136-145); CREATININE 0.88 mg/dL (0.55-1.02); GLUCOSE 186 mg/dL (65-99); SODIUM 136 mmol/L (136-145); TOTAL PROTEIN 6.9 g/dL (6.4-8.2); eGFR NON BLACK RACES > 60 (>60)
--- NOTE | 2024-09-08 08:07 | RAD ---
EXAM: Portable chest HISTORY: Respiratory distress COMPARISON: 09/03/2023 FINDINGS: Heart is enlarged. No congestive heart failure is noted. No definite acute alveolar infiltrates a re identified on today's examination. No pleural effusions identified. Bony thorax is unremarkable. IMPRESSION: Cardiomegaly without congestive heart failure No definite acute infiltrates on today's examination THIS IS AN ELECTRONICALLY VERIFIED FINAL REPORT 09/08/2024 8:04 AM - Electronically signed by Kaveh Campbell MD
[2024-09-08] MEDS: VIBRAMYCIN PO SCH (10:17)
[2024-09-08 14:16] VITALS: BP 104/52; PULSE 68; RESP 20; TEMP 98; O2SAT 90
--- NOTE | 2024-09-11 08:51 | W.DIS.FURT ---
Summary of Discharge Discharge Summary of Date Date of Exam: 09/08/24 Admission Date Date of Admission: 09/02/24 Admission Diagnosis Patient Problems (Updated 09/08/24 @ 13:34 by Neema Ramsey MD) COPD exacerbation (Acute) J44.1 Acute respiratory failure with hypoxia and hypercarbia (Acute) J96.01, J96.02 Hospital Course: Patient is a 67y/o female with a hx of chronic respiratory failure due to CO PD/Emphysema, UMM and CHF presented with worsening dyspnea. She has a history of recurrent exacerbations. Reports being short of breath today, coughing, chest congestion for the past week. She uses 4L O2 at all times. On arrival to the ER she was found to be hypoxic. She was placed on BiPAP respiratory support. Labs/imaging: WBC 12.2, hemoglobin 14.8, platelets 212, sodium 140, potassium 5.1, creatinine 0.91, glucose 299, ABG: pH 7.32, pCO2 91 PE, pCO2 66, HCO3 46, O2 sat 91%. On FiO2 45%. AIT pending. Patient is admitted for acute on chronic respiratory failure, Pneumonia, CHF exacerbation. Started on IV antibiotics, steroids, nebs and Pulmicort. BiPAP was weaned off as per respiratory. Her labs were monitored daily and electrolytes replaced as needed. She initially received fluids and was later given Lasix for diuresis. She was feeling better and was weaned down to nasal cannula. She was tolerating p.o. intake. She did work with physical therapy as tolerated. She was down to using her 3 to 4 L O2 at baseline. AIT showed MRSA. She was stable to be discharged home on p.o. antibiotics. She will follow-up with PCP as scheduled. Vital Signs: Vital Signs (72 hours) 09/05/24 13:45 09/05/24 14:00 09/05/24 14:15 Temperature Pulse Rate 82 80 75 Respiratory Rate 26 H 11 L 21 Blood Pressure O2 Sat by Pulse Oximetry 88 L 84 L 86 L Oxygen Delivery Method Oxygen Flow Rate FIO2% 09/05/24 14:30 09/05/24 14:45 09/05/24 15:00 Temperature Pulse Rate 71 79 78 Respiratory Rate 26 H 27 H 29 H Blood Pressure O2 Sat by Pulse Oximetry 85 L 87 L 85 L Oxygen Delivery Method Oxygen Flow Rate FIO2% 09/05/24 15:15 09/05/24 15:30 09/05/24 15:45 Temperature Pulse Rate 77 75 75 Respiratory Rate 31 H 28 H 29 H Blood Pressure O2 Sat by Pulse Oximetry 84 L 85 L 84 L Oxygen Delivery Method Oxygen Flow Rate FIO2% 09/05/24 16:00 09/05/24 16:00 09/05/24 16:00 Temperature Pulse Rate 76 Respiratory Rate 24 Blood Pressure 157/71 157/71 O2 Sat by Pulse Oximetry 76 L Oxygen Delivery Method Oxygen Flow Rate FIO2% 09/05/24 16:15 09/05/24 16:30 09/05/24 19:00 Temperature 98.4 F Pulse Rate 76 76 Respiratory Rate 31 H 32 H Blood Pressure O2 Sat by Pulse Oximetry 87 L 87 L Oxygen Delivery Method Heated High Flow NC Oxygen Flow Rate 50 FIO2% 47 09/05/24 21:01 09/05/24 21:01 09/05/24 20:00 Temperature 98.3 F Pulse Rate 78 80 Respiratory Rate 28 H 27 H Blood Pressure 142/63 O2 Sat by Pulse Oximetry 88 L 90 L Oxygen Delivery Method Heated High Flow NC Heated High Flow NC Oxygen Flow Rate FIO2% 46 09/06/24 00:00 09/06/24 00:45 09/06/24 00:45 Temperature 98.5 F Pulse Rate 66 Respiratory Rate 24 Blood Pressure 137/64 O2 Sat by Pulse Oximetry 87 L Oxygen Delivery Method Bi-pap Bi-pap Oxygen Flow Rate FIO2% 50 50 50 09/06/24 00:45 09/06/24 04:00 09/06/24 05:54 Temperature 98.2 F Pulse Rate 71 66 Respiratory Rate 28 H 31 H Blood Pressure 176/75 O2 Sat by Pulse Oximetry 88 L 93 L Oxygen Delivery Method Bi-pap Heated High Flow NC Oxygen Flow Rate FIO2% 46 09/06/24 05:54 09/06/24 07:00 09/06/24 08:24 Temperature Pulse Rate 71 Respiratory Rate Blood Pressure O2 Sat by Pulse Oximetry 88 L Oxygen Delivery Method Nasal Cannula Nasal Cannula Oxygen Flow Rate 4 4 FIO2% 36 09/06/24 08:24 09/06/24 01:00 09/06/24 01:15 Temperature Pulse Rate 77 69 69 Respiratory Rate 27 H 27 H Blood Pressure O2 Sat by Pulse Oximetry 87 L 89 L 90 L Oxygen Delivery Method Oxygen Flow Rate FIO2% 09/06/24 01:30 09/06/24 01:45 09/06/24 02:00 Temperature Pulse Rate 66 67 64 Respiratory Rate 27 H 25 H 28 H Blood Pressure O2 Sat by Pulse Oximetry 89 L 91 L 93 L Oxygen Delivery Method Oxygen Flow Rate FIO2% 09/06/24 02:15 09/06/24 02:30 09/06/24 02:45 Temperature Pulse Rate 64 65 65 Respiratory Rate 27 H 26 H 26 H Blood Pressure O2 Sat by Pulse Oximetry 89 L 88 L 88 L Oxygen Delivery Method Oxygen Flow Rate FIO2% 09/06/24 03:00 09/06/24 03:15 09/06/24 03:30 Temperature Pulse Rate 68 65 64 Respiratory Rate 32 H 28 H 26 H Blood Pressure O2 Sat by Pulse Oximetry 90 L 91 L 90 L Oxygen Delivery Method Oxygen Flow Rate FIO2% 09/06/24 03:45 09/06/24 04:00 09/06/24 04:01 Temperature Pulse Rate 64 73 69 Respiratory Rate 27 H 43 H 73 H Blood Pressure O2 Sat by Pulse Oximetry 90 L 83 L 73 L Oxygen Delivery Method Oxygen Flow Rate FIO2% 09/06/24 04:01 09/06/24 04:05 09/06/24 04:05 Temperature Pulse Rate 67 Respiratory Rate 28 H Blood Pressure 203/87 176/75 O2 Sat by Pulse Oximetry 91 L Oxygen Delivery Method Oxygen Flow Rate FIO2% 09/06/24 04:15 09/06/24 04:30 09/06/24 04:45 Temperature Pulse Rate 64 66 66 Respiratory Rate 27 H 26 H 33 H Blood Pressure O2 Sat by Pulse Oximetry 93 L 92 L 91 L Oxygen Delivery Method Oxygen Flow Rate FIO2% 09/06/24 05:00 09/06/24 05:15 09/06/24 05:30 Temperature Pulse Rate 66 67 65 Respiratory Rate 26 H 27 H 26 H Blood Pressure O2 Sat by Pulse Oximetry 90 L 91 L 91 L Oxygen Delivery Method Oxygen Flow Rate FIO2% 09/06/24 05:45 09/06/24 06:00 09/06/24 06:15 Temperature Pulse Rate 70 75 66 Respiratory Rate 27 H 37 H 27 H Blood Pressure O2 Sat by Pulse Oximetry 85 L 90 L 88 L Oxygen Delivery Method Oxygen Flow Rate FIO2% 09/06/24 06:30 09/06/24 06:45 09/06/24 07:00 Temperature Pulse Rate 65 68 66 Respiratory Rate 21 28 H 35 H Blood Pressure O2 Sat by Pulse Oximetry 88 L 87 L 86 L Oxygen Delivery Method Oxygen Flow Rate FIO2% 09/06/24 07:15 09/06/24 07:30 09/06/24 07:45 Temperature Pulse Rate 64 73 72 Respiratory Rate 29 H 30 H 28 H Blood Pressure O2 Sat by Pulse Oximetry 86 L 90 L 89 L Oxygen Delivery Method Oxygen Flow Rate FIO2% 09/06/24 08:00 09/06/24 08:00 09/06/24 08:07 Temperature Pulse Rate 71 Respiratory Rate 35 H Blood Pressure 188/84 192/84 O2 Sat by Pulse Oximetry 87 L Oxygen Delivery Method Oxygen Flow Rate FIO2% 09/06/24 08:07 09/06/24 08:15 09/06/24 08:30 Temperature Pulse Rate 70 74 93 H Respiratory Rate 28 H 31 H 56 H Blood Pressure O2 Sat by Pulse Oximetry 88 L 91 L 93 L Oxygen Delivery Method Oxygen Flow Rate FIO2% 09/06/24 08:33 09/06/24 08:33 09/06/24 08:33 Temperature Pulse Rate 83 Respiratory Rate 39 H Blood Pressure 182/80 182/80 O2 Sat by Pulse Oximetry 90 L Oxygen Delivery Method Oxygen Flow Rate FIO2% 09/06/24 08:45 09/06/24 09:00 09/06/24 09:15 Temperature Pulse Rate 75 78 79 Respiratory Rate 36 H 26 H 36 H Blood Pressure O2 Sat by Pulse Oximetry 88 L 90 L 89 L Oxygen Delivery Method Oxygen Flow Rate FIO2% 09/06/24 09:30 09/06/24 09:45 09/06/24 10:00 Temperature Pulse Rate 76 76 74 Respiratory Rate 25 H 23 28 H Blood Pressure O2 Sat by Pulse Oximetry 90 L 92 L 89 L Oxygen Delivery Method Oxygen Flow Rate FIO2% 09/06/24 10:15 09/06/24 10:16 09/06/24 10:16 Temperature Pulse Rate 76 73 Respiratory Rate 35 H 29 H Blood Pressure 126/60 O2 Sat by Pulse Oximetry 89 L 88 L Oxygen Delivery Method Oxygen Flow Rate FIO2% 09/06/24 15:38 09/06/24 19:00 09/06/24 20:00 Temperature 98.6 F 97.6 F Pulse Rate 87 94 H Respiratory Rate 18 20 Blood Pressure 144/70 164/74 O2 Sat by Pulse Oximetry 90 L 88 L Oxygen Delivery Method Nasal Cannula Oxygen Flow Rate 4 FIO2% 09/06/24 23:44 09/06/24 20:00 09/06/24 21:12 Temperature 98.5 F 97.6 F Pulse Rate 59 L 74 Respiratory Rate 18 20 Blood Pressure 159/74 O2 Sat by Pulse Oximetry 94 L 90 L Oxygen Delivery Method Bi-pap Nasal Cannula Oxygen Flow Rate 4 FIO2% 50 50 09/06/24 21:12 09/06/24 21:12 09/07/24 00:28 Temperature Pulse Rate 72 Respiratory Rate Blood Pressure O2 Sat by Pulse Oximetry 94 L Oxygen Delivery Method Bi-pap Oxygen Flow Rate FIO2% 50 50 09/07/24 00:28 09/07/24 05:29 09/07/24 05:29 Temperature Pulse Rate 62 67 Respiratory Rate Blood Pressure O2 Sat by Pulse Oximetry 93 L 94 L Oxygen Delivery Method Oxygen Flow Rate FIO2% 50 09/07/24 05:45 09/07/24 07:46 09/07/24 09:46 Temperature 99.7 F H Pulse Rate 69 Respiratory Rate 18 Blood Pressure 147/84 O2 Sat by Pulse Oximetry 92 L Oxygen Delivery Method Nasal Cannula Bi-pap Nasal Cannula Oxygen Flow Rate 4 4 FIO2% 36 36 09/07/24 09:47 09/07/24 09:54 09/07/24 12:00 Temperature 97.7 F Pulse Rate 97 H 70 Respiratory Rate 18 Blood Pressure 114/55 O2 Sat by Pulse Oximetry 92 L 90 L Oxygen Delivery Method Nasal Cannula Nasal Cannula Oxygen Flow Rate 4 4 FIO2% 09/07/24 16:00 09/07/24 19:00 09/07/24 20:00 Temperature 97.9 F 97.8 F Pulse Rate 68 71 Respiratory Rate 19 20 Blood Pressure 171/74 180/72 O2 Sat by Pulse Oximetry 91 L 94 L Oxygen Delivery Method Nasal Cannula Nasal Cannula Nasal Cannula Oxygen Flow Rate 4 4 4 FIO2% 09/07/24 20:09 09/07/24 20:45 09/07/24 20:09 Temperature Pulse Rate 71 Respiratory Rate Blood Pressure O2 Sat by Pulse Oximetry 92 L Oxygen Delivery Method Nasal Cannula Bi-pap Oxygen Flow Rate 2 FIO2% 28 50 09/07/24 20:45 09/07/24 23:49 09/08/24 02:10 Temperature 98.5 F Pulse Rate 67 Respiratory Rate 21 Blood Pressure 165/76 O2 Sat by Pulse Oximetry 97 Oxygen Delivery Method Nasal Cannula Bi-pap Oxygen Flow Rate 4 FIO2% 50 50 09/08/24 03:50 09/08/24 04:00 09/08/24 08:28 Temperature 98.2 F Pulse Rate 67 Respiratory Rate 20 Blood Pressure 136/63 O2 Sat by Pulse Oximetry 95 Oxygen Delivery Method Nasal Cannula Nasal Cannula Nasal Cannula Oxygen Flow Rate 3 4 3 FIO2% 32 32 09/08/24 08:29 09/08/24 09:54 09/08/24 08:00 Temperature 97.8 F Pulse Rate 63 62 Respiratory Rate 22 Blood Pressure 115/58 O2 Sat by Pulse Oximetry 93 L 94 L Oxygen Delivery Method Nasal Cannula Nasal Cannula Oxygen Flow Rate 4 4 FIO2% Labs: Laboratory Last Values WBC 12.9 X10^3/uL (3.6-10.0) H 09/08/24 05:28 RBC 6.14 X10^6/uL (3.5-5.4) H 09/08/24 05:28 Hgb 16.6 g/dL (12.0-16.0) H 09/08/24 05:28 Hct 52.7 % (36.0-47.0) H 09/08/24 05:28 MCV 85.8 fL (80.0-100.0) 09/08/24 05:28 MCH 27.0 pg (27.0-34.0) 09/08/24 05:28 MCHC 31.4 g/dL (33.0-35.0) L 09/08/24 05:28 RDW 16.2 % (11.6-16.5) 09/08/24 05:28 Plt Count 283 X10^3/uL (150.0-450.0) 09/08/24 05:28 Plt Count Comment Adequate (ADEQUATE) 09/03/24 02:14 MPV 9.3 fL (7.4-11.0) 09/08/24 05:28 Neut % (Auto) 84.7 % (42.0-75.0) H 09/08/24 05:28 Lymph % (Auto) 8.4 % (21.0-51.0) L 09/08/24 05:28 [place] % (Auto) 6.4 % (0.0-13.0) 09/08/24 05:28 Eos % (Auto) 0.1 % (0.9-2.9) L 09/08/24 05:28 Baso % (Auto) 0.4 % (0.2-1.0) 09/08/24 05: Neut # (Auto) 10.9 x10^3/uL (2.2-4.8) H 09/08/24 05:28 Lymph # (Auto) 1.1 X10^3/uL (1.3-2.9) L 09/08/24 05:28 [place] # (Auto) 0.8 x10^3/uL (0.3-0.8) 09/08/24 05: Eos # (Auto) 0.0 x10^3/uL (0.0-0.2) 09/08/24 05: Baso # (Auto) 0.1 X10^3/uL (0.0-0.1) 09/08/24 05:28 Absolute Nucleated RBC 0.3 /100WBC 09/08/24 05:28 Total Counted 100 09/03/24 02:14 Neutrophils % (Manual) 95 % (39-76) H 09/03/24 02:14 Lymphocytes % (Manual) 4 % (13-43) L 09/03/24 02:14 Monocytes % (Manual) 1 % (4-9) L 09/03/24 02:14 Plt Morphology Comment Normal (NORMAL) 09/03/24 02:14 RBC Morphology Abnormal (NORMAL) A 09/03/24 02:14 Anisocytosis Slight A 09/03/24 02:14 PT 13.3 SECONDS (11.8-14.3) 09/03/24 02:14 INR Target Range - 09/03/24 02:14 INR 1.03 (0.8-1.3) 09/03/24 02:14 APTT 25.3 SECONDS (22.9-36.5) 09/03/24 02:14 PTT Comment - 09/03/24 02:14 Sample Site Rr 09/08/24 05:09 ABG pH 7.400 (7.35-7.45) 09/08/24 05:09 ABG pCO2 58.0 mmHg (35.0-45.0) H* 09/08/24 05:09 ABG pO2 66.0 mmHg (80.0-100.0) L 09/08/24 05:09 ABG HCO3 35.9 mmol/L (22-26) H* 09/08/24 05:09 ABG O2 Saturation 93.0 % (90-100) 09/08/24 05:09 ABG Base Excess 9.2 mmol/L (-2.0-2.0) H 09/08/24 05:09 Varun Test Pos 09/08/24 05:09 A-a Gradient 90.0 mmHg 09/08/24 05:09 FiO2 32.0 09/08/24 05:09 Blood Gas Comments Maicol well ae 09/08/24 05:09 Sodium 136 mmol/L (136-145) 09/08/24 05:28 Corrected Sodium 138 mmol/L (136-145) 09/08/24 05:28 Potassium 5.0 mmol/L (3.5-5.1) 09/08/24 05:28 Chloride 99 mmol/L (98-107) 09/08/24 05:28 Carbon Dioxide 32.2 mmol/L (21-32) H 09/08/24 05:28 BUN 30 mg/dL (7-18) H 09/08/24 05:28 Creatinine 0.88 mg/dL (0.55-1.02) 09/08/24 05:28 Est GFR (MDRD) Af Amer > 60 (>60) 09/08/24 05:28 Est GFR (MDRD) Non-Af > 60 (>60) 09/08/24 05:28 Glucose 186 mg/dL (65-99) H 09/08/24 05:28 POC Glucose (mg/dL) 198 mg/dL (65-99) H 09/08/24 11:28 Lactic Acid 0.8 mmol/L (0.4-2.0) 09/04/24 09:05 Calcium 8.6 mg/dL (8.5-10.1) 09/08/24 05:28 Corrected Calcium 9.6 mg/dL (8.5-10.1) 09/08/24 05:28 Magnesium 2.0 mg/dL (2.0-2.9) 09/06/24 04:49 Total Bilirubin 0.50 mg/dL (0.2-1.0) 09/08/24 05:28 AST 17 Units/L (15-37) 09/08/24 05:28 ALT 19 Units/L (12-78) 09/08/24 05:28 Alkaline Phosphatase 78 Units/L (46-116) 09/08/24 05:28 Creatine Kinase 52 Units/L (26-192) 09/03/24 02:14 Troponin I High Sens 11.2 ng/L (4.0-60.0) 09/03/24 02:14 B-Natriuretic Peptide 576 pg/mL (0-79) H 09/04/24 09:12 Total Protein 6.9 g/dL (6.4-8.2) 09/08/24 05:28 Albumin 2.7 g/dL (3.4-5.0) L 09/08/24 05:28 Globulin 4.2 g/dL (2.5-4.5) 09/08/24 05:28 Albumin/Globulin Ratio 0.6 Ratio (1.1-2.1) L 09/08/24 05:28 Stool for White Cells Positive (NEGATIVE) A 09/05/24 14:12 Stl C. diff Tox B Gene Negative (NEGATIVE) 09/05/24 14:12 Stl C. diff [id number] Presumptive negative (NEGATIVE) 09/05/24 14:12 Stool H. pylori Ag Negative (NEGATIVE) 09/05/24 14:12 SARS-CoV-2 (PCR) Negative (NEGATIVE) 09/02/24 16:58 Cryptosporid parvum Ag Negative (NEGATIVE) 09/05/24 14:12 Giardia lamblia Ag Negative (NEGATIVE) 09/05/24 14:12 Influenza Type A (PCR) Negative (NEGATIVE) 09/02/24 16:58 Influenza Type B (PCR) Negative (NEGATIVE) 09/02/24 16:58 RSV (PCR) Negative (NEGATIVE) 09/02/24 16:58 Resp Viral Panel (PCR) See scanned report 09/02/24 20:56 Reason For Visit: RESP FAILURE, COPD EXAC, HYPERCAPNIA Discharge Diagnosis All Active Problems (Updated 09/08/24 @ 13:34 by Neema Ramsey MD) MRSA pneumonia (Acute) Hypercapnia (Acute) Bronchitis (Acute) COPD exacerbation (Acute) Hypoxia (Acute) Community acquired bacterial pneumonia (Acute) Hypotension (Acute) Non-compliance (Acute) Acute CHF (Acute) Hypercapnic respiratory failure (Acute) Hypoxemia (Acute) Bronchitis (Acute) COPD, severe (Chronic) CHF (congestive heart failure) (Chronic) Osteoarthritis (Chronic) Obesity (Chronic) Falls frequently (Chronic) Essential hypertension (Chronic) Diabetes type 2, uncontrolled (Chronic) Chronic lower back pain (Chronic) Asthma (Chronic) Arthritis (Chronic) Anxiety disorder (Chronic) Sepsis (Acute) Pneumonia due to 2019 novel coronavirus (Acute) Acute hypoxemic respiratory failure (Acute) Difficult intubation (Acute) CHF exacerbation (Acute) Acute respiratory failure with hypoxia and hypercarbia (Acute) Bronchitis (Acute) COPD exacerbation (Acute) Generalized weakness (Acute) Lethargy (Acute) Drug abuse (Chronic) Type 2 diabetes mellitus (Chronic) Plan of Treatment: Continue with present treatment and follow up plan. Pt is to keep follow up appointment as instructed and take medications as ordered. Discharge Medications Discharge Medications: Iodinated Contrast Media Allergy (Verified 09/02/24 17:09) iodine Allergy (Verified 09/02/24 17:09) Penicillins Allergy (Verified 09/02/24 17:09) shellfish derived Allergy (Verified 09/02/24 17:09) CONTINUE taking the following medications albuterol sulfate 90 mcg/actuation aerosol inhaler 2 puff inhalation Q6H PRN 09/02/24 [History] ipratropium 0.5 mg-albuterol 3 mg (2.5 mg base)/3 mL nebulization soln 3 ml inhalation Q6H PRN 09/02/24 [History] New Prescriptions doxycycline hyclate 100 mg capsule 100 mg PO BID 5 days #10 caps 09/08/24 [Rx] Discharge Disposition Discharge Disposition: To home Discharge Condition: Stable Discharge Plan Discharge Plan Hospital Course: Patient is a 67y/o female with a hx of chronic respiratory failure due to COPD/Emphysema, UMM and CHF presented with worsening dyspnea. She has a history of recurrent exacerbations. Reports being short of breath today, coughing, chest congestion for the past week. She uses 4L O2 at all times. On arrival to the ER she was found to be hypoxic. She was placed on BiPAP respiratory support. Labs/imaging: WBC 12.2, hemoglobin 14.8, platelets 212, sodium 140, potassium 5.1, creatinine 0.91, glucose 299, ABG: pH 7.32, pCO2 91 PE, pCO2 66, HCO3 46, O2 sat 91%. On FiO2 45%. AIT pending. Patient is admitted for acute on chronic respiratory failure, Pneumonia, CHF exacerbation. Started on IV antibiotics, steroids, nebs and Pulmicort. BiPAP was weaned off as per respiratory. Her labs were monitored daily and electrolytes replaced as needed. She initially received fluids and was later given Lasix for diuresis. She was feeling better and was weaned down to nasal cannula. She was tolerating p.o. intake. She did work with physical therapy as tolerated. She was down to using her 3 to 4 L O2 at baseline. AIT showed MRSA. She was stable to be discharged home on p.o. antibiotics. She will follow-up with PCP as scheduled. Patient Disposition: 01 HOME, SELF-CARE Condition: Stable Health Concerns: Post Hospitalization: new medications and changes needed to prevent readmission or further decline. Pt educated and given instructions on all concerns. Care Plan Goals: Problem: Pain/Alteration in Comfort Goal: Improve/ Resolve Pain; Achieve Pain Tolerance Instructions: Take pain medications as prescribed. Contact your primary care provider if your pain is unrelieved or worsens. Follow up with primary care provider as directed. Plan of Treatment: Continue with present treatment and follow up plan. Pt is to keep follow up appointment as instructed and take medications as ordered. Prescription drug monitoring program results: PDMP reviewed and no concerns identified Prescriptions: New doxycycline hyclate 100 mg capsule 100 mg PO BID 5 Days Qty: 10 0RF Continued ipratropium-albuterol 0.5 mg-3 mg(2.5 mg base)/3 mL Solution For Nebulization 3 ml INHALATION Q6H PRN albuterol sulfate 90 mcg/actuation Hfa Aerosol Inhaler 2 puff INHALATION Q6H PRN carvedilol 6.25 mg Tablet 6.25 mg PO BID Qty: 60 3RF spironolactone 25 mg tablet 25 mg PO QDAY metformin 1,000 mg tablet 1,000 mg PO BID furosemide 20 mg tablet 20 mg PO QDAY Trelegy Ellipta 100-62.5-25 mcg blister with device 1 ea inhalation QDAY sacubitril-valsartan [Entresto] 24-26 mg Tablet 0.5 tab PO BID Qty: 30 0RF Follow ups/Referrals Follow ups/Referrals: Rosa Maria Lamas [Primary Care Provider] - 09/14/24 2:15 pm Instructions Instructions: Hypoxia, Managing the Challenge of Quitting Smoking, Upper Respiratory Infection, Adult, Living With COPD, Cough, Adult Stand Alone Forms: Excuse From Work or School, Find Help Web Site, Post Hospital Follow Up Care
== END 2024-09-08 15:20 | disposition home or self-care (01) | DRG 189 ==
LOC: ER 16:40 → MED/SURG 16:40 → ICU 09-04 12:22 → MED/SURG 09-06 15:04
PROVIDERS: ADMIT Internal Medicine; ATTEND Internal Medicine
DX: Z16.12 Extended spectrum beta lactamase (ESBL) resistance; Z16.29 Resistance to other single specified antibiotic; Z66 Do not resuscitate; I50.41 Acute combined systolic (congestive) and diastolic (congestive) heart failure; J96.21 Acute and chronic respiratory failure with hypoxia; Z72.0 Tobacco use; F41.8 Other specified anxiety disorders; Z99.81 Dependence on supplemental oxygen; Z16.23 Resistance to quinolones and fluoroquinolones; E83.42 Hypomagnesemia; J44.1 Chronic obstructive pulmonary disease with (acute) exacerbation; J96.22 Acute and chronic respiratory failure with hypercapnia; Z29.89 Encounter for other specified prophylactic measures; R26.89 Other abnormalities of gait and mobility; Z03.818 Encounter for observation for suspected exposure to other biological agents ruled out; J15.212 Pneumonia due to Methicillin resistant Staphylococcus aureus; R94.31 Abnormal electrocardiogram [ECG] [EKG]; E11.65 Type 2 diabetes mellitus with hyperglycemia

== ENCOUNTER 2025-03-04 15:14 | Observation (INO) ==
[2025-03-04] MEDS: ZOFRAN INJ 4 MG VIAL IVP ONE (15:33)
[2025-03-04] MEDS: NARCAN INJ IVP ONE ×2 (15:34→16:51)
--- NOTE | 2025-03-04 16:21 | DR.AMS ---
HPI Time Seen Time Seen by Provider: 03/04/25 16:21 PCP Primary Care Physician: Rogers HPI Comment HPI Comment: Patient brought in by EMS for altered mental status, obtunded worsening over the last 1 to 2 weeks. Patient took Bozrah today and states she does not know the strength although difficult to communicate with her due to altered mental status and confusion as well as being obtunded. Patient does admit to using meth a few days ago. Complaint Chief Complaint:: Patient brought in via [email or web address] with the CC of "Tired" and "Unable to stay awake" for the last one to two weeks. Patient stated that she took a Bozrah this morning and unsure of the strength of it, and that she done "Meth" two or three days ago. 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 Family History History of Family Medical Conditions: Yes Family Medical History: Diabetes Mellitus Social History Does patient currently use any type of tobacco product: Yes Have you used tobacco products in the last 12 months: Yes Type of Tobacco Use: Cigarettes Does any household member use tobacco: Yes Alcohol Use: None Do you use any recreational Drugs:: Yes (THC, Meth) Lives With: Family Lives Where: Home Travel Risk Coronavirus risk:travel/contact w/high risk person: No Has patient experienced Coronavirus symptoms: No Infectious screening In the last 2 months have you had wt loss of >10#?: NO Have you had fever, night sweats or hemotysis?: No Have you traveled outside the country in the last 6 months?: No Isolation: Standard ROS Review of Systems Constitutional: Fatigue Unable to Obtain Due To: Altered mental status PE Vitals Vital Signs: Temp Pulse Resp BP Pulse Ox O2 Del Method O2 Flow Rate 03/04/25 19:58 143/65 03/04/25 19:34 03/04/25 17:21 03/04/25 17:15 80 16 138/63 88 L Nasal Cannula 2 03/04/25 17:00 87 16 147/65 88 L Nasal Cannula 2 03/04/25 16:45 85 16 141/65 88 L Nasal Cannula 2 03/04/25 16:30 87 14 142/57 89 L Nasal Cannula 2 03/04/25 16:26 83 16 121/58 88 L Nasal Cannula 2 03/04/25 15:50 90 22 156/60 93 L Nasal Cannula 2 03/04/25 15:47 79 14 132/60 92 L Nasal Cannula 2 03/04/25 15:45 79 40 H 92 L Nasal Cannula 2 03/04/25 15:40 132/60 03/04/25 15:40 80 92 L 03/04/25 15:30 134/61 03/04/25 15:30 81 22 92 L 03/04/25 15:15 83 03/04/25 15:15 127/61 03/04/25 15:14 98.1 F 80 17 127/61 91 L Nasal Cannula FiO2 03/04/25 19:58 03/04/25 19:34 45 03/04/25 17:21 50 03/04/25 17:15 03/04/25 17:00 03/04/25 16:45 03/04/25 16:30 03/04/25 16:26 03/04/25 15:50 03/04/25 15:47 03/04/25 15:45 03/04/25 15:40 03/04/25 15:40 03/04/25 15:30 03/04/25 15:30 03/04/25 15:15 03/04/25 15:15 03/04/25 15:14 General Limitations: Altered Mental Status General Appearance: Alert Head Head Exam: Normal Inspection, Atraumatic and Normocephalic Eyes Eye exam: Normal Appearance, PERRL and EOMI Neck Neck Exam: Normal Inspection and Trachea Midline Respiratory Respiratory Exam: Normal Lung Sounds Bilat Cardiovascular Cardiovascular Exam: Regular Rate and Normal Rhythm Abdominal Exam Abdominal Exam: Normal Inspection, Normal Bowel Sounds and Soft; negative Distention, Tenderness, Guarding, Rebound, Rigidity, Organomegaly or Ascites Extremities Extremities Exam: Normal Inspection Neurological Neurological Exam: Reflexes Normal Psychological Psychiatric Exam: Normal Affect and Normal Mood Skin Skin Exam: Warm, Dry, Intact and Normal Color COURSE Treatment Treatment: Patient placed on BiPAP. Narcan administered with minimal improvement in alertness. Consultation Consultation Comments: Discussed case with Dr. Monsalve and she is agreeable to admission. ROR Labs Reviewed Laboratory Results Reviewed?: Yes 03/04/25 16:23 03/04/25 16:23 Laboratory: WBC 9.4 X10^3/uL (3.6-10.0) 03/04/25 16:23 RBC 5.68 X10^6/uL (3.5-5.4) H 03/04/25 16:23 Hgb 15.8 g/dL (12.0-16.0) 03/04/25 16:23 Hct 50.6 % (36.0-47.0) H 03/04/25 16:23 MCV 89.1 fL (80.0-100.0) 03/04/25 16:23 MCH 27.8 pg (27.0-34.0) 03/04/25 16:23 MCHC 31.2 g/dL (33.0-35.0) L 03/04/25 16:23 RDW 16.9 % (11.6-16.5) H 03/04/25 16:23 Plt Count 227 X10^3/uL (150.0-450.0) 03/04/25 16:23 MPV 9.2 fL (7.4-11.0) 03/04/25 16:23 Neut % (Auto) 70.1 % (42.0-75.0) 03/04/25 16:23 Lymph % (Auto) 20.1 % (21.0-51.0) L 03/04/25 16:23 [place]borne % (Auto) 8.5 % (0.0-13.0) 03/04/25 16:23 Eos % (Auto) 0.8 % (0.9-2.9) L 03/04/25 16:23 Baso % (Auto) 0.5 % (0.2-1.0) 03/04/25 16:23 Neut # (Auto) 6.6 x10^3/uL (2.2-4.8) H 03/04/25 16:23 Lymph # (Auto) 1.9 X10^3/uL (1.3-2.9) 03/04/25 16:23 Osborne # (Auto) 0.8 x10^3/uL (0.3-0.8) 03/04/25 16:23 Eos # (Auto) 0.1 x10^3/uL (0.0-0.2) 03/04/25 16:23 Baso # (Auto) 0.0 X10^3/uL (0.0-0.1) 03/04/25 16:23 Absolute Nucleated RBC 0.1 /100WBC 03/04/25 16:23 PT 12.3 SECONDS (11.8-14.3) 03/04/25 16:23 INR Target Range - 03/04/25 16:23 INR 0.90 (0.8-1.3) 03/04/25 16:23 APTT 24.2 SECONDS (22.9-36.5) 03/04/25 16:23 PTT Comment - 03/04/25 16:23 Sample Site Rra 03/04/25 18:35 ABG pH 7.230 (7.35-7.45) L 03/04/25 18:35 ABG pCO2 92.0 mmHg (35.0-45.0) H* 03/04/25 18:35 ABG pO2 99.0 mmHg (80.0-100.0) 03/04/25 18:35 ABG HCO3 38.5 mmol/L (22-26) H* 03/04/25 18:35 ABG O2 Saturation 96.0 % (90-100) 03/04/25 18:35 ABG Base Excess 7.7 mmol/L (-2.0-2.0) H 03/04/25 18:35 Varun Test Pos 03/04/25 18:35 A-a Gradient 143.0 mmHg 03/04/25 18:35 FiO2 50.0 03/04/25 18:35 Blood Gas Comments Pt jose well eb 03/04/25 18:35 Sodium 144 mmol/L (136-145) 03/04/25 16:23 Corrected Sodium 147 mmol/L (136-145) H 03/04/25 16:23 Potassium 4.2 mmol/L (3.5-5.1) 03/04/25 16:23 Chloride 104 mmol/L (98-107) 03/04/25 16:23 Carbon Dioxide 40.5 mmol/L (21-32) H 03/04/25 16:23 BUN 16 mg/dL (7-18) 03/04/25 16:23 Creatinine 0.86 mg/dL (0.55-1.02) 03/04/25 16:23 Est GFR (MDRD) Af Amer > 60 (>60) 03/04/25 16:23 Est GFR (MDRD) Non-Af > 60 (>60) 03/04/25 16:23 Glucose 221 mg/dL (65-99) H 03/04/25 16:23 Calcium 8.9 mg/dL (8.5-10.1) 03/04/25 16:23 Corrected Calcium 9.7 mg/dL (8.5-10.1) 03/04/25 16:23 Total Bilirubin 0.20 mg/dL (0.2-1.0) 03/04/25 16:23 AST 13 Units/L (15-37) L 03/04/25 16:23 ALT 17 Units/L (12-78) 03/04/25 16:23 Alkaline Phosphatase 92 Units/L (46-116) 03/04/25 16:23 Creatine Kinase 26 Units/L (26-192) 03/04/25 16:23 Troponin I High Sens 12.5 ng/L (4.0-60.0) 03/04/25 16:23 B-Natriuretic Peptide 146 pg/mL (0-79) H 03/04/25 16:23 Total Protein 7.8 g/dL (6.4-8.2) 03/04/25 16:23 Albumin 3.0 g/dL (3.4-5.0) L 03/04/25 16:23 Globulin 4.8 g/dL (2.5-4.5) H 03/04/25 16:23 Albumin/Globulin Ratio 0.6 Ratio (1.1-2.1) L 03/04/25 16:23 Specimen Type Catherized urine 03/04/25 16:35 Urine Color Yellow (YELLOW) 03/04/25 16:35 Urine Appearance Clear (CLEAR) 03/04/25 16:35 Urine pH 5.0 (5.0 - 8.0) 03/04/25 16:35 Ur Specific [place] 1.025 (1.000-1.030) 03/04/25 16:35 Urine Protein 2+ (NEGATIVE) 03/04/25 16:35 Urine Glucose (UA) 2+ (NEGATIVE) 03/04/25 16:35 Urine Ketones Negative (NEGATIVE) 03/04/25 16:35 Urine Blood Negative (NEGATIVE) 03/04/25 16:35 Urine Nitrite Negative (NEGATIVE) 03/04/25 16:35 Urine Bilirubin Negative (NEGATIVE) 03/04/25 16:35 Urine Urobilinogen Normal (NORMAL) 03/04/25 16:35 Ur Leukocyte Esterase Negative (NEGATIVE) 03/04/25 16:35 Urine RBC None seen /HPF (0-3) 03/04/25 16:35 Urine WBC 0-2 /HPF (0-5) 03/04/25 16:35 Ur Squamous Epith Cells Rare /HPF (NEGATIVE) 03/04/25 16:35 Urine Bacteria Negative /HPF (NEGATIVE) 03/04/25 16:35 Hyaline Casts Few /LPF (NEGATIVE) 03/04/25 16:35 Ur Culture Indicated? No/not indicated 03/04/25 16:35 Urine Opiates Screen Negative (NEG=<300) 03/04/25 16:35 Urine Methadone Screen Negative (NEG=<300) 03/04/25 16:35 Ur Barbiturates Screen Negative (NEG=<200) 03/04/25 16:35 Ur Phencyclidine Scrn Negative (NEG=<25) 03/04/25 16:35 Ur Amphetamines Screen Positive (NEG=<1000) A 03/04/25 16:35 U Benzodiazepines Scrn Negative (NEG=<200) 03/04/25 16:35 Urine Cocaine Screen Negative (NEG=<300) 03/04/25 16:35 U Marijuana (THC) Screen Positive (NEG=<50) A 03/04/25 16:35 Other Results Comments: Name: SUSANNE PEREZ : 1955 Sex: F Location: ER Order Number(s): [id number] Procedure(s):BRAIN CT W/O CON Ordering Physician: Carl Rubalcava Primary Care: BIN[facility] CHURCH[facility] Service Date: 03/04/25 Service Time: 1547 EXAM: BRAIN W/O CON HISTORY: "Tired" and "Unable to stay awake" for the last one to two weeks. Patient stated that she took a Bozrah this morning and unsure of the strength of it, and that she done "Meth" two or three days ago.; COMPARISON: None. TECHNIQUE: Axial non-contrast images of the head with coronal and sagittal reformats. Radiation dose: 1650.86 mGy-cm total DLP FINDINGS: No abnormal areas of acute attenuation in the brain parenchyma. Perez-white differentiation remains intact. No intracranial, extra-axial, fluid collection. No hemorrhage. No mass, mass effect or midline shift. No ventriculomegaly. No acute fracture. Sinuses are well aerated. Mastoid air cells are well aerated. Globes and intraorbital contents are unremarkable. IMPRESSION: No acute intracranial abnormality identified. THIS IS AN ELECTRONICALLY VERIFIED FINAL REPORT 03/04/2025 4:33 PM - Electronically signed by Cj Malagon MD EKG Rate: 76 Rhythm: NSR and PVCs ST: Normal Opioid Opioid Risk Tool Age (Yuval box if 16-45): No History of Preadolescent Sexual Abuse: No Total: 0 Total Score Risk Category: Low Risk Copyright: Jovanni HAYES predicting aberrant behaviors Discharge Plan Diagnosis Discharge Problem: Drug overdose, Altered mental status, Acute hypoxemic respiratory failure Discharge Plan Patient Disposition: 09 ADMITTED INPATIENT Condition: Stable Prescriptions: No Action ipratropium-albuterol 0.5 mg-3 mg(2.5 mg base)/3 mL Solution For Nebulization 3 ml INHALATION Q6H PRN albuterol sulfate 90 mcg/actuation Hfa Aerosol Inhaler 2 puff INHALATION Q6H PRN carvedilol 6.25 mg Tablet 6.25 mg PO BID Qty: 60 3RF spironolactone 25 mg tablet 25 mg PO QDAY metformin 1,000 mg tablet 1,000 mg PO BID furosemide 20 mg tablet 20 mg PO QDAY Trelegy Ellipta 100-62.5-25 mcg blister with device 1 ea inhalation QDAY Entresto 24-26 mg Tablet 0.5 tab PO BID Qty: 30 0RF Health Concerns: Post Hospitalization: new medications and changes needed to prevent readmission or further decline. Pt educated and given instructions on all concerns. Plan of Treatment: Continue with present treatment and follow up plan. Pt is to keep follow up appointment as instructed and take medications as ordered. Orders to Discharge Patient Discharge Orders: Transfer (Routine); Ordered 03/04/25 Ordered By: Carl Rubalcava Follow ups/Referrals Follow ups/Referrals: BINTA CHURCHILL [Primary Care Provider, MEDICAL] - 3 days Instructions Stand Alone Forms: Find Help Web Site, Post Hospital Follow Up Care Print Language: L[place]
--- NOTE | 2025-03-04 16:37 | CT ---
EXAM: BRAIN W/O CON HISTORY: "Tired" and "Unable to stay awake" for the last one to two weeks. Patient stated that she took a [place] this morning and unsure of the strength of it, and that she done "Meth" two or three days ago.; COMPARISON: None. TECHNIQUE: Axial non-contrast images of the head with coronal and sagittal reformats. Radiation dose: 1650.86 mGy-cm total DLP FINDINGS: No abnormal areas of acute attenuation in the brain parenchyma. Perez-white differentiation remains intact. No intracranial, extra-axial, fluid collection. No hemorrhage. No mass, mass effect or midline shift. No ventriculomegaly. No acute fracture. Sinuses are well aerated. Mastoid air cells are well aerated. Globes and intraorbital contents are unremarkable. IMPRESSION: No acute intracranial abnormality identified. THIS IS AN ELECTRONICALLY VERIFIED FINAL REPORT 03/04/2025 4:33 PM - Electronically signed by Cj Malagon MD
[2025-03-04 16:40] LABS: MEAN PLATELET VOLUME 9.2 fL (7.4-11.0); RED CELL DISTRIBUTION WIDTH 16.9 % (11.6-16.5)
[2025-03-04 16:44] LABS: BLOOD/HEMOGLOBIN,URINE NEGATIVE (NEGATIVE); LEUKOCYTE ESTERASE ,URINE NEGATIVE (NEGATIVE); NITRITES,URINE NEGATIVE (NEGATIVE)
[2025-03-04 16:47] LABS: INR 0.90 (0.8-1.3)
[2025-03-04 16:53] LABS: COR CA(FOR HYPOALB) 9.7 mg/dL (8.5-10.1); COR NA(FOR HYPERGLY) 147 mmol/L (136-145); CREATININE 0.86 mg/dL (0.55-1.02); eGFR NON BLACK RACES > 60 (>60)
--- NOTE | 2025-03-04 16:57 | EKG ---
Test Reason : AMS Blood Pressure : */* mmHG Vent. Rate : 76 BPM Atrial Rate : 76 BPM P-R Int : 172 ms QRS Dur : 94 ms QT Int : 368 ms P-R-T Axes : 67 -4 28 degrees QTc Int : 414 ms Sinus rhythm with marked sinus arrhythmia with occasional premature ventricular complexes Possible Anterior infarct (cited on or before 03-SEP-2024) Abnormal ECG When compared with ECG of 03-SEP-2024 09:56, premature ventricular complexes are now present Questionable change in QRS duration Questionable change in initial forces of Anteroseptal leads Confirmed by Jaime Meraz MD ([id number]) on 03/04/2025 6:23:38 PM Referred By: Confirmed By: Jaime Meraz MD
[2025-03-04 17:02] LABS: APPEARANCE,URINE CLEAR (CLEAR)
[2025-03-04 17:03] LABS: HYALINE CASTS, URINE FEW /LPF (NEGATIVE); SQUAMOUS EPITHELIAL CELL,UR RARE /HPF (NEGATIVE)
[2025-03-04 17:07] LABS: ABG BASE EXCESS 8.1 mmol/L (-2.0-2.0); ABG OXYGEN SATURATION 87.0 % (90-100); ABG PH 7.230 (7.35-7.45); ABG PO2 63.0 mmHg (80.0-100.0)
[2025-03-04 17:08] LABS: ABG ALLEN TEST POS; ABG HCO3 38.9 mmol/L (22-26); ABG PCO2 93.0 mmHg (35.0-45.0)
[2025-03-04 18:37] LABS: ABG BASE EXCESS 7.7 mmol/L (-2.0-2.0); ABG OXYGEN SATURATION 96.0 % (90-100); ABG PH 7.230 (7.35-7.45); ABG PO2 99.0 mmHg (80.0-100.0)
[2025-03-04 18:38] LABS: ABG ALLEN TEST POS; ABG HCO3 38.5 mmol/L (22-26); ABG PCO2 92.0 mmHg (35.0-45.0)
[2025-03-04] MEDS: DUONEB 0.5 MG/3 MG (3 mL) NEB SCH (21:50)
[2025-03-04] MEDS: PULMICORT NEB TX 0.5 MG NEB SCH (21:50)
[2025-03-04] MEDS: NovoLIN R (or HumuLIN R) SUBCUT PRN (22:28)
--- NOTE | 2025-03-04 23:56 | RAD ---
EXAM: CHEST, 1 VIEW HISTORY: AMS COMPARISON: September 08, 2024 TECHNIQUE: Chest radiographic imaging, AP portable projection, 1 image FINDINGS: Mild cardiomegaly. No focal airspace disease. No pleural effusion. No pneumothorax. No acute osseous abnormality. IMPRESSION: No imaging findings of acute cardiopulmonary disease or significant changes. THIS IS AN ELECTRONICALLY VERIFIED FINAL REPORT 03/04/2025 11:52 PM - Electronically signed by Cj Malagon MD
[2025-03-05 00:34] VITALS: BMI 46.3
[2025-03-05 02:37] LABS: ABG BASE EXCESS 10.7 mmol/L (-2.0-2.0); ABG OXYGEN SATURATION 93.0 % (90-100); ABG PH 7.300 (7.35-7.45); ABG PO2 75.0 mmHg (80.0-100.0)
[2025-03-05 02:38] LABS: ABG ALLEN TEST POS; ABG HCO3 40.3 mmol/L (22-26); ABG PCO2 82.0 mmHg (35.0-45.0)
[2025-03-05] MEDS: PULMICORT NEB TX 0.5 MG NEB ONE (04:34)
[2025-03-05] MEDS: CONSULT PHARMACY - POTASSIUM & MAGNESIUM XX SCH (04:34)
[2025-03-05] MEDS: DUONEB 0.5 MG/3 MG (3 mL) NEB ONE (04:34)
[2025-03-05 05:30] LABS: MEAN PLATELET VOLUME 9.1 fL (7.4-11.0); RED CELL DISTRIBUTION WIDTH 16.1 % (11.6-16.5)
[2025-03-05 05:47] LABS: COR CA(FOR HYPOALB) 9.7 mg/dL (8.5-10.1); COR NA(FOR HYPERGLY) 147 mmol/L (136-145); CREATININE 0.95 mg/dL (0.55-1.02); eGFR NON BLACK RACES > 60 (>60)
[2025-03-05] MEDS: ZOFRAN INJ 4 MG VIAL IVP PRN (05:59)
[2025-03-05] MEDS ORDERED: PHARMACY CONSULT XX SCH (09:00)
[2025-03-05] MEDS ORDERED: COREG TAB 6.25 MG PO SCH (10:00)
[2025-03-05] MEDS: LOVENOX INJ 40 MG SYR SC SCH (10:25)
[2025-03-05] MEDS: ALDACTONE TAB 25 MG PO SCH (10:25)
[2025-03-05] MEDS: GLUCOPHAGE PO SCH (10:25)
[2025-03-05] MEDS: ENTRESTO 24/26 MG TABLET PO SCH ×2 (10:25→20:09)
[2025-03-05] MEDS: GLUCOPHAGE ONE ×2 (10:47→16:16)
[2025-03-05] MEDS: COREG TAB 12.5 MG PO SCH (12:25)
[2025-03-05 15:35] LABS: ABG BASE EXCESS 12.0 mmol/L (-2.0-2.0); ABG OXYGEN SATURATION 96.0 % (90-100); ABG PH 7.330 (7.35-7.45); ABG PO2 87.0 mmHg (80.0-100.0)
[2025-03-05 15:36] LABS: ABG ALLEN TEST POS; ABG HCO3 41.1 mmol/L (22-26); ABG PCO2 78.0 mmHg (35.0-45.0)
[2025-03-05] MEDS ORDERED: APRESOLINE TAB 25 MG ONE (15:53)
[2025-03-05] MEDS: APRESOLINE TAB 25 MG PO PRN (15:59)
[2025-03-05] MEDS ORDERED: ENTRESTO 24/26 MG TABLET PO ONE (19:50)
[2025-03-05] MEDS ORDERED: SNACK - Diabetic Appropriate PO SCH (20:00)
[2025-03-05] MEDS ORDERED: COREG TAB 12.5 MG PO SCH (21:00)
[2025-03-06 00:02] VITALS: TEMP 97.8
[2025-03-06 04:08] VITALS: RESP 26
[2025-03-06] MEDS ORDERED: GLUCOPHAGE ONE (04:23)
[2025-03-06 05:54] LABS: ABG BASE EXCESS 13.8 mmol/L (-2.0-2.0); ABG OXYGEN SATURATION 95.0 % (90-100); ABG PH 7.400 (7.35-7.45); ABG PO2 76.0 mmHg (80.0-100.0)
[2025-03-06 05:56] LABS: ABG PCO2 67.0 mmHg (35.0-45.0)
[2025-03-06 05:57] LABS: ABG ALLEN TEST POS; ABG HCO3 41.5 mmol/L (22-26)
[2025-03-06] MEDS: TYLENOL 325 MG TAB PO PRN (09:12)
[2025-03-06 12:16] VITALS: BP 118/58; PULSE 66; O2SAT 89
== END 2025-03-06 12:55 | disposition home or self-care (01) ==
LOC: ICU 15:14 → ER 15:14 → ICU 20:54
PROVIDERS: ADMIT Internal Medicine; ATTEND Obstetrics & Gynecology Obstetrics
DX: E78.5 Hyperlipidemia, unspecified; E66.2 Morbid (severe) obesity with alveolar hypoventilation; J96.01 Acute respiratory failure with hypoxia; R26.89 Other abnormalities of gait and mobility; E11.65 Type 2 diabetes mellitus with hyperglycemia; R94.31 Abnormal electrocardiogram [ECG] [EKG]; E87.0 Hyperosmolality and hypernatremia; Z59.86 Financial insecurity; F41.8 Other specified anxiety disorders; F15.90 Other stimulant use, unspecified, uncomplicated; I10 Essential (primary) hypertension; J41.0 Simple chronic bronchitis; R41.82 Altered mental status, unspecified; F12.90 Cannabis use, unspecified, uncomplicated